=== PATIENT | male | born 1950 | race Caucasian/White ===

== ENCOUNTER → 2018-04-22 | Outpatient (CLI) | payer MEDICARE ==
--- NOTE | 2018-04-22 14:48 | XR ---
EXAMINATION TYPE: XR cervical spine limited DATE OF EXAM: 04/22/2018 COMPARISON: NONE HISTORY: neck pain TECHNIQUE: 3 views are submitted. FINDINGS: The odontoid is intact. There are no compression deformities. The prevertebral soft tissue structur es are within normal limits. There is multilevel degenerative disc disease with most marked findings at C3-C4 with a 3.7 mm retrolisthesis. Multilevel facet arthropathy noted. Calcifications in the soft tissues of the neck are likely vascular. IMPRESSION: 1. Multilevel severe degenerative disc disease with facet arthropathy and hypertrophic changes. There is a 3.7 mm retrolisthesis of C3 relative to C4. Consider MRI follow-up.
--- NOTE | 2018-04-22 14:49 | XR ---
EXAM TYPE: LUMBAR SPINE X RAY SERIES COMPARISON: NONE HISTORY: Low back pain TECHNIQUE: 4 views are submitted. FINDINGS: Alignment is anatomic. The pedicles are intact. The transverse processes are intact. There is hype rtrophic and degenerative changes of the vertebral patella with a grade 1 anterolisthesis L5 on S1. N o compression deformities. IMPRESSION: 1. Multilevel hypertrophic and degenerative change with facet arthropathy. Grade 1 anterolisthesis L5 on S1.
== END | disposition home or self-care (01) ==
LOC: RADXRMAIN 14:00
PROVIDERS: ATTEND Internal Medicine
DX: M43.16 Spondylolisthesis, lumbar region (principal); M47.816 Spondylosis without myelopathy or radiculopathy, lumbar region; M46.86 Other specified inflammatory spondylopathies, lumbar region; M43.12 Spondylolisthesis, cervical region; M50.30 Other cervical disc degeneration, unspecified cervical region; M46.82 Other specified inflammatory spondylopathies, cervical region
CPT/HCPCS: 72040; 72100

== ENCOUNTER → 2018-06-15 | Outpatient (CLI) | payer MEDICARE ==
--- NOTE | 2018-06-16 09:49 | US ---
EXAMINATION TYPE: US carotid duplex BILAT DATE OF EXAM: 06/15/2018 COMPARISON: CT angiogram head and neck 12/26/2015 CLINICAL HISTORY: R20.2 Left Facial Numbness. EXAM MEASUREMENTS: RIGHT: Peak Systolic Velocity (PSV) cm/sec ----- Right CCA: 91.0 ----- Right ICA: 111.5 ----- Right ECA: 221.6 ICA/CCA ratio: 1.2 RIGHT: End Diastole cm/sec ----- Right CCA: 22.7 ----- Right ICA: 34.2 ----- Right ECA: 24.6 LEFT: Peak Systolic Velocity (PSV) cm/sec ----- Left CCA: 67.2 ----- Left ICA: 90.7 ----- Left ECA: 152.1 ICA/CCA ratio: 1.4 LEFT: End Diastole cm/sec ----- Left CCA: 17.2 ----- Left ICA: 34.7 ----- Left ECA: 11.1 VERTEBRALS (direction of flow): Right Vertebral: Antegrade Left Vertebral: Antegrade Rhythm: Normal No significant stenosis seen in bilateral ICA, ECA's bilaterally show increased velocity. Mild to mod erate plaque. Grayscale, color Doppler, spectral Doppler imaging performed of the carotid arteries. Waveform analys is does not show significant stenosis of the proximal internal carotid arteries. IMPRESSION: No hemodynamic significant stenosis of the proximal internal carotid arteries bilaterall y by Doppler criteria, an indirect measurement of carotid stenosis
== END | disposition home or self-care (01) ==
LOC: RADUSWWP 16:19
PROVIDERS: ATTEND Internal Medicine
DX: R20.0 Anesthesia of skin (principal)
CPT/HCPCS: 93880

== ENCOUNTER 2022-05-14 08:47 | Emergency (ER) | payer MEDICARE ==
--- NOTE | 2022-05-14 09:16 | ED ---
Neck Injury/Pain HPI - General Chief Complaint: Neck Pain/Injury Stated Complaint: weakness, neck pain Time Seen by Provider: 05/14/22 08:56 Source: EMS, RN notes reviewed Mode of arrival: EMS Limitations: no limitations - History of Present Illness Initial Comments: 72-year-old male with history of hypertension history of diabetes currently not taking medications. He states he can't afford them who presents with complaints of neck pain which is been chronic but persistent S with complaints of weakness and some dizziness. No fevers chills or sweats. He was found have a glucose of 262 on Accu-Chek he was given a 500 mL bolus by paramedics. States the pain in his neck is severe he denies any trauma no difficulty swallowing the current complaints or modifying factors MD Complaint: neck pain - Related Data Home Medications Medication Instructions Recorded Confirmed Acetaminophen/Diphenhydramine 4 tab PO HS 05/14/22 05/14/22 [Tylenol PM 500-25mg] Allergies Allergy/AdvReac Type Severity Reaction Status Date / Time No Known Allergies Allergy Verified 05/14/22 10:19 Review of Systems ROS Statement: Those systems with pertinent positive or pertinent negative responses have been documented in the HPI. ROS Other: All systems not noted in ROS Statement are negative. Past Medical History Past Medical History: CVA/TIA, Diabetes Mellitus, Hyperlipidemia, Hypertension, Seizure Disorder History of Any Multi-Drug Resistant Organisms: None Reported Past Surgical History: Orthopedic Surgery Additional Past Surgical History / Comment(s): hemmoroid, nahid feet, lt hand Past Psychological History: No Psychological Hx Reported Smoking Status: Current some day smoker Past Alcohol Use History: Occasional Past Drug Use History: None Reported General Exam - General Exam Comments Initial Comments: This is a well-developed well-nourished awake alert oriented 4 male Limitations: no limitations General appearance: alert, in no apparent distress Head exam: Present: atraumatic, normocephalic, normal inspection Eye exam: Present: normal appearance, PERRL, EOMI. Absent: scleral icterus, conjunctival injection, periorbital swelling ENT exam: Present: mucous membranes dry Neck exam: Present: normal inspection, tenderness, other (No surgery or bruits). Absent: meningismus, full ROM, lymphadenopathy Respiratory exam: Present: normal lung sounds bilaterally. Absent: respiratory distress, wheezes, rales, rhonchi, stridor Cardiovascular Exam: Present: normal rhythm, tachycardia, normal heart sounds. Absent: systolic murmur, diastolic murmur, rubs, gallop, clicks GI/Abdominal exam: Present: soft, normal bowel sounds. Absent: distended, tenderness, guarding, rebound, rigid Extremities exam: Present: normal inspection, full ROM, normal capillary refill. Absent: tenderness, pedal edema, joint swelling, calf tenderness Back exam: Present: normal inspection Neurological exam: Present: alert, oriented X3, CN II-XII intact Psychiatric exam: Present: normal affect, normal mood Skin exam: Present: warm, dry, intact, normal color. Absent: rash Course Vital Signs 05/14/22 05/14/22 05/14/22 08:53 09:12 11:50 Temperature 98.4 F Pulse Rate 104 H 100 105 H Respiratory 20 20 18 Rate Blood Pressure 152/90 152/88 150/83 O2 Sat by Pulse 99 98 99 Oximetry 05/14/22 12:14 Temperature 98 F Pulse Rate 100 Respiratory 20 Rate Blood Pressure 150/86 O2 Sat by Pulse Oximetry Medical Decision Making - Medical Decision Making Further information was obtained from the patient's he Tab to 30 pound weight loss with past several months. Episodes of constipation and nausea with the patient relates to try to eat food too fast. He try to get established with Dr. Chatman and initially I did plan on admitting the patient he does not want stay at this time he will go home and follow up outpatient. He does agree to accept all responsibility. - Lab Data Result diagrams: 05/14/22 09:02 05/14/22 09:02 Lab Results 05/14/22 05/14/22 05/14/22 Range/Units 09:02 09:02 09:02 WBC 7.3 (3.8-10.6) k/uL RBC 4.28 L (4.30-5.90) m/uL Hgb 12.5 L (13.0-17.5) gm/dL Hct 37.4 L (39.0-53.0) % MCV 87.4 (80.0-100.0) fL MCH 29.3 (25.0-35.0) pg MCHC 33.5 (31.0-37.0) g/dL RDW 13.6 (11.5-15.5) % Plt Count 202 (150-450) k/uL MPV 6.9 Neutrophils % 79 % Lymphocytes % 14 % Monocytes % 4 % Eosinophils % 2 % Basophils % 1 % Neutrophils # 5.7 (1.3-7.7) k/uL Lymphocytes # 1.0 (1.0-4.8) k/uL Monocytes # 0.3 (0-1.0) k/uL Eosinophils # 0.1 (0-0.7) k/uL Basophils # 0.0 (0-0.2) k/uL Poikilocytosis Slight Sodium 133 L (137-145) mmol/L Potassium 3.9 (3.5-5.1) mmol/L Chloride 98 (98-107) mmol/L Carbon Dioxide 24 (22-30) mmol/L Anion Gap 11 mmol/L BUN 17 (9-20) mg/dL Creatinine 0.61 L (0.66-1.25) mg/dL Est GFR (CKD-EPI)AfAm >90 (>60 ml/min/1.73 sqM) Est GFR (CKD-EPI)NonAf >90 (>60 ml/min/1.73 sqM) Glucose 237 H (74-99) mg/dL Calcium 8.5 (8.4-10.2) mg/dL Magnesium 1.8 (1.6-2.3) mg/dL Total Bilirubin 0.7 (0.2-1.3) mg/dL AST 35 (17-59) U/L ALT 33 (4-49) U/L Alkaline Phosphatase 153 H (38-126) U/L Creatine Kinase <20 L (55-170) U/L Troponin I <0.012 (0.000-0.034) ng/mL Total Protein 6.7 (6.3-8.2) g/dL Albumin 3.7 (3.5-5.0) g/dL Lipase 279 (23-300) U/L - EKG Data -: EKG Interpreted by Me EKG shows normal: sinus rhythm EKG Comments: Sinus tachycardia rate 103 AZ interval 146 QRS duration 78 QT since QTC 352/412 nonspecific T-wave configuration - Radiology Data Radiology results: report reviewed (Imaging reviewed as well as reports no acute findings.), image reviewed Disposition Clinical Impression: Chronic neck pain, Dehydration, Failure to thrive Disposition: HOME SELF-CARE Condition: Stable Instructions (If sedation given, give patient instructions): Neck Pain (ED), Dehydration (ED) Is patient prescribed a controlled substance at d/c from ED?: No Referrals: None,Stated [Primary Care Provider] - 1-2 days Nathan Chatman MD [STAFF PHYSICIAN] - 1-2 days Decision Date: 05/14/22 Decision Time: 14:00
[2022-05-14 09:21] LABS: Basophils % (A) 1 %; Eosinophils # (A) 0.1 k/uL (0-0.7); Eosinophils % (A) 2 %; HCT 37.4 % (39.0-53.0); HGB 12.5 gm/dL (13.0-17.5); Lymphocytes % (A) 14 %; MCH 29.3 pg (25.0-35.0); MCHC 33.5 g/dL (31.0-37.0); MCV 87.4 fL (80.0-100.0); Mean Platelet Volume 6.9; Monocytes # (A) 0.3 k/uL (0-1.0); Monocytes % (A) 4 %; Neutrophils # (A) 5.7 k/uL (1.3-7.7); Neutrophils % (A) 79 %; Platelet Count 202 k/uL (150-450); Poikilocytosis Slight; RBC 4.28 m/uL (4.30-5.90); RDW 13.6 % (11.5-15.5); WBC 7.3 k/uL (3.8-10.6)
[2022-05-14 09:42] LABS: ALT 33 U/L (4-49); AST 35 U/L (17-59); African American GFR (CKD) >90 (>60 ml/min/1.73 sqM); Albumin 3.7 g/dL (3.5-5.0); Alkaline Phosphatase 153 U/L (38-126); Anion Gap 11 mmol/L; Blood Urea Nitrogen 17 mg/dL (9-20); Calcium 8.5 mg/dL (8.4-10.2); Carbon Dioxide 24 mmol/L (22-30); Chloride 98 mmol/L (98-107); Creatine Kinase <20 U/L (55-170); Glucose 237 mg/dL (74-99); Lipase 279 U/L (23-300); Magnesium 1.8 mg/dL (1.6-2.3); Non-African American GFR(CKD) >90 (>60 ml/min/1.73 sqM); Potassium 3.9 mmol/L (3.5-5.1); Sodium 133 mmol/L (137-145); Total Bilirubin 0.7 mg/dL (0.2-1.3); Total Protein 6.7 g/dL (6.3-8.2)
[2022-05-14] MEDS ORDERED: KETOROLAC 15 MG/ML 1 ML VIAL IVP STA (10:19)
--- NOTE | 2022-05-14 10:53 | XR ---
EXAMINATION TYPE: XR chest 2V DATE OF EXAM: 05/14/2022 COMPARISON: 05/02/2016 HISTORY: Shortness of breath TECHNIQUE: Frontal and lateral views of the chest are obtained. FINDINGS: Scattered senescent parenchymal changes noted. No evidence for infiltrate. No evidence for atelectasis. Heart size is stable. Mediastinal structures are stable and grossly unremarkable. No evidence for hilar prominence. Degenerative changes dorsal spine. IMPRESSION: 1. No evidence for acute pulmonary disease.
--- NOTE | 2022-05-14 10:58 | XR ---
EXAMINATION TYPE: XR cervical spine comp DATE OF EXAM: 05/14/2022 CLINICAL HISTORY: pain COMPARISON: NONE TECHNIQUE: Frontal, lateral, oblique, swimmers, and open mouth view of the cervical spine are obtaine d. FINDINGS: The cervical spine is visualized in its entirety from C1 thru the top of T1 level. It is s atisfactory in alignment without evidence of acute fracture or dislocation. The pre-vertebral soft t issue appears within normal limits. Severe degenerative disc space narrowing extending from C3-4 thro ugh C6-C7. Large ventral spurs are noted. There is neural foraminal encroachment at C3-4, C4-5 and C5 -6 bilaterally. The C1-C2 articulation is unremarkable on the open mouth view. IMPRESSION: No acute fracture or dislocation is seen in the cervical spine.ICD 10 NO FRACTURE, INITI AL EVALUATION
[2022-05-14] MEDS ORDERED: SODIUM CHLORIDE 0.9% 500 ML 500 ML IV STA (11:08)
[2022-05-14] MEDS ORDERED: HYDROmorphone 1 MG/ML 1 ML SYRINGE IVP STA (11:56)
[2022-05-14] MEDS ORDERED: methylPREDNISolone SOD SUCCI 125 MG/2 ML VIAL IV STA (11:56)
[2022-05-14 14:09] VITALS: RESP 16; TEMP 97
[2022-05-14 14:48] VITALS: BP 140/89; PULSE 75
--- NOTE | 2022-05-15 07:12 | ED ---
Medical Decision Making - Lab Data Result diagrams: 05/14/22 09:02 05/14/22 09:02 Lab Results 05/14/22 05/14/22 05/14/22 Range/Units 09:02 09:02 09:02 WBC 7.3 (3.8-10.6) k/uL RBC 4.28 L (4.30-5.90) m/uL Hgb 12.5 L (13.0-17.5) gm/dL Hct 37.4 L (39.0-53.0) % MCV 87.4 (80.0-100.0) fL MCH 29.3 (25.0-35.0) pg MCHC 33.5 (31.0-37.0) g/dL RDW 13.6 (11.5-15.5) % Plt Count 202 (150-450) k/uL MPV 6.9 Neutrophils % 79 % Lymphocytes % 14 % Monocytes % 4 % Eosinophils % 2 % Basophils % 1 % Neutrophils # 5.7 (1.3-7.7) k/uL Lymphocytes # 1.0 (1.0-4.8) k/uL Monocytes # 0.3 (0-1.0) k/uL Eosinophils # 0.1 (0-0.7) k/uL Basophils # 0.0 (0-0.2) k/uL Poikilocytosis Slight Sodium 133 L (137-145) mmol/L Potassium 3.9 (3.5-5.1) mmol/L Chloride 98 (98-107) mmol/L Carbon Dioxide 24 (22-30) mmol/L Anion Gap 11 mmol/L BUN 17 (9-20) mg/dL Creatinine 0.61 L (0.66-1.25) mg/dL Est GFR (CKD-EPI)AfAm >90 (>60 ml/min/1.73 sqM) Est GFR (CKD-EPI)NonAf >90 (>60 ml/min/1.73 sqM) Glucose 237 H (74-99) mg/dL Calcium 8.5 (8.4-10.2) mg/dL Magnesium 1.8 (1.6-2.3) mg/dL Total Bilirubin 0.7 (0.2-1.3) mg/dL AST 35 (17-59) U/L ALT 33 (4-49) U/L Alkaline Phosphatase 153 H (38-126) U/L Creatine Kinase <20 L (55-170) U/L Troponin I <0.012 (0.000-0.034) ng/mL Total Protein 6.7 (6.3-8.2) g/dL Albumin 3.7 (3.5-5.0) g/dL Lipase 279 (23-300) U/L Disposition Clinical Impression: Chronic neck pain, Dehydration, Failure to thrive Disposition: HOME SELF-CARE Condition: Stable Instructions (If sedation given, give patient instructions): Dehydration (ED), Neck Pain (ED) Prescriptions: predniSONE [Deltasone] 20 mg PO BID #10 tab Ibuprofen [Motrin] 600 mg PO Q6HR PRN #20 tab PRN Reason: Pain Is patient prescribed a controlled substance at d/c from ED?: No Referrals: Nathan Chatman MD [STAFF PHYSICIAN] - 1-2 days None,Stated [Primary Care Provider] - 1-2 days
== END 2022-05-14 14:48 | disposition home or self-care (01) ==
LOC: EC 08:47
DX: M54.2 Cervicalgia (principal); E86.0 Dehydration; R62.7 Adult failure to thrive; E11.9 Type 2 diabetes mellitus without complications; I10 Essential (primary) hypertension; E78.5 Hyperlipidemia, unspecified; Z86.73 Personal history of transient ischemic attack (TIA), and cerebral infarction without residual deficits; F17.200 Nicotine dependence, unspecified, uncomplicated
CPT/HCPCS: 36415; 93005; 80053; 82550; 83690; 83735; 84484; 85025; 72050; 71046; 99285; 96374; 96375 ×2; J2930; J1170; J1885

== ENCOUNTER 2022-06-04 12:23 | Inpatient (IN) | payer MEDICARE ==
[2022-06-04] MEDS ORDERED: SODIUM CHLORIDE 0.9% 1,000 ML IV ONE (12:30)
[2022-06-04] MEDS ORDERED: SODIUM CHLORIDE 0.9% 500 ML 500 ML IV ONE (12:30)
--- NOTE | 2022-06-04 12:33 | ED ---
General Adult HPI - General Chief complaint: Weakness Stated complaint: hyperglycemia Time Seen by Provider: 06/04/22 12:25 Source: patient, EMS, RN notes reviewed, old records reviewed Mode of arrival: EMS - History of Present Illness Initial comments: This is a 72-year-old male who presents emergency Department stating that he is a diabetic and hasn't taken any insulin for years because he ran out. Patient states over the last month she's had intermittent vomiting which is getting progressively worse. Patient states he has slight diffuse abdominal pain. Patient states he drinks occasionally but hasn't drink at least 2 weeks. Patient denies any recent fever chills or cough. Patient denies any chest pain or palpitations. Patient denies any dysuria hematuria urinary frequency. Patient has a very poor historian and can't give any good expiration as to why is not maintaining his sugars at a normal level. Patient states he has nothing to check his sugars at home with. Patient states he continues to smoke. - Related Data Home Medications Medication Instructions Recorded Confirmed Acetaminophen/Diphenhydramine 4 tab PO HS 05/14/22 05/14/22 [Tylenol PM 500-25mg] Previous Rx's Medication Instructions Recorded Ibuprofen [Motrin] 600 mg PO Q6HR PRN #20 tab 05/15/22 predniSONE [Deltasone] 20 mg PO BID #10 tab 05/15/22 Allergies Allergy/AdvReac Type Severity Reaction Status Date / Time No Known Allergies Allergy Verified 06/04/22 12:27 Review of Systems ROS Statement: Those systems with pertinent positive or pertinent negative responses have been documented in the HPI. ROS Other: All systems not noted in ROS Statement are negative. Past Medical History Past Medical History: CVA/TIA, Diabetes Mellitus, Hyperlipidemia, Hypertension, Seizure Disorder History of Any Multi-Drug Resistant Organisms: None Reported Past Surgical History: Orthopedic Surgery Additional Past Surgical History / Comment(s): hemmoroid, nahid feet, lt hand Past Psychological History: No Psychological Hx Reported Smoking Status: Current some day smoker Past Alcohol Use History: Occasional Past Drug Use History: None Reported General Exam - General Exam Comments Initial Comments: GENERAL: Patient is cachectic. Patient is in mild distress ENT: Neck is soft and supple. No significant lymphadenopathy is noted. Oropharynx is clear. Moist mucous membranes. Neck has full range of motion without eliciting any pain. EYES: The sclera were anicteric and conjunctiva were pink and moist. Extraocular movements were intact and pupils were equal round and reactive to light. Eyelids were unremarkable. PULMONARY: Unlabored respirations. Good breath sounds bilaterally. No audible rales rhonchi or wheezing was noted. CARDIOVASCULAR: Patient is tachycardic at about 115 beats a minute. ABDOMEN: Patient has right upper and left upper quadrant tenderness no rebound SKIN: Skin is clear with no lesions or rashes and otherwise unremarkable. NEUROLOGIC: Patient is alert and oriented x3. Cranial nerves II through XII are grossly intact. Motor and sensory are also intact. Normal speech, volume and content. Symmetrical smile. MUSCULOSKELETAL: Normal extremities with adequate strength and full range of motion. No lower extremity swelling or edema. No calf tenderness. LYMPHATICS: No significant lymphadenopathy is noted PSYCHIATRIC: Normal psychiatric evaluation. Course Vital Signs 06/04/22 06/04/22 12:24 12:30 Temperature 97.2 F L 97.2 F L Pulse Rate 114 H 114 H Respiratory 18 18 Rate Blood Pressure 164/93 164/93 O2 Sat by Pulse 99 99 Oximetry Medical Decision Making - Medical Decision Making Patient's CAT scan showed renal and splenic infarct. Patient was started on an insulin drip and also given 0.9 normal saline 1/2 L. I called [facility] hospitalist they agreed to admit the patient admitted the patient wrote admitting orders - Lab Data Lab Results 06/04/22 06/04/22 06/04/22 Range/Units 14:58 16:45 17:35 POC Glucose (mg/dL) 585 H >600 H 328 H (70-110) mg/dL POC Glu Patient Access Associate ID Chrissy Saini Jackie Gibbs, Jackie 06/04/22 06/04/22 Range/Units 18:08 19:16 POC Glucose (mg/dL) 325 H 272 H (70-110) mg/dL POC Glu Patient Access Associate ID Giuliana Henson Pauline Critical Care Time Critical Care Time: Yes Total Critical Care Time: 35 Disposition Clinical Impression: Diabetic ketoacidosis, Renal infarct, Splenic infarct Disposition: ADMITTED IP TO THIS HOSP Referrals: Nathan Chatman MD [Primary Care Provider] - 1-2 days Time of Disposition: 19:58
[2022-06-04 12:54] LABS: Basophils % (A) 0 %; Eosinophils % (A) 0 %; HCT 39.4 % (39.0-53.0); Hypochromasia Marked; Lymphocytes # (A) 0.3 k/uL (1.0-4.8); Lymphocytes % (A) 3 %; MCH 28.7 pg (25.0-35.0); MCHC 30.5 g/dL (31.0-37.0); Mean Platelet Volume 7.8; Monocytes # (A) 0.5 k/uL (0-1.0); Monocytes % (A) 5 %; Neutrophils # (A) 9.6 k/uL (1.3-7.7); Platelet Count 231 k/uL (150-450); RBC 4.18 m/uL (4.30-5.90); WBC 10.6 k/uL (3.8-10.6)
[2022-06-04 13:13] LABS: ALT 19 U/L (4-49); AST 27 U/L (17-59); African American GFR (CKD) >90 (>60 ml/min/1.73 sqM); Alkaline Phosphatase 133 U/L (38-126); Anion Gap 20 mmol/L; Blood Urea Nitrogen 26 mg/dL (9-20); Calcium 8.4 mg/dL (8.4-10.2); Carbon Dioxide 11 mmol/L (22-30); Chloride 95 mmol/L (98-107); Magnesium 1.6 mg/dL (1.6-2.3); Non-African American GFR(CKD) 89 (>60 ml/min/1.73 sqM); Potassium 5.4 mmol/L (3.5-5.1); Sodium 126 mmol/L (137-145); Total Bilirubin 0.4 mg/dL (0.2-1.3); Total Protein 5.9 g/dL (6.3-8.2)
[2022-06-04 19:23] LABS: Glucose,Whole Blood >600 mg/dL (70-110)
[2022-06-04 19:23] LABS: Glucose,Whole Blood 272 mg/dL (70-110)
[2022-06-04 19:23] LABS: Glucose,Whole Blood 325 mg/dL (70-110)
[2022-06-04 19:23] LABS: Glucose,Whole Blood 585 mg/dL (70-110)
[2022-06-04 19:23] LABS: Glucose,Whole Blood 328 mg/dL (70-110)
[2022-06-04] MEDS: D5-0.45% NACL WITH KCL 20MEQ/L 1,000 ML IV SCH (19:51)
[2022-06-04] MEDS: INSULIN REGULAR 100 UNIT in SODIUM CHLORIDE 0.9% 100 ML IV SCH (20:04)
[2022-06-04 21:00] LABS: Glucose,Whole Blood 306 mg/dL (70-110)
[2022-06-04 21:40] LABS: Glucose,Whole Blood 251 mg/dL (70-110)
[2022-06-04 21:41] LABS: African American GFR (CKD) >90 (>60 ml/min/1.73 sqM); Blood Urea Nitrogen 25 mg/dL (9-20); Non-African American GFR(CKD) >90 (>60 ml/min/1.73 sqM); Phosphorus 3.4 mg/dL (2.5-4.5)
[2022-06-04 22:05] LABS: Anion Gap 20 mmol/L; Carbon Dioxide 12 mmol/L (22-30); Chloride 101 mmol/L (98-107); Glucose 252 mg/dL (74-99); Potassium 4.3 mmol/L (3.5-5.1); Sodium 133 mmol/L (137-145)
--- NOTE | 2022-06-04 22:35 | CT ---
EXAM: CT Abdomen and Pelvis With Intravenous Contrast CLINICAL HISTORY: n/v/d ; abn weight loss TECHNIQUE: Axial computed tomography images of the abdomen and pelvis with intravenous contrast. CTDI is 18.5 mGy and DLP is 881.5 mGy-cm. This CT exam was performed using one or more of the following dose reduction techniques: automated exposure control, adjustment of the mA and/or kV according to patient size, and/or use of iterative reconstruction technique. COMPARISON: No relevant prior studies available. FINDINGS: The lung bases demonstrate no acute infiltrate. Coronary atherosclerosis. Large infarct involving the superior portion of the enlarged spleen. Small air mid-lower splenic infarct. Mid zone and lower pole right renal infarcts given multiple organ involvement, suspect a shower of emboli. Consider cardiac source. Correlate for atrial fibrillation. There is also soft plaque in the lower thoracic and upper abdominal aorta that could potentially serve as an embolic source. The liver, biliary tree, pancreas, spleen, and left kidney are within normal limits. Fluid the distal esophagus. Moderate gastric distention. No clear outlet obstruction. No SBO. Diverticulosis coli without diverticulitis. The appendix is unremarkable. Distal colonic fecal retention should be correlated for constipation. Aortoiliac atherosclerosis with aortoiliac stent graft. No leakage beyond the sac, which is essentially contracted about the graft. Heavily calcified but major visceral branches. Moderately distended urinary bladder. No hydronephrosis. L5 spondylolysis with minimal anterolisthesis. Extensive spinal hyperostosis. No acute fracture. IMPRESSION: Splenic and right renal infarcts are likely acute and should be correlated for embolic source such as atrial fibrillation. There is also soft plaque thoracoabdominal aorta that could serve as a source of embolus. Moderate gastric distention without clear outlet obstruction. Fecal retention should be correlated for constipation. Diverticulosis coli without diverticulitis. Moderate urinary bladder distention. No hydronephrosis. Aortoiliac stent graft.
[2022-06-04 22:40] LABS: Glucose,Whole Blood 299 mg/dL (70-110)
[2022-06-04 22:43] LABS: Appearance,Urine Clear (Clear); Bilirubin,Urine Negative (Negative); Blood,Urine Negative (Negative); Color,Urine Light Yellow; Glucose,Urine (UA) 4+ (Negative); Leukocyte Esterase,Urine Negative (Negative); Mucus,Urine Rare /hpf; Nitrite,Urine Negative (Negative); PH, Urine 5.5 (5.0-8.0); Protein,Urine Trace (Negative); RBC,Urine <1 /hpf (0-5); Specific Gravity,Urine 1.025 (1.001-1.035); Urobilinogen,Urine <2.0 mg/dL (<2.0); WBC,Urine 1 /hpf (0-5)
[2022-06-04 22:47] LABS: Ketones,Urine 4+ (Negative)
[2022-06-04 23:19] LABS: Glucose 681 mg/dL (74-99)
[2022-06-04 23:47] LABS: MCV 94.2 fL (80.0-100.0)
[2022-06-05 00:35] LABS: Glucose,Whole Blood 139 mg/dL (70-110)
[2022-06-05 01:28] LABS: African American GFR (CKD) >90 (>60 ml/min/1.73 sqM); Anion Gap 15 mmol/L; Blood Urea Nitrogen 23 mg/dL (9-20); Carbon Dioxide 18 mmol/L (22-30); Chloride 102 mmol/L (98-107); Glucose 84 mg/dL (74-99); Non-African American GFR(CKD) >90 (>60 ml/min/1.73 sqM); Potassium 3.6 mmol/L (3.5-5.1); Sodium 135 mmol/L (137-145)
[2022-06-05] MEDS: SODIUM CHLORIDE 0.9% 1,000 ML IV SCH ×4 (02:48→22:21)
[2022-06-05] MEDS: D5-0.45% NACL WITH KCL 20MEQ/L 1,000 ML IV SCH ×4 (02:48→22:38)
[2022-06-05 03:36] LABS: Glucose,Whole Blood 227 mg/dL (70-110)
[2022-06-05] MEDS: INSULIN REGULAR 100 UNIT in SODIUM CHLORIDE 0.9% 100 ML IV SCH (03:44)
[2022-06-05 05:33] LABS: Glucose,Whole Blood 303 mg/dL (70-110)
[2022-06-05 07:07] LABS: Glucose,Whole Blood 212 mg/dL (70-110)
[2022-06-05] MEDS ORDERED: MORPHINE SULFATE 2 MG/ML SYRINGE IVP STA (08:02)
--- NOTE | 2022-06-05 08:04 | P.HPIM ---
History of Present Illness This is a pleasant 72 years old male with past medical history of hypertension, hyperlipidemia, CVA/TIA and seizure disorder not on medication. He is a patient of Dr. Chatman Patient presents because of hyperglycemia and non-adherence to medication as per documentation but when I saw the patient this morning it looks confused although he couldn't tell me he is in the hospital, and in [place] however he could not tell the name of the president or the date or the year. This is to respond however he can follow commands easily and he understands the concepts with no much difficulty patient however is poor historian and could not provide a correct information why he came to the hospital and after he gave permission I talked to the cinda at [phone], she told me patient was not doing well for the last 2 months on and off but got really worse over the last 2 weeks. He is not thinking very well. He was complaining of from pain in his neck and shoulders and he's been not eating well and losing weight. He used to weigh 200 pounds and currently about 150 pounds. His been vomiting on and off for about one month, also not eating well and complaining of from constipation Also patient has no length and very weak, yesterday his was trying to get him to the car to go see his PCP Dr. Chatman but he could not stand up so she called embolus for him. Patient himself complain from weakness in both legs however looks like his weakness is generalized, no asymmetry, no facial diffusion but he complains from some headache with no dizziness. He denies chest pain or dyspnea but he complains from some shoulder and neck pain. No urinary complaints. Patient Vitas looks stable, temperature is 97.2. Patient is tachycardic and hypertensive. Heart rate 117 and blood pressure 164/93 on admission. Labs done in the emergency room are only BMP with sodium 133, creatinine normal 0.6. CT of the abdomen and pelvis with IV contrast: Enlarged spleen with infarction. Mid and lower pole right renal infarcts given multiple organ involvement. Suspect a shower of emboli. Consider cardiac source. Correlate for atrial fibrillation. There is also soft plaque in the lower thoracic and upper abdominal aorta that couldn't occasionally serves as an embolic source. He'll retention, gastric distention and diverticulitis with moderate urinary bladder distention. Aortoiliac stent graft Patient was started on insulin drip in the emergency room and normal saline. Vascular surgery and textile machine operator been consulted Review of Systems Review of systems CONSTITUTIONAL: No fever, no malaise, no fatigue. HEENT: No recent visual problems or hearing problems. Denied any sore throat. CARDIOVASCULAR: No orthopnea, PND, no palpitations, no syncope. PULMONARY: No shortness of breath, no cough, no hemoptysis. GASTROINTESTINAL: No diarrhea, no nausea, no vomiting, no abdominal pain. Normoactive bowel sounds. NEUROLOGICAL: No headaches, no weakness, no numbness. HEMATOLOGICAL: Denies any bleeding or petechiae. GENITOURINARY: Denies any burning micturition, frequency, or urgency. MUSCULOSKELETAL/RHEUMATOLOGICAL: Denies any joint pain, swelling, or any muscle pain. ENDOCRINE: Denies any polyuria or polydipsia. Past Medical History Past Medical History: CVA/TIA, Diabetes Mellitus, Hyperlipidemia, Hypertension, Seizure Disorder History of Any Multi-Drug Resistant Organisms: None Reported Past Surgical History: Orthopedic Surgery Additional Past Surgical History / Comment(s): hemmoroid, nahid feet, lt hand Past Psychological History: No Psychological Hx Reported Smoking Status: Current some day smoker Past Alcohol Use History: Occasional Past Drug Use History: None Reported Medications and Allergies Home Medications Medication Instructions Recorded Confirmed Type Acetaminophen/Diphenhydramine 4 tab PO HS 05/14/22 06/04/22 History [Tylenol PM 500-25mg] Ibuprofen [Motrin] 600 mg PO Q6HR PRN #20 tab 05/15/22 06/04/22 Rx Gabapentin [Neurontin] 200 mg PO HS 06/04/22 06/04/22 History Hydrocodone/Acetaminophen 1 tab PO Q4H PRN 06/04/22 06/04/22 History [Hydrocodone/Acetaminophen 5-325] predniSONE [Deltasone] 20 mg PO DIRECTED 06/04/22 06/04/22 History Allergies Allergy/AdvReac Type Severity Reaction Status Date / Time No Known Allergies Allergy Verified 06/04/22 22:01 Physical Exam Vitals: Vital Signs Temp Pulse Pulse Resp BP BP Pulse Ox 06/05/22 04:00 98.4 F 114 H 21 152/65 06/05/22 00:00 97.8 F 110 H 18 142/84 06/04/22 12:30 97.2 F L 114 H 18 164/93 99 06/04/22 12:24 97.2 F L 114 H 18 164/93 99 Intake and Output 06/04/22 06/04/22 06/05/22 14:59 22:59 06:59 Intake Total 17.752 35.523 Balance 17.752 35.523 Intake: Intake, IV Titration 17.752 35.523 Amount Insulin Regular 100 unit 17.752 35.523 In Sodium Chloride 0.9% 100 ml @ 0.1 UNITS/KG/HR 6.872 mls/hr IV .[id number] COUNT INCLUDES THE [facility] Rx#:[id number] Other: Voiding Method Urinal Weight 68.039 kg -GENERAL: The patient is alert and oriented x1 to place only, slow to respond but follow commands and answers appropriately, not in any acute distress. Well developed, well nourished. HEENT: Pupils are round and equally reacting to light. EOMI. No scleral icterus. No conjunctival pallor. Normocephalic, atraumatic. No pharyngeal erythema. No thyromegaly. CARDIOVASCULAR: S1 and S2 present. No murmurs, rubs, or gallops. PULMONARY: Chest is clear to auscultation, no wheezing or crackles. -ABDOMEN: Soft, left abdominal tenderness with no rebound tendernessh, nondistended, normoactive bowel sounds. No palpable organomegaly. MUSCULOSKELETAL: No joint swelling or deformity. EXTREMITIES: No cyanosis, clubbing, or pedal edema. NEUROLOGICAL: Gross neurological examination did not reveal any focal deficits. Strength 4/5 all over. Sensation intact. Meningeal signs are absent SKIN: No rashes. no petechiae. Results CBC & Chem 7: 06/04/22 12:30 06/05/22 00:44 Labs: Abnormal Lab Results - Last 24 Hours (Table) 06/04/22 06/04/22 06/04/22 Range/Units 12:30 12:30 14:58 RBC 4.18 L (4.30-5.90) m/uL Hgb 12.0 L (13.0-17.5) gm/dL MCHC 30.5 L (31.0-37.0) g/dL Neutrophils # 9.6 H (1.3-7.7) k/uL Lymphocytes # 0.3 L (1.0-4.8) k/uL Sodium 126 L (137-145) mmol/L Potassium 5.4 H (3.5-5.1) mmol/L Chloride 95 L (98-107) mmol/L Carbon Dioxide 11 L (22-30) mmol/L BUN 26 H (9-20) mg/dL Creatinine (0.66-1.25) mg/dL Glucose 681 H* (74-99) mg/dL POC Glucose (mg/dL) 585 H (70-110) mg/dL Alkaline Phosphatase 133 H (38-126) U/L Total Protein 5.9 L (6.3-8.2) g/dL Albumin 3.0 L (3.5-5.0) g/dL Urine Protein (Negative) Urine Glucose (UA) (Negative) Urine Ketones (Negative) Urine Mucus (None) /hpf 06/04/22 06/04/22 06/04/22 Range/Units 15:15 16:45 17:35 RBC (4.30-5.90) m/uL Hgb (13.0-17.5) gm/dL MCHC (31.0-37.0) g/dL Neutrophils # (1.3-7.7) k/uL Lymphocytes # (1.0-4.8) k/uL Sodium (137-145) mmol/L Potassium (3.5-5.1) mmol/L Chloride (98-107) mmol/L Carbon Dioxide (22-30) mmol/L BUN (9-20) mg/dL Creatinine (0.66-1.25) mg/dL Glucose (74-99) mg/dL POC Glucose (mg/dL) >600 H 328 H (70-110) mg/dL Alkaline Phosphatase (38-126) U/L Total Protein (6.3-8.2) g/dL Albumin (3.5-5.0) g/dL Urine Protein Trace H (Negative) Urine Glucose (UA) 4+ H (Negative) Urine Ketones 4+ H (Negative) Urine Mucus Rare H (None) /hpf 06/04/22 06/04/22 06/04/22 Range/Units 18:08 19:16 20:33 RBC (4.30-5.90) m/uL Hgb (13.0-17.5) gm/dL MCHC (31.0-37.0) g/dL Neutrophils # (1.3-7.7) k/uL Lymphocytes # (1.0-4.8) k/uL Sodium 133 L (137-145) mmol/L Potassium (3.5-5.1) mmol/L Chloride (98-107) mmol/L Carbon Dioxide 12 L (22-30) mmol/L BUN 25 H (9-20) mg/dL Creatinine (0.66-1.25) mg/dL Glucose 252 H (74-99) mg/dL POC Glucose (mg/dL) 325 H 272 H (70-110) mg/dL Alkaline Phosphatase (38-126) U/L Total Protein (6.3-8.2) g/dL Albumin (3.5-5.0) g/dL Urine Protein (Negative) Urine Glucose (UA) (Negative) Urine Ketones (Negative) Urine Mucus (None) /hpf 06/04/22 06/04/22 06/04/22 Range/Units 20:59 21:38 22:38 RBC (4.30-5.90) m/uL Hgb (13.0-17.5) gm/dL MCHC (31.0-37.0) g/dL Neutrophils # (1.3-7.7) k/uL Lymphocytes # (1.0-4.8) k/uL Sodium (137-145) mmol/L Potassium (3.5-5.1) mmol/L Chloride (98-107) mmol/L Carbon Dioxide (22-30) mmol/L BUN (9-20) mg/dL Creatinine (0.66-1.25) mg/dL Glucose (74-99) mg/dL POC Glucose (mg/dL) 306 H 251 H 299 H (70-110) mg/dL Alkaline Phosphatase (38-126) U/L Total Protein (6.3-8.2) g/dL Albumin (3.5-5.0) g/dL Urine Protein (Negative) Urine Glucose (UA) (Negative) Urine Ketones (Negative) Urine Mucus (None) /hpf 06/05/22 06/05/22 06/05/22 Range/Units 00:34 00:44 03:25 RBC (4.30-5.90) m/uL Hgb (13.0-17.5) gm/dL MCHC (31.0-37.0) g/dL Neutrophils # (1.3-7.7) k/uL Lymphocytes # (1.0-4.8) k/uL Sodium 135 L (137-145) mmol/L Potassium (3.5-5.1) mmol/L Chloride (98-107) mmol/L Carbon Dioxide 18 L (22-30) mmol/L BUN 23 H (9-20) mg/dL Creatinine 0.47 L (0.66-1.25) mg/dL Glucose (74-99) mg/dL POC Glucose (mg/dL) 139 H 227 H (70-110) mg/dL Alkaline Phosphatase (38-126) U/L Total Protein (6.3-8.2) g/dL Albumin (3.5-5.0) g/dL Urine Protein (Negative) Urine Glucose (UA) (Negative) Urine Ketones (Negative) Urine Mucus (None) /hpf 06/05/22 Range/Units 05:21 RBC (4.30-5.90) m/uL Hgb (13.0-17.5) gm/dL MCHC (31.0-37.0) g/dL Neutrophils # (1.3-7.7) k/uL Lymphocytes # (1.0-4.8) k/uL Sodium (137-145) mmol/L Potassium (3.5-5.1) mmol/L Chloride (98-107) mmol/L Carbon Dioxide (22-30) mmol/L BUN (9-20) mg/dL Creatinine (0.66-1.25) mg/dL Glucose (74-99) mg/dL POC Glucose (mg/dL) 303 H (70-110) mg/dL Alkaline Phosphatase (38-126) U/L Total Protein (6.3-8.2) g/dL Albumin (3.5-5.0) g/dL Urine Protein (Negative) Urine Glucose (UA) (Negative) Urine Ketones (Negative) Urine Mucus (None) /hpf Assessment and Plan Assessment: Altered mental status, but the combination of metabolic/toxic encephalopathy. Rule out stroke Large spleen with infarct, right renal infarct. Rule out embolic source which could be the heart or aortic plaque. Diabetes mellitus with hyperglycemia with evidence of diabetic ketoacidosis on admission non-adherence to medication for many months Possible Fecal retention History of peripheral vascular disease status post Aortoiliac stent graft Hypertension Hyperlipidemia History of CVA/TIA History of seizure disorder, not on AED Plan: This is a pleasant 72 years old male who presents with hyperglycemia Restarted medication. Continue with insulin drip per protocol Check hemoglobin A1c continue with IV hydration check CT of the brain and consult neurology service we'll do bowel rest, IV fluids and pain management. Also check KUB Consult textile machine operator and vascular surgery for possible showering emboli Labs and medication were reviewed.. Continue same treatment. Continue with symptomatic treatment. Resume home medication. Monitor lytes and vitals. DVT and GI prophylaxis. Further recommendations as per clinical course of the patient DVT prophylaxis: Subcutaneous heparin ( CT of the brain is negative) GI Prophylaxis: Pepcid PT/OT: Pending Prognosis is guarded full outpatient coder per
[2022-06-05 08:59] LABS: Glucose,Whole Blood 201 mg/dL (70-110)
[2022-06-05] MEDS: FAMOTIDINE 20 MG/2 ML VIAL IV SCH ×2 (09:11→22:37)
[2022-06-05 10:03] LABS: Glucose,Whole Blood 164 mg/dL (70-110)
[2022-06-05 10:33] LABS: Allen Test Performed? Yes
[2022-06-05 10:34] LABS: ABG PH 7.27 (7.35-7.45)
[2022-06-05 10:36] LABS: ABG HCO3 9 mmol/L (21-25); ABG PCO2 19 mmHg (35-45); ABG PO2 107 mmHg (83-108)
[2022-06-05 10:37] LABS: ABG Base Excess -18.3 mmol/L; ABG TCO2 9 mmol/L (19-24)
[2022-06-05 11:10] LABS: Glucose,Whole Blood 162 mg/dL (70-110)
--- NOTE | 2022-06-05 11:43 | P.GSCN ---
History of Present Illness Consult date: 06/05/22 Reason for Consult: Splenic and renal infarcts Requesting physician: Jose Ramon Elliott History of present illness: This is a 72-year-old pleasant male who had presented to the emergency department apparently by EMS after the had called due to the patient's inability to stand up. Patient has been having increased weakness, confusion, weight loss, complaints of abdominal pain with nausea and vomiting, constipation and was going to present to see his primary care physician Dr. Chiang however patient was unable to get up and into the car so his called EMS. He is noted to be diabetic ketoacidosis on admission. Patient seems somewhat confused on past medical history states he had no prior history of diabetes mellitus, no coronary artery disease. Patient is aware that he has had [facility], he is unsure of year or president. He can state his own birthday and follow directions and commands. On admission patient had a CT of the abdomen and pelvis with IV contrast that reported splenic and right renal infarcts are likely acute and should be correlated for embolic source such as atrial fibr illation. Also soft plaque thoracicoabdominal aorta that could serve as a source of embolus. Aortoiliac sent graft. Vascular surgery was consulted for splenic and renal infarcts. CT brain, x-ray chest and x-ray KUB currently pending. The patient states he has been constipated for some time with some abdominal pain, weight loss, and decreased appetite. When asked regarding aortoiliac stent graft he is not able to give any history. He does state that his lower extremities are cold most the time and sometimes have pain. He denies any chest pain, shortness of breath, fevers or chills. Some of history obtained from chart as patient is somewhat of a poor historian. Review of Systems A 14 point review systems was completed all pertinent positives and negatives as stated in the HPI. Past Medical History Past Medical History: CVA/TIA, Diabetes Mellitus, Hyperlipidemia, Hypertension, Seizure Disorder History of Any Multi-Drug Resistant Organisms: None Reported Past Surgical History: Orthopedic Surgery Additional Past Surgical History / Comment(s): hemmoroid, nahid feet, lt hand Past Psychological History: No Psychological Hx Reported Smoking Status: Current some day smoker Past Alcohol Use History: Occasional Past Drug Use History: None Reported Medications and Allergies Home Medications Medication Instructions Recorded Confirmed Type Acetaminophen/Diphenhydramine 4 tab PO HS 05/14/22 06/04/22 History [Tylenol PM 500-25mg] Ibuprofen [Motrin] 600 mg PO Q6HR PRN #20 tab 05/15/22 06/04/22 Rx Gabapentin [Neurontin] 200 mg PO HS 06/04/22 06/04/22 History Hydrocodone/Acetaminophen 1 tab PO Q4H PRN 06/04/22 06/04/22 History [Hydrocodone/Acetaminophen 5-325] predniSONE [Deltasone] 20 mg PO BID 06/04/22 06/05/22 History Allergies Allergy/AdvReac Type Severity Reaction Status Date / Time No Known Allergies Allergy Verified 06/04/22 22:01 Surgical - Exam Vital Signs Temp Pulse Resp BP Pulse Ox 97.2 F L 114 H 18 164/93 99 06/04/22 12:24 06/04/22 12:24 06/04/22 12:24 06/04/22 12:24 06/04/22 12:24 General appearance: The patient is alert, oriented to self and place. Appears in no acute distress. HET: Head is normocephalic and atraumatic. Pupils are equal and reactive. Neck: Supple without lymphadenopathy. Trachea midline. Heart: S1 S2. Regular rate and rhythm. Lungs: Clear to auscultation bilaterally. Abdomen: Soft, diffuse abdominal tenderness to palpation, nondistended. Extremities: Normal skin color and turgor. Bilateral lower extremities cold to the touch. Palpable femoral and popliteal pulses. Nonpalpable PT and DP pulses bilateral. Neurological: Patient is alert and oriented 2. Unsure of date or president. Able to answer questions seemingly appropriately and follow commands. Results - Labs 06/04/22 12:30 06/05/22 00:44 Abnormal Lab Results - Last 24 Hours (Table) 06/04/22 06/04/22 06/04/22 Range/Units 12:30 12:30 14:58 RBC 4.18 L (4.30-5.90) m/uL Hgb 12.0 L (13.0-17.5) gm/dL MCHC 30.5 L (31.0-37.0) g/dL Neutrophils # 9.6 H (1.3-7.7) k/uL Lymphocytes # 0.3 L (1.0-4.8) k/uL Sodium 126 L (137-145) mmol/L Potassium 5.4 H (3.5-5.1) mmol/L Chloride 95 L (98-107) mmol/L Carbon Dioxide 11 L (22-30) mmol/L BUN 26 H (9-20) mg/dL Creatinine (0.66-1.25) mg/dL Glucose 681 H* (74-99) mg/dL POC Glucose (mg/dL) 585 H (70-110) mg/dL Alkaline Phosphatase 133 H (38-126) U/L Total Protein 5.9 L (6.3-8.2) g/dL Albumin 3.0 L (3.5-5.0) g/dL Urine Protein (Negative) Urine Glucose (UA) (Negative) Urine Ketones (Negative) Urine Mucus (None) /hpf 06/04/22 06/04/22 06/04/22 Range/Units 15:15 16:45 17:35 RBC (4.30-5.90) m/uL Hgb (13.0-17.5) gm/dL MCHC (31.0-37.0) g/dL Neutrophils # (1.3-7.7) k/uL Lymphocytes # (1.0-4.8) k/uL Sodium (137-145) mmol/L Potassium (3.5-5.1) mmol/L Chloride (98-107) mmol/L Carbon Dioxide (22-30) mmol/L BUN (9-20) mg/dL Creatinine (0.66-1.25) mg/dL Glucose (74-99) mg/dL POC Glucose (mg/dL) >600 H 328 H (70-110) mg/dL Alkaline Phosphatase (38-126) U/L Total Protein (6.3-8.2) g/dL Albumin (3.5-5.0) g/dL Urine Protein Trace H (Negative) Urine Glucose (UA) 4+ H (Negative) Urine Ketones 4+ H (Negative) Urine Mucus Rare H (None) /hpf 06/04/22 06/04/22 06/04/22 Range/Units 18:08 19:16 20:33 RBC (4.30-5.90) m/uL Hgb (13.0-17.5) gm/dL MCHC (31.0-37.0) g/dL Neutrophils # (1.3-7.7) k/uL Lymphocytes # (1.0-4.8) k/uL Sodium 133 L (137-145) mmol/L Potassium (3.5-5.1) mmol/L Chloride (98-107) mmol/L Carbon Dioxide 12 L (22-30) mmol/L BUN 25 H (9-20) mg/dL Creatinine (0.66-1.25) mg/dL Glucose 252 H (74-99) mg/dL POC Glucose (mg/dL) 325 H 272 H (70-110) mg/dL Alkaline Phosphatase (38-126) U/L Total Protein (6.3-8.2) g/dL Albumin (3.5-5.0) g/dL Urine Protein (Negative) Urine Glucose (UA) (Negative) Urine Ketones (Negative) Urine Mucus (None) /hpf 06/04/22 06/04/22 06/04/22 Range/Units 20:59 21:38 22:38 RBC (4.30-5.90) m/uL Hgb (13.0-17.5) gm/dL MCHC (31.0-37.0) g/dL Neutrophils # (1.3-7.7) k/uL Lymphocytes # (1.0-4.8) k/uL Sodium (137-145) mmol/L Potassium (3.5-5.1) mmol/L Chloride (98-107) mmol/L Carbon Dioxide (22-30) mmol/L BUN (9-20) mg/dL Creatinine (0.66-1.25) mg/dL Glucose (74-99) mg/dL POC Glucose (mg/dL) 306 H 251 H 299 H (70-110) mg/dL Alkaline Phosphatase (38-126) U/L Total Protein (6.3-8.2) g/dL Albumin (3.5-5.0) g/dL Urine Protein (Negative) Urine Glucose (UA) (Negative) Urine Ketones (Negative) Urine Mucus (None) /hpf 06/05/22 06/05/22 06/05/22 Range/Units 00:34 00:44 03:25 RBC (4.30-5.90) m/uL Hgb (13.0-17.5) gm/dL MCHC (31.0-37.0) g/dL Neutrophils # (1.3-7.7) k/uL Lymphocytes # (1.0-4.8) k/uL Sodium 135 L (137-145) mmol/L Potassium (3.5-5.1) mmol/L Chloride (98-107) mmol/L Carbon Dioxide 18 L (22-30) mmol/L BUN 23 H (9-20) mg/dL Creatinine 0.47 L (0.66-1.25) mg/dL Glucose (74-99) mg/dL POC Glucose (mg/dL) 139 H 227 H (70-110) mg/dL Alkaline Phosphatase (38-126) U/L Total Protein (6.3-8.2) g/dL Albumin (3.5-5.0) g/dL Urine Protein (Negative) Urine Glucose (UA) (Negative) Urine Ketones (Negative) Urine Mucus (None) /hpf 06/05/22 06/05/22 Range/Units 05:21 06:55 RBC (4.30-5.90) m/uL Hgb (13.0-17.5) gm/dL MCHC (31.0-37.0) g/dL Neutrophils # (1.3-7.7) k/uL Lymphocytes # (1.0-4.8) k/uL Sodium (137-145) mmol/L Potassium (3.5-5.1) mmol/L Chloride (98-107) mmol/L Carbon Dioxide (22-30) mmol/L BUN (9-20) mg/dL Creatinine (0.66-1.25) mg/dL Glucose (74-99) mg/dL POC Glucose (mg/dL) 303 H 212 H (70-110) mg/dL Alkaline Phosphatase (38-126) U/L Total Protein (6.3-8.2) g/dL Albumin (3.5-5.0) g/dL Urine Protein (Negative) Urine Glucose (UA) (Negative) Urine Ketones (Negative) Urine Mucus (None) /hpf Diabetes panel 06/04/22 06/04/22 06/05/22 Range/Units 12:30 20:33 00:44 Sodium 126 L 133 L 135 L (137-145) mmol/L Potassium 5.4 H 4.3 3.6 (3.5-5.1) mmol/L Chloride 95 L 101 102 (98-107) mmol/L Carbon Dioxide 11 L 12 L 18 L (22-30) mmol/L BUN 26 H 25 H 23 H (9-20) mg/dL Creatinine 0.83 0.66 0.47 L (0.66-1.25) mg/dL Glucose 681 H* 252 H 84 (74-99) mg/dL Calcium 8.4 (8.4-10.2) mg/dL AST 27 (17-59) U/L ALT 19 (4-49) U/L Alkaline Phosphatase 133 H (38-126) U/L Total Protein 5.9 L (6.3-8.2) g/dL Albumin 3.0 L (3.5-5.0) g/dL Calcium panel 06/04/22 06/04/22 06/05/22 Range/Units 12:30 20:33 00:44 Calcium 8.4 (8.4-10.2) mg/dL Phosphorus 3.4 2.5 (2.5-4.5) mg/dL Albumin 3.0 L (3.5-5.0) g/dL Pituitary panel 06/04/22 06/04/22 06/05/22 Range/Units 12:30 20:33 00:44 Sodium 126 L 133 L 135 L (137-145) mmol/L Potassium 5.4 H 4.3 3.6 (3.5-5.1) mmol/L Chloride 95 L 101 102 (98-107) mmol/L Carbon Dioxide 11 L 12 L 18 L (22-30) mmol/L BUN 26 H 25 H 23 H (9-20) mg/dL Creatinine 0.83 0.66 0.47 L (0.66-1.25) mg/dL Glucose 681 H* 252 H 84 (74-99) mg/dL Calcium 8.4 (8.4-10.2) mg/dL Adrenal panel 06/04/22 06/04/22 06/05/22 Range/Units 12:30 20:33 00:44 Sodium 126 L 133 L 135 L (137-145) mmol/L Potassium 5.4 H 4.3 3.6 (3.5-5.1) mmol/L Chloride 95 L 101 102 (98-107) mmol/L Carbon Dioxide 11 L 12 L 18 L (22-30) mmol/L BUN 26 H 25 H 23 H (9-20) mg/dL Creatinine 0.83 0.66 0.47 L (0.66-1.25) mg/dL Glucose 681 H* 252 H 84 (74-99) mg/dL Calcium 8.4 (8.4-10.2) mg/dL Total Bilirubin 0.4 (0.2-1.3) mg/dL AST 27 (17-59) U/L ALT 19 (4-49) U/L Alkaline Phosphatase 133 H (38-126) U/L Total Protein 5.9 L (6.3-8.2) g/dL Albumin 3.0 L (3.5-5.0) g/dL - Imaging Comments: CT abdomen and pelvis with intravenous contrast:Splenic and right renal infarcts are likely acute and should be correlated for embolic source such as atrial fibrillation. There is also soft plaque thoracicoabdominal aorta that could serve as a source of embolus. Moderate gastric distention without clear outlet obstruction. Fecal retention should be correlated for constipation. Diverticulosis without diverticulitis. Moderate urinary bladder distention. No hydronephrosis. Aorto iliac stent graft. CT scan - abdomen: report reviewed Assessment and Plan Assessment: 1. Splenic and renal infarcts 2. Diabetic ketoacidosis 3. Diabetes mellitus 4. Hypertension 5. Hyperlipidemia Plan: 1. Continue medical management 2. Await further recommendations from vascular surgeon. Computer system is down and imaging is not available to review at this time. Thank you for this consultation, we will continue to follow. The impression and plan of care has been dictated as directed. Dr. Monzon I performed a history and examination of this patient, discussed the same with the dictator. I agree with the dictator's note ,documented as a scribe. Any additional findings or plans will be noted.
--- NOTE | 2022-06-05 12:18 | P.PN ---
Progress Note - Text Progress Note Date: 06/05/22 This is an addendum to the cardiology consult dictated today by Dr. Berg: Preliminary echocardiogram reveals vegetation on the mitral valve. Discussed with Dr. Berg. Cardiology recommends ID consult and IV antibiotics. Will obtain 2 sets of blood cultures. Further recommendations pending patient course.
[2022-06-05 12:24] LABS: Glucose,Whole Blood 134 mg/dL (70-110)
--- NOTE | 2022-06-05 13:07 | CA ---
Transthoracic Echo Report Name: Arslan Mckeon Age: 72 Gender: M : 1950 Exam Date: 06/05/2022 11:39 Exam Location: [facility] Ht (in): 67 Wt (lb): 150 Ordering Physician: Jose Ramon Elliott MD Attending/Referring Phys: Incident Commander Marianela Madden RDCS Procedure CPT: Indications: emboli Cardiac Hx: Technical Quality: Fair Contrast 1: Total Dose (mL): Contrast 2: Total Dose (mL): MEASUREMENTS (Male / Female) Normal Values 2D ECHO LV Diastolic Diameter PLAX 4.7 cm 4.2 - 5.9 / 3.9 - 5.3 cm LV Systolic Diameter PLAX 3.7 cm IVS Diastolic Thickness 0.9 cm 0.6 - 1.0 / 0.6 - 0.9 cm LVPW Diastolic Thickness 0.9 cm 0.6 - 1.0 / 0.6 - 0.9 cm LV Relative Wall Thickness 0.4 RV Internal Dim ED PLAX 2.5 cm LA Systolic Diameter LX 3.2 cm 3.0 - 4.0 / 2.7 - 3.8 cm LA Volume 33.7 cm??? 18 - 58 / 22 - 52 cm??? M-MODE Aortic Root Diameter MM 4.0 cm MV E Point Septal Separation 1.2 cm AV Cusp Separation MM 2.2 cm DOPPLER AV Peak Velocity 92.2 cm/s AV Peak Gradient 3.4 mmHg MV Area PHT 4.5 cm??? Mitral E Point Velocity 77.6 cm/s Mitral A Point Velocity 116.4 cm/s Mitral E to A Ratio 0.7 MV Deceleration Time 169.2 ms MV E' Velocity 4.9 cm/s Mitral E to MV E' Ratio 16.0 FINDINGS Left Ventricle Left ventricular ejection fraction is estimated at 50-55 %. Left ventricular cavity size normal. Left ventricular wall thickness normal. Right Ventricle Normal right ventricular size and function. Unable to estimate the right ventricular systolic pressure. Right Atrium Normal right atrial size. Left Atrium Normal left atrial size. No evidence for an atrial septal defect. Mitral Valve Mitral annular calcification. Vegetation noted on anterior leaflet. Aortic Valve Trileaflet aortic valve. No aortic valve stenosis or regurgitation. Tricuspid Valve Structurally normal tricuspid valve. Pulmonic Valve Trace pulmonic regurgitation. Pericardium Normal pericardium. No pericardial effusion. Aorta Moderate aortic dilatation at the level of the sinuses of valsalva 40 mm CONCLUSIONS LV size is normal. Ejection fractions in the 50% range. Mitral valve appears to be thickened especially the leaflets. There is a prolapse of the posterior mitral leaflet seems to have some prolapse. There is a vegetation and thickening of the anterior mitral leaflet. If suspected I would recommend a transesophageal echo. No pericardial effusion Previewed by: Dr. Anne English MD (Electronically Signed) Final Date: 05 June 2022 13:06
[2022-06-05 13:10] LABS: ALT 19 U/L (4-49); AST 34 U/L (17-59); African American GFR (CKD) >90 (>60 ml/min/1.73 sqM); Albumin 2.4 g/dL (3.5-5.0); Alkaline Phosphatase 99 U/L (38-126); Anion Gap 9 mmol/L; Blood Urea Nitrogen 19 mg/dL (9-20); Calcium 8.2 mg/dL (8.4-10.2); Carbon Dioxide 19 mmol/L (22-30); Chloride 104 mmol/L (98-107); Glucose 93 mg/dL (74-99); Non-African American GFR(CKD) >90 (>60 ml/min/1.73 sqM); Potassium 3.7 mmol/L (3.5-5.1); Sodium 132 mmol/L (137-145); Total Bilirubin 0.4 mg/dL (0.2-1.3); Total Protein 5.3 g/dL (6.3-8.2)
[2022-06-05 13:22] LABS: Glucose,Whole Blood 146 mg/dL (70-110)
[2022-06-05 14:31] LABS: Glucose,Whole Blood 145 mg/dL (70-110)
--- NOTE | 2022-06-05 14:55 | P.CNNES ---
History of Present Illness Consult date: 06/05/22 Requesting physician: Irvin E Sheet Reason for Consult: AMS, r/u stroke , has showering emboli History of Present Illness: Patient is a 72-year-old male came to the hospital by ambulance yesterday at 12:23 PM. Patient states that "I am sick" for at least a month. Patient states that he is hurting everywhere. It started in the back of the left leg and then went up to his back and then "to the stomach" and then upwards. He was pointing from his back of the left leg, to the suprapubic region to the umbilicus region, to the hypochondriac region bilaterally. The pain became from bad to worse. He states that it felt like he broke his ribs. Patient states that he has cold feet and numb feet bilaterally for last 10-15 years. He denies any pain in the right lower extremity or in the upper limbs. He denies any chest pain, slurred speech, facial droop, or any problem with the vision. He states that he did suffer from strokes 4 about "years ago". Patient states that he lives with his , and does have 3 kids. He does not use any cane or walker. EMS flow sheet not available in the chart. Patient's vital signs shows blood pressure 164/93, pulse is 114, temperature 97.2. Patient had a CT of abdomen and pelvis, which revealed splenic and right renal infarcts are likely acute and should be correlated for embolic source such as atrial fibrillation. There is also soft plaque thoracoabdominal aorta that could serve as a source of emboli. Moderate gastric distention without clear outlet obstruction. Fecal retention should be correlated for constipation. Diverticulosis coli with diverticulitis. Moderate urinary bladder distention. No hydronephrosis. Aortoiliac stent graft. EKG shows sinus tachycardia with occasional supraventricular premature complexes. Patient's blood test shows normal WBC hemoglobin 12.0, platelets 231. Sodium 126 potassium 5.4, BUN 26, creatinine 0.83. Glucose is elevated 681. Patient's hemoglobin A1c 11.3. Hepatic panel is normal. UA shows no infection. Acetone positive. Patient's home medications include prednisone 20 mg, gabapentin 200 mg at bedtime, Whittaker, ibuprofen and Tylenol PM. Patient does not know why he is taking prednisone. Review of Systems Constitutional: Denies chills, Denies fever Eyes: denies blurred vision, denies pain Ears, nose, mouth and throat: Denies headache, Denies sore throat Cardiovascular: Reports chest pain, Denies shortness of breath Respiratory: Denies cough Gastrointestinal: Reports abdominal pain, Denies hematemesis, Denies nausea, Denies vomiting Musculoskeletal: Denies myalgias Integumentary: Denies pruritus, Denies rash Neurological: Denies numbness, Denies weakness Psychiatric: Denies anxiety, Denies depression Endocrine: Denies fatigue, Denies weight change Past Medical History Past Medical History: CVA/TIA, Diabetes Mellitus, Hyperlipidemia, Hypertension, Seizure Disorder History of Any Multi-Drug Resistant Organisms: None Reported Past Surgical History: Orthopedic Surgery Additional Past Surgical History / Comment(s): hemmoroid, nahid feet, lt hand Past Psychological History: No Psychological Hx Reported Smoking Status: Current some day smoker Past Alcohol Use History: Occasional Past Drug Use History: None Reported Medications and Allergies Home Medications Medication Instructions Recorded Confirmed Type Acetaminophen/Diphenhydramine 4 tab PO HS 05/14/22 06/04/22 History [Tylenol PM 500-25mg] Ibuprofen [Motrin] 600 mg PO Q6HR PRN #20 tab 05/15/22 06/04/22 Rx Gabapentin [Neurontin] 200 mg PO HS 06/04/22 06/04/22 History Hydrocodone/Acetaminophen 1 tab PO Q4H PRN 06/04/22 06/04/22 History [Hydrocodone/Acetaminophen 5-325] predniSONE [Deltasone] 20 mg PO BID 06/04/22 06/05/22 History Allergies Allergy/AdvReac Type Severity Reaction Status Date / Time No Known Allergies Allergy Verified 06/04/22 22:01 Physical Examination - Vital Signs Vital Signs: Vital Signs Temp Pulse Pulse Resp BP BP Pulse Ox 06/05/22 10:08 109 H 18 131/86 98 06/05/22 04:00 98.4 F 114 H 21 152/65 06/05/22 00:00 97.8 F 110 H 18 142/84 06/04/22 12:30 97.2 F L 114 H 18 164/93 99 06/04/22 12:24 97.2 F L 114 H 18 164/93 99 Intake and Output 06/04/22 06/05/2222 22:59 06:59 14:59 Intake Total 17.752 35.523 9.45 Balance 17.752 35.523 9.45 Intake: Intake, IV Titration 17.752 35.523 9.45 Amount Insulin Regular 100 unit 17.752 35.523 9.45 In Sodium Chloride 0.9% 100 ml @ 0.1 UNITS/KG/HR 6.872 mls/hr IV .[id number] [facility] Rx#:[id number] Other: Voiding Method Urinal Patient is an elderly male, in no acute distress. Patient is alert awake, with slow mentation, prolonged latency to answer any questions. Patient knows it is May and the year is and that he is in [facility] in [place] and name of the current president. Speech and language functions are normal. Patient can name and repeat very well. No aphasia or dysarthria. Attention, concentration and fund of knowledge is adequate. On cranial nerve examination, pupils are equal, round and reacting to light, visual machado are full on confrontation, with no neglect on double simultaneous depression. Extraocular muscles are intact with no nystagmus. Face is symmetric, tongue protrudes to the midline. Palatal elevation and sensation normal, hearing is mild to moderately decreased and shoulder shrug normal, facial sensation normal. On muscle strength testing, there is no pronator drift and the strength is normal in arms distally and proximally. In the lower extremities strength is symmetric bilaterally, with hip flexion is 4-, ankle dorsiflexion 5, toe exten garima 4+, plantarflexion 5 bilaterally.- Deep tendon reflexes are symmetric trace at the biceps, trace brachioradialis, trace at the knees, 0 ankles and plantars downgoing bilaterally. Sensory to touch is equal with no neglect on double simultaneous stimulation. Cerebellar function showed no obvious ataxia for [id number] testing. Tone and bulk of muscles normal. Gait deferred.. On general examination, there is no carotid bruit or murmur, S1-S2 audible. Chest is clear on consultation. Abdomen is soft nontender. No organomegaly, bowel sounds present. Peripheral pulses are present. No edema. Results - Laboratory Findings CBC and BMP: 06/04/22 12:30 06/05/22 12:46 Abnormal Lab Findings: Abnormal Labs 06/04/22 06/04/22 06/04/22 12:30 12:30 12:30 RBC 4.18 L Hgb 12.0 L MCHC 30.5 L Neutrophils # 9.6 H Lymphocytes # 0.3 L Sodium 126 L Potassium 5.4 H Chloride 95 L Carbon Dioxide 11 L BUN 26 H Creatinine Glucose 681 H* POC Glucose (mg/dL) Hemoglobin A1c 11.3 H Alkaline Phosphatase 133 H Total Protein 5.9 L Albumin 3.0 L Urine Protein Urine Glucose (UA) Urine Ketones Urine Mucus 06/04/22 06/04/22 06/04/22 14:58 15:15 16:45 RBC Hgb MCHC Neutrophils # Lymphocytes # Sodium Potassium Chloride Carbon Dioxide BUN Creatinine Glucose POC Glucose (mg/dL) 585 H >600 H Hemoglobin A1c Alkaline Phosphatase Total Protein Albumin Urine Protein Trace H Urine Glucose (UA) 4+ H Urine Ketones 4+ H Urine Mucus Rare H 06/04/22 06/04/22 06/04/22 17:35 18:08 19:16 RBC Hgb MCHC Neutrophils # Lymphocytes # Sodium Potassium Chloride Carbon Dioxide BUN Creatinine Glucose POC Glucose (mg/dL) 328 H 325 H 272 H Hemoglobin A1c Alkaline Phosphatase Total Protein Albumin Urine Protein Urine Glucose (UA) Urine Ketones Urine Mucus 06/04/22 06/04/22 06/04/22 20:33 20:59 21:38 RBC Hgb MCHC Neutrophils # Lymphocytes # Sodium 133 L Potassium Chloride Carbon Dioxide 12 L BUN 25 H Creatinine Glucose 252 H POC Glucose (mg/dL) 306 H 251 H Hemoglobin A1c Alkaline Phosphatase Total Protein Albumin Urine Protein Urine Glucose (UA) Urine Ketones Urine Mucus 06/04/22 06/05/22 06/05/22 22:38 00:34 00:44 RBC Hgb MCHC Neutrophils # Lymphocytes # Sodium 135 L Potassium Chloride Carbon Dioxide 18 L BUN 23 H Creatinine 0.47 L Glucose POC Glucose (mg/dL) 299 H 139 H Hemoglobin A1c Alkaline Phosphatase Total Protein Albumin Urine Protein Urine Glucose (UA) Urine Ketones Urine Mucus 06/05/22 06/05/22 06/05/22 03:25 05:21 06:55 RBC Hgb MCHC Neutrophils # Lymphocytes # Sodium Potassium Chloride Carbon Dioxide BUN Creatinine Glucose POC Glucose (mg/dL) 227 H 303 H 212 H Hemoglobin A1c Alkaline Phosphatase Total Protein Albumin Urine Protein Urine Glucose (UA) Urine Ketones Urine Mucus 06/05/22 06/05/22 08:53 10:01 RBC Hgb MCHC Neutrophils # Lymphocytes # Sodium Potassium Chloride Carbon Dioxide BUN Creatinine Glucose POC Glucose (mg/dL) 201 H 164 H Hemoglobin A1c Alkaline Phosphatase Total Protein Albumin Urine Protein Urine Glucose (UA) Urine Ketones Urine Mucus Assessment and Plan Assessment: * Altered mental status, probably due to metabolic encephalopathy. * New onset diabetes presenting with diabetic ketoacidosis * Splenic and renal infarcts * Echo revealed possibility of vegetations/endocarditis. * Metabolic acidosis * Hyponatremia, improving * Hypertension * Hyperlipidemia Plan: * CT head showed no acute process. No signs of CVA. Patient's examination is also nonfocal. * 2-D echo revealed normal left ventricular size. EF is 50%. Mitral valve a ppears to be thickened especially the leaflets. There is prolapse of the posterior mitral leaflet. There is a vegetation and thickening of the anterior mitral leaflet. Transesophageal echocardiogram was recommended. * Infectious disease has been consulted. * Suggest FARA, if recommended by ID. * Patient currently on cefepime 2 g every 8 hours. * Start aspirin 325 mg daily, if no medical contraindication. * Treatment of new onset diabetes and DKA as per IM. * B12, folate, TSH, fasting lipid panel. * Neurology will follow. Thank you for the consult.
[2022-06-05 15:34] LABS: Glucose,Whole Blood 215 mg/dL (70-110)
[2022-06-05 17:09] LABS: Glucose,Whole Blood 212 mg/dL (70-110)
[2022-06-05] MEDS: CEFEPIME 2 GM in SODIUM CHLORIDE 0.9% 100 ML IVPB SCH (17:22)
[2022-06-05 17:33] LABS: ALT 27 U/L (4-49); AST 43 U/L (17-59); African American GFR (CKD) >90 (>60 ml/min/1.73 sqM); Albumin 2.9 g/dL (3.5-5.0); Alkaline Phosphatase 136 U/L (38-126); Anion Gap 14 mmol/L; Blood Urea Nitrogen 17 mg/dL (9-20); Calcium 8.5 mg/dL (8.4-10.2); Carbon Dioxide 16 mmol/L (22-30); Chloride 101 mmol/L (98-107); Glucose 218 mg/dL (74-99); Non-African American GFR(CKD) >90 (>60 ml/min/1.73 sqM); Potassium 3.6 mmol/L (3.5-5.1); Sodium 131 mmol/L (137-145); Total Bilirubin 0.6 mg/dL (0.2-1.3); Total Protein 6.2 g/dL (6.3-8.2)
--- NOTE | 2022-06-05 17:33 | XR ---
EXAM: XR Chest, 2 Views CLINICAL HISTORY: ITS. REASON XR Reason: Difficulty breathing TECHNIQUE: Frontal and lateral views of the chest. COMPARISON: No relevant prior studies available. FINDINGS: Lungs: No consolidation. Mild subsegmental atelectasis. Pleural space: Unremarkable. No pneumothorax. Heart: Unremarkable. No cardiomegaly. Mediastinum: Calcified thoracic aorta. Bones/joints: Unremarkable. IMPRESSION: No acute cardiopulmonary abnormality.
[2022-06-05 18:05] LABS: C Reactive Protein 33.1 mg/dL (<1.0)
[2022-06-05 18:07] LABS: Glucose,Whole Blood 290 mg/dL (70-110)
[2022-06-05 19:18] LABS: Glucose,Whole Blood 316 mg/dL (70-110)
[2022-06-05 20:17] LABS: Glucose,Whole Blood 309 mg/dL (70-110)
--- NOTE | 2022-06-05 20:43 | CONS ---
CONSULTATION CHIEF COMPLAINT: Abdominal discomfort. HISTORY OF PRESENT ILLNESS: This is a 72-year-old gentleman with history of diabetes, for which he has not been taking insulin on regular basis because of insurance related issues; hypertension; dyslipidemia; CVA; and prior TIA, who presented to hospital somewhat confused, and from the history obtained from the has been having abdominal discomfort and confusion for the last 2 months, particularly worse over the last 2 weeks. He has been losing weight, has not been eating well and complains of discomfort that is in the abdomen and radiates all the way to up to his shoulders. He has also been having vomiting on and off. The patient complains of weakness in both the legs, which seems to having a generalized weakness and not feeling well. Cardiology has been consulted to rule out any cardiac source for embolic events. A CT scan of the abdomen revealed an enlarged spleen with infarction and also had right renal infarct. Due to this, we have been consulted to rule out cardiac source of thromboembolic phenomenon. PAST MEDICAL HISTORY: Significant for diabetes and hypertension. MEDICATIONS: He is currently on: 1. Neurontin. 2. Prednisone. 3. Motrin. 4. Hydrocodone. ALLERGIES: There are no known drug allergies. FAMILY HISTORY: Negative for premature coronary artery disease. SOCIAL HISTORY: Negative for current smoking, EtOH abuse, or drug abuse. REVIEW OF SYSTEMS: HEENT: Significant for confusion. CARDIAC: As described above. RESPIRATORY: As described above. GI: Significant for abdominal pain. GENITOURINARY: Negative. PSYCHOSOCIAL: Negative. DERM: Negative. CONSTITUTIONAL: Significant for fatigue and tiredness. Rest of the system review is not relevant. PHYSICAL EXAMINATION: VITAL SIGNS: Afebrile, heart rate is 110 beats per minute, blood pressure is 140/84, respiratory rate is 18. NECK: There is no jugular venous distention. Carotid upstroke is normal. There is no bruit. CHEST: Reveals good air entry bilaterally. HEART: Reveals first and second heart sounds. No gallop. No murmur. ABDOMEN: Appears tender. LOWER EXTREMITIES: Did not reveal any edema. Peripheral pulses are palpable. EKG on this admission reveals sinus tachycardia with nonspecific ST-T wave changes. CT scan of the abdomen is as described above. ASSESSMENT: 1. Diabetic ketoacidosis. 2. Splenic and renal infarct, rule out cardiac source. 3. Abdominal pain. PLAN: I will obtain is a 2D echo to evaluate his LV function, and once his clinical situation improves, I will consider performing a transesophageal echo. We will monitor him on a telemetry bed to rule out any atrial fibrillation. FARZANEH / COURTNEY: [id number] /
[2022-06-05 21:13] LABS: Glucose,Whole Blood 313 mg/dL (70-110)
[2022-06-05] MEDS: MORPHINE SULFATE 2 MG/ML SYRINGE IVP PRN (21:33)
[2022-06-05 22:17] LABS: Glucose,Whole Blood 283 mg/dL (70-110)
[2022-06-05] MEDS: HEPARIN SODIUM,PORCINE/PF 5,000 UNIT/0.5 ML SYRINGE SQ SCH (22:37)
[2022-06-05] MEDS ORDERED: VANCOMYCIN IV PER PHARMACY 1 EACH MISC MISCELLANE PRN (23:05)
--- NOTE | 2022-06-05 23:05 | P.CONS ---
History of Present Illness - Reason for Consult Consult date: 06/05/22 Endocarditis, vegetation Requesting physician: Andreia Sutton - Chief Complaint Weakness and abdominal pain x few days - History of Present Illness Patient is a 72-year-old male presented to the hospital yesterday afternoon for evaluation of diffuse abdominal pain intermittent vomiting apparently the patient is diabetic and has not taken any insulin for years p atient also have a history of drinking however did not have any drink for the last 2 weeks with the symptom the patient has been evaluated by the ER physician on arrival to the ER patient was afebrile and no fever have been recorded subsequently patient did have a normal white count kidney function has been normal liver exams are normal urine has been negative serum acetone was positive COVID testing was negative patient did have a CT of abdominal pelvis it did show splenic and right renal infarcts concerning for possible embolic source moderate gastric distention fecal retention urinary bladder distention but no hydronephrosis patient did have an echocardiogram completed with concern for po ssible vegetation to the anterior mitral leaflet that has prompted this infectious disease consultation Review of Systems Positive point has been mentioned in the HPI rest of the systems are negative Past Medical History Past Medical History: CVA/TIA, Diabetes Mellitus, Hyperlipidemia, Hypertension, Seizure Disorder History of Any Multi-Drug Resistant Organisms: None Reported Past Surgical History: Orthopedic Surgery Additional Past Surgical History / Comment(s): hemmoroid, nahid feet, lt hand Past Psychological History: No Psychological Hx Reported Smoking Status: Current some day smoker Past Alcohol Use History: Occasional Past Drug Use History: None Reported - Past Family History Mother Family Medical History: CVA/TIA Father Additional Family Medical History / Comment(s): Father had shingles; not sure what he from Medications and Allergies Home Medications Medication Instructions Recorded Confirmed Type Acetaminophen/Diphenhydramine 4 tab PO HS 05/14/22 06/04/22 History [Tylenol PM 500-25mg] Ibuprofen [Motrin] 600 mg PO Q6HR PRN #20 tab 05/15/22 06/04/22 Rx Gabapentin [Neurontin] 200 mg PO HS 06/04/22 06/04/22 History Hydrocodone/Acetaminophen 1 tab PO Q4H PRN 06/04/22 06/04/22 History [Hydrocodone/Acetaminophen 5-325] predniSONE [Deltasone] 20 mg PO BID 06/04/22 06/05/22 History Allergies Allergy/AdvReac Type Severity Reaction Status Date / Time No Known Allergies Allergy Verified 06/04/22 22:01 Physical Exam Vitals: Vital Signs Temp Pulse Pulse Resp BP BP Pulse Ox 06/05/22 10:08 109 H 18 131/86 98 06/05/22 04:00 98.4 F 114 H 21 152/65 06/05/22 00:00 97.8 F 110 H 18 142/84 Intake and Output 06/05/22 06/05/22 06/05/22 06:59 14:59 22:59 Intake Total 35.523 52.258 Balance 35.523 52.258 Intake: Intake, IV Titration 35.523 52.258 Amount Insulin Regular 100 unit 35.523 52.258 In Sodium Chloride 0.9% 100 ml @ 0.1 UNITS/KG/HR 6.872 mls/hr IV .[id number] [facility] Rx#:[id number] Other: Voiding Method Urinal GENERAL DESCRIPTION: Elderly male lying in bed, no distress. No tachypnea or accessory muscle of respiration use. HEENT: Shows Pallor , no scleral icterus. Oral mucous membrane is dry. No pharyngeal erythema or thrush NECK: Trachea central, no thyromegaly. LUNGS: Unlabored breathing. Decreased breath sounds at the base No wheeze or crackle. HEART: S1, S2, regular rate and rhythm. No loud murmur ABDOMEN: Soft, no tenderness , guarding or rigidity, no organomegaly EXTREMITIES: No edema of feet. SKIN: No rash, no masses palpable. NEUROLOGICAL: The patient is awake, alert, oriented x3, mood and affect normal. Results CBC & Chem 7: 06/04/22 12:30 06/07/22 07:38 Labs: Abnormal Lab Results - Last 24 Hours (Table) 06/04/22 06/04/22 06/04/22 Range/Units 12:30 12:30 12:30 RBC 4.18 L (4.30-5.90) m/uL Hgb 12.0 L (13.0-17.5) gm/dL MCHC 30.5 L (31.0-37.0) g/dL Neutrophils # 9.6 H (1.3-7.7) k/uL Lymphocytes # 0.3 L (1.0-4.8) k/uL ABG pH (7.35-7.45) ABG pCO2 (35-45) mmHg ABG HCO3 (21-25) mmol/L ABG Total CO2 (19-24) mmol/L ABG O2 Saturation (94-97) % Sodium 126 L (137-145) mmol/L Potassium 5.4 H (3.5-5.1) mmol/L Chloride 95 L (98-107) mmol/L Carbon Dioxide 11 L (22-30) mmol/L BUN 26 H (9-20) mg/dL Creatinine (0.66-1.25) mg/dL Glucose 681 H* (74-99) mg/dL POC Glucose (mg/dL) (70-110) mg/dL Hemoglobin A1c 11.3 H (0.0-6.0) % Calcium (8.4-10.2) mg/dL Alkaline Phosphatase 133 H (38-126) U/L Total Protein 5.9 L (6.3-8.2) g/dL Albumin 3.0 L (3.5-5.0) g/dL Urine Protein (Negative) Urine Glucose (UA) (Negative) Urine Ketones (Negative) Urine Mucus (None) /hpf 06/04/22 06/04/22 06/04/22 Range/Units 14:45 14:58 15:15 RBC (4.30-5.90) m/uL Hgb (13.0-17.5) gm/dL MCHC (31.0-37.0) g/dL Neutrophils # (1.3-7.7) k/uL Lymphocytes # (1.0-4.8) k/uL ABG pH 7.27 L (7.35-7.45) ABG pCO2 19 L* (35-45) mmHg ABG HCO3 9 L* (21-25) mmol/L ABG Total CO2 9 L (19-24) mmol/L ABG O2 Saturation 98.0 H (94-97) % Sodium (137-145) mmol/L Potassium (3.5-5.1) mmol/L Chloride (98-107) mmol/L Carbon Dioxide (22-30) mmol/L BUN (9-20) mg/dL Creatinine (0.66-1.25) mg/dL Glucose (74-99) mg/dL POC Glucose (mg/dL) 585 H (70-110) mg/dL Hemoglobin A1c (0.0-6.0) % Calcium (8.4-10.2) mg/dL Alkaline Phosphatase (38-126) U/L Total Protein (6.3-8.2) g/dL Albumin (3.5-5.0) g/dL Urine Protein Trace H (Negative) Urine Glucose (UA) 4+ H (Negative) Urine Ketones 4+ H (Negative) Urine Mucus Rare H (None) /hpf 06/04/22 06/04/22 06/04/22 Range/Units 16:45 17:35 18:08 RBC (4.30-5.90) m/uL Hgb (13.0-17.5) gm/dL MCHC (31.0-37.0) g/dL Neutrophils # (1.3-7.7) k/uL Lymphocytes # (1.0-4.8) k/uL ABG pH (7.35-7.45) ABG pCO2 (35-45) mmHg ABG HCO3 (21-25) mmol/L ABG Total CO2 (19-24) mmol/L ABG O2 Saturation (94-97) % Sodium (137-145) mmol/L Potassium (3.5-5.1) mmol/L Chloride (98-107) mmol/L Carbon Dioxide (22-30) mmol/L BUN (9-20) mg/dL Creatinine (0.66-1.25) mg/dL Glucose (74-99) mg/dL POC Glucose (mg/dL) >600 H 328 H 325 H (70-110) mg/dL Hemoglobin A1c (0.0-6.0) % Calcium (8.4-10.2) mg/dL Alkaline Phosphatase (38-126) U/L Total Protein (6.3-8.2) g/dL Albumin (3.5-5.0) g/dL Urine Protein (Negative) Urine Glucose (UA) (Negative) Urine Ketones (Negative) Urine Mucus (None) /hpf 06/04/22 06/04/22 06/04/22 Range/Units 19:16 20:33 20:59 RBC (4.30-5.90) m/uL Hgb (13.0-17.5) gm/dL MCHC (31.0-37.0) g/dL Neutrophils # (1.3-7.7) k/uL Lymphocytes # (1.0-4.8) k/uL ABG pH (7.35-7.45) ABG pCO2 (35-45) mmHg ABG HCO3 (21-25) mmol/L ABG Total CO2 (19-24) mmol/L ABG O2 Saturation (94-97) % Sodium 133 L (137-145) mmol/L Potassium (3.5-5.1) mmol/L Chloride (98-107) mmol/L Carbon Dioxide 12 L (22-30) mmol/L BUN 25 H (9-20) mg/dL Creatinine (0.66-1.25) mg/dL Glucose 252 H (74-99) mg/dL POC Glucose (mg/dL) 272 H 306 H (70-110) mg/dL Hemoglobin A1c (0.0-6.0) % Calcium (8.4-10.2) mg/dL Alkaline Phosphatase (38-126) U/L Total Protein (6.3-8.2) g/dL Albumin (3.5-5.0) g/dL Urine Protein (Negative) Urine Glucose (UA) (Negative) Urine Ketones (Negative) Urine Mucus (None) /hpf 06/04/22 06/04/22 06/05/22 Range/Units 21:38 22:38 00:34 RBC (4.30-5.90) m/uL Hgb (13.0-17.5) gm/dL MCHC (31.0-37.0) g/dL Neutrophils # (1.3-7.7) k/uL Lymphocytes # (1.0-4.8) k/uL ABG pH (7.35-7.45) ABG pCO2 (35-45) mmHg ABG HCO3 (21-25) mmol/L ABG Total CO2 (19-24) mmol/L ABG O2 Saturation (94-97) % Sodium (137-145) mmol/L Potassium (3.5-5.1) mmol/L Chloride (98-107) mmol/L Carbon Dioxide (22-30) mmol/L BUN (9-20) mg/dL Creatinine (0.66-1.25) mg/dL Glucose (74-99) mg/dL POC Glucose (mg/dL) 251 H 299 H 139 H (70-110) mg/dL Hemoglobin A1c (0.0-6.0) % Calcium (8.4-10.2) mg/dL Alkaline Phosphatase (38-126) U/L Total Protein (6.3-8.2) g/dL Albumin (3.5-5.0) g/dL Urine Protein (Negative) Urine Glucose (UA) (Negative) Urine Ketones (Negative) Urine Mucus (None) /hpf 06/05/22 06/05/22 06/05/22 Range/Units 00:44 03:25 05:21 RBC (4.30-5.90) m/uL Hgb (13.0-17.5) gm/dL MCHC (31.0-37.0) g/dL Neutrophils # (1.3-7.7) k/uL Lymphocytes # (1.0-4.8) k/uL ABG pH (7.35-7.45) ABG pCO2 (35-45) mmHg ABG HCO3 (21-25) mmol/L ABG Total CO2 (19-24) mmol/L ABG O2 Saturation (94-97) % Sodium 135 L (137-145) mmol/L Potassium (3.5-5.1) mmol/L Chloride (98-107) mmol/L Carbon Dioxide 18 L (22-30) mmol/L BUN 23 H (9-20) mg/dL Creatinine 0.47 L (0.66-1.25) mg/dL Glucose (74-99) mg/dL POC Glucose (mg/dL) 227 H 303 H (70-110) mg/dL Hemoglobin A1c (0.0-6.0) % Calcium (8.4-10.2) mg/dL Alkaline Phosphatase (38-126) U/L Total Protein (6.3-8.2) g/dL Albumin (3.5-5.0) g/dL Urine Protein (Negative) Urine Glucose (UA) (Negative) Urine Ketones (Negative) Urine Mucus (None) /hpf 06/05/22 06/05/22 06/05/22 Range/Units 06:55 08:53 10:01 RBC (4.30-5.90) m/uL Hgb (13.0-17.5) gm/dL MCHC (31.0-37.0) g/dL Neutrophils # (1.3-7.7) k/uL Lymphocytes # (1.0-4.8) k/uL ABG pH (7.35-7.45) ABG pCO2 (35-45) mmHg ABG HCO3 (21-25) mmol/L ABG Total CO2 (19-24) mmol/L ABG O2 Saturation (94-97) % Sodium (137-145) mmol/L Potassium (3.5-5.1) mmol/L Chloride (98-107) mmol/L Carbon Dioxide (22-30) mmol/L BUN (9-20) mg/dL Creatinine (0.66-1.25) mg/dL Glucose (74-99) mg/dL POC Glucose (mg/dL) 212 H 201 H 164 H (70-110) mg/dL Hemoglobin A1c (0.0-6.0) % Calcium (8.4-10.2) mg/dL Alkaline Phosphatase (38-126) U/L Total Protein (6.3-8.2) g/dL Albumin (3.5-5.0) g/dL Urine Protein (Negative) Urine Glucose (UA) (Negative) Urine Ketones (Negative) Urine Mucus (None) /hpf 06/05/22 06/05/22 06/05/22 Range/Units 10:59 12:23 12:46 RBC (4.30-5.90) m/uL Hgb (13.0-17.5) gm/dL MCHC (31.0-37.0) g/dL Neutrophils # (1.3-7.7) k/uL Lymphocytes # (1.0-4.8) k/uL ABG pH (7.35-7.45) ABG pCO2 (35-45) mmHg ABG HCO3 (21-25) mmol/L ABG Total CO2 (19-24) mmol/L ABG O2 Saturation (94-97) % Sodium 132 L (137-145) mmol/L Potassium (3.5-5.1) mmol/L Chloride (98-107) mmol/L Carbon Dioxide 19 L (22-30) mmol/L BUN (9-20) mg/dL Creatinine 0.43 L (0.66-1.25) mg/dL Glucose (74-99) mg/dL POC Glucose (mg/dL) 162 H 134 H (70-110) mg/dL Hemoglobin A1c (0.0-6.0) % Calcium 8.2 L (8.4-10.2) mg/dL Alkaline Phosphatase (38-126) U/L Total Protein 5.3 L (6.3-8.2) g/dL Albumin 2.4 L (3.5-5.0) g/dL Urine Protein (Negative) Urine Glucose (UA) (Negative) Urine Ketones (Negative) Urine Mucus (None) /hpf 06/05/22 06/05/22 06/05/22 Range/Units 13:20 14:25 15:26 RBC (4.30-5.90) m/uL Hgb (13.0-17.5) gm/dL MCHC (31.0-37.0) g/dL Neutrophils # (1.3-7.7) k/uL Lymphocytes # (1.0-4.8) k/uL ABG pH (7.35-7.45) ABG pCO2 (35-45) mmHg ABG HCO3 (21-25) mmol/L ABG Total CO2 (19-24) mmol/L ABG O2 Saturation (94-97) % Sodium (137-145) mmol/L Potassium (3.5-5.1) mmol/L Chloride (98-107) mmol/L Carbon Dioxide (22-30) mmol/L BUN (9-20) mg/dL Creatinine (0.66-1.25) mg/dL Glucose (74-99) mg/dL POC Glucose (mg/dL) 146 H 145 H 215 H (70-110) mg/dL Hemoglobin A1c (0.0-6.0) % Calcium (8.4-10.2) mg/dL Alkaline Phosphatase (38-126) U/L Total Protein (6.3-8.2) g/dL Albumin (3.5-5.0) g/dL Urine Protein (Negative) Urine Glucose (UA) (Negative) Urine Ketones (Negative) Urine Mucus (None) /hpf Assessment and Plan (1) Vegetation of heart valve Current Visit: Yes Status: Acute Code(s): I33.0 - ACUTE AND SUBACUTE INFECTIVE ENDOCARDITIS SNOMED Code(s): 317827577 Plan: 1patient presented hospital with vague symptoms of abdominal pain and vomiting in this patient with a CT abdominal pelvis concerning for renal and splenic infarct patient also have an abnormal echo concerning for possible vegetation of the mitral valve however the patient did not have any fever or an elevated white count. 2blood cultures x2 we will also check a CRP and a sed rate. 3patient benefit from FARA to better define abnormality seen on the mitral valve. 4-We will empirically treat the patient with cefepime and vancomycin while waiting for the culture to finalize We will follow on clinical condition and cultures to further adjust medication if needed Thank you for this consultation will follow this patient along with you Time with Patient: Greater than 30
[2022-06-05] MEDS ORDERED: VANCOMYCIN 1,250 MG in SODIUM CHLORIDE 0.9% 250 ML IVPB ONE (23:15)
[2022-06-05 23:21] LABS: Glucose,Whole Blood 245 mg/dL (70-110)
[2022-06-06 00:05] LABS: ALT 25 U/L (4-49); AST 46 U/L (17-59); African American GFR (CKD) >90 (>60 ml/min/1.73 sqM); Albumin 2.2 g/dL (3.5-5.0); Alkaline Phosphatase 113 U/L (38-126); Anion Gap 7 mmol/L; Blood Urea Nitrogen 16 mg/dL (9-20); Calcium 7.7 mg/dL (8.4-10.2); Carbon Dioxide 19 mmol/L (22-30); Chloride 105 mmol/L (98-107); Glucose 208 mg/dL (74-99); Non-African American GFR(CKD) >90 (>60 ml/min/1.73 sqM); Potassium 3.3 mmol/L (3.5-5.1); Sodium 131 mmol/L (137-145); Total Bilirubin 0.4 mg/dL (0.2-1.3); Total Protein 4.9 g/dL (6.3-8.2)
[2022-06-06] MEDS: INSULIN REGULAR 100 UNIT in SODIUM CHLORIDE 0.9% 100 ML IV SCH (00:14)
[2022-06-06 00:17] LABS: Glucose,Whole Blood 224 mg/dL (70-110)
[2022-06-06 01:27] LABS: Glucose,Whole Blood 195 mg/dL (70-110)
[2022-06-06 02:23] LABS: Glucose,Whole Blood 220 mg/dL (70-110)
[2022-06-06] MEDS: CEFEPIME 2 GM in SODIUM CHLORIDE 0.9% 100 ML IVPB SCH ×2 (02:41→09:27)
[2022-06-06] MEDS: SODIUM CHLORIDE 0.9% 1,000 ML IV SCH ×2 (02:42→17:32)
[2022-06-06 03:26] LABS: Glucose,Whole Blood 220 mg/dL (70-110)
[2022-06-06 04:15] LABS: Glucose,Whole Blood 230 mg/dL (70-110)
[2022-06-06 05:38] LABS: Glucose,Whole Blood 280 mg/dL (70-110)
[2022-06-06] MEDS: D5-0.45% NACL WITH KCL 20MEQ/L 1,000 ML IV SCH ×2 (05:45→14:42)
[2022-06-06 06:23] LABS: Glucose,Whole Blood 253 mg/dL (70-110)
[2022-06-06 07:05] LABS: Glucose,Whole Blood 281 mg/dL (70-110)
[2022-06-06 08:15] LABS: Glucose,Whole Blood 205 mg/dL (70-110)
[2022-06-06] MEDS ORDERED: VANCOMYCIN 1,250 MG in SODIUM CHLORIDE 0.9% 250 ML IVPB SCH (09:00)
[2022-06-06 09:12] LABS: Glucose,Whole Blood 164 mg/dL (70-110)
[2022-06-06] MEDS: HEPARIN SODIUM,PORCINE/PF 5,000 UNIT/0.5 ML SYRINGE SQ SCH ×2 (09:28→20:36)
[2022-06-06] MEDS: FAMOTIDINE 20 MG/2 ML VIAL IV SCH ×2 (09:28→20:35)
[2022-06-06 10:06] LABS: Glucose,Whole Blood 172 mg/dL (70-110)
[2022-06-06 10:51] LABS: Chol/HDL Ratio 4.29 Ratio; LDL Cholesterol,Calculated 79.3 mg/dL (0.0-131.0)
[2022-06-06] MEDS ORDERED: DEXTROSE 50% SYRINGE 50 ML IVP PRN ×2 (11:04)
--- NOTE | 2022-06-06 11:05 | P.PN ---
Subjective Progress Note Date: 06/06/22 Principal diagnosis: Splenic and renal infarcts Patient was seen and examined as follow-up. No acute changes through the night. Imaging still not available due to system being down. No acute abdominal pain. He currently denies any chest pain or shortness of breath. Infectious disease is following for mitral valve vegetation and was started on cefepime and vancomycin. Blood cultures showing gram-positive cocci. He has been afebrile. Objective - Vital Signs Vital signs: Vital Signs Temp 97.4 F L 06/06/22 09:19 Pulse 96 06/06/22 09:19 Resp 18 06/06/22 09:19 BP 144/72 06/06/22 09:19 Pulse Ox 99 06/06/22 09:19 FiO2 Intake & Output 06/05/22 06/06/22 06/06/22 18:59 06:59 18:59 Intake Total 55.324 656.041 68.865 Output Total 1000 Balance 55.324 -343.959 68.865 Intake: Intake, IV Titration 55.324 656.041 68.865 Amount D5-0.45% NaCl with KCl 600 20Meq/l 1,000 ml @ 150 mls/hr IV .[id number] [facility] Rx# :[id number] Insulin Regular 100 unit 55.324 56.041 68.865 In Sodium Chloride 0.9% 100 ml @ 0.1 UNITS/KG/HR 6.872 mls/hr IV .[id number] [facility] Rx#:[id number] Output: Urine 1000 Other: Voiding Method Urinal # Voids 2 2 # Bowel Movements 1 2 - Exam General appearance: The patient is alert, oriented to self and place. Appears in no acute distress. HET: Head is normocephalic and atraumatic. Pupils are equal and reactive. Neck: Supple without lymphadenopathy. Trachea midline. Heart: S1 S2. Regular rate and rhythm. Lungs: Clear to auscultation bilaterally. Abdomen: Soft, diffuse abdominal tenderness to palpation, nondistended. Extremities: Normal skin color and turgor. Bilateral lower extremities cold to the touch. Palpable femoral and popliteal pulses. Nonpalpable PT and DP pulses bilateral. Positive Doppler signals. Neurological: Patient is alert and oriented 2. Unsure of date or president. Able to answer questions seemingly appropriately and follow commands. - Labs CBC & Chem 7: 06/04/22 12:30 06/05/22 23:15 Labs: Abnormal Lab Results - Last 24 Hours (Table) 06/04/22 06/05/22 06/05/22 Range/Units 14:45 10:01 10:59 ESR (0-15) mm/hr ABG pH 7.27 L (7.35-7.45) ABG pCO2 19 L* (35-45) mmHg ABG HCO3 9 L* (21-25) mmol/L ABG Total CO2 9 L (19-24) mmol/L ABG O2 Saturation 98.0 H (94-97) % Sodium (137-145) mmol/L Potassium (3.5-5.1) mmol/L Carbon Dioxide (22-30) mmol/L Creatinine (0.66-1.25) mg/dL Glucose (74-99) mg/dL POC Glucose (mg/dL) 164 H 162 H (70-110) mg/dL Calcium (8.4-10.2) mg/dL Alkaline Phosphatase (38-126) U/L C-Reactive Protein (<1.0) mg/dL Total Protein (6.3-8.2) g/dL Albumin (3.5-5.0) g/dL Vitamin B12 (200.0-944.0) pg/mL Folate (4.40-31.00) ng/mL 06/05/22 06/05/22 06/05/22 Range/Units 12:23 12:46 13:20 ESR (0-15) mm/hr ABG pH (7.35-7.45) ABG pCO2 (35-45) mmHg ABG HCO3 (21-25) mmol/L ABG Total CO2 (19-24) mmol/L ABG O2 Saturation (94-97) % Sodium 132 L (137-145) mmol/L Potassium (3.5-5.1) mmol/L Carbon Dioxide 19 L (22-30) mmol/L Creatinine 0.43 L (0.66-1.25) mg/dL Glucose (74-99) mg/dL POC Glucose (mg/dL) 134 H 146 H (70-110) mg/dL Calcium 8.2 L (8.4-10.2) mg/dL Alkaline Phosphatase (38-126) U/L C-Reactive Protein (<1.0) mg/dL Total Protein 5.3 L (6.3-8.2) g/dL Albumin 2.4 L (3.5-5.0) g/dL Vitamin B12 (200.0-944.0) pg/mL Folate (4.40-31.00) ng/mL 06/05/22 06/05/22 06/05/22 Range/Units 14:25 15:26 15:41 ESR (0-15) mm/hr ABG pH (7.35-7.45) ABG pCO2 (35-45) mmHg ABG HCO3 (21-25) mmol/L ABG Total CO2 (19-24) mmol/L ABG O2 Saturation (94-97) % Sodium (137-145) mmol/L Potassium (3.5-5.1) mmol/L Carbon Dioxide (22-30) mmol/L Creatinine (0.66-1.25) mg/dL Glucose (74-99) mg/dL POC Glucose (mg/dL) 145 H 215 H (70-110) mg/dL Calcium (8.4-10.2) mg/dL Alkaline Phosphatase (38-126) U/L C-Reactive Protein (<1.0) mg/dL Total Protein (6.3-8.2) g/dL Albumin (3.5-5.0) g/dL Vitamin B12 1340.0 H (200.0-944.0) pg/mL Folate (4.40-31.00) ng/mL 06/05/22 06/05/22 06/05/22 Range/Units 15:41 16:58 17:05 ESR 95 H (0-15) mm/hr ABG pH (7.35-7.45) ABG pCO2 (35-45) mmHg ABG HCO3 (21-25) mmol/L ABG Total CO2 (19-24) mmol/L ABG O2 Saturation (94-97) % Sodium (137-145) mmol/L Potassium (3.5-5.1) mmol/L Carbon Dioxide (22-30) mmol/L Creatinine (0.66-1.25) mg/dL Glucose (74-99) mg/dL POC Glucose (mg/dL) 212 H (70-110) mg/dL Calcium (8.4-10.2) mg/dL Alkaline Phosphatase (38-126) U/L C-Reactive Protein (<1.0) mg/dL Total Protein (6.3-8.2) g/dL Albumin (3.5-5.0) g/dL Vitamin B12 (200.0-944.0) pg/mL Folate 3.00 L (4.40-31.00) ng/mL 06/05/22 06/05/22 06/05/22 Range/Units 17:12 18:05 19:16 ESR (0-15) mm/hr ABG pH (7.35-7.45) ABG pCO2 (35-45) mmHg ABG HCO3 (21-25) mmol/L ABG Total CO2 (19-24) mmol/L ABG O2 Saturation (94-97) % Sodium 131 L (137-145) mmol/L Potassium (3.5-5.1) mmol/L Carbon Dioxide 16 L (22-30) mmol/L Creatinine 0.39 L (0.66-1.25) mg/dL Glucose 218 H (74-99) mg/dL POC Glucose (mg/dL) 290 H 316 H (70-110) mg/dL Calcium (8.4-10.2) mg/dL Alkaline Phosphatase 136 H (38-126) U/L C-Reactive Protein 33.1 H (<1.0) mg/dL Total Protein 6.2 L (6.3-8.2) g/dL Albumin 2.9 L (3.5-5.0) g/dL Vitamin B12 (200.0-944.0) pg/mL Folate (4.40-31.00) ng/mL 06/05/22 06/05/22 06/05/22 Range/Units 20:15 21:11 22:15 ESR (0-15) mm/hr ABG pH (7.35-7.45) ABG pCO2 (35-45) mmHg ABG HCO3 (21-25) mmol/L ABG Total CO2 (19-24) mmol/L ABG O2 Saturation (94-97) % Sodium (137-145) mmol/L Potassium (3.5-5.1) mmol/L Carbon Dioxide (22-30) mmol/L Creatinine (0.66-1.25) mg/dL Glucose (74-99) mg/dL POC Glucose (mg/dL) 309 H 313 H 283 H (70-110) mg/dL Calcium (8.4-10.2) mg/dL Alkaline Phosphatase (38-126) U/L C-Reactive Protein (<1.0) mg/dL Total Protein (6.3-8.2) g/dL Albumin (3.5-5.0) g/dL Vitamin B12 (200.0-944.0) pg/mL Folate (4.40-31.00) ng/mL 06/05/22 06/05/22 06/06/22 Range/Units 23:15 23:19 00:12 ESR (0-15) mm/hr ABG pH (7.35-7.45) ABG pCO2 (35-45) mmHg ABG HCO3 (21-25) mmol/L ABG Total CO2 (19-24) mmol/L ABG O2 Saturation (94-97) % Sodium 131 L (137-145) mmol/L Potassium 3.3 L (3.5-5.1) mmol/L Carbon Dioxide 19 L (22-30) mmol/L Creatinine 0.46 L (0.66-1.25) mg/dL Glucose 208 H (74-99) mg/dL POC Glucose (mg/dL) 245 H 224 H (70-110) mg/dL Calcium 7.7 L (8.4-10.2) mg/dL Alkaline Phosphatase (38-126) U/L C-Reactive Protein (<1.0) mg/dL Total Protein 4.9 L (6.3-8.2) g/dL Albumin 2.2 L (3.5-5.0) g/dL Vitamin B12 (200.0-944.0) pg/mL Folate (4.40-31.00) ng/mL 06/06/22 06/06/22 06/06/22 Range/Units 01:25 02:20 03:23 ESR (0-15) mm/hr ABG pH (7.35-7.45) ABG pCO2 (35-45) mmHg ABG HCO3 (21-25) mmol/L ABG Total CO2 (19-24) mmol/L ABG O2 Saturation (94-97) % Sodium (137-145) mmol/L Potassium (3.5-5.1) mmol/L Carbon Dioxide (22-30) mmol/L Creatinine (0.66-1.25) mg/dL Glucose (74-99) mg/dL POC Glucose (mg/dL) 195 H 220 H 220 H (70-110) mg/dL Calcium (8.4-10.2) mg/dL Alkaline Phosphatase (38-126) U/L C-Reactive Protein (<1.0) mg/dL Total Protein (6.3-8.2) g/dL Albumin (3.5-5.0) g/dL Vitamin B12 (200.0-944.0) pg/mL Folate (4.40-31.00) ng/mL 06/06/22 06/06/22 06/06/22 Range/Units 04:13 05:36 06:21 ESR (0-15) mm/hr ABG pH (7.35-7.45) ABG pCO2 (35-45) mmHg ABG HCO3 (21-25) mmol/L ABG Total CO2 (19-24) mmol/L ABG O2 Saturation (94-97) % Sodium (137-145) mmol/L Potassium (3.5-5.1) mmol/L Carbon Dioxide (22-30) mmol/L Creatinine (0.66-1.25) mg/dL Glucose (74-99) mg/dL POC Glucose (mg/dL) 230 H 280 H 253 H (70-110) mg/dL Calcium (8.4-10.2) mg/dL Alkaline Phosphatase (38-126) U/L C-Reactive Protein (<1.0) mg/dL Total Protein (6.3-8.2) g/dL Albumin (3.5-5.0) g/dL Vitamin B12 (200.0-944.0) pg/mL Folate (4.40-31.00) ng/mL 06/06/22 06/06/22 06/06/22 Range/Units 07:04 08:13 09:10 ESR (0-15) mm/hr ABG pH (7.35-7.45) ABG pCO2 (35-45) mmHg ABG HCO3 (21-25) mmol/L ABG Total CO2 (19-24) mmol/L ABG O2 Saturation (94-97) % Sodium (137-145) mmol/L Potassium (3.5-5.1) mmol/L Carbon Dioxide (22-30) mmol/L Creatinine (0.66-1.25) mg/dL Glucose (74-99) mg/dL POC Glucose (mg/dL) 281 H 205 H 164 H (70-110) mg/dL Calcium (8.4-10.2) mg/dL Alkaline Phosphatase (38-126) U/L C-Reactive Protein (<1.0) mg/dL Total Protein (6.3-8.2) g/dL Albumin (3.5-5.0) g/dL Vitamin B12 (200.0-944.0) pg/mL Folate (4.40-31.00) ng/mL Microbiology - Last 24 Hours (Table) 06/05/22 12:35 Blood Culture Gram Stain - Preliminary Blood 06/05/22 12:28 Blood Culture - Final Blood 06/05/22 12:25 Blood Culture Gram Stain - Preliminary Blood 06/05/22 12:28 Blood Culture - Final Blood Assessment and Plan Assessment: 1. Splenic and renal infarcts 2. Diabetic ketoacidosis 3. Diabetes mellitus 4. Hypertension 5. Hyperlipidemia Plan: 1. Continue medical management 2. Await further recommendations from cardiology. 3. There is no indication for any vascular surgical intervention at this time. Recommend outpatient follow-up for history of chronic peripheral arterial di sease. Thank you for this consultation, we will sign off at this time. The impression and plan of care has been dictated as directed. Dr. Monzon I performed a history and examination of this patient, discussed the same with the dictator. I agree with the dictator's note ,documented as a scribe. Any additional findings or plans will be noted.
--- NOTE | 2022-06-06 11:32 | P.PN ---
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 Patient has a history of hypertension, hyperlipidemia, and CVA/TIA. Patient presented to the hospital with abdominal discomfort and confusion. Patient was found to have enlarged spleen with infarction and also right renal infarct. Patient examined this morning at the bedside. Patient denies chest pain or pressure. He denies shortness of breath. Echocardiogram completed revealing ejection fraction 50- 55%, with vegetation noted on anterior leaflet of mitral valve. Blood cultures are positive for gram positive cocci. PHYSICAL EXAM: VITAL SIGNS: Reviewed. GENERAL: Well-developed in no acute distress. NECK: Supple. No JVD or thyromegaly LUNGS: Respirations even and unlabored. Lungs essentially clear to auscultation bilaterally. HEART: Regular rate and rhythm. S1 and S2 heard. EXTREMITIES: Normal range of motion. No clubbing or cyanosis. Peripheral pulses intact. 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 Continue antibiotics. Await results of blood cultures Will discuss with Dr. Berg regarding timing of FARA Further recommendations pending patient course Nurse practitioner note has been reviewed by physician. Signing provider agrees with the documented findings, assessment, and plan of care. Objective - Vital Signs Vital signs: Vital Signs Temp 97.4 F L 06/06/22 09:19 Pulse 96 06/06/22 09:19 Resp 18 06/06/22 09:19 BP 144/72 06/06/22 09:19 Pulse Ox 99 06/06/22 09:19 FiO2 Intake & Output 06/05/22 06/06/22 06/06/22 18:59 06:59 18:59 Intake Total 55.324 656.041 68.865 Output Total 1000 Balance 55.324 -343.959 68.865 Intake: Intake, IV Titration 55.324 656.041 68.865 Amount D5-0.45% NaCl with KCl 600 20Meq/l 1,000 ml @ 150 mls/hr IV .[id number] [facility] Rx# :[id number] Insulin Regular 100 unit 55.324 56.041 68.865 In Sodium Chloride 0.9% 100 ml @ 0.1 UNITS/KG/HR 6.872 mls/hr IV .[id number] [facility] Rx#:[id number] Output: Urine 1000 Other: Voiding Method Urinal Urinal # Voids 2 2 # Bowel Movements 1 2 - Labs CBC & Chem 7: 06/04/22 12:30 06/05/22 23:15 Labs: Abnormal Lab Results - Last 24 Hours (Table) 06/05/22 06/05/22 06/05/22 Range/Units 12:23 12:46 13:20 ESR (0-15) mm/hr Sodium 132 L (137-145) mmol/L Potassium (3.5-5.1) mmol/L Carbon Dioxide 19 L (22-30) mmol/L Creatinine 0.43 L (0.66-1.25) mg/dL Glucose (74-99) mg/dL POC Glucose (mg/dL) 134 H 146 H (70-110) mg/dL Calcium 8.2 L (8.4-10.2) mg/dL Alkaline Phosphatase (38-126) U/L C-Reactive Protein (<1.0) mg/dL Total Protein 5.3 L (6.3-8.2) g/dL Albumin 2.4 L (3.5-5.0) g/dL HDL Cholesterol (40.00-60.00) mg/dL Vitamin B12 (200.0-944.0) pg/mL Folate (4.40-31.00) ng/mL 06/05/22 06/05/22 06/05/22 Range/Units 14:25 15:26 15:41 ESR (0-15) mm/hr Sodium (137-145) mmol/L Potassium (3.5-5.1) mmol/L Carbon Dioxide (22-30) mmol/L Creatinine (0.66-1.25) mg/dL Glucose (74-99) mg/dL POC Glucose (mg/dL) 145 H 215 H (70-110) mg/dL Calcium (8.4-10.2) mg/dL Alkaline Phosphatase (38-126) U/L C-Reactive Protein (<1.0) mg/dL Total Protein (6.3-8.2) g/dL Albumin (3.5-5.0) g/dL HDL Cholesterol (40.00-60.00) mg/dL Vitamin B12 1340.0 H (200.0-944.0) pg/mL Folate (4.40-31.00) ng/mL 06/05/22 06/05/22 06/05/22 Range/Units 15:41 16:58 17:05 ESR 95 H (0-15) mm/hr Sodium (137-145) mmol/L Potassium (3.5-5.1) mmol/L Carbon Dioxide (22-30) mmol/L Creatinine (0.66-1.25) mg/dL Glucose (74-99) mg/dL POC Glucose (mg/dL) 212 H (70-110) mg/dL Calcium (8.4-10.2) mg/dL Alkaline Phosphatase (38-126) U/L C-Reactive Protein (<1.0) mg/dL Total Protein (6.3-8.2) g/dL Albumin (3.5-5.0) g/dL HDL Cholesterol (40.00-60.00) mg/dL Vitamin B12 (200.0-944.0) pg/mL Folate 3.00 L (4.40-31.00) ng/mL 06/05/22 06/05/22 06/05/22 Range/Units 17:12 18:05 19:16 ESR (0-15) mm/hr Sodium 131 L (137-145) mmol/L Potassium (3.5-5.1) mmol/L Carbon Dioxide 16 L (22-30) mmol/L Creatinine 0.39 L (0.66-1.25) mg/dL Glucose 218 H (74-99) mg/dL POC Glucose (mg/dL) 290 H 316 H (70-110) mg/dL Calcium (8.4-10.2) mg/dL Alkaline Phosphatase 136 H (38-126) U/L C-Reactive Protein 33.1 H (<1.0) mg/dL Total Protein 6.2 L (6.3-8.2) g/dL Albumin 2.9 L (3.5-5.0) g/dL HDL Cholesterol (40.00-60.00) mg/dL Vitamin B12 (200.0-944.0) pg/mL Folate (4.40-31.00) ng/mL 06/05/22 06/05/22 06/05/22 Range/Units 20:15 21:11 22:15 ESR (0-15) mm/hr Sodium (137-145) mmol/L Potassium (3.5-5.1) mmol/L Carbon Dioxide (22-30) mmol/L Creatinine (0.66-1.25) mg/dL Glucose (74-99) mg/dL POC Glucose (mg/dL) 309 H 313 H 283 H (70-110) mg/dL Calcium (8.4-10.2) mg/dL Alkaline Phosphatase (38-126) U/L C-Reactive Protein (<1.0) mg/dL Total Protein (6.3-8.2) g/dL Albumin (3.5-5.0) g/dL HDL Cholesterol (40.00-60.00) mg/dL Vitamin B12 (200.0-944.0) pg/mL Folate (4.40-31.00) ng/mL 06/05/22 06/05/22 06/06/22 Range/Units 23:15 23:19 00:12 ESR (0-15) mm/hr Sodium 131 L (137-145) mmol/L Potassium 3.3 L (3.5-5.1) mmol/L Carbon Dioxide 19 L (22-30) mmol/L Creatinine 0.46 L (0.66-1.25) mg/dL Glucose 208 H (74-99) mg/dL POC Glucose (mg/dL) 245 H 224 H (70-110) mg/dL Calcium 7.7 L (8.4-10.2) mg/dL Alkaline Phosphatase (38-126) U/L C-Reactive Protein (<1.0) mg/dL Total Protein 4.9 L (6.3-8.2) g/dL Albumin 2.2 L (3.5-5.0) g/dL HDL Cholesterol (40.00-60.00) mg/dL Vitamin B12 (200.0-944.0) pg/mL Folate (4.40-31.00) ng/mL 06/06/22 06/06/22 06/06/22 Range/Units 01:25 02:20 03:23 ESR (0-15) mm/hr Sodium (137-145) mmol/L Potassium (3.5-5.1) mmol/L Carbon Dioxide (22-30) mmol/L Creatinine (0.66-1.25) mg/dL Glucose (74-99) mg/dL POC Glucose (mg/dL) 195 H 220 H 220 H (70-110) mg/dL Calcium (8.4-10.2) mg/dL Alkaline Phosphatase (38-126) U/L C-Reactive Protein (<1.0) mg/dL Total Protein (6.3-8.2) g/dL Albumin (3.5-5.0) g/dL HDL Cholesterol (40.00-60.00) mg/dL Vitamin B12 (200.0-944.0) pg/mL Folate (4.40-31.00) ng/mL 06/06/22 06/06/22 06/06/22 Range/Units 04:13 05:36 06:21 ESR (0-15) mm/hr Sodium (137-145) mmol/L Potassium (3.5-5.1) mmol/L Carbon Dioxide (22-30) mmol/L Creatinine (0.66-1.25) mg/dL Glucose (74-99) mg/dL POC Glucose (mg/dL) 230 H 280 H 253 H (70-110) mg/dL Calcium (8.4-10.2) mg/dL Alkaline Phosphatase (38-126) U/L C-Reactive Protein (<1.0) mg/dL Total Protein (6.3-8.2) g/dL Albumin (3.5-5.0) g/dL HDL Cholesterol (40.00-60.00) mg/dL Vitamin B12 (200.0-944.0) pg/mL Folate (4.40-31.00) ng/mL 06/06/22 06/06/22 06/06/22 Range/Units 06:22 07:04 08:13 ESR (0-15) mm/hr Sodium (137-145) mmol/L Potassium (3.5-5.1) mmol/L Carbon Dioxide (22-30) mmol/L Creatinine (0.66-1.25) mg/dL Glucose (74-99) mg/dL POC Glucose (mg/dL) 281 H 205 H (70-110) mg/dL Calcium (8.4-10.2) mg/dL Alkaline Phosphatase (38-126) U/L C-Reactive Protein (<1.0) mg/dL Total Protein (6.3-8.2) g/dL Albumin (3.5-5.0) g/dL HDL Cholesterol 32.90 L (40.00-60.00) mg/dL Vitamin B12 (200.0-944.0) pg/mL Folate (4.40-31.00) ng/mL 06/06/22 06/06/22 Range/Units 09:10 10:05 ESR (0-15) mm/hr Sodium (137-145) mmol/L Potassium (3.5-5.1) mmol/L Carbon Dioxide (22-30) mmol/L Creatinine (0.66-1.25) mg/dL Glucose (74-99) mg/dL POC Glucose (mg/dL) 164 H 172 H (70-110) mg/dL Calcium (8.4-10.2) mg/dL Alkaline Phosphatase (38-126) U/L C-Reactive Protein (<1.0) mg/dL Total Protein (6.3-8.2) g/dL Albumin (3.5-5.0) g/dL HDL Cholesterol (40.00-60.00) mg/dL Vitamin B12 (200.0-944.0) pg/mL Folate (4.40-31.00) ng/mL Microbiology - Last 24 Hours (Table) 06/05/22 16:58 Blood Culture - Final Blood 06/05/22 12:25 Blood Culture Gram Stain - Preliminary Blood 06/05/22 12:35 Blood Culture Gram Stain - Preliminary Blood 06/05/22 12:28 Blood Culture - Final Blood 06/05/22 12:28 Blood Culture - Final Blood
[2022-06-06 11:42] LABS: Glucose,Whole Blood 263 mg/dL (70-110)
[2022-06-06] MEDS: INSULIN DETEMIR (LEVEMIR) 100 UNIT/ML SYR SQ SCH (12:07)
[2022-06-06] MEDS: INSULIN ASPART (NovoLOG) 100 UNIT/ML VIAL SQ SCH ×5 (12:07→20:36)
[2022-06-06] MEDS ORDERED: MORPHINE SULFATE 2 MG/ML SYRINGE ONE (12:17)
[2022-06-06] MEDS: MORPHINE SULFATE 2 MG/ML SYRINGE IVP PRN ×2 (12:19→20:36)
[2022-06-06 12:48] VITALS: BMI 23.5
--- NOTE | 2022-06-06 14:14 | CT ---
EXAMINATION TYPE: CT brain wo con DATE OF EXAM: 06/05/2022 COMPARISON: None HISTORY: Altered mental status CT DLP: 1129.4 mGycm Automated exposure control for dose reduction was used. Helical imaging through the brain FINDINGS: There are cerebral vascular calcifications present. Cortical atrophy is noted. Periventricular white matter shows patchy low attenuation. There is no hemorrhage or hydrocephalus. Calvarium is intact. Pa ranasal sinuses and mastoid air cells as visualized are normal. Kim bullosa present on the left. IMPRESSION: AGE-RELATED CHANGES OF ATROPHY AND CHRONIC SMALL VESSEL ISCHEMIA. CONSIDER BRAIN MRI FOR BETTER EVALU ATION.
--- NOTE | 2022-06-06 14:21 | XR ---
KUB HISTORY: Abdominal pain Frontal KUB and [address] scan 06/04/2022 Degenerative disc changes are noted in the visualized spine. There is contrast material present withi n the urinary bladder. No evident bowel obstruction or pneumoperitoneum. No pathologic calcification. Bases are clear. IMPRESSION: Nonspecific bowel gas
[2022-06-06] MEDS ORDERED: GENTAMICIN PER PHARMACY MISCELLANE SCH (14:30)
[2022-06-06 16:45] LABS: Glucose,Whole Blood 320 mg/dL (70-110)
[2022-06-06] MEDS: GENTAMICIN 70 MG in SODIUM CHLORIDE 0.9% 100 ML IVPB SCH (17:09)
[2022-06-06] MEDS: ASPIRIN 325 MG TAB PO SCH (17:09)
[2022-06-06] MEDS: AMPICILLIN 2,000 MG in SODIUM CHLORIDE 0.9% 100 ML IVPB SCH ×2 (17:09→20:32)
[2022-06-06] MEDS: FOLIC ACID 1 MG TAB PO SCH (17:09)
--- NOTE | 2022-06-06 17:55 | P.PN ---
Subjective Progress Note Date: 06/06/22 Principal diagnosis: Enterococcus faecalis bacteremia and possible mitral valve endocarditis Patient is a 72-year-old male with multiple comorbidities presenting to the hospital for intermittent vomiting abdominal pain and not feeling well patient did have a CT abdominal pelvis with evidence of splenic and renal infarcts also have an echocardiogram and there was concern for possible mitral valve vegetation. On today's evaluation that is 06/06/2022 the patient denies having any fever or any chills, the patient is breathing comfortably on room air patient denies havi ng any chest pain no worsening cough or sputum production abdominal pain has slightly decreased in intensity no vomiting or diarrhea reported Objective - Vital Signs Vital signs: Vital Signs Temp 97.8 F 06/06/22 12:11 Pulse 97 06/06/22 12:11 Resp 19 06/06/22 12:11 BP 125/73 06/06/22 12:11 Pulse Ox 99 06/06/22 12:11 FiO2 Intake & Output 06/05/22 06/06/22 06/06/22 18:59 06:59 18:59 Intake Total 55.324 656.041 68.865 Output Total 1000 Balance 55.324 -343.959 68.865 Weight 68.039 kg Intake: Intake, IV Titration 55.324 656.041 68.865 Amount D5-0.45% NaCl with KCl 600 20Meq/l 1,000 ml @ 150 mls/hr IV .Q6H40M [facility] Rx# :[id number] Insulin Regular 100 unit 55.324 56.041 68.865 In Sodium Chloride 0.9% 100 ml @ 0.1 UNITS/KG/HR 6.872 mls/hr IV .[id number] [facility] Rx#:[id number] Output: Urine 1000 Other: Voiding Method Urinal Urinal # Voids 2 2 # Bowel Movements 1 2 - Exam GENERAL DESCRIPTION: Elderly male lying in bed, no distress. No tachypnea or accessory muscle of respiration use. LUNGS: Unlabored breathing. Clear to auscultation anteriorly. No wheeze or crackle. HEART: S1, S2, regular rate and rhythm. ABDOMEN: Soft, no tenderness , guarding or rigidity, no organomegaly EXTREMITIES: No edema of feet. - Labs CBC & Chem 7: 06/04/22 12:30 06/05/22 23:15 Labs: Abnormal Lab Results - Last 24 Hours (Table) 06/05/22 06/05/22 06/05/22 Range/Units 14:25 15:26 15:41 ESR (0-15) mm/hr Sodium (137-145) mmol/L Potassium (3.5-5.1) mmol/L Carbon Dioxide (22-30) mmol/L Creatinine (0.66-1.25) mg/dL Glucose (74-99) mg/dL POC Glucose (mg/dL) 145 H 215 H (70-110) mg/dL Calcium (8.4-10.2) mg/dL Alkaline Phosphatase (38-126) U/L C-Reactive Protein (<1.0) mg/dL Total Protein (6.3-8.2) g/dL Albumin (3.5-5.0) g/dL HDL Cholesterol (40.00-60.00) mg/dL Vitamin B12 1340.0 H (200.0-944.0) pg/mL Folate (4.40-31.00) ng/mL 06/05/22 06/05/22 06/05/22 Range/Units 15:41 16:58 17:05 ESR 95 H (0-15) mm/hr Sodium (137-145) mmol/L Potassium (3.5-5.1) mmol/L Carbon Dioxide (22-30) mmol/L Creatinine (0.66-1.25) mg/dL Glucose (74-99) mg/dL POC Glucose (mg/dL) 212 H (70-110) mg/dL Calcium (8.4-10.2) mg/dL Alkaline Phosphatase (38-126) U/L C-Reactive Protein (<1.0) mg/dL Total Protein (6.3-8.2) g/dL Albumin (3.5-5.0) g/dL HDL Cholesterol (40.00-60.00) mg/dL Vitamin B12 (200.0-944.0) pg/mL Folate 3.00 L (4.40-31.00) ng/mL 06/05/22 06/05/22 06/05/22 Range/Units 17:12 18:05 19:16 ESR (0-15) mm/hr Sodium 131 L (137-145) mmol/L Potassium (3.5-5.1) mmol/L Carbon Dioxide 16 L (22-30) mmol/L Creatinine 0.39 L (0.66-1.25) mg/dL Glucose 218 H (74-99) mg/dL POC Glucose (mg/dL) 290 H 316 H (70-110) mg/dL Calcium (8.4-10.2) mg/dL Alkaline Phosphatase 136 H (38-126) U/L C-Reactive Protein 33.1 H (<1.0) mg/dL Total Protein 6.2 L (6.3-8.2) g/dL Albumin 2.9 L (3.5-5.0) g/dL HDL Cholesterol (40.00-60.00) mg/dL Vitamin B12 (200.0-944.0) pg/mL Folate (4.40-31.00) ng/mL 06/05/22 06/05/22 06/05/22 Range/Units 20:15 21:11 22:15 ESR (0-15) mm/hr Sodium (137-145) mmol/L Potassium (3.5-5.1) mmol/L Carbon Dioxide (22-30) mmol/L Creatinine (0.66-1.25) mg/dL Glucose (74-99) mg/dL POC Glucose (mg/dL) 309 H 313 H 283 H (70-110) mg/dL Calcium (8.4-10.2) mg/dL Alkaline Phosphatase (38-126) U/L C-Reactive Protein (<1.0) mg/dL Total Protein (6.3-8.2) g/dL Albumin (3.5-5.0) g/dL HDL Cholesterol (40.00-60.00) mg/dL Vitamin B12 (200.0-944.0) pg/mL Folate (4.40-31.00) ng/mL 06/05/22 06/05/22 06/06/22 Range/Units 23:15 23:19 00:12 ESR (0-15) mm/hr Sodium 131 L (137-145) mmol/L Potassium 3.3 L (3.5-5.1) mmol/L Carbon Dioxide 19 L (22-30) mmol/L Creatinine 0.46 L (0.66-1.25) mg/dL Glucose 208 H (74-99) mg/dL POC Glucose (mg/dL) 245 H 224 H (70-110) mg/dL Calcium 7.7 L (8.4-10.2) mg/dL Alkaline Phosphatase (38-126) U/L C-Reactive Protein (<1.0) mg/dL Total Protein 4.9 L (6.3-8.2) g/dL Albumin 2.2 L (3.5-5.0) g/dL HDL Cholesterol (40.00-60.00) mg/dL Vitamin B12 (200.0-944.0) pg/mL Folate (4.40-31.00) ng/mL 06/06/22 06/06/22 06/06/22 Range/Units 01:25 02:20 03:23 ESR (0-15) mm/hr Sodium (137-145) mmol/L Potassium (3.5-5.1) mmol/L Carbon Dioxide (22-30) mmol/L Creatinine (0.66-1.25) mg/dL Glucose (74-99) mg/dL POC Glucose (mg/dL) 195 H 220 H 220 H (70-110) mg/dL Calcium (8.4-10.2) mg/dL Alkaline Phosphatase (38-126) U/L C-Reactive Protein (<1.0) mg/dL Total Protein (6.3-8.2) g/dL Albumin (3.5-5.0) g/dL HDL Cholesterol (40.00-60.00) mg/dL Vitamin B12 (200.0-944.0) pg/mL Folate (4.40-31.00) ng/mL 06/06/22 06/06/22 06/06/22 Range/Units 04:13 05:36 06:21 ESR (0-15) mm/hr Sodium (137-145) mmol/L Potassium (3.5-5.1) mmol/L Carbon Dioxide (22-30) mmol/L Creatinine (0.66-1.25) mg/dL Glucose (74-99) mg/dL POC Glucose (mg/dL) 230 H 280 H 253 H (70-110) mg/dL Calcium (8.4-10.2) mg/dL Alkaline Phosphatase (38-126) U/L C-Reactive Protein (<1.0) mg/dL Total Protein (6.3-8.2) g/dL Albumin (3.5-5.0) g/dL HDL Cholesterol (40.00-60.00) mg/dL Vitamin B12 (200.0-944.0) pg/mL Folate (4.40-31.00) ng/mL 06/06/22 06/06/22 06/06/22 Range/Units 06:22 07:04 08:13 ESR (0-15) mm/hr Sodium (137-145) mmol/L Potassium (3.5-5.1) mmol/L Carbon Dioxide (22-30) mmol/L Creatinine (0.66-1.25) mg/dL Glucose (74-99) mg/dL POC Glucose (mg/dL) 281 H 205 H (70-110) mg/dL Calcium (8.4-10.2) mg/dL Alkaline Phosphatase (38-126) U/L C-Reactive Protein (<1.0) mg/dL Total Protein (6.3-8.2) g/dL Albumin (3.5-5.0) g/dL HDL Cholesterol 32.90 L (40.00-60.00) mg/dL Vitamin B12 (200.0-944.0) pg/mL Folate (4.40-31.00) ng/mL 06/06/22 06/06/22 06/06/22 Range/Units 09:10 10:05 11:40 ESR (0-15) mm/hr Sodium (137-145) mmol/L Potassium (3.5-5.1) mmol/L Carbon Dioxide (22-30) mmol/L Creatinine (0.66-1.25) mg/dL Glucose (74-99) mg/dL POC Glucose (mg/dL) 164 H 172 H 263 H (70-110) mg/dL Calcium (8.4-10.2) mg/dL Alkaline Phosphatase (38-126) U/L C-Reactive Protein (<1.0) mg/dL Total Protein (6.3-8.2) g/dL Albumin (3.5-5.0) g/dL HDL Cholesterol (40.00-60.00) mg/dL Vitamin B12 (200.0-944.0) pg/mL Folate (4.40-31.00) ng/mL Microbiology - Last 24 Hours (Table) 06/05/22 12:35 Blood Culture Gram Stain - Preliminary Blood Blood Culture - Preliminary Enterococcus faecalis 06/05/22 16:58 Blood Culture Gram Stain - Preliminary Blood 06/05/22 16:58 Blood Culture - Final Blood 06/05/22 12:25 Blood Culture Gram Stain - Preliminary Blood 06/05/22 12:28 Blood Culture - Final Blood 06/05/22 12:28 Blood Culture - Final Blood Assessment and Plan (1) Bacteremia Current Visit: Yes Status: Acute Code(s): R78.81 - BACTEREMIA SNOMED Code(s): 1583102 Plan: 1 Patient did have Enterococcus faecalis bacteremia source likely mitral valve endocarditis with possible splenic and renal infarcts, Enterococcus is a sensitive pathogen and antibiotic will be switched over to ampicillin and gentamicin, blood culture will be repeated daily to document clearance of bacte remia Time with Patient: Less than 30
[2022-06-06 19:39] LABS: Glucose,Whole Blood 239 mg/dL (70-110)
[2022-06-07] MEDS: AMPICILLIN 2,000 MG in SODIUM CHLORIDE 0.9% 100 ML IVPB SCH ×6 (00:35→21:45)
[2022-06-07] MEDS: GENTAMICIN 70 MG in SODIUM CHLORIDE 0.9% 100 ML IVPB SCH ×3 (00:35→21:47)
[2022-06-07] MEDS: D5-0.45% NACL WITH KCL 20MEQ/L 1,000 ML IV SCH ×3 (03:33→17:15)
[2022-06-07 06:25] LABS: Glucose,Whole Blood 177 mg/dL (70-110)
[2022-06-07] MEDS: INSULIN DETEMIR (LEVEMIR) 100 UNIT/ML SYR SQ SCH (06:34)
[2022-06-07 08:13] LABS: Glucose,Whole Blood 185 mg/dL (70-110)
[2022-06-07 08:23] LABS: African American GFR (CKD) >90 (>60 ml/min/1.73 sqM); Anion Gap 8 mmol/L; Blood Urea Nitrogen 8 mg/dL (9-20); Calcium 7.5 mg/dL (8.4-10.2); Carbon Dioxide 20 mmol/L (22-30); Chloride 102 mmol/L (98-107); Glucose 158 mg/dL (74-99); Non-African American GFR(CKD) >90 (>60 ml/min/1.73 sqM); Potassium 3.3 mmol/L (3.5-5.1); Sodium 130 mmol/L (137-145)
[2022-06-07] MEDS: INSULIN ASPART (NovoLOG) 100 UNIT/ML VIAL SQ SCH ×7 (09:08→21:42)
[2022-06-07] MEDS: FOLIC ACID 1 MG TAB PO SCH (09:08)
[2022-06-07] MEDS: HEPARIN SODIUM,PORCINE/PF 5,000 UNIT/0.5 ML SYRINGE SQ SCH ×2 (09:08→21:44)
[2022-06-07] MEDS: ASPIRIN 325 MG TAB PO SCH (09:08)
[2022-06-07] MEDS: FAMOTIDINE 20 MG/2 ML VIAL IV SCH ×2 (09:09→21:44)
[2022-06-07] MEDS ORDERED: fentaNYL (PF) 50 MCG/ML 2 ML AMP ONE (10:01)
[2022-06-07] MEDS ORDERED: BENZOCAINE SPRAY 1 CAN TOPICAL ONE ×2 (10:20→10:52)
[2022-06-07] MEDS ORDERED: IV FLUID CONTINUATION 1,000 ML IV ONE (10:21)
[2022-06-07] MEDS: MIDAZOLAM 2 MG/2 ML VIAL IV ONE ×2 (10:53→10:55)
[2022-06-07] MEDS ORDERED: fentaNYL (PF) 50 MCG/ML 2 ML AMP IV ONE (10:53)
[2022-06-07 12:15] LABS: Glucose,Whole Blood 94 mg/dL (70-110)
[2022-06-07] MEDS: MORPHINE SULFATE 2 MG/ML SYRINGE IVP PRN ×2 (13:15→20:35)
--- NOTE | 2022-06-07 15:42 | P.GSCN ---
History of Present Illness Consult date: 06/07/22 Reason for Consult: Large vegetation on the mitral valve Requesting physician: Bety Cates History of present illness: This is a 72-year-old gentleman who follows on an outpatient basis with Dr. Chatman for primary care. He has a previous medical history of hypertension, hyperlipidemia, poorly controlled diabetes, peripheral arterial disease status post aortoiliac stent graft, current tobacco dependence, EtOH and marijuana use. He presented to [facility] emergency room on June 04 via EMS which was called by his due to weakness, confusion, abdominal pain, and constipation. He was evaluated with a CT of the abdomen and pelvis demonstrating splenic and renal infarcts likely acute. He was admitted with diagnosis of diabetic ketoacidosis, renal and splenic infarct with consultation placed to cardiology to rule out a cardiac source of embolic showering, no atrial fibrillation was found on his EKGs. In addition neurology was consulted for mental status change to rule out stroke, they felt his mental status was likely due to metabolic encephalopathy as CT of the head demonstrated no signs of CVA. Blood cultures were drawn and patient was found to have enterococcus faecalis in his blood. Infectious disease was consulted for management and the patient was placed on IV antibiotics. Transthoracic echocardiogram was completed demonstrating vegetation on the anterior leaflet of the mitral valve. Subsequently a transesophageal echocardiogram was completed today which confirmed large vegetation on the anterior leaflet of the mitral valve and cardiothoracic surgery was consulted for treatment recommendations. Review of Systems Review of systems was completed and was negative except as noted - Constitutional Reports lethargy - Gastrointestinal Reports as per HPI, Reports abdominal pain, Reports nausea, Reports vomiting - Musculoskeletal Reports muscle weakness - Neurological Reports as per HPI, Reports confusion Past Medical History Past Medical History: CVA/TIA, Diabetes Mellitus, Hyperlipidemia, Hypertension, Seizure Disorder History of Any Multi-Drug Resistant Organisms: None Reported Past Surgical History: Orthopedic Surgery Additional Past Surgical History / Comment(s): hemmoroid, nahid feet, lt hand; aortoiliac stent Past Psychological History: No Psychological Hx Reported Smoking Status: Current every day smoker Past Alcohol Use History: Occasional Past Drug Use History: Marijuana - Past Family History Mother Family Medical History: CVA/TIA Father Additional Family Medical History / Comment(s): Father had shingles; not sure what he from Medications and Allergies Home Medications Medication Instructions Recorded Confirmed Type Acetaminophen/Diphenhydramine 4 tab PO HS 05/14/22 06/04/22 History [Tylenol PM 500-25mg] Ibuprofen [Motrin] 600 mg PO Q6HR PRN #20 tab 05/15/22 06/04/22 Rx Gabapentin [Neurontin] 200 mg PO HS 06/04/22 06/04/22 History Hydrocodone/Acetaminophen 1 tab PO Q4H PRN 06/04/22 06/04/22 History [Hydrocodone/Acetaminophen 5-325] predniSONE [Deltasone] 20 mg PO BID 06/04/22 06/05/22 History Allergies Allergy/AdvReac Type Severity Reaction Status Date / Time No Known Allergies Allergy Verified 06/04/22 22:01 Surgical - Exam Vital Signs Temp Pulse Resp BP Pulse Ox 97.2 F L 114 H 18 164/93 99 06/04/22 12:24 06/04/22 12:24 06/04/22 12:24 06/04/22 12:24 06/04/22 12:24 CONSTITUTIONAL: Awake and alert, appears comfortable, cooperative, well- developed, well-nourished, no pain, no acute distress EYES: Pupils equal, round, reactive to light, normal ocular movement ENT: Moist mucous membranes without oral lesions present NECK: No masses, no bruits, trachea midline RESPIRATORY: Lungs sounds diminished bilaterally. Respirations even, nonlabored. Currently on room air with oxygen saturation 93%. Strong cough. CARDIOVASCULAR: S1, S2 present. Regular rate and rhythm, sinus rhythm on telemetry. Palpable peripheral pulses bilaterally. No edema present. No calf pain or tenderness noted. GASTROINTESTINAL: Abdomen soft, nontender, nondistended without masses or organomegaly noted. There is no rebound or guarding present. Active bowel sounds present 4 quadrants. GENITOURINARY: Deferred INTEGUMENTARY: Skin is warm and dry NEUROLOGIC: Cranial nerves II through XII intact, normal coordination, no obvious motor or sensory deficits, speech is slow MUSKULOSKELETAL: Able to move all extremities, strength equal bilaterally, normal posture PSYCHIATRIC: Alert and oriented to person place and time, flat affect, patient appears spacey Results - Labs 06/04/22 12:30 06/07/22 07:38 Abnormal Lab Results - Last 24 Hours (Table) 06/06/22 06/06/22 06/07/22 Range/Units 16:43 19:37 06:23 Sodium (137-145) mmol/L Potassium (3.5-5.1) mmol/L Carbon Dioxide (22-30) mmol/L BUN (9-20) mg/dL Creatinine (0.66-1.25) mg/dL Glucose (74-99) mg/dL POC Glucose (mg/dL) 320 H 239 H 177 H (70-110) mg/dL Calcium (8.4-10.2) mg/dL 06/07/22 06/07/22 Range/Units 07:38 08:11 Sodium 130 L (137-145) mmol/L Potassium 3.3 L (3.5-5.1) mmol/L Carbon Dioxide 20 L (22-30) mmol/L BUN 8 L (9-20) mg/dL Creatinine 0.38 L (0.66-1.25) mg/dL Glucose 158 H (74-99) mg/dL POC Glucose (mg/dL) 185 H (70-110) mg/dL Calcium 7.5 L (8.4-10.2) mg/dL Microbiology - Last 24 Hours (Table) 06/05/22 16:58 Blood Culture Gram Stain - Preliminary Blood Blood Culture - Preliminary Group D Enterococcus 06/05/22 12:25 Blood Culture Gram Stain - Preliminary Blood Blood Culture - Preliminary Group D Enterococcus 06/05/22 12:35 Blood Culture Gram Stain - Preliminary Blood Blood Culture - Preliminary Enterococcus faecalis Diabetes panel 06/07/22 Range/Units 07:38 Sodium 130 L (137-145) mmol/L Potassium 3.3 L (3.5-5.1) mmol/L Chloride 102 (98-107) mmol/L Carbon Dioxide 20 L (22-30) mmol/L BUN 8 L (9-20) mg/dL Creatinine 0.38 L (0.66-1.25) mg/dL Glucose 158 H (74-99) mg/dL Calcium 7.5 L (8.4-10.2) mg/dL Calcium panel 06/07/22 Range/Units 07:38 Calcium 7.5 L (8.4-10.2) mg/dL Pituitary panel 06/07/22 Range/Units 07:38 Sodium 130 L (137-145) mmol/L Potassium 3.3 L (3.5-5.1) mmol/L Chloride 102 (98-107) mmol/L Carbon Dioxide 20 L (22-30) mmol/L BUN 8 L (9-20) mg/dL Creatinine 0.38 L (0.66-1.25) mg/dL Glucose 158 H (74-99) mg/dL Calcium 7.5 L (8.4-10.2) mg/dL Adrenal panel 06/07/22 Range/Units 07:38 Sodium 130 L (137-145) mmol/L Potassium 3.3 L (3.5-5.1) mmol/L Chloride 102 (98-107) mmol/L Carbon Dioxide 20 L (22-30) mmol/L BUN 8 L (9-20) mg/dL Creatinine 0.38 L (0.66-1.25) mg/dL Glucose 158 H (74-99) mg/dL Calcium 7.5 L (8.4-10.2) mg/dL - Imaging CT scan - chest: report reviewed, image reviewed EKG: image reviewed Additional studies: Echocardiogram films reviewed Assessment and Plan Assessment: 1. 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 Bacteremia with enterococcus faecalis 3. Diabetes mellitus with DKA on admission 4. Splenic and right renal infarct CT 5. Altered mental status and admission 6. Constipation with abdominal pain, nausea and vomiting on admission 7. History of hypertension 8. History of hyperlipidemia 9. Peripheral arterial disease status post aortoiliac stent graft 10. Current tobacco dependence 11. EtOH and marijuana use Plan: The patient was seen and examined sitting up in a recliner on the cardiac stepdown unit in no acute distress. Chart/diagnostics were reviewed. The case was discussed with Dr. Jacome from cardiothoracic surgery. At this time we recommend continuing IV antibiotics per infectious disease, monitoring for clearing of bacteremia. Monitor mental status, cardiac rhythm. Continue current medication therapy. Increase activity as tolerated. Reorient patient as necessary. Encourage smoking/EtOH/marijuana cessation. Medical management of other comorbidities per primary care service. Thank you for this consult. We will follow along with you, further recommendations to be made. I have personally seen and examined the patient, performed the documentation and the assessment and plan as written. Number of minutes spent on the visit: 30. VLAD Camp Patient seen and examined. All diagnostic studies reviewed. Noncompliant diabetic, hypertensive, smoker, nondrinker who presented with abdominal discomfort and found on CT abdomen to have evidence of renal and splenic infarct. That prompted a transesophageal echocardiogram that showed evidence of larger station on the mitral valve without major dysfunction and also a probable vegetation on the ventricular side of the aortic valve without major dysfunction. No evidence of root abscesses. Blood culture positive for Enterococcus faecalis. At this point one indication for surgery and effort should focus on proper antibiotic therapy to control infection with close clinical follow-up and consider repeating an echo in around 7-10 days. If persistent positive blood culture ultrasound of the spleen would be warranted to rule out developing of his splenic abscess. We'll follow patient with you. If surgical consideration in the future, patient would require cardiac catheterization. Time spent 45 minutes. Manda Jacome MD
[2022-06-07] MEDS: SODIUM CHLORIDE 0.9% 1,000 ML IV SCH (16:36)
--- NOTE | 2022-06-07 16:38 | P.PN ---
Subjective Progress Note Date: 06/07/22 Principal diagnosis: Enterococcus faecalis bacteremia and possible mitral valve endocarditis Patient is a 72-year-old male with multiple comorbidities presenting to the hospital for intermittent vomiting abdominal pain and not feeling well patient did have a CT abdominal pelvis with evidence of splenic and renal infarcts also have an echocardiogram and there was concern for possible mitral valve vegetation. Which was confirmed on a FAAR completed on 06/07/2022 On today's evaluation that is 06/07/2022 the patient remains to be afebrile, the patient is breathing comfortably on room air, the patient denies having any chest pain no worsening cough or sputum production, the patient abdominal pain has decreased in intensity, no vomiting or diarrhea reported Objective - Vital Signs Vital signs: Vital Signs Temp 97.7 F 06/07/22 11:32 Pulse 98 06/07/22 11:32 Resp 18 06/07/22 11:32 BP 114/63 06/07/22 11:32 Pulse Ox 93 L 06/07/22 11:32 FiO2 Intake & Output 06/06/22 06/07/22 06/07/22 18:59 06:59 18:59 Intake Total 68.865 Output Total 350 1025 450 Balance -281.135 -1025 -450 Weight 68.039 kg Intake: Intake, IV Titration 68.865 Amount Insulin Regular 100 unit 68.865 In Sodium Chloride 0.9% 100 ml @ 0.1 UNITS/KG/HR 6.872 mls/hr IV .[id number] [facility] Rx#:[id number] Output: Urine 350 1025 450 Other: Voiding Method Urinal Urinal Urinal Incontinent Incontinent Incontinent # Voids 1 - Exam GENERAL DESCRIPTION: Elderly male lying in bed, no distress. No tachypnea or accessory muscle of respiration use. LUNGS: Unlabored breathing. Clear to auscultation anteriorly. No wheeze or crackle. HEART: S1, S2, regular rate and rhythm. ABDOMEN: Soft, no tenderness , guarding or rigidity, no organomegaly EXTREMITIES: No edema of feet. - Labs CBC & Chem 7: 06/04/22 12:30 06/07/22 07:38 Labs: Abnormal Lab Results - Last 24 Hours (Table) 06/06/22 06/06/22 06/07/22 Range/Units 16:43 19:37 06:23 Sodium (137-145) mmol/L Potassium (3.5-5.1) mmol/L Carbon Dioxide (22-30) mmol/L BUN (9-20) mg/dL Creatinine (0.66-1.25) mg/dL Glucose (74-99) mg/dL POC Glucose (mg/dL) 320 H 239 H 177 H (70-110) mg/dL Calcium (8.4-10.2) mg/dL 06/07/22 06/07/22 Range/Units 07:38 08:11 Sodium 130 L (137-145) mmol/L Potassium 3.3 L (3.5-5.1) mmol/L Carbon Dioxide 20 L (22-30) mmol/L BUN 8 L (9-20) mg/dL Creatinine 0.38 L (0.66-1.25) mg/dL Glucose 158 H (74-99) mg/dL POC Glucose (mg/dL) 185 H (70-110) mg/dL Calcium 7.5 L (8.4-10.2) mg/dL Microbiology - Last 24 Hours (Table) 06/05/22 16:58 Blood Culture Gram Stain - Preliminary Blood 06/05/22 12:35 Blood Culture Gram Stain - Preliminary Blood Blood Culture - Preliminary Enterococcus faecalis 06/05/22 16:58 Blood Culture - Final Blood 06/05/22 12:25 Blood Culture Gram Stain - Preliminary Blood Assessment and Plan (1) Bacteremia Current Visit: Yes Status: Acute Code(s): R78.81 - BACTEREMIA SNOMED Code(s): 7201172 Plan: 1 Patient did have Enterococcus faecalis bacteremia source likely mitral valve endocarditis with possible splenic and renal infarcts that has been confirmed on a FARA, Enterococcus is a sensitive pathogen and currently being treated with ampicillin and gentamicin while close monitoring of his kidney function, blood culture will be repeated daily to document clearance of bacteremia before placing a PICC line Time with Patient: Less than 30
[2022-06-07 17:11] LABS: Glucose,Whole Blood 117 mg/dL (70-110)
[2022-06-07 20:32] LABS: Glucose,Whole Blood 168 mg/dL (70-110)
--- NOTE | 2022-06-07 22:24 | P.PN ---
Subjective Progress Note Date: 06/06/22 Patient was seen for a follow-up. Patient states he feels tired. Denies any numbness or tingling. Complains of headache 5/10, involving bifrontal region. Also involves the neck and shoulder region. Patient states the headache started about a month ago. His back was hurting than his stomach started hurting the back of his head. He does not get headache usually. Telemetry monitoring showing sinus rhythm in 90s to 100 100s. Objective - Vital Signs Vital signs: Vital Signs Temp 97.8 F 06/06/22 12:11 Pulse 97 06/06/22 12:11 Resp 19 06/06/22 12:11 BP 125/73 06/06/22 12:11 Pulse Ox 99 06/06/22 12:11 FiO2 Intake & Output 06/05/22 06/06/22 06/06/22 18:59 06:59 18:59 Intake Total 55.324 656.041 68.865 Output Total 1000 Balance 55.324 -343.959 68.865 Weight 68.039 kg Intake: Intake, IV Titration 55.324 656.041 68.865 Amount D5-0.45% NaCl with KCl 600 20Meq/l 1,000 ml @ 150 mls/hr IV .[id number] [facility] Rx# :[id number] Insulin Regular 100 unit 55.324 56.041 68.865 In Sodium Chloride 0.9% 100 ml @ 0.1 UNITS/KG/HR 6.872 mls/hr IV .[id number] [facility] Rx#:[id number] Output: Urine 1000 Other: Voiding Method Urinal Urinal Incontinent # Voids 2 2 # Bowel Movements 1 2 - Exam Patient is alert and awake in no distress. He is fully oriented. Speech and language functions are normal. Cranial nerves are normal. Visual machado are full. Muscle strength is normal 5/5 in the upper extremities. In the lower extremities hip flexion is 4-bilaterally. Ankle dorsiflexion is 5 bilaterally. Sensations are equal. No ataxia for [id number] testing. Straight leg raising test was negative. Brudzinski test negative. Neck is supple. - Labs CBC & Chem 7: 06/04/22 12:30 06/07/22 07:38 Labs: Abnormal Lab Results - Last 24 Hours (Table) 06/05/22 06/05/22 06/05/22 Range/Units 15:26 15:41 15:41 ESR (0-15) mm/hr Sodium (137-145) mmol/L Potassium (3.5-5.1) mmol/L Carbon Dioxide (22-30) mmol/L Creatinine (0.66-1.25) mg/dL Glucose (74-99) mg/dL POC Glucose (mg/dL) 215 H (70-110) mg/dL Calcium (8.4-10.2) mg/dL Alkaline Phosphatase (38-126) U/L C-Reactive Protein (<1.0) mg/dL Total Protein (6.3-8.2) g/dL Albumin (3.5-5.0) g/dL HDL Cholesterol (40.00-60.00) mg/dL Vitamin B12 1340.0 H (200.0-944.0) pg/mL Folate 3.00 L (4.40-31.00) ng/mL 06/05/22 06/05/22 06/05/22 Range/Units 16:58 17:05 17:12 ESR 95 H (0-15) mm/hr Sodium 131 L (137-145) mmol/L Potassium (3.5-5.1) mmol/L Carbon Dioxide 16 L (22-30) mmol/L Creatinine 0.39 L (0.66-1.25) mg/dL Glucose 218 H (74-99) mg/dL POC Glucose (mg/dL) 212 H (70-110) mg/dL Calcium (8.4-10.2) mg/dL Alkaline Phosphatase 136 H (38-126) U/L C-Reactive Protein 33.1 H (<1.0) mg/dL Total Protein 6.2 L (6.3-8.2) g/dL Albumin 2.9 L (3.5-5.0) g/dL HDL Cholesterol (40.00-60.00) mg/dL Vitamin B12 (200.0-944.0) pg/mL Folate (4.40-31.00) ng/mL 06/05/22 06/05/22 06/05/22 Range/Units 18:05 19:16 20:15 ESR (0-15) mm/hr Sodium (137-145) mmol/L Potassium (3.5-5.1) mmol/L Carbon Dioxide (22-30) mmol/L Creatinine (0.66-1.25) mg/dL Glucose (74-99) mg/dL POC Glucose (mg/dL) 290 H 316 H 309 H (70-110) mg/dL Calcium (8.4-10.2) mg/dL Alkaline Phosphatase (38-126) U/L C-Reactive Protein (<1.0) mg/dL Total Protein (6.3-8.2) g/dL Albumin (3.5-5.0) g/dL HDL Cholesterol (40.00-60.00) mg/dL Vitamin B12 (200.0-944.0) pg/mL Folate (4.40-31.00) ng/mL 06/05/22 06/05/22 06/05/22 Range/Units 21:11 22:15 23:15 ESR (0-15) mm/hr Sodium 131 L (137-145) mmol/L Potassium 3.3 L (3.5-5.1) mmol/L Carbon Dioxide 19 L (22-30) mmol/L Creatinine 0.46 L (0.66-1.25) mg/dL Glucose 208 H (74-99) mg/dL POC Glucose (mg/dL) 313 H 283 H (70-110) mg/dL Calcium 7.7 L (8.4-10.2) mg/dL Alkaline Phosphatase (38-126) U/L C-Reactive Protein (<1.0) mg/dL Total Protein 4.9 L (6.3-8.2) g/dL Albumin 2.2 L (3.5-5.0) g/dL HDL Cholesterol (40.00-60.00) mg/dL Vitamin B12 (200.0-944.0) pg/mL Folate (4.40-31.00) ng/mL 06/05/22 06/06/22 06/06/22 Range/Units 23:19 00:12 01:25 ESR (0-15) mm/hr Sodium (137-145) mmol/L Potassium (3.5-5.1) mmol/L Carbon Dioxide (22-30) mmol/L Creatinine (0.66-1.25) mg/dL Glucose (74-99) mg/dL POC Glucose (mg/dL) 245 H 224 H 195 H (70-110) mg/dL Calcium (8.4-10.2) mg/dL Alkaline Phosphatase (38-126) U/L C-Reactive Protein (<1.0) mg/dL Total Protein (6.3-8.2) g/dL Albumin (3.5-5.0) g/dL HDL Cholesterol (40.00-60.00) mg/dL Vitamin B12 (200.0-944.0) pg/mL Folate (4.40-31.00) ng/mL 06/06/22 06/06/22 06/06/22 Range/Units 02:20 03:23 04:13 ESR (0-15) mm/hr Sodium (137-145) mmol/L Potassium (3.5-5.1) mmol/L Carbon Dioxide (22-30) mmol/L Creatinine (0.66-1.25) mg/dL Glucose (74-99) mg/dL POC Glucose (mg/dL) 220 H 220 H 230 H (70-110) mg/dL Calcium (8.4-10.2) mg/dL Alkaline Phosphatase (38-126) U/L C-Reactive Protein (<1.0) mg/dL Total Protein (6.3-8.2) g/dL Albumin (3.5-5.0) g/dL HDL Cholesterol (40.00-60.00) mg/dL Vitamin B12 (200.0-944.0) pg/mL Folate (4.40-31.00) ng/mL 06/06/22 06/06/22 06/06/22 Range/Units 05:36 06:21 06:22 ESR (0-15) mm/hr Sodium (137-145) mmol/L Potassium (3.5-5.1) mmol/L Carbon Dioxide (22-30) mmol/L Creatinine (0.66-1.25) mg/dL Glucose (74-99) mg/dL POC Glucose (mg/dL) 280 H 253 H (70-110) mg/dL Calcium (8.4-10.2) mg/dL Alkaline Phosphatase (38-126) U/L C-Reactive Protein (<1.0) mg/dL Total Protein (6.3-8.2) g/dL Albumin (3.5-5.0) g/dL HDL Cholesterol 32.90 L (40.00-60.00) mg/dL Vitamin B12 (200.0-944.0) pg/mL Folate (4.40-31.00) ng/mL 06/06/22 06/06/22 06/06/22 Range/Units 07:04 08:13 09:10 ESR (0-15) mm/hr Sodium (137-145) mmol/L Potassium (3.5-5.1) mmol/L Carbon Dioxide (22-30) mmol/L Creatinine (0.66-1.25) mg/dL Glucose (74-99) mg/dL POC Glucose (mg/dL) 281 H 205 H 164 H (70-110) mg/dL Calcium (8.4-10.2) mg/dL Alkaline Phosphatase (38-126) U/L C-Reactive Protein (<1.0) mg/dL Total Protein (6.3-8.2) g/dL Albumin (3.5-5.0) g/dL HDL Cholesterol (40.00-60.00) mg/dL Vitamin B12 (200.0-944.0) pg/mL Folate (4.40-31.00) ng/mL 06/06/22 06/06/22 Range/Units 10:05 11:40 ESR (0-15) mm/hr Sodium (137-145) mmol/L Potassium (3.5-5.1) mmol/L Carbon Dioxide (22-30) mmol/L Creatinine (0.66-1.25) mg/dL Glucose (74-99) mg/dL POC Glucose (mg/dL) 172 H 263 H (70-110) mg/dL Calcium (8.4-10.2) mg/dL Alkaline Phosphatase (38-126) U/L C-Reactive Protein (<1.0) mg/dL Total Protein (6.3-8.2) g/dL Albumin (3.5-5.0) g/dL HDL Cholesterol (40.00-60.00) mg/dL Vitamin B12 (200.0-944.0) pg/mL Folate (4.40-31.00) ng/mL Microbiology - Last 24 Hours (Table) 06/05/22 12:35 Blood Culture Gram Stain - Preliminary Blood Blood Culture - Preliminary Enterococcus faecalis 06/05/22 16:58 Blood Culture Gram Stain - Preliminary Blood 06/05/22 16:58 Blood Culture - Final Blood 06/05/22 12:25 Blood Culture Gram Stain - Preliminary Blood 06/05/22 12:28 Blood Culture - Final Blood 06/05/22 12:28 Blood Culture - Final Blood Assessment and Plan Assessment: * Altered mental status, probably due to metabolic encephalopathy. * New onset diabetes presenting with diabetic ketoacidosis * Bacterial endocarditis. Echo revealed possibility of vegetations/endocarditis. Blood cultures positive for enterococcus faecalis. * Splenic and renal infarcts * Metabolic acidosis * Hyponatremia, improving * Hypertension * Hyperlipidemia Plan: * Patient's blood cultures are positive for enterococcus faecalis. Patient has possible mitral valve endocarditis. Patient also has possible splenic and renal infarcts likely due to endocarditis. ID following, started on ampicillin and gentamicin. * CT head showed no acute process. No signs of CVA. Patient's examination is also nonfocal. * 2-D echo revealed normal left ventricular size. EF is 50%. Mitral valve appears to be thickened especially the leaflets. There is prolapse of the posterior mitral leaflet. There is a vegetation and thickening of the anterior mitral leaflet. Transesophageal echocardiogram was recommended. * Suggest FARA, if recommended by ID. * Continue aspirin 325 mg daily. * Treatment of new onset diabetes and DKA as per IM. * B12 1340, folate 3.0, TSH 2.59, fasting lipid panel cholesterol 141, LDL 79, HDL 32 and triglycerides 144. * Patient complaining of headache. Patient's neck is supple. Patient has been started on antibiotics. If the headache does not improve, would recommend lumbar puncture. ID following.
[2022-06-08] MEDS: AMPICILLIN 2,000 MG in SODIUM CHLORIDE 0.9% 100 ML IVPB SCH ×7 (00:47→23:00)
--- NOTE | 2022-06-08 03:15 | HP ---
HISTORY AND PHYSICAL CHIEF COMPLAINT: DKA. HISTORY OF PRESENT ILLNESS: This is another admission for this -umyn-buv gentleman. He presented to the emergency room in [place]. He does have a history of diabetes mellitus, but has not been on any medications. He does have the mental status issues and cannot give an accurate history. REVIEW OF SYSTEMS: Cannot be obtained. He denies chest or abdominal pain. Past medical history, family history personal and social histories reveal that he is on trazodone, Vicodin, ibuprofen, and gabapentin. He does smoke. He states that he does drink alcohol. PHYSICAL EXAMINATION: VITAL SIGNS: Blood pressure is 120/80 with a pulse of 150, respirations 16. He is afebrile. GENERAL APPEARANCE: He appears to be slender, disheveled and somewhat lethargic. HEAD, EARS, EYES, NOSE AND MOUTH: Revealed dry mucous membranes. NECK: Neck veins are not distended. CHEST: Clear. CARDIAC: Demonstrates sinus tachycardia. ABDOMEN: Flat, soft and nontender. EXTREMITIES: Normal. IMPRESSION: 1. Diabetic ketoacidosis. 2. Mental status changes. 3. Dehydration. PLAN: 1. Bedrest. 2. IV fluids. 3. Manage blood sugars. 4. Discharge planning. MMODL / IJN: [id number] /
[2022-06-08] MEDS ORDERED: GENTAMICIN TROUGH DUE 1 EACH MISC MISCELLANE ONE (03:30)
[2022-06-08] MEDS: D5-0.45% NACL WITH KCL 20MEQ/L 1,000 ML IV SCH ×3 (04:48→22:59)
[2022-06-08] MEDS: GENTAMICIN 70 MG in SODIUM CHLORIDE 0.9% 100 ML IVPB SCH ×3 (04:53→23:00)
--- NOTE | 2022-06-08 05:16 | PN ---
PROGRESS NOTE CHIEF COMPLAINT: Mental status changes, DKA. HISTORY OF PRESENT ILLNESS: This gentleman is quite lethargic. Blood sugars are still high and this is being addressed. PHYSICAL EXAMINATION: CHEST: Clear. CARDIAC: Exam is normal. ABDOMEN: Soft and nontender. GENERAL: He is still lethargic. IMPRESSION: 1. Mental status changes. 2. Diabetic ketoacidosis. 3. Dehydration. PLAN: Continue to follow blood sugars and start basal bolus insulin as his drip is stopped. MMODL / IJN: [id number] /
[2022-06-08] MEDS ORDERED: GENTAMICIN PEAK DUE 1 EACH MISC MISCELLANE ONE (05:30)
[2022-06-08 05:37] LABS: Glucose,Whole Blood 180 mg/dL (70-110)
--- NOTE | 2022-06-08 05:40 | ECHOS ---
STRESS ECHOCARDIOGRAM INDICATION: Septicemia with septic infarct, rule out infective endocarditis. PROCEDURE NOTE: After obtaining informed consent, transesophageal echocardiogram was performed in left lateral position using an Omni plane probe. Local and IV sedation were obtained using Xylocaine spray, 2 mg of Versed and 25 mcg of fentanyl. Total sedation time was 10 minutes. The patient tolerated the procedure well without any obvious immediate complications. A 2D color Doppler and spectral analysis had been performed. FINDINGS: Mitral valve shows a large vegetation on the atrial surface of the anterior mitral leaflet. There is also a vegetation involving the posterior mitral leaflet. There is mild mitral regurgitation noted. Aortic valve is a 3-leaflet valve. The left coronary cusp has an echodense lesion attached to it, probably represents vegetation. There is no evidence of aortic regurgitation. Mitral valve is anatomically normal. There is no vegetation. There is mild tricuspid regurgitation noted. Interatrial septum, there is no evidence of [id number] shunt by color-flow Doppler or [id number]-jh-[id number] shunt by agitated saline contrast study. Left ventricle has normal size and systolic function. Left atrium appears mildly enlarged. Aortic root appears within normal limits. CONCLUSIONS: There is a large vegetation involving the anterior mitral leaflet and a moderate-sized vegetation involving the posterior mitral leaflet. There is a small vegetation over the left coronary cusp of the aortic valve. MMODL / IJN: [id number] /
--- NOTE | 2022-06-08 05:55 | PN ---
PROGRESS NOTE CHIEF COMPLAINT: DKA. HISTORY OF PRESENT ILLNESS: This gentleman is improving somewhat. He is a little bit more awake and alert. There is a question of sepsis, and he is going down today for a FARA to look at his valves for possible vegetations. PHYSICAL EXAMINATION: GENERAL: He is more alert. He is still dehydrated. CHEST: Clear. CARDIAC: Normal. ABDOMEN: Soft and nontender. IMPRESSION: 1. Diabetic ketoacidosis. 2. Uncontrolled diabetes. 3. Possible . PLAN: FARA today and continue workup. MMODL / IJN: [id number] /
[2022-06-08] MEDS: MORPHINE SULFATE 2 MG/ML SYRINGE IVP PRN ×3 (07:11→20:12)
[2022-06-08] MEDS: INSULIN ASPART (NovoLOG) 100 UNIT/ML VIAL SQ SCH ×7 (07:12→20:12)
[2022-06-08] MEDS: INSULIN DETEMIR (LEVEMIR) 100 UNIT/ML SYR SQ SCH (07:13)
[2022-06-08] MEDS: HEPARIN SODIUM,PORCINE/PF 5,000 UNIT/0.5 ML SYRINGE SQ SCH ×2 (09:25→20:12)
[2022-06-08] MEDS: FAMOTIDINE 20 MG/2 ML VIAL IV SCH ×2 (09:25→20:11)
[2022-06-08] MEDS: FOLIC ACID 1 MG TAB PO SCH (09:26)
[2022-06-08] MEDS: ASPIRIN 325 MG TAB PO SCH (09:26)
--- NOTE | 2022-06-08 11:37 | P.PN ---
Subjective This is a pleasant 72 years old male with past medical history of hypertension, hyperlipidemia, CVA/TIA and seizure disorder not on medication. He is a patient of Dr. Byrnes Patient presents because of hyperglycemia and non-adherence to medication as per documentation but when I saw the patient this morning it looks confused although he couldn't tell me he is in the hospital, and in [place] however he could not tell the name of the president or the date or the year. This is to respond however he can follow commands easily and he understands the concepts with no much difficulty patient however is poor historian and could not provide a c orrect information why he came to the hospital and after he gave permission I talked to the cinda at [phone], she told me patient was not doing well for the last 2 months on and off but got really worse over the last 2 weeks. He is not thinking very well. He was complaining of from pain in his neck and shoulders and he's been not eating well and losing weight. He used to weigh 200 pounds and currently about 150 pounds. His been vomiting on and off for about one month, also not eating well and complaining of from constipation Also patient has no length and very weak, yesterday his was trying to get him to the car to go see his PCP Dr. Byrnes but he could not stand up so she called embolus for him. Patient himself complain from weakness in both legs however looks like his weakness is generalized, no asymmetry, no facial diffusion but he complains from some headache with no dizziness. He denies chest pain or dyspnea but he complains from some shoulder and neck pain. No urinary complaints. Patient Vitas looks stable, temperature is 97.2. Patient is tachycardic and hypertensive. Heart rate 117 and blood pressure 164/93 on admission. Labs done in the emergency room are only BMP with sodium 133, creatinine normal 0.6. CT of the abdomen and pelvis with IV contrast: Enlarged spleen with infarction. Mid and lower pole right renal infarcts given multiple organ involvement. Suspect a shower of emboli. Consider cardiac source. Correlate for atrial fibrillation. There is also soft plaque in the lower thoracic and upper abdominal aorta that couldn't occasionally serves as an embolic source. He'll retention, gastric distention and diverticulitis with moderate urinary bladder distention. Aortoiliac stent graft Patient was started on insulin drip in the emergency room and normal saline. Vascular surgery and machine room operator been consulted 06/08/2012 Patient is sitting up in bed, fully awake, eating his breakfast, had good appetite, no weakness or numbness, no blurred vision, no diarrhea or vomiting, no urinary complaints. He complained from generalized pain and everywhere which he has for few months as he states. Also he has insight in his illness but he wants sleeping pills to help him tonight. he is hemodynamically stable and afebrile and labs. Stable. Patient is currently on ampicillin 2 g every 4 hours and gentamicin for his enterococcal SBE per neurologist and infectious disease team. Hemoglobin A1c 11.3% and his glucose control and Levemir 20 units and NovoLog 4 units with meals. Folate is low patient is on replacement therapy currently to Objective - Vital Signs Vital signs: Vital Signs Temp 98.3 F 06/08/22 09:03 Pulse 105 H 06/08/22 09:03 Resp 18 06/08/22 09:04 BP 122/72 06/08/22 09:03 Pulse Ox 97 06/08/22 09:03 FiO2 Intake & Output 06/07/22 06/08/22 06/08/22 18:59 06:59 18:59 Intake Total 476 120 Output Total 850 950 250 Balance -374 830 -250 Intake: Oral 476 120 Output: Urine 850 950 250 Other: Voiding Method Urinal Urinal Urinal Incontinent # Voids 1 2 - Labs CBC & Chem 7: 06/04/22 12:30 06/07/22 07:38 Labs: Abnormal Lab Results - Last 24 Hours (Table) 06/07/22 06/07/22 06/08/22 Range/Units 17:10 20:31 05:36 POC Glucose (mg/dL) 117 H 168 H 180 H (70-110) mg/dL Microbiology - Last 24 Hours (Table) 06/05/22 16:58 Blood Culture Gram Stain - Preliminary Blood Blood Culture - Preliminary Group D Enterococcus 06/05/22 12:25 Blood Culture Gram Stain - Preliminary Blood Blood Culture - Preliminary Group D Enterococcus Assessment and Plan Assessment: 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 Resolved Large spleen with infarct, right renal infarct. Rule out embolic source which could be the heart or aortic plaque. Diabetes mellitus with hyperglycemia with evidence of diabetic ketoacidosis on admission non-adherence to medication for many months Possible Fecal retention And constipation Folate deficiency, being replaced History of peripheral vascular disease status post Aortoiliac stent graft Hypertension Hyperlipidemia History of CVA/TIA History of seizure disorder, not on AED Plan: This is a pleasant 72 years old male who presents with hyperglycemia Continue with antibiotics as per infectious disease and neurologist teams Discontinue IV fluids, patient tolerates diet well. Continue with insulin with close monitoring of sugar. Continue with folic acid. Several consultants on the case with her machine room operator, dot etcher apprentice, ID team and neurologist. Discontinue IV fluids. Continue with Levemir and NovoLog with close monitoring of glucose Cardiothoracic surgery team on the case Follow-up her blood culture results Labs and medication were reviewed.. Continue same treatment. Continue with symptomatic treatment. Resume home medication. Monitor lytes and vitals. DVT and GI prophylaxis. Further recommendations as per clinical course of the patient DVT prophylaxis: Subcutaneous heparin ( CT of the brain is negative) GI Prophylaxis: Pepcid PT/OT: Pending Prognosis is guarded full computer language coder per Dr. byrnes will resume the care of the patient on friday
[2022-06-08 12:07] LABS: Glucose,Whole Blood 241 mg/dL (70-110)
[2022-06-08] MEDS: SODIUM CHLORIDE 0.9% 1,000 ML IV SCH (12:22)
[2022-06-08 17:06] LABS: Glucose,Whole Blood 222 mg/dL (70-110)
--- NOTE | 2022-06-08 17:42 | P.PN ---
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 Patient has a history of hypertension, hyperlipidemia, and CVA/TIA. Patient presented to the hospital with abdominal discomfort and confusion. Patient was found to have enlarged spleen with infarction and also right renal infarct. Patient examined this morning at the bedside. Patient denies chest pain or pressure. He denies shortness of breath. Echocardiogram completed revealing ejection fraction 50- 55%, with vegetation noted on anterior leaflet of mitral valve. Blood cultures are positive for gram positive cocci. 06/08 Patient seen and examined. Patient denies any chest pain or pressure. He was a very by cardiothoracic surgeons for vital valve vegetation with recommendations for medical therapy at this point. PHYSICAL EXAM: VITAL SIGNS: Reviewed. GENERAL: Well-developed in no acute distress. NECK: Supple. No JVD or thyromegaly LUNGS: Respirations even and unlabored. Lungs essentially clear to auscultation bilaterally. HEART: Regular rate and rhythm. S1 and S2 heard. EXTREMITIES: Normal range of motion. No clubbing or cyanosis. Peripheral pulses intact. 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 Patient not currently with significant valve dysfunction and continue with medical therapy. Likely repeat echo in next 7-10 days. Continue to trend blood cultures. Continue supportive care. Prognosis guarded. Objective - Vital Signs Vital signs: Vital Signs Temp 98.0 F 06/08/22 12:20 Pulse 94 06/08/22 12:20 Resp 18 06/08/22 13:07 BP 128/69 06/08/22 12:20 Pulse Ox 96 06/08/22 12:20 FiO2 Intake & Output 06/07/22 06/08/22 06/08/22 18:59 06:59 18:59 Intake Total 476 120 240 Output Total 850 950 450 Balance -374 -830 -210 Weight 76.5 kg Intake: Oral 476 120 240 Output: Urine 850 950 450 Other: Voiding Method Urinal Urinal Urinal Incontinent # Voids 1 2 # Bowel Movements 1 - Labs CBC & Chem 7: 06/04/22 12:30 06/07/22 07:38 Labs: Abnormal Lab Results - Last 24 Hours (Table) 09/06/2006/08/22 06/08/22 Range/Units 20:31 05:36 12:05 POC Glucose (mg/dL) 168 H 180 H 241 H (70-110) mg/dL 06/08/22 Range/Units 17:05 POC Glucose (mg/dL) 222 H (70-110) mg/dL Microbiology - Last 24 Hours (Table) 06/05/22 16:58 Blood Culture Gram Stain - Final Blood Blood Culture - Final Enterococcus faecalis 06/05/22 12:25 Blood Culture Gram Stain - Final Blood Blood Culture - Final Enterococcus faecalis 06/05/22 12:35 Blood Culture Gram Stain - Final Blood Blood Culture - Final Enterococcus faecalis
[2022-06-08 20:06] LABS: Glucose,Whole Blood 302 mg/dL (70-110)
[2022-06-08] MEDS: MELATONIN 5 MG TABLET PO PRN (20:12)
[2022-06-09] MEDS: AMPICILLIN 2,000 MG in SODIUM CHLORIDE 0.9% 100 ML IVPB SCH ×5 (06:14→22:41)
[2022-06-09 06:17] LABS: Glucose,Whole Blood 227 mg/dL (70-110)
[2022-06-09] MEDS: INSULIN DETEMIR (LEVEMIR) 100 UNIT/ML SYR SQ SCH (06:18)
[2022-06-09] MEDS: INSULIN ASPART (NovoLOG) 100 UNIT/ML VIAL SQ SCH ×7 (06:19→21:29)
[2022-06-09] MEDS: MORPHINE SULFATE 2 MG/ML SYRINGE IVP PRN ×2 (06:21→13:58)
[2022-06-09] MEDS: FOLIC ACID 1 MG TAB PO SCH (09:23)
[2022-06-09] MEDS: ASPIRIN 325 MG TAB PO SCH (09:23)
[2022-06-09] MEDS: HEPARIN SODIUM,PORCINE/PF 5,000 UNIT/0.5 ML SYRINGE SQ SCH ×2 (09:23→21:27)
[2022-06-09] MEDS: FAMOTIDINE 20 MG/2 ML VIAL IV SCH (09:23)
[2022-06-09 09:52] LABS: African American GFR (CKD) >90 (>60 ml/min/1.73 sqM); Non-African American GFR(CKD) >90 (>60 ml/min/1.73 sqM)
--- NOTE | 2022-06-09 11:12 | P.PN ---
Subjective This is a pleasant 72 years old male with past medical history of hypertension, hyperlipidemia, CVA/TIA and seizure disorder not on medication. He is a patient of Dr. Byrnes Patient presents because of hyperglycemia and non-adherence to medication as per documentation but when I saw the patient this morning it looks confused although he couldn't tell me he is in the hospital, and in [place] however he could not tell the name of the president or the date or the year. This is to respond however he can follow commands easily and he understands the concepts with no much difficulty patient however is poor historian and could not provide a c orrect information why he came to the hospital and after he gave permission I talked to the cinda at [phone], she told me patient was not doing well for the last 2 months on and off but got really worse over the last 2 weeks. He is not thinking very well. He was complaining of from pain in his neck and shoulders and he's been not eating well and losing weight. He used to weigh 200 pounds and currently about 150 pounds. His been vomiting on and off for about one month, also not eating well and complaining of from constipation Also patient has no length and very weak, yesterday his was trying to get him to the car to go see his PCP Dr. Byrnes but he could not stand up so she called embolus for him. Patient himself complain from weakness in both legs however looks like his weakness is generalized, no asymmetry, no facial diffusion but he complains from some headache with no dizziness. He denies chest pain or dyspnea but he complains from some shoulder and neck pain. No urinary complaints. Patient Vitas looks stable, temperature is 97.2. Patient is tachycardic and hypertensive. Heart rate 117 and blood pressure 164/93 on admission. Labs done in the emergency room are only BMP with sodium 133, creatinine normal 0.6. CT of the abdomen and pelvis with IV contrast: Enlarged spleen with infarction. Mid and lower pole right renal infarcts given multiple organ involvement. Suspect a shower of emboli. Consider cardiac source. Correlate for atrial fibrillation. There is also soft plaque in the lower thoracic and upper abdominal aorta that couldn't occasionally serves as an embolic source. He'll retention, gastric distention and diverticulitis with moderate urinary bladder distention. Aortoiliac stent graft Patient was started on insulin drip in the emergency room and normal saline. Vascular surgery and cone picker been consulted 06/08/2012 Patient is sitting up in bed, fully awake, eating his breakfast, had good appetite, no weakness or numbness, no blurred vision, no diarrhea or vomiting, no urinary complaints. He complained from generalized pain and everywhere which he has for few months as he states. Also he has insight in his illness but he wants sleeping pills to help him tonight. he is hemodynamically stable and afebrile and labs. Stable. Patient is currently on ampicillin 2 g every 4 hours and gentamicin for his enterococcal SBE per neurologist and infectious disease team. Hemoglobin A1c 11.3% and his glucose control and Levemir 20 units and NovoLog 4 units with meals. Folate is low patient is on replacement therapy currently to 06/09/2012 Patient awake alert sitting up in bed with no other new complaints. No chest p ain or dyspnea. He is complaining of from mild left upper quadrant abdominal pain and tenderness about 5/10 in severity related to his splenic infarct but pain is controlled.[I can't tolerated as long as no one pushed on its] as per patient. Physical normal saline which is lower to 75 mL today. Also he is an ampicillin 2 g every 4 hours and gentamicin Operative fluid was discontinued. Glucose still on the high side. Patient and Levemir 20 units at bedtime, we added 4 units with meals and he'll keep monitoring. His hemoglobin A1c is 11.3. Cloth Bin Packer on the case and they recommended repeat echocardiogram in 7-10 days. Low folate is been replaced. Objective - Vital Signs Vital signs: Vital Signs Temp 98.8 F 06/09/22 09:11 Pulse 114 H 06/09/22 09:11 Resp 18 06/09/22 09:11 BP 127/68 06/09/22 09:11 Pulse Ox 95 06/09/22 09:11 FiO2 Intake & Output 06/08/22 06/09/22 06/09/22 18:59 06:59 18:59 Intake Total 240 2370 Output Total 450 1500 Balance -210 870 Weight 76.5 kg Intake: Intake, IV Titration 1400 Amount Ampicillin 2,000 mg In 300 Sodium Chloride 0.9% 100 ml @ 200 mls/hr IVPB Q4HR [facility] Rx#:[id number] D5-0.45% NaCl with KCl 1000 20Meq/l 1,000 ml @ 100 mls/hr IV .Q10H [facility] Rx#: [id number] Gentamicin 70 mg In 100 Sodium Chloride 0.9% 100 ml @ 101.75 mls/hr IVPB Q8H [facility] Rx#:[id number] Oral 240 970 Output: Urine 450 1500 Other: Voiding Method Urinal Urinal Urinal # Bowel Movements 1 - Exam GENERAL: The patient is alert and oriented x3, not in any acute distress. Well developed, well nourished. HEENT: Pupils are round and equally reacting to light. EOMI. No scleral icterus. No conjunctival pallor. Normocephalic, atraumatic. No pharyngeal erythema. No thyromegaly. CARDIOVASCULAR: S1 and S2 present. No murmurs, rubs, or gallops. PULMONARY: Chest is clear to auscultation, no wheezing or crackles. ABDOMEN: Soft, nontender, nondistended, normoactive bowel sounds. No palpable organomegaly. MUSCULOSKELETAL: No joint swelling or deformity. EXTREMITIES: No cyanosis, clubbing, or pedal edema. NEUROLOGICAL: Gross neurological examination did not reveal any focal deficits. SKIN: No rashes. no petechiae. - Labs CBC & Chem 7: 06/04/22 12:30 06/09/22 08:08 Labs: Abnormal Lab Results - Last 24 Hours (Table) 06/08/22 06/08/22 06/08/22 Range/Units 12:05 17:05 20:05 POC Glucose (mg/dL) 241 H 222 H 302 H (70-110) mg/dL 06/09/22 Range/Units 06:16 POC Glucose (mg/dL) 227 H (70-110) mg/dL Microbiology - Last 24 Hours (Table) 06/05/22 16:58 Blood Culture Gram Stain - Final Blood Blood Culture - Final Enterococcus faecalis 06/05/22 12:25 Blood Culture Gram Stain - Final Blood Blood Culture - Final Enterococcus faecalis 06/05/22 12:35 Blood Culture Gram Stain - Final Blood Blood Culture - Final Enterococcus faecalis Assessment and Plan Assessment: 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 Resolved Large spleen with infarct, right renal infarct. Rule out embolic source which could be the heart or aortic plaque. Diabetes mellitus with hyperglycemia with evidence of diabetic ketoacidosis on admission non-adherence to medication for many months Possible Fecal retention And constipation Folate deficiency, being replaced History of peripheral vascular disease status post Aortoiliac stent graft Hypertension Hyperlipidemia History of CVA/TIA History of seizure disorder, not on AED Plan: This is a pleasant 72 years old male who presents with hyperglycemia Continue with antibiotics as per infectious disease and neurologist teams Discontinue IV fluids, patient tolerates diet well. Continue with insulin with close monitoring of sugar. Continue with folic acid. Several consultants on the case with her cone picker, miller distillery, ID team and neurologist. Continue with Levemir and NovoLog with close monitoring of glucose Cardiothoracic surgery team on the case Follow-up her blood culture results Labs and medication were reviewed.. Continue same treatment. Continue with symptomatic treatment. Resume home medication. Monitor lytes and vitals. DVT and GI prophylaxis. 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 byrnes will resume the care of the patient on friday
--- NOTE | 2022-06-09 11:17 | P.PN ---
Subjective Progress Note Date: 06/08/22 Patient was seen for a follow-up. Patient is sitting up comfortably in the bed. Patient says that his headache comes and goes. It lasts for about an hour. He rates it 8/10. Patient states the headache usually occurs when he is staring at the TV. Complaining of joints hurting pointing to the shoulders and elbows. He has significant ecchymosis and some purplish mottling. Denies any numbness or tingling. Objective - Vital Signs Vital signs: Vital Signs Temp 98.8 F 06/09/22 09:11 Pulse 114 H 06/09/22 09:11 Resp 18 06/09/22 09:11 BP 127/68 06/09/22 09:11 Pulse Ox 95 06/09/22 09:11 FiO2 Intake & Output 06/08/22 06/09/22 06/09/22 18:59 06:59 18:59 Intake Total 240 2370 120 Output Total 450 1500 600 Balance -210 870 -480 Weight 76.5 kg Intake: Intake, IV Titration 1400 Amount Ampicillin 2,000 mg In 300 Sodium Chloride 0.9% 100 ml @ 200 mls/hr IVPB Q4HR [facility] Rx#:[id number] D5-0.45% NaCl with KCl 1000 20Meq/l 1,000 ml @ 100 mls/hr IV .Q10H [facility] Rx#: [id number] Gentamicin 70 mg In 100 Sodium Chloride 0.9% 100 ml @ 101.75 mls/hr IVPB Q8H [facility] Rx#:[id number] Oral 240 970 120 Output: Urine 450 1500 600 Other: Voiding Method Urinal Urinal Urinal # Bowel Movements 1 - Exam Patient is alert and awake in no distress. He is fully oriented. Speech and language functions are normal. Cranial nerves are normal. Visual machado are full. Muscle strength is grossly normal in the upper extremities, with some g iveaway weakness because of decreased effort. No focal weakness. Ankle dorsiflexion is 5 bilaterally. Sensations are equal. No ataxia for [id number]-ef-tzxi testing. Straight leg raising test was negative. Brudzinski test negative. Neck is supple. - Labs CBC & Chem 7: 06/04/22 12:30 06/09/22 08:08 Labs: Abnormal Lab Results - Last 24 Hours (Table) 06/08/22 06/08/22 06/08/22 Range/Units 12:05 17:05 20:05 Creatinine (0.66-1.25) mg/dL POC Glucose (mg/dL) 241 H 222 H 302 H (70-110) mg/dL 06/09/22 06/09/22 Range/Units 06:16 08:08 Creatinine 0.51 L (0.66-1.25) mg/dL POC Glucose (mg/dL) 227 H (70-110) mg/dL Microbiology - Last 24 Hours (Table) 06/05/22 16:58 Blood Culture Gram Stain - Final Blood Blood Culture - Final Enterococcus faecalis 06/05/22 12:25 Blood Culture Gram Stain - Final Blood Blood Culture - Final Enterococcus faecalis 06/05/22 12:35 Blood Culture Gram Stain - Final Blood Blood Culture - Final Enterococcus faecalis Assessment and Plan Assessment: * Altered mental status, probably due to metabolic encephalopathy, much improved. * Bacterial endocarditis with enterococcus faecalis. Echo revealed possibility of vegetations/endocarditis. Blood cultures positive for enterococcus faecalis. * New onset diabetes presenting with diabetic ketoacidosis * Splenic and renal infarcts * Metabolic acidosis * Hyponatremia, improving, most recent sodium 1:30. * Hypertension * Hyperlipidemia Plan: * Patient's mentation has improved. His headaches is also remarkably improved. Now is getting only sporadic headache intermittent. No meningeal signs. * Patient's blood cultures are positive for enterococcus faecalis. Patient has possible mitral valve endocarditis. Patient also has possible splenic and renal infarcts likely due to endocarditis. ID following, started on ampicillin and gentamicin. * CT head showed no acute process. No signs of CVA. Patient's examination is also nonfocal. * 2-D echo revealed normal left ventricular size. EF is 50%. Mitral valve appears to be thickened especially the leaflets. There is prolapse of the posterior mitral leaflet. There is a vegetation and thickening of the anterior mitral leaflet. Transesophageal echocardiogram was recommended. * FARA revealed there is a large vegetation involving the anterior mitral leaflet and a moderate sized vegetation involving the posterior mitral leaflet. There is a small vegetation over the left coronary cusp of the aortic valve. Cardiothoracic surgery seen the patient, recommending medical management. * ID following for bacterial endocarditis. Patient on gentamicin and ampicillin. * Continue aspirin 325 mg daily. * Treatment of new onset diabetes and DKA as per IM. * B12 1340, folate 3.0, TSH 2.59, fasting lipid panel cholesterol 141, LDL 79, HDL 32 and triglycerides 144. Patient on folate replacement. * Patient complaining of headache. Patient's neck is supple. Fioricet as needed for headache. * Neurology will sign off. Please reconsult neurology if any concerns. Dr. Stephen Florentino will start service from Friday.
[2022-06-09 12:13] LABS: Glucose,Whole Blood 291 mg/dL (70-110)
[2022-06-09] MEDS: D5-0.45% NACL WITH KCL 20MEQ/L 1,000 ML IV SCH (12:25)
[2022-06-09] MEDS: GENTAMICIN 70 MG in SODIUM CHLORIDE 0.9% 100 ML IVPB SCH (13:57)
[2022-06-09] MEDS: SODIUM CHLORIDE 0.9% 1,000 ML IV SCH (16:05)
--- NOTE | 2022-06-09 16:39 | P.PN ---
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 Patient has a history of hypertension, hyperlipidemia, and CVA/TIA. Patient presented to the hospital with abdominal discomfort and confusion. Patient was found to have enlarged spleen with infarction and also right renal infarct. Patient examined this morning at the bedside. Patient denies chest pain or pressure. He denies shortness of breath. Echocardiogram completed revealing ejection fraction 50- 55%, with vegetation noted on anterior leaflet of mitral valve. Blood cultures are positive for gram positive cocci. 06/08 Patient seen and examined. Patient denies any chest pain or pressure. He was a very by cardiothoracic surgeons for vital valve vegetation with recommendations for medical therapy at this point. 06/09 Patient seen and examined. Patient states he feels he is gaining some strength back in his legs and feeling somewhat stronger. Denies any chest pain or pressure. Denies any fevers or chills. PHYSICAL EXAM: VITAL SIGNS: Reviewed. GENERAL: Well-developed in no acute distress. NECK: Supple. No JVD or thyromegaly LUNGS: Respirations even and unlabored. Lungs essentially clear to auscultation bilaterally. HEART: Regular rate and rhythm. S1 and S2 heard. EXTREMITIES: Normal range of motion. No clubbing or cyanosis. Peripheral pulses intact. 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 Patient not currently with significant valve dysfunction and continue with medical therapy. Likely repeat echo in next 06/15 either inpatient or outpt. Continue supportive care. Prognosis guarded. Objective - Vital Signs Vital signs: Vital Signs Temp 97.8 F 06/09/22 16:03 Pulse 88 06/09/22 16:03 Resp 18 06/09/22 16:03 BP 120/69 06/09/22 16:03 Pulse Ox 98 06/09/22 16:03 FiO2 Intake & Output 06/08/22 06/09/22 06/09/22 18:59 06:59 18:59 Intake Total 240 2370 130 Output Total 450 1500 1150 Balance -210 870 -1020 Weight 76.5 kg Intake: IV 10 Invasive Line 4 10 Intake, IV Titration 1400 Amount Ampicillin 2,000 mg In 300 Sodium Chloride 0.9% 100 ml @ 200 mls/hr IVPB Q4HR [facility] Rx#:[id number] D5-0.45% NaCl with KCl 1000 20Meq/l 1,000 ml @ 100 mls/hr IV .Q10H [facility] Rx#: [id number] Gentamicin 70 mg In 100 Sodium Chloride 0.9% 100 ml @ 101.75 mls/hr IVPB Q8H [facility] Rx#:[id number] Oral 240 970 120 Output: Urine 450 1500 1150 Other: Voiding Method Urinal Urinal Urinal # Bowel Movements 1 - Labs CBC & Chem 7: 06/04/22 12:30 06/09/22 08:08 Labs: Abnormal Lab Results - Last 24 Hours (Table) 06/08/22 06/08/22 06/09/22 Range/Units 17:05 20:05 06:16 Creatinine (0.66-1.25) mg/dL POC Glucose (mg/dL) 222 H 302 H 227 H (70-110) mg/dL 06/09/22 06/09/22 Range/Units 08:08 12:10 Creatinine 0.51 L (0.66-1.25) mg/dL POC Glucose (mg/dL) 291 H (70-110) mg/dL Microbiology - Last 24 Hours (Table) 06/05/22 16:58 Blood Culture Gram Stain - Final Blood Blood Culture - Final Enterococcus faecalis 06/05/22 12:25 Blood Culture Gram Stain - Final Blood Blood Culture - Final Enterococcus faecalis 06/05/22 12:35 Blood Culture Gram Stain - Final Blood Blood Culture - Final Enterococcus faecalis
[2022-06-09 17:04] LABS: Glucose,Whole Blood 257 mg/dL (70-110)
[2022-06-09 20:28] LABS: Glucose,Whole Blood 219 mg/dL (70-110)
[2022-06-09] MEDS: BUTALB/APAP/CAFF 50-325-40MG TAB PO PRN (21:26)
[2022-06-09] MEDS: MELATONIN 5 MG TABLET PO PRN (21:27)
[2022-06-09] MEDS: FAMOTIDINE 20 MG TAB PO SCH (21:27)
--- NOTE | 2022-06-09 23:50 | P.PN ---
Subjective Progress Note Date: 06/08/22 Principal diagnosis: Enterococcus faecalis bacteremia and possible mitral valve endocarditis Patient is a 72-year-old male with multiple comorbidities presenting to the hospital for intermittent vomiting abdominal pain and not feeling well patient did have a CT abdominal pelvis with evidence of splenic and renal infarcts also have an echocardiogram and there was concern for possible mitral valve vegetation. Which was confirmed on a FARA completed on 06/07/2022 On today's evaluation that is 06/08/2022 the patient continues to be afebrile, the patient is breathing comfortably on room air, the patient denies having any chest pain no worsening cough or sputum production, the patient abdominal pain has decreased in intensity,: The patient denies having any nausea vomiting and no diarrhea Objective - Vital Signs Vital signs: Vital Signs Temp 98.0 F 06/08/22 12:20 Pulse 94 06/08/22 12:20 Resp 18 06/08/22 13:07 BP 128/69 06/08/22 12:20 Pulse Ox 96 06/08/22 12:20 FiO2 Intake & Output 06/07/22 06/08/22 06/08/22 18:59 06:59 18:59 Intake Total 476 120 240 Output Total 850 950 250 Balance -374 -830 -10 Weight 76.5 kg Intake: Oral 476 120 240 Output: Urine 850 950 250 Other: Voiding Method Urinal Urinal Urinal Incontinent # Voids 1 2 - Exam GENERAL DESCRIPTION: Elderly male lying in bed, no distress. No tachypnea or accessory muscle of respiration use. LUNGS: Unlabored breathing. Clear to auscultation anteriorly. No wheeze or crackle. HEART: S1, S2, regular rate and rhythm. ABDOMEN: Soft, no tenderness , guarding or rigidity, no organomegaly EXTREMITIES: No edema of feet. - Labs CBC & Chem 7: 06/04/22 12:30 06/09/22 08:08 Labs: Abnormal Lab Results - Last 24 Hours (Table) 06/07/22 06/07/22 06/08/22 Range/Units 17:10 20:31 05:36 POC Glucose (mg/dL) 117 H 168 H 180 H (70-110) mg/dL 06/08/22 Range/Units 12:05 POC Glucose (mg/dL) 241 H (70-110) mg/dL Microbiology - Last 24 Hours (Table) 06/05/22 16:58 Blood Culture Gram Stain - Preliminary Blood Blood Culture - Preliminary Group D Enterococcus 06/05/22 12:25 Blood Culture Gram Stain - Preliminary Blood Blood Culture - Preliminary Group D Enterococcus Assessment and Plan (1) Vegetation of heart valve Current Visit: Yes Status: Acute Code(s): I33.0 - ACUTE AND SUBACUTE INFECTIVE ENDOCARDITIS SNOMED Code(s): 543648458 Plan: Patient did have Enterococcus faecalis bacteremia source likely mitral valve endocarditis with possible splenic and renal infarcts that has been confirmed on a FARA, Enterococcus is a sensitive pathogen and currently being treated with ampicillin and gentamicin while close monitoring of his kidney function, blood culture will be repeated daily to document clearance of bacteremia Time with Patient: Less than 30
--- NOTE | 2022-06-09 23:51 | P.PN ---
Subjective Progress Note Date: 06/09/22 Principal diagnosis: Enterococcus faecalis bacteremia and possible mitral valve endocarditis Patient is a 72-year-old male with multiple comorbidities presenting to the hospital for intermittent vomiting abdominal pain and not feeling well patient did have a CT abdominal pelvis with evidence of splenic and renal infarcts also have an echocardiogram and there was concern for possible mitral valve vegetation. Which was confirmed on a FARA completed on 06/07/2022 On today's evaluation that is 06/09/2022 the patient denies having any fever or any chills, the patient is breathing comfortably on room air, the patient denies having any chest pain no worsening cough or sputum production, the patient denies nausea or vomiting and abdominal pain has decreased in intensity Objective - Vital Signs Vital signs: Vital Signs Temp 98.8 F 06/09/22 09:11 Pulse 114 H 06/09/22 09:11 Resp 18 06/09/22 09:11 BP 127/68 06/09/22 09:11 Pulse Ox 95 06/09/22 09:11 FiO2 Intake & Output 06/08/22 06/09/22 06/09/22 18:59 06:59 18:59 Intake Total 240 2370 120 Output Total 450 1500 900 Balance -210 870 -780 Weight 76.5 kg Intake: Intake, IV Titration 1400 Amount Ampicillin 2,000 mg In 300 Sodium Chloride 0.9% 100 ml @ 200 mls/hr IVPB Q4HR [facility] Rx#:[id number] D5-0.45% NaCl with KCl 1000 20Meq/l 1,000 ml @ 100 mls/hr IV .Q10H [facility] Rx#: [id number] Gentamicin 70 mg In 100 Sodium Chloride 0.9% 100 ml @ 101.75 mls/hr IVPB Q8H [facility] Rx#:[id number] Oral 240 970 120 Output: Urine 450 1500 900 Other: Voiding Method Urinal Urinal Urinal # Bowel Movements 1 - Exam GENERAL DESCRIPTION: Elderly male lying in bed, no distress. No tachypnea or accessory muscle of respiration use. LUNGS: Unlabored breathing. Clear to auscultation anteriorly. No wheeze or crackle. HEART: S1, S2, regular rate and rhythm. ABDOMEN: Soft, no tenderness , guarding or rigidity, no organomegaly EXTREMITIES: No edema of feet. - Labs CBC & Chem 7: 06/04/22 12:30 06/09/22 08:08 Labs: Abnormal Lab Results - Last 24 Hours (Table) 06/08/22 06/08/22 06/09/22 Range/Units 17:05 20:05 06:16 Creatinine (0.66-1.25) mg/dL POC Glucose (mg/dL) 222 H 302 H 227 H (70-110) mg/dL 06/09/22 06/09/22 Range/Units 08:08 12:10 Creatinine 0.51 L (0.66-1.25) mg/dL POC Glucose (mg/dL) 291 H (70-110) mg/dL Microbiology - Last 24 Hours (Table) 06/05/22 16:58 Blood Culture Gram Stain - Final Blood Blood Culture - Final Enterococcus faecalis 06/05/22 12:25 Blood Culture Gram Stain - Final Blood Blood Culture - Final Enterococcus faecalis 06/05/22 12:35 Blood Culture Gram Stain - Final Blood Blood Culture - Final Enterococcus faecalis Assessment and Plan (1) Vegetation of heart valve Current Visit: Yes Status: Acute Code(s): I33.0 - ACUTE AND SUBACUTE INFECTI VE ENDOCARDITIS SNOMED Code(s): 884761646 Plan: Patient did have Enterococcus faecalis bacteremia source likely mitral valve endocarditis with possible splenic and renal infarcts that has been confirmed on a FARA, Enterococcus is a sensitive pathogen patient will continue with ampicillin and gentamicin , blood cultures repeated today as well as tomorrow once repeat blood culture negative the patient will be able to get a PICC line Time with Patient: Less than 30
[2022-06-10] MEDS: GENTAMICIN 70 MG in SODIUM CHLORIDE 0.9% 100 ML IVPB SCH ×3 (00:17→23:52)
[2022-06-10] MEDS: MORPHINE SULFATE 2 MG/ML SYRINGE IVP PRN ×3 (02:46→16:02)
[2022-06-10 06:29] LABS: Glucose,Whole Blood 155 mg/dL (70-110)
[2022-06-10] MEDS: INSULIN DETEMIR (LEVEMIR) 100 UNIT/ML SYR SQ SCH (07:21)
[2022-06-10] MEDS: INSULIN ASPART (NovoLOG) 100 UNIT/ML VIAL SQ SCH ×7 (07:23→20:38)
[2022-06-10] MEDS: D5-0.45% NACL WITH KCL 20MEQ/L 1,000 ML IV SCH ×4 (07:25→23:54)
[2022-06-10] MEDS: AMPICILLIN 2,000 MG in SODIUM CHLORIDE 0.9% 100 ML IVPB SCH ×7 (07:27→23:52)
[2022-06-10] MEDS: FOLIC ACID 1 MG TAB PO SCH (08:31)
[2022-06-10] MEDS: ASPIRIN 325 MG TAB PO SCH (08:32)
[2022-06-10] MEDS: FAMOTIDINE 20 MG TAB PO SCH ×2 (08:32→20:37)
[2022-06-10] MEDS: HEPARIN SODIUM,PORCINE/PF 5,000 UNIT/0.5 ML SYRINGE SQ SCH ×2 (10:07→20:37)
--- NOTE | 2022-06-10 10:43 | P.PN ---
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 Patient has a history of hypertension, hyperlipidemia, and CVA/TIA. Patient presented to the hospital with abdominal discomfort and confusion. Patient was found to have enlarged spleen with infarction and also right renal infarct.Cardiology was initially consulted for FARA. 2D Echocardiogram completed revealing ejection fraction 50-55%, with vegetation noted on anterior leaflet of mitral valve. Blood cultures are positive for gram positive cocci. FARA revealed large vegetation involving the anterior mitral leaflet and a moderate sized regurgitation following the posterior mitral leaflet, small vegetation over the left coronary cusp with aortic valve. No evidence of aortic regurgitation, no evidence of shunting. LV is normal size and systolic function. 06/10 Patient seen and examined. No acute distress. No complaints this morning. Denies any chest pain or pressure or shortness of breath. Denies any fevers or chills. Infectious disease is following, patient is on IV Gentamicin. PHYSICAL EXAM: VITAL SIGNS: Blood pressure 140/60, heart rate 98, afebrile, saturations 90% on room air GENERAL: Well-developed in no acute distress. NECK: Supple. No JVD or thyromegaly LUNGS: Respirations even and unlabored. Lungs essentially clear to auscultation bilaterally. HEART: Regular rate and rhythm. S1 and S2 heard. EXTREMITIES: Normal range of motion. No clubbing or cyanosis. Peripheral pulses intact. 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 Patient not currently with significant valve dysfunction and continue with medical therapy. Likely repeat echo as an outpatient Continue supportive care. Prognosis guarded. Nurse practitioner note has been reviewed by physician. Signing provider agrees with the documented findings, assessment, and plan of care. Objective - Vital Signs Vital signs: Vital Signs Temp 99.2 F 06/10/22 08:21 Pulse 98 06/10/22 10:20 Resp 18 06/10/22 10:20 BP 148/68 06/10/22 08:21 Pulse Ox 98 06/10/22 08:21 FiO2 Intake & Output 06/09/22 06/10/22 06/10/22 18:59 06:59 18:59 Intake Total 130 118 Output Total 1550 725 Balance -1420 -725 118 Intake: IV 10 Invasive Line 4 10 Oral 120 118 Output: Urine 1550 725 Other: Voiding Method Urinal Urinal Urinal # Voids 2 # Bowel Movements 1 - Labs CBC & Chem 7: 06/04/22 12:30 06/09/22 08:08 Labs: Abnormal Lab Results - Last 24 Hours (Table) 06/09/22 06/09/22 06/09/22 Range/Units 12:10 17:02 20:27 POC Glucose (mg/dL) 291 H 257 H 219 H (70-110) mg/dL 06/10/22 Range/Units 06:18 POC Glucose (mg/dL) 155 H (70-110) mg/dL
[2022-06-10 11:27] LABS: African American GFR (CKD) >90 (>60 ml/min/1.73 sqM); Anion Gap 9 mmol/L; Blood Urea Nitrogen 6 mg/dL (9-20); Calcium 7.3 mg/dL (8.4-10.2); Carbon Dioxide 27 mmol/L (22-30); Chloride 94 mmol/L (98-107); Glucose 226 mg/dL (74-99); Magnesium 1.3 mg/dL (1.6-2.3); Non-African American GFR(CKD) >90 (>60 ml/min/1.73 sqM); Potassium 2.9 mmol/L (3.5-5.1); Sodium 130 mmol/L (137-145)
[2022-06-10] MEDS ORDERED: GENTAMICIN TROUGH DUE 1 EACH MISC MISCELLANE ONE (11:30)
[2022-06-10 11:35] LABS: Basophils % (A) 0 %; Eosinophils # (A) 0.1 k/uL (0-0.7); Eosinophils % (A) 1 %; HCT 26.8 % (39.0-53.0); Hypochromasia Slight; Lymphocytes # (A) 0.6 k/uL (1.0-4.8); Lymphocytes % (A) 9 %; MCH 29.1 pg (25.0-35.0); MCHC 33.3 g/dL (31.0-37.0); Mean Platelet Volume 7.1; Monocytes # (A) 0.4 k/uL (0-1.0); Monocytes % (A) 5 %; Neutrophils # (A) 6.1 k/uL (1.3-7.7); Neutrophils % (A) 83 %; Platelet Count 399 k/uL (150-450); Poikilocytosis Slight; RBC 3.07 m/uL (4.30-5.90); RDW 14.1 % (11.5-15.5); WBC 7.3 k/uL (3.8-10.6)
[2022-06-10 11:37] LABS: HGB 8.9 gm/dL (13.0-17.5); MCV 87.5 fL (80.0-100.0)
[2022-06-10 12:00] LABS: Glucose,Whole Blood 259 mg/dL (70-110)
[2022-06-10] MEDS: SODIUM CHLORIDE 0.9% 1,000 ML IV SCH (12:37)
[2022-06-10] MEDS ORDERED: GENTAMICIN PEAK DUE 1 EACH MISC MISCELLANE ONE (13:30)
[2022-06-10 17:01] LABS: Glucose,Whole Blood 218 mg/dL (70-110)
[2022-06-10 19:54] LABS: Glucose,Whole Blood 348 mg/dL (70-110)
[2022-06-10 20:32] LABS: ALT 31 U/L (4-49); AST 40 U/L (17-59); African American GFR (CKD) >90 (>60 ml/min/1.73 sqM); Albumin 2.4 g/dL (3.5-5.0); Alkaline Phosphatase 129 U/L (38-126); Anion Gap 10 mmol/L; Blood Urea Nitrogen 9 mg/dL (9-20); Calcium 7.2 mg/dL (8.4-10.2); Carbon Dioxide 25 mmol/L (22-30); Chloride 94 mmol/L (98-107); Glucose 292 mg/dL (74-99); Magnesium 1.3 mg/dL (1.6-2.3); Non-African American GFR(CKD) >90 (>60 ml/min/1.73 sqM); Potassium 3.1 mmol/L (3.5-5.1); Sodium 129 mmol/L (137-145); Total Bilirubin 0.2 mg/dL (0.2-1.3); Total Protein 5.1 g/dL (6.3-8.2)
[2022-06-10] MEDS: MELATONIN 5 MG TABLET PO PRN (20:37)
[2022-06-10] MEDS: BUTALB/APAP/CAFF 50-325-40MG TAB PO PRN (20:37)
[2022-06-10] MEDS: POTASSIUM CHLORIDE ER 20 MEQ TAB.ER PO SCH (23:51)
[2022-06-10] MEDS: MAGNESIUM OXIDE 400 MG TAB PO SCH (23:51)
[2022-06-11] MEDS: BUTALB/APAP/CAFF 50-325-40MG TAB PO PRN ×2 (03:45→20:26)
[2022-06-11] MEDS: AMPICILLIN 2,000 MG in SODIUM CHLORIDE 0.9% 100 ML IVPB SCH ×5 (04:44→20:26)
[2022-06-11 07:00] LABS: Glucose,Whole Blood 156 mg/dL (70-110)
[2022-06-11] MEDS: INSULIN DETEMIR (LEVEMIR) 100 UNIT/ML SYR SQ SCH (07:14)
[2022-06-11] MEDS: INSULIN ASPART (NovoLOG) 100 UNIT/ML VIAL SQ SCH ×7 (07:14→21:22)
[2022-06-11 09:35] LABS: African American GFR (CKD) >90 (>60 ml/min/1.73 sqM); Anion Gap 12 mmol/L; Blood Urea Nitrogen 6 mg/dL (9-20); Calcium 7.3 mg/dL (8.4-10.2); Carbon Dioxide 22 mmol/L (22-30); Chloride 99 mmol/L (98-107); Glucose 136 mg/dL (74-99); Non-African American GFR(CKD) >90 (>60 ml/min/1.73 sqM); Sodium 133 mmol/L (137-145)
[2022-06-11 09:39] LABS: Magnesium 1.5 mg/dL (1.6-2.3); Potassium 4.6 mmol/L (3.5-5.1)
[2022-06-11] MEDS: POTASSIUM CHLORIDE ER 20 MEQ TAB.ER PO SCH ×2 (10:38→20:26)
[2022-06-11] MEDS: ASPIRIN 325 MG TAB PO SCH (10:38)
[2022-06-11] MEDS: FAMOTIDINE 20 MG TAB PO SCH ×2 (10:38→20:26)
[2022-06-11] MEDS: HEPARIN SODIUM,PORCINE/PF 5,000 UNIT/0.5 ML SYRINGE SQ SCH ×2 (10:38→20:26)
[2022-06-11] MEDS: MAGNESIUM OXIDE 400 MG TAB PO SCH (10:38)
[2022-06-11] MEDS: FOLIC ACID 1 MG TAB PO SCH (10:38)
[2022-06-11] MEDS: MORPHINE SULFATE 2 MG/ML SYRINGE IVP PRN ×2 (10:39→17:32)
--- NOTE | 2022-06-11 11:43 | P.PN ---
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 Patient has a history of hypertension, hyperlipidemia, and CVA/TIA. Patient presented to the hospital with abdominal discomfort and confusion. Patient was found to have enlarged spleen with infarction and also right renal infarct.Cardiology was initially consulted for FARA. 2D Echocardiogram completed revealing ejection fraction 50-55%, with vegetation noted on anterior leaflet of mitral valve. Blood cultures are positive for gram positive cocci. FARA revealed large vegetation involving the anterior mitral leaflet and a moderate sized regurgitation following the posterior mitral leaflet, small vegetation over the left coronary cusp with aortic valve. No evidence of aortic regurgitation, no evidence of shunting. LV is normal size and systolic function. 06/11 Patient seen and examined. No acute distress. No complaints this morning. Denies any chest pain or pressure or shortness of breath. Denies any fevers or chills. Infectious disease is following, patient is on IV Gentamicin. Labs: Sodium 133, K 4.6, BUN 6, sCr 0.47, Mag 1.5 PHYSICAL EXAM: VITAL SIGNS: Blood pressure 118/65, heart rate 99, afebrile, 99% on room air GENERAL: Well-developed in no acute distress. NECK: Supple. No JVD or thyromegaly LUNGS: Respirations even and unlabored. Lungs essentially clear to auscultation bilaterally. HEART: Regular rate and rhythm. S1 and S2 heard. EXTREMITIES: Normal range of motion. No clubbing or cyanosis. Peripheral pulses intact. 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 Patient not currently with significant valve dysfunction and continue with medical therapy. Likely repeat echo as an outpatient Continue supportive care. Prognosis guarded. Rest of management per infectious disease and primary No further changes from a cardiology perspective. Close follow up outpatient in the office. Nurse practitioner note has been reviewed by physician. Signing provider agrees with the documented findings, assessment, and plan of care. Objective - Vital Signs Vital signs: Vital Signs Temp 98.4 F 06/11/22 08:00 Pulse 99 06/11/22 08:00 Resp 17 06/11/22 08:00 BP 118/65 06/11/22 08:00 Pulse Ox 99 06/11/22 08:00 FiO2 Intake & Output 06/10/22 06/11/22 06/11/22 18:59 06:59 18:59 Intake Total 598 1500 640 Output Total 1300 1500 Balance -702 0 640 Intake: Intake, IV Titration 1500 Amount Ampicillin 2,000 mg In 200 Sodium Chloride 0.9% 100 ml @ 200 mls/hr IVPB Q4HR [facility] Rx#:[id number] D5-0.45% NaCl with KCl 1200 20Meq/l 1,000 ml @ 100 mls/hr IV .Q10H [facility] Rx#: [id number] Gentamicin 70 mg In 100 Sodium Chloride 0.9% 100 ml @ 101.75 mls/hr IVPB Q12HR@0000,1200 [facility] Rx#: [id number] Oral 598 640 Output: Urine 1300 1500 Other: Voiding Method Urinal Urinal - Labs CBC & Chem 7: 06/10/22 11:00 06/11/22 07:54 Labs: Abnormal Lab Results - Last 24 Hours (Table) 06/10/22 06/10/22 06/10/22 Range/Units 11:58 16:59 19:51 Sodium (137-145) mmol/L Potassium (3.5-5.1) mmol/L Chloride (98-107) mmol/L BUN (9-20) mg/dL Creatinine (0.66-1.25) mg/dL Glucose (74-99) mg/dL POC Glucose (mg/dL) 259 H 218 H 348 H (70-110) mg/dL Calcium (8.4-10.2) mg/dL Magnesium (1.6-2.3) mg/dL Alkaline Phosphatase (38-126) U/L Total Protein (6.3-8.2) g/dL Albumin (3.5-5.0) g/dL 06/10/22 06/11/22 06/11/22 Range/Units 19:59 06:59 07:54 Sodium 129 L 133 L (137-145) mmol/L Potassium 3.1 L (3.5-5.1) mmol/L Chloride 94 L (98-107) mmol/L BUN 6 L (9-20) mg/dL Creatinine 0.61 L 0.47 L (0.66-1.25) mg/dL Glucose 292 H 136 H (74-99) mg/dL POC Glucose (mg/dL) 156 H (70-110) mg/dL Calcium 7.2 L 7.3 L (8.4-10.2) mg/dL Magnesium 1.3 L 1.5 L (1.6-2.3) mg/dL Alkaline Phosphatase 129 H (38-126) U/L Total Protein 5.1 L (6.3-8.2) g/dL Albumin 2.4 L (3.5-5.0) g/dL Microbiology - Last 24 Hours (Table) 06/09/22 14:59 Blood Culture - Preliminary Blood No Growth after 24 hours
[2022-06-11 11:47] LABS: Glucose,Whole Blood 242 mg/dL (70-110)
[2022-06-11] MEDS: GENTAMICIN 70 MG in SODIUM CHLORIDE 0.9% 100 ML IVPB SCH (12:35)
[2022-06-11] MEDS: SODIUM CHLORIDE 0.9% 1,000 ML IV SCH (12:35)
[2022-06-11] MEDS: D5-0.45% NACL WITH KCL 20MEQ/L 1,000 ML IV SCH (12:35)
[2022-06-11 16:40] LABS: Glucose,Whole Blood 173 mg/dL (70-110)
[2022-06-11] MEDS ORDERED: CALCIUM CARBONATE 500 MG CHEWABLE PO PRN (20:08)
[2022-06-11] MEDS: MELATONIN 5 MG TABLET PO PRN (20:26)
[2022-06-11 20:44] LABS: Glucose,Whole Blood 192 mg/dL (70-110)
[2022-06-11] MEDS ORDERED: INSULIN DETEMIR (LEVEMIR) 100 UNIT/ML SYR SQ SCH (21:00)
--- NOTE | 2022-06-11 22:07 | P.PN ---
Subjective Progress Note Date: 06/10/22 Principal diagnosis: Enterococcus faecalis bacteremia and possible mitral valve endocarditis Patient is a 72-year-old male with multiple comorbidities presenting to the hospital for intermittent vomiting abdominal pain and not feeling well patient did have a CT abdominal pelvis with evidence of splenic and renal infarcts also have an echocardiogram and there was concern for possible mitral valve vegetation. Which was confirmed on a FARA completed on 06/07/2022 On today's evaluation that is 06/10/2022 the patient continues to be afebrile, the patient is breathing comfortably on room air, the patient denies having any chest pain no worsening cough or sputum production, the patient denies nausea or vomiting, the patient abdominal pain has decreased in intensity and no diarrhea Objective - Vital Signs Vital signs: Vital Signs Temp 99.2 F 06/10/22 08:21 Pulse 107 H 06/10/22 12:36 Resp 18 06/10/22 12:36 BP 137/77 06/10/22 12:36 Pulse Ox 96 06/10/22 12:36 FiO2 Intake & Output 06/09/22 06/10/22 06/10/22 18:59 06:59 18:59 Intake Total 130 118 Output Total 3785 208 9374 Balance -1420 -725 -1182 Intake: IV 10 Invasive Line 4 10 Oral 120 118 Output: Urine 8862 812 6839 Other: Voiding Method Urinal Urinal Urinal # Voids 2 # Bowel Movements 1 - Exam GENERAL DESCRIPTION: Elderly male lying in bed, no distress. No tachypnea or accessory muscle of respiration use. LUNGS: Unlabored breathing. Clear to auscultation anteriorly. No wheeze or crackle. HEART: S1, S2, regular rate and rhythm. ABDOMEN: Soft, no tenderness , guarding or rigidity, no organomegaly EXTREMITIES: No edema of feet. - Labs CBC & Chem 7: 06/10/22 11:00 06/11/22 07:54 Labs: Abnormal Lab Results - Last 24 Hours (Table) 06/09/22 06/09/22 06/10/22 Range/Units 17:02 20:27 06:18 RBC (4.30-5.90) m/uL Hgb (13.0-17.5) gm/dL Hct (39.0-53.0) % Lymphocytes # (1.0-4.8) k/uL Sodium (137-145) mmol/L Potassium (3.5-5.1) mmol/L Chloride (98-107) mmol/L BUN (9-20) mg/dL Creatinine (0.66-1.25) mg/dL Glucose (74-99) mg/dL POC Glucose (mg/dL) 257 H 219 H 155 H (70-110) mg/dL Calcium (8.4-10.2) mg/dL Magnesium (1.6-2.3) mg/dL 06/10/22 06/10/22 06/10/22 Range/Units 11:00 11:00 11:58 RBC 3.07 L (4.30-5.90) m/uL Hgb 8.9 L D (13.0-17.5) gm/dL Hct 26.8 L (39.0-53.0) % Lymphocytes # 0.6 L (1.0-4.8) k/uL Sodium 130 L (137-145) mmol/L Potassium 2.9 L (3.5-5.1) mmol/L Chloride 94 L (98-107) mmol/L BUN 6 L (9-20) mg/dL Creatinine 0.59 L (0.66-1.25) mg/dL Glucose 226 H (74-99) mg/dL POC Glucose (mg/dL) 259 H (70-110) mg/dL Calcium 7.3 L (8.4-10.2) mg/dL Magnesium 1.3 L (1.6-2.3) mg/dL Assessment and Plan (1) Vegetation of heart valve Current Visit: Yes Status: Acute Code(s): I33.0 - ACUTE AND SUBACUTE INFECTIVE ENDOCARDITIS SNOMED Code(s): 167167722 Plan: Patient did have Enterococcus faecalis bacteremia source likely mitral valve endocarditis with possible splenic and renal infarcts that has been confirmed on a FARA, Enterococcus is a sensitive pathogen patient currently being treated with ampicillin and gentamicin , blood cultures repeated today and blood cultures from 06/09/2020 and so far negative Time with Patient: Less than 30
--- NOTE | 2022-06-11 22:08 | P.PN ---
Subjective Progress Note Date: 06/11/22 Principal diagnosis: Enterococcus faecalis bacteremia and possible mitral valve endocarditis Patient is a 72-year-old male with multiple comorbidities presenting to the hospital for intermittent vomiting abdominal pain and not feeling well patient did have a CT abdominal pelvis with evidence of splenic and renal infarcts also have an echocardiogram and there was concern for possible mitral valve vegetation. Which was confirmed on a FARA completed on 06/07/2022 On today's evaluation that is 06/11/2022 the patient remains to be afebrile, the patient is breathing comfortably on room air, the patient denies having any chest pain shortness of breath or cough. Denies having any nausea no vomiting and abdominal pain has improved and no diarrhea Objective - Vital Signs Vital signs: Vital Signs Temp 98.4 F 06/11/22 08:00 Pulse 99 06/11/22 08:00 Resp 17 06/11/22 08:00 BP 118/65 06/11/22 08:00 Pulse Ox 99 06/11/22 08:00 FiO2 Intake & Output 06/10/22 06/11/22 06/11/22 18:59 06:59 18:59 Intake Total 598 1500 640 Output Total 1300 1500 Balance -702 0 640 Intake: Intake, IV Titration 1500 Amount Ampicillin 2,000 mg In 200 Sodium Chloride 0.9% 100 ml @ 200 mls/hr IVPB Q4HR [facility] Rx#:[id number] D5-0.45% NaCl with KCl 1200 20Meq/l 1,000 ml @ 100 mls/hr IV .Q10H [facility] Rx#: [id number] Gentamicin 70 mg In 100 Sodium Chloride 0.9% 100 ml @ 101.75 mls/hr IVPB Q12HR@0000,1200 [facility] Rx#: [id number] Oral 598 640 Output: Urine 1300 1500 Other: Voiding Method Urinal Urinal - Exam GENERAL DESCRIPTION: Elderly male lying in bed, no distress. No tachypnea or accessory muscle of respiration use. LUNGS: Unlabored breathing. Clear to auscultation anteriorly. No wheeze or crackle. HEART: S1, S2, regular rate and rhythm. ABDOMEN: Soft, no tenderness , guarding or rigidity, no organomegaly EXTREMITIES: No edema of feet. - Labs CBC & Chem 7: 06/10/22 11:00 06/11/22 07:54 Labs: Abnormal Lab Results - Last 24 Hours (Table) 06/10/22 06/10/22 06/10/22 Range/Units 11:00 11:00 11:58 RBC 3.07 L (4.30-5.90) m/uL Hgb 8.9 L D (13.0-17.5) gm/dL Hct 26.8 L (39.0-53.0) % Lymphocytes # 0.6 L (1.0-4.8) k/uL Sodium 130 L (137-145) mmol/L Potassium 2.9 L (3.5-5.1) mmol/L Chloride 94 L (98-107) mmol/L BUN 6 L (9-20) mg/dL Creatinine 0.59 L (0.66-1.25) mg/dL Glucose 226 H (74-99) mg/dL POC Glucose (mg/dL) 259 H (70-110) mg/dL Calcium 7.3 L (8.4-10.2) mg/dL Magnesium 1.3 L (1.6-2.3) mg/dL Alkaline Phosphatase (38-126) U/L Total Protein (6.3-8.2) g/dL Albumin (3.5-5.0) g/dL 06/10/22 06/10/22 06/10/22 Range/Units 16:59 19:51 19:59 RBC (4.30-5.90) m/uL Hgb (13.0-17.5) gm/dL Hct (39.0-53.0) % Lymphocytes # (1.0-4.8) k/uL Sodium 129 L (137-145) mmol/L Potassium 3.1 L (3.5-5.1) mmol/L Chloride 94 L (98-107) mmol/L BUN (9-20) mg/dL Creatinine 0.61 L (0.66-1.25) mg/dL Glucose 292 H (74-99) mg/dL POC Glucose (mg/dL) 218 H 348 H (70-110) mg/dL Calcium 7.2 L (8.4-10.2) mg/dL Magnesium 1.3 L (1.6-2.3) mg/dL Alkaline Phosphatase 129 H (38-126) U/L Total Protein 5.1 L (6.3-8.2) g/dL Albumin 2.4 L (3.5-5.0) g/dL 06/11/22 06/11/22 Range/Units 06:59 07:54 RBC (4.30-5.90) m/uL Hgb (13.0-17.5) gm/dL Hct (39.0-53.0) % Lymphocytes # (1.0-4.8) k/uL Sodium 133 L (137-145) mmol/L Potassium (3.5-5.1) mmol/L Chloride (98-107) mmol/L BUN 6 L (9-20) mg/dL Creatinine 0.47 L (0.66-1.25) mg/dL Glucose 136 H (74-99) mg/dL POC Glucose (mg/dL) 156 H (70-110) mg/dL Calcium 7.3 L (8.4-10.2) mg/dL Magnesium 1.5 L (1.6-2.3) mg/dL Alkaline Phosphatase (38-126) U/L Total Protein (6.3-8.2) g/dL Albumin (3.5-5.0) g/dL Microbiology - Last 24 Hours (Table) 06/09/22 14:59 Blood Culture - Preliminary Blood No Growth after 24 hours Assessment and Plan (1) Vegetation of heart valve Current Visit: Yes Status: Acute Code(s): I33.0 - ACUTE AND SUBACUTE IN FECTIVE ENDOCARDITIS SNOMED Code(s): 363915835 Plan: Patient did have Enterococcus faecalis bacteremia source likely mitral valve endocarditis with possible splenic and renal infarcts that has been confirmed on a FARA, Enterococcus is a sensitive pathogen patient currently being treated with ampicillin and gentamicin , blood cultures 06/09/2022 as well as 06/10/2020 remains to be negative if there remains to be negative by the morning patient will get a PICC line for outpatient IV antibiotic therapy Time with Patient: Less than 30
[2022-06-12] MEDS: D5-0.45% NACL WITH KCL 20MEQ/L 1,000 ML IV SCH ×4 (00:13→20:19)
[2022-06-12] MEDS: AMPICILLIN 2,000 MG in SODIUM CHLORIDE 0.9% 100 ML IVPB SCH ×6 (00:13→20:20)
[2022-06-12] MEDS: GENTAMICIN 70 MG in SODIUM CHLORIDE 0.9% 100 ML IVPB SCH ×2 (00:13→13:56)
[2022-06-12] MEDS: INSULIN ASPART (NovoLOG) 100 UNIT/ML VIAL SQ SCH ×7 (07:09→20:20)
[2022-06-12] MEDS: INSULIN DETEMIR (LEVEMIR) 100 UNIT/ML SYR SQ SCH ×2 (07:10→20:20)
[2022-06-12 07:11] LABS: Glucose,Whole Blood 59 mg/dL (70-110)
[2022-06-12 07:17] LABS: Glucose,Whole Blood 77 mg/dL (70-110)
[2022-06-12] MEDS: HEPARIN SODIUM,PORCINE/PF 5,000 UNIT/0.5 ML SYRINGE SQ SCH ×2 (08:55→20:20)
[2022-06-12] MEDS: FOLIC ACID 1 MG TAB PO SCH (08:55)
[2022-06-12] MEDS: POTASSIUM CHLORIDE ER 20 MEQ TAB.ER PO SCH (08:55)
[2022-06-12] MEDS: FAMOTIDINE 20 MG TAB PO SCH ×2 (08:55→20:20)
[2022-06-12] MEDS: ASPIRIN 325 MG TAB PO SCH (08:55)
[2022-06-12] MEDS: MAGNESIUM OXIDE 400 MG TAB PO SCH (08:55)
[2022-06-12] MEDS: MORPHINE SULFATE 2 MG/ML SYRINGE IVP PRN ×2 (08:56→13:57)
[2022-06-12 08:57] LABS: Basophils % (A) 1 %; Eosinophils % (A) 1 %; HCT 29.8 % (39.0-53.0); HGB 9.7 gm/dL (13.0-17.5); Hypochromasia Slight; Lymphocytes # (A) 0.8 k/uL (1.0-4.8); Lymphocytes % (A) 10 %; MCH 28.7 pg (25.0-35.0); MCHC 32.5 g/dL (31.0-37.0); MCV 88.1 fL (80.0-100.0); Mean Platelet Volume 7.1; Monocytes # (A) 0.4 k/uL (0-1.0); Monocytes % (A) 5 %; Neutrophils # (A) 6.7 k/uL (1.3-7.7); Neutrophils % (A) 81 %; Platelet Count 556 k/uL (150-450); Poikilocytosis Slight; RBC 3.38 m/uL (4.30-5.90); RDW 14.2 % (11.5-15.5); WBC 8.2 k/uL (3.8-10.6)
[2022-06-12 09:04] LABS: African American GFR (CKD) >90 (>60 ml/min/1.73 sqM); Anion Gap 10 mmol/L; Blood Urea Nitrogen 7 mg/dL (9-20); Calcium 7.8 mg/dL (8.4-10.2); Carbon Dioxide 28 mmol/L (22-30); Chloride 97 mmol/L (98-107); Glucose 117 mg/dL (74-99); Non-African American GFR(CKD) >90 (>60 ml/min/1.73 sqM); Potassium 3.6 mmol/L (3.5-5.1); Sodium 135 mmol/L (137-145)
[2022-06-12 09:28] LABS: C Reactive Protein 17.7 mg/dL (<1.0)
--- NOTE | 2022-06-12 12:01 | P.PN ---
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 Patient has a history of hypertension, hyperlipidemia, and CVA/TIA. Patient presented to the hospital with abdominal discomfort and confusion. Patient was found to have enlarged spleen with infarction and also right renal infarct.Cardiology was initially consulted for FARA. 2D Echocardiogram completed revealing ejection fraction 50-55%, with vegetation noted on anterior leaflet of mitral valve. Blood cultures are positive for gram positive cocci. FARA revealed large vegetation involving the anterior mitral leaflet and a moderate sized regurgitation following the posterior mitral leaflet, small vegetation over the left coronary cusp with aortic valve. No evidence of aortic regurgitation, no evidence of shunting. LV is normal size and systolic function. 06/12 Patient seen and examined. No acute distress. No complaints this morning. Denies any chest pain or pressure or shortness of breath. Denies any fevers or chills. Infectious disease is following, patient is on IV Gentamicin and IV ampicillin. Labs: Sodium 134 K 3.6, BUN 7, sCr 0.68 PHYSICAL EXAM: VITAL SIGNS: Blood [id number], heart rate 90, afebrile, 100% on room air GENERAL: Well-developed in no acute distress. NECK: Supple. No JVD or thyromegaly LUNGS: Respirations even and unlabored. Lungs essentially clear to auscultation bilaterally. HEART: Regular rate and rhythm. S1 and S2 heard. EXTREMITIES: Normal range of motion. No clubbing or cyanosis. Peripheral pulses intact. 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 Patient not currently with significant valve dysfunction and continue with medical therapy. Likely repeat echo as an outpatient Continue supportive care. Prognosis guarded. Rest of management per infectious disease and primary No further changes from a cardiology perspective. Close follow up outpatient in the office. Nurse practitioner note has been reviewed by physician. Signing provider agrees with the documented findings, assessment, and plan of care. Objective - Vital Signs Vital signs: Vital Signs Temp 96.2 F L 06/12/22 08:00 Pulse 90 06/12/22 08:00 Resp 17 06/12/22 08:00 BP 143/64 06/12/22 08:00 Pulse Ox 100 06/12/22 08:00 FiO2 21 06/11/22 20:04 Intake & Output 06/11/22 06/12/22 06/12/22 18:59 06:59 18:59 Intake Total 640 240 236 Output Total 750 800 825 Balance -110 -560 -589 Intake: Intake, IV Titration 240 Amount Sodium Chloride 0.9% 1, 240 000 ml @ 20 mls/hr IV . Q24H [facility] Rx#:[id number] Oral 640 236 Output: Urine 750 800 825 Other: Voiding Method Urinal Urinal Urinal # Bowel Movements 1 - Labs CBC & Chem 7: 06/12/22 07:56 06/12/22 07:56 Labs: Abnormal Lab Results - Last 24 Hours (Table) 06/11/22 06/11/22 06/12/22 Range/Units 16:38 20:41 06:59 RBC (4.30-5.90) m/uL Hgb (13.0-17.5) gm/dL Hct (39.0-53.0) % Plt Count (150-450) k/uL Lymphocytes # (1.0-4.8) k/uL Sodium (137-145) mmol/L Chloride (98-107) mmol/L BUN (9-20) mg/dL Glucose (74-99) mg/dL POC Glucose (mg/dL) 173 H 192 H 59 L (70-110) mg/dL Calcium (8.4-10.2) mg/dL C-Reactive Protein (<1.0) mg/dL 06/12/22 06/12/22 Range/Units 07:56 07:56 RBC 3.38 L (4.30-5.90) m/uL Hgb 9.7 L (13.0-17.5) gm/dL Hct 29.8 L (39.0-53.0) % Plt Count 556 H (150-450) k/uL Lymphocytes # 0.8 L (1.0-4.8) k/uL Sodium 135 L (137-145) mmol/L Chloride 97 L (98-107) mmol/L BUN 7 L (9-20) mg/dL Glucose 117 H (74-99) mg/dL POC Glucose (mg/dL) (70-110) mg/dL Calcium 7.8 L (8.4-10.2) mg/dL C-Reactive Protein 17.7 H (<1.0) mg/dL Microbiology - Last 24 Hours (Table) 06/11/22 07:54 Blood Culture - Preliminary Blood No Growth after 24 hours 06/09/22 14:59 Blood Culture - Preliminary Blood No Growth after 48 hours 06/10/22 11:00 Blood Culture - Preliminary Blood No Growth after 24 hours
[2022-06-12 12:02] LABS: Glucose,Whole Blood 191 mg/dL (70-110)
[2022-06-12] MEDS ORDERED: LIDOCAINE 1% INJ 10MG/ML (5 ML VIAL-PF) SQ ONE (13:03)
[2022-06-12 13:19] LABS: Erythrocyte Sedimentation Rate 125 mm/hr (0-15)
--- NOTE | 2022-06-12 13:32 | IR ---
PICC LINE PLACEMENT: HISTORY: Infection requiring long-term antibiotic therapy PROCEDURE: Ultrasound and fluoroscopic guidance of PICC line placement. COMPLICATIONS: None ANESTHESIA: 1. 1% Lidocaine locally. FINDINGS/TECHNIQUE: The procedure was explained to the patient. The risks, complications, benefits and alternatives were discussed and any questions were answered. Informed consent was obtained. The patient was placed supine on the fluoroscopic table and prepped and draped in the usual sterile fash ion. Utilizing a 21 gauge needle and sonographic and fluoroscopic guidance, access in the left basi lic vein was achieved and there is placement of a 0.018 guidewire. The vein is patent. A 4-F sheath was placed over the guidewire. The guidewire and dilator were removed and a 4-F. PICC line was plac ed through the sheath with the tip at the level of the SVC. The sheath was removed, the catheter was flushed and sutured into position. The patient was stable throughout the procedure and remained sta ble upon discharge from the Department of Radiology. The vein puncture was patent under ultrasound. A centeno scale image was obtained to document patency of the vein punctured. All elements of the maximal barrier technique were utilized. FLUOROSCOPY TIME: 0.2 minutes and 1 image submitted IMPRESSION: Successful PICC line placement under ultrasound and fluoroscopic guidance.
[2022-06-12] MEDS ORDERED: Magnesium Replacement Protocol 1 EACH MISC MISCELLANE PRN (14:31)
--- NOTE | 2022-06-12 14:34 | P.PN ---
Subjective Progress Note Date: 06/12/22 This is a 72 year old male patient of Dr Adams with history of diabetes who presented to the hospital in DKA. Patient underwent abdominal pelvis CT on admission showing renal and splenic infarct possibly acute. Patient was found to have Enterococcus faecalis bacteremia with repeat blood cultures pending. Infectious disease is on the case and patient remains on IV Unasyn and IV Gentamicin for antibiotic coverage. Patient underwent FARA on 06/07/22 which confirms mitral valve vegetation found on echocardiogram. Cardiothoracic team has recommended to continue antibiotic therapy, follow blood cultures. C ardiology recommending to repeat echocardiogram outpatient with no plans for surgical intervention of valve currently as his LV function is normal. Patient is scheduled to undergo PICC line placement today for outpatient IV antibiotic therapy. Labs today showing white count 8.2, hgb 9.7, sodium 135, potassium 3.6, magnesium 1.6, CRP 17.7. Patient is afebrile, heart rate 76 normal sinus rhythm, blood pressure 136/74, 99%. Patient will [facility] and neoSurgical is currently being worked on. Review of Systems Constitutional: Denied any fatigue denied any fever. Cardio vascular: denied any chest pain, palpitations Gastrointestinal: denied any nausea, vomiting, diarrhea Pulmonary: Denied any shortness of breath cough Neurologic denied any new focal deficits All inpatient medications were reviewed and appropriate changes in these medications as dictated in the interval history and assessment and plan. PHYSICAL EXAMINATION: GENERAL: The patient is alert and oriented x3, not in any acute distress. Well developed, well nourished. HEENT: Pupils are round and equally reacting to light. EOMI. No scleral icterus. No conjunctival pallor. Normocephalic, atraumatic. No pharyngeal erythema. No thyromegaly. CARDIOVASCULAR: S1 and S2 present. No murmurs, rubs, or gallops. PULMONARY: Chest is clear to auscultation, no wheezing or crackles. ABDOMEN: Soft, nontender, nondistended, normoactive bowel sounds. No palpable organomegaly. MUSCULOSKELETAL: No joint swelling or deformity. EXTREMITIES: No cyanosis, clubbing, or pedal edema. NEUROLOGICAL: Gross neurological examination did not reveal any focal deficits. SKIN: No rashes. Assessment and Plan Assessment Diabetes Mellitus, uncontrolled with DKA on admission Altered mental status secondary to metabolic encephalopathy, improved Bacterial endocarditis with vegetation on anterior leaflet of the mitral valve Enterococcus Faecalis bacteremia Splenic and Right Renal Infarct found on CT Hypertension Hyperlipidemia Peripheral artery disease post stenting Nicotine dependence ETOH abuse Marijuana use GI Prophylaxis DVT Prophylaxis Full Code Plan Continue with IV antibiotics Patient is pending PICC line placement today Pending finalized blood cultures Replace electrolytes Continue current diabetic medications, blood sugar has improved Continue with D5 1/2 normal saline Oral potassium decreased to daily Patient is pending authorization for DC to [facility] with IV antibiotics Dr Chatman to resume care of patient tomorrow morning The impression and plan of care has been dictated by Carlyn Galindo, Nurse Practitioner as directed. Dr. Miguel MD I have performed a history and physical examination and medical decision making of this patient, discussed the same with the dictator, and agree with the dictators assessment and plan as written, documented as a scribe. Based on total visit time, I have performed more than 50% of this visit. Objective - Vital Signs Vital signs: Vital Signs Temp 98.1 F 06/12/22 00:00 Pulse 76 06/12/22 04:00 Resp 16 06/12/22 04:00 BP 136/74 06/12/22 04:00 Pulse Ox 99 06/12/22 04:00 FiO2 21 06/11/22 20:04 Intake & Output 06/11/22 06/12/22 06/12/22 18:59 06:59 18:59 Intake Total 640 240 Output Total 750 800 Balance -110 -560 Intake: Intake, IV Titration 240 Amount Sodium Chloride 0.9% 1, 240 000 ml @ 20 mls/hr IV . Q24H [facility] Rx#:[id number] Oral 640 Output: Urine 750 800 Other: Voiding Method Urinal Urinal - Labs CBC & Chem 7: 06/12/22 07:56 06/12/22 07:56 Labs: Abnormal Lab Results - Last 24 Hours (Table) 06/11/22 06/11/22 06/11/22 Range/Units 07:54 11:44 16:38 Sodium 133 L (137-145) mmol/L BUN 6 L (9-20) mg/dL Creatinine 0.47 L (0.66-1.25) mg/dL Glucose 136 H (74-99) mg/dL POC Glucose (mg/dL) 242 H 173 H (70-110) mg/dL Calcium 7.3 L (8.4-10.2) mg/dL Magnesium 1.5 L (1.6-2.3) mg/dL 06/11/22 06/12/22 Range/Units 20:41 06:59 Sodium (137-145) mmol/L BUN (9-20) mg/dL Creatinine (0.66-1.25) mg/dL Glucose (74-99) mg/dL POC Glucose (mg/dL) 192 H 59 L (70-110) mg/dL Calcium (8.4-10.2) mg/dL Magnesium (1.6-2.3) mg/dL Microbiology - Last 24 Hours (Table) 06/09/22 14:59 Blood Culture - Preliminary Blood No Growth after 48 hours 06/10/22 11:00 Blood Culture - Preliminary Blood No Growth after 24 hours Assessment and Plan Time with Patient: Less than 30
[2022-06-12 17:12] LABS: Glucose,Whole Blood 130 mg/dL (70-110)
[2022-06-12] MEDS: MAGNESIUM SULFATE-D5W PMX 1 GM in DEXTROSE/WATER 1 100ML.BAG IVPB SCH ×2 (17:46→20:19)
--- NOTE | 2022-06-12 19:11 | PN ---
PROGRESS NOTE CHIEF COMPLAINT: Uncontrolled diabetes. HISTORY OF PRESENT ILLNESS: This gentleman is doing fairly well, but laboratory elliott, some improvement is required. His blood sugar is still elevated. Sodium and potassium are also slightly low. He has reported now a positive blood culture for Enterococcus faecalis. This is being addressed. PHYSICAL EXAMINATION: GENERAL: He remains week. He is pale. LUNGS: Breath sounds are heard bilaterally. CARDIAC: Normal. ABDOMEN: Flat, soft, and nontender. EXTREMITIES: Normal. IMPRESSION: 1. Uncontrolled diabetes. 2. Positive blood culture. 3. Hypokalemia. 4. Hyponatremia. PLAN: Continue with efforts to correct his electrolytes and blood sugar and look into discharge plan. MMODL / IJN: [id number] /
--- NOTE | 2022-06-12 19:31 | PN ---
PROGRESS NOTE CHIEF COMPLAINT: 1. General debility and failure to thrive. 2. Diabetic ketoacidosis. HISTORY OF PRESENT ILLNESS: This gentleman is doing fairly well, but his blood sugars are still elevated. He still remains quite weak. PHYSICAL EXAMINATION: GENERAL: He is pale. CHEST: Clear. ABDOMEN: Flat, soft and nontender. EXTREMITIES: Normal. IMPRESSION: 1. Diabetic ketoacidosis. 2. Dehydration. 3. Delirium. 4. Positive blood culture with Enterococcus faecalis. PLAN: 1. Continue with IV fluids. 2. Infectious Disease consult. MMODL / IJN: [id number] /
[2022-06-12 20:09] LABS: Glucose,Whole Blood 197 mg/dL (70-110)
[2022-06-13] MEDS: MELATONIN 5 MG TABLET PO PRN ×2 (00:05→23:12)
[2022-06-13] MEDS: GENTAMICIN 70 MG in SODIUM CHLORIDE 0.9% 100 ML IVPB SCH ×3 (00:05→23:12)
[2022-06-13] MEDS: AMPICILLIN 2,000 MG in SODIUM CHLORIDE 0.9% 100 ML IVPB SCH ×7 (00:05→23:12)
[2022-06-13] MEDS: BUTALB/APAP/CAFF 50-325-40MG TAB PO PRN (03:30)
[2022-06-13 05:49] LABS: Glucose,Whole Blood 131 mg/dL (70-110)
[2022-06-13 07:10] LABS: Glucose,Whole Blood 114 mg/dL (70-110)
[2022-06-13] MEDS: INSULIN ASPART (NovoLOG) 100 UNIT/ML VIAL SQ SCH ×7 (07:25→21:31)
[2022-06-13] MEDS: INSULIN DETEMIR (LEVEMIR) 100 UNIT/ML SYR SQ SCH ×2 (07:26→21:25)
[2022-06-13] MEDS: POTASSIUM CHLORIDE ER 20 MEQ TAB.ER PO SCH (08:30)
[2022-06-13] MEDS: ASPIRIN 325 MG TAB PO SCH (08:30)
[2022-06-13] MEDS: FOLIC ACID 1 MG TAB PO SCH (08:30)
[2022-06-13] MEDS: HEPARIN SODIUM,PORCINE/PF 5,000 UNIT/0.5 ML SYRINGE SQ SCH ×2 (08:30→20:56)
[2022-06-13] MEDS: FAMOTIDINE 20 MG TAB PO SCH ×2 (08:31→20:55)
[2022-06-13] MEDS: MORPHINE SULFATE 2 MG/ML SYRINGE IVP PRN ×3 (08:31→23:12)
[2022-06-13] MEDS: MAGNESIUM OXIDE 400 MG TAB PO SCH (08:31)
[2022-06-13] MEDS: D5-0.45% NACL WITH KCL 20MEQ/L 1,000 ML IV SCH ×2 (08:32→21:50)
[2022-06-13 09:38] LABS: African American GFR (CKD) >90 (>60 ml/min/1.73 sqM); Anion Gap 10 mmol/L; Blood Urea Nitrogen 5 mg/dL (9-20); Calcium 7.4 mg/dL (8.4-10.2); Carbon Dioxide 26 mmol/L (22-30); Chloride 94 mmol/L (98-107); Glucose 100 mg/dL (74-99); Magnesium 1.9 mg/dL (1.6-2.3); Non-African American GFR(CKD) >90 (>60 ml/min/1.73 sqM); Potassium 4.2 mmol/L (3.5-5.1); Sodium 130 mmol/L (137-145)
[2022-06-13 12:11] LABS: Glucose,Whole Blood 118 mg/dL (70-110)
[2022-06-13 16:47] LABS: Glucose,Whole Blood 148 mg/dL (70-110)
[2022-06-13 21:27] LABS: Glucose,Whole Blood 209 mg/dL (70-110)
--- NOTE | 2022-06-13 22:36 | P.PN ---
Subjective Progress Note Date: 06/12/22 Principal diagnosis: Enterococcus faecalis bacteremia and possible mitral valve endocarditis Patient is a 72-year-old male with multiple comorbidities presenting to the hospital for intermittent vomiting abdominal pain and not feeling well patient did have a CT abdominal pelvis with evidence of splenic and renal infarcts also have an echocardiogram and there was concern for possible mitral valve vegetation. Which was confirmed on a FARA completed on 06/07/2022 On today's evaluation that is 06/12/2022 the patient continues to be afebrile, the patient is breathing comfortably on room air, the patient denies having any chest pain shortness of breath or cough. Denies having any nausea no vomiting the patient abdominal pain has decreased intensity and denies diarrhea Objective - Vital Signs Vital signs: Vital Signs Temp 98.7 F 06/12/22 12:00 Pulse 80 06/12/22 12:00 Resp 16 06/12/22 12:00 BP 147/75 06/12/22 12:00 Pulse Ox 99 06/12/22 12:00 FiO2 21 06/11/22 20:04 Intake & Output 06/11/22 06/12/22 06/12/22 18:59 06:59 18:59 Intake Total 640 240 236 Output Total 750 800 825 Balance -110 -346 -776 Intake: Intake, IV Titration 240 Amount Sodium Chloride 0.9% 1, 240 000 ml @ 20 mls/hr IV . Q24H [facility] Rx#:[id number] Oral 640 236 Output: Urine 750 800 825 Other: Voiding Method Urinal Urinal Urinal # Bowel Movements 1 - Exam GENERAL DESCRIPTION: Elderly male lying in bed, no distress. No tachypnea or accessory muscle of respiration use. LUNGS: Unlabored breathing. Clear to auscultation anteriorly. No wheeze or crackle. HEART: S1, S2, regular rate and rhythm. ABDOMEN: Soft, no tenderness , guarding or rigidity, no organomegaly EXTREMITIES: No edema of feet. - Labs CBC & Chem 7: 06/12/22 07:56 06/13/22 07:52 Labs: Abnormal Lab Results - Last 24 Hours (Table) 06/11/22 06/11/22 06/12/22 Range/Units 16:38 20:41 06:59 RBC (4.30-5.90) m/uL Hgb (13.0-17.5) gm/dL Hct (39.0-53.0) % Plt Count (150-450) k/uL Lymphocytes # (1.0-4.8) k/uL Sodium (137-145) mmol/L Chloride (98-107) mmol/L BUN (9-20) mg/dL Glucose (74-99) mg/dL POC Glucose (mg/dL) 173 H 192 H 59 L (70-110) mg/dL Calcium (8.4-10.2) mg/dL C-Reactive Protein (<1.0) mg/dL 06/12/22 06/12/22 06/12/22 Range/Units 07:56 07:56 12:01 RBC 3.38 L (4.30-5.90) m/uL Hgb 9.7 L (13.0-17.5) gm/dL Hct 29.8 L (39.0-53.0) % Plt Count 556 H (150-450) k/uL Lymphocytes # 0.8 L (1.0-4.8) k/uL Sodium 135 L (137-145) mmol/L Chloride 97 L (98-107) mmol/L BUN 7 L (9-20) mg/dL Glucose 117 H (74-99) mg/dL POC Glucose (mg/dL) 191 H (70-110) mg/dL Calcium 7.8 L (8.4-10.2) mg/dL C-Reactive Protein 17.7 H (<1.0) mg/dL Microbiology - Last 24 Hours (Table) 06/11/22 07:54 Blood Culture - Preliminary Blood No Growth after 24 hours 06/09/22 14:59 Blood Culture - Preliminary Blood No Growth after 48 hours 06/10/22 11:00 Blood Culture - Preliminary Blood No Growth after 24 hours Assessment and Plan (1) Vegetation of heart valve Current Visit: Yes Status: Acute Code(s): I33.0 - ACUTE AND SUBACUTE INFECTIVE ENDOCARDITIS SNOMED Code(s): 673791300 Plan: Patient did have Enterococcus faecalis bacteremia source likely mitral valve endocarditis with possible splenic and renal infarcts that has been confirmed on a FARA, Enterococcus is a sensitive pathogen patient currently being treated with ampicillin and gentamicin , blood cultures 06/09/2022 as well as 06/10/2020 remains to be negative, patient is clear to get his PICC line today for outpatient IV antibiotics Time with Patient: Less than 30
--- NOTE | 2022-06-13 22:37 | P.PN ---
Subjective Progress Note Date: 06/13/22 Principal diagnosis: Enterococcus faecalis bacteremia and possible mitral valve endocarditis Patient is a 72-year-old male with multiple comorbidities presenting to the hospital for intermittent vomiting abdominal pain and not feeling well patient did have a CT abdominal pelvis with evidence of splenic and renal infarcts also have an echocardiogram and there was concern for possible mitral valve vegetation. Which was confirmed on a FARA completed on 06/07/2022 On today's evaluation that is 06/13/2022 the patient denies any fever or any chills, the patient is breathing comfortably on room air, the patient denies having any chest pain shortness of breath or cough. Patient denies having any nausea vomiting abdominal pain has improved and no diarrhea Objective - Vital Signs Vital signs: Vital Signs Temp 99.2 F 06/13/22 03:59 Pulse 95 06/13/22 03:59 Resp 16 06/13/22 03:59 BP 117/56 06/13/22 03:59 Pulse Ox 95 06/13/22 03:59 FiO2 21 06/11/22 20:04 Intake & Output 06/12/22 06/13/22 06/13/22 18:59 06:59 18:59 Intake Total 354 480 118 Output Total 1225 1325 Balance -871 -845 118 Intake: Oral 354 480 118 Output: Urine 1225 1325 Other: Voiding Method Urinal Urinal # Bowel Movements 1 - Exam GENERAL DESCRIPTION: Elderly male lying in bed, no distress. No tachypnea or accessory muscle of respiration use. LUNGS: Unlabored breathing. Clear to auscultation anteriorly. No wheeze or scrape gatherer ckle. HEART: S1, S2, regular rate and rhythm. ABDOMEN: Soft, no tenderness , guarding or rigidity, no organomegaly EXTREMITIES: No edema of feet. - Labs CBC & Chem 7: 06/12/22 07:56 06/13/22 07:52 Labs: Abnormal Lab Results - Last 24 Hours (Table) 06/12/22 06/12/22 06/12/22 Range/Units 07:56 12:01 16:46 ESR 125 H (0-15) mm/hr POC Glucose (mg/dL) 191 H 130 H (70-110) mg/dL 06/12/22 06/13/22 06/13/22 Range/Units 20:08 05:48 07:09 ESR (0-15) mm/hr POC Glucose (mg/dL) 197 H 131 H 114 H (70-110) mg/dL Microbiology - Last 24 Hours (Table) 06/09/22 14:59 Blood Culture - Preliminary Blood No Growth after 72 hours 06/10/22 11:00 Blood Culture - Preliminary Blood No Growth after 48 hours 06/11/22 07:54 Blood Culture - Preliminary Blood No Growth after 24 hours Assessment and Plan (1) Vegetation of heart valve Current Visit: Yes Status: Acute Code(s): I33.0 - ACUTE AND SUBACUTE INFECTIVE ENDOCARDITIS SNOMED Code(s): 557870855 Plan: Patient did have Enterococcus faecalis bacteremia source likely mitral valve endocarditis with possible splenic and renal infarcts that has been confirmed on a FARA, Enterococcus is a sensitive pathogen patient currently being treated with ampicillin and gentamicin , blood cultures 06/09/2022 as well as 06/10/2020 remains to be negative, patient did got a PICC line and plan is to continue with ampicillin and gentamicin to finish a 6 week course of therapy with close monitoring of his kidney function Time with Patient: Less than 30
[2022-06-14] MEDS: AMPICILLIN 2,000 MG in SODIUM CHLORIDE 0.9% 100 ML IVPB SCH ×3 (03:39→13:10)
[2022-06-14 04:19] VITALS: RESP 18
[2022-06-14 07:44] LABS: Glucose,Whole Blood 50 mg/dL (70-110)
[2022-06-14 07:54] LABS: African American GFR (CKD) >90 (>60 ml/min/1.73 sqM); Blood Urea Nitrogen 6 mg/dL (9-20); Calcium 7.5 mg/dL (8.4-10.2); Carbon Dioxide 26 mmol/L (22-30); Non-African American GFR(CKD) >90 (>60 ml/min/1.73 sqM)
[2022-06-14] MEDS: INSULIN ASPART (NovoLOG) 100 UNIT/ML VIAL SQ SCH ×4 (07:58→13:09)
[2022-06-14 08:04] LABS: Anion Gap 7 mmol/L; Chloride 103 mmol/L (98-107); Magnesium 2.1 mg/dL (1.6-2.3); Potassium 3.8 mmol/L (3.5-5.1); Sodium 136 mmol/L (137-145)
[2022-06-14 08:06] LABS: Glucose,Whole Blood 83 mg/dL (70-110)
[2022-06-14 08:10] LABS: Glucose 49 mg/dL (74-99)
[2022-06-14] MEDS: MAGNESIUM OXIDE 400 MG TAB PO SCH (08:23)
[2022-06-14] MEDS: FOLIC ACID 1 MG TAB PO SCH (08:23)
[2022-06-14] MEDS: ASPIRIN 325 MG TAB PO SCH (08:23)
[2022-06-14] MEDS: POTASSIUM CHLORIDE ER 20 MEQ TAB.ER PO SCH (08:23)
[2022-06-14] MEDS: FAMOTIDINE 20 MG TAB PO SCH (08:23)
[2022-06-14] MEDS: HEPARIN SODIUM,PORCINE/PF 5,000 UNIT/0.5 ML SYRINGE SQ SCH (08:24)
--- NOTE | 2022-06-14 08:52 | PN ---
PROGRESS NOTE CHIEF COMPLAINT: Uncontrolled diabetes. HISTORY OF PRESENT ILLNESS: This gentleman has been given a diagnosis of likely SBE of the mitral valve. A PICC line has been placed, and [facility]. The particular antibiotics and dosages have to be determined. His blood sugars are improved. PHYSICAL EXAMINATION: CHEST: Clear. CARDIAC: Unremarkable. ABDOMEN: Soft, nontender. IMPRESSION: 1. Uncontrolled diabetes. 2. Subacute bacterial endocarditis involving the mitral valve. 3. . PLAN: Await antibiotic selection for discharge to the pen[facility], probably tomorrow. MMODL / IJN: [id number] /
[2022-06-14] MEDS: INSULIN DETEMIR (LEVEMIR) 100 UNIT/ML SYR SQ SCH (10:28)
[2022-06-14 12:21] LABS: Glucose,Whole Blood 139 mg/dL (70-110)
[2022-06-14] MEDS: D5-0.45% NACL WITH KCL 20MEQ/L 1,000 ML IV SCH (13:10)
[2022-06-14] MEDS: GENTAMICIN 70 MG in SODIUM CHLORIDE 0.9% 100 ML IVPB SCH (13:10)
[2022-06-14] MEDS: BUTALB/APAP/CAFF 50-325-40MG TAB PO PRN (13:17)
--- NOTE | 2022-06-14 13:37 | DS ---
DISCHARGE SUMMARY CHIEF COMPLAINT: Uncontrolled diabetes, general debility, and malaise, and splenic and renal infarcts. HISTORY OF PRESENT ILLNESS AND PHYSICAL EXAMINATION: Details of this man's history and physical can be found in the initial workup. LABORATORY STUDIES: While he was in the hospital, he had laboratory studies, details of which can be found in the laboratory section of his chart. COURSE IN THE HOSPITAL: After admission, he was placed on bedrest, started on intravenous fluids, and was worked up looking for the etiology of the infarction of the kidney and spleen. He having a positive blood culture and was seen by Cardiology, and he had a FARA, which demonstrated likelihood of vegetation on the mitral valve. After that, he was seen by Infectious Disease and started on IV antibiotics for SBE. While he was in the hospital, his blood sugars remained quite elevated until toward the end, it started to come down. Due to his general debility, it was felt that he receive post hospital care at a senior living, and arrangements were made for him to go to [facility] on the . The PICC line was placed, and he will go there on long-term antibiotics and his insulin. FINAL DIAGNOSES: 1. Diabetic ketoacidosis. 2. Uncontrolled diabetes mellitus. 3. Splenic and renal infarcts. 4. Subacute bacterial endocarditis involving the mitral valve. 5. General debility. OPERATIONS: None. CONSULTATIONS: Cardiology and Infectious Disease. CONDITION: He is improved. MMJOSEP / COURTNEY: [id number] /
[2022-06-14 14:28] VITALS: BP 124/63; PULSE 95; TEMP 98.4
--- NOTE | 2022-06-14 15:38 | P.PN ---
Subjective Progress Note Date: 06/14/22 Principal diagnosis: Enterococcus faecalis bacteremia and possible mitral valve endocarditis Patient is a 72-year-old male with multiple comorbidities presenting to the hospital for intermittent vomiting abdominal pain and not feeling well patient did have a CT abdominal pelvis with evidence of splenic and renal infarcts also have an echocardiogram and there was concern for possible mitral valve vegetation. Which was confirmed on a FARA completed on 06/07/2022 On today's evaluation that is 06/14/2022 the patient continues to be afebrile, the patient is breathing comfortably on room air, the patient denies chest pain shortness of breath or cough. Patient denies nausea vomiting abdominal pain and no diarrhea Objective - Vital Signs Vital signs: Vital Signs Temp 96.0 F L 06/14/22 08:00 Pulse 80 06/14/22 08:00 Resp 18 06/14/22 08:00 BP 152/81 06/14/22 08:00 Pulse Ox 97 06/14/22 08:00 FiO2 21 06/11/22 20:04 Intake & Output 06/13/22 06/14/22 06/14/22 18:59 06:59 18:59 Intake Total 354 240 420 Output Total 2900 Balance 354 -2660 420 Intake: Oral 354 240 420 Output: Urine 2900 Other: Voiding Method Urinal Urinal Urinal # Voids 2 1 - Exam GENERAL DESCRIPTION: Elderly male lying in bed, no distress. No tachypnea or accessory muscle of respiration use. LUNGS: Unlabored breathing. Clear to auscultation anteriorly. No wheeze or crackle. HEART: S1, S2, regular rate and rhythm. ABDOMEN: Soft, no tenderness , guarding or rigidity, no organomegaly EXTREMITIES: No edema of feet. - Labs CBC & Chem 7: 06/12/22 07:56 06/14/22 06:52 Labs: Abnormal Lab Results - Last 24 Hours (Table) 06/13/22 06/13/22 06/14/22 Range/Units 16:46 21:22 06:52 Sodium 136 L (137-145) mmol/L BUN 6 L (9-20) mg/dL Creatinine 0.63 L (0.66-1.25) mg/dL Glucose 49 L* (74-99) mg/dL POC Glucose (mg/dL) 148 H 209 H (70-110) mg/dL Calcium 7.5 L (8.4-10.2) mg/dL 06/14/22 Range/Units 07:42 Sodium (137-145) mmol/L BUN (9-20) mg/dL Creatinine (0.66-1.25) mg/dL Glucose (74-99) mg/dL POC Glucose (mg/dL) 50 L (70-110) mg/dL Calcium (8.4-10.2) mg/dL Microbiology - Last 24 Hours (Table) 06/11/22 07:54 Blood Culture - Preliminary Blood No Growth after 72 hours 06/09/22 14:59 Blood Culture - Preliminary Blood No Growth after 96 hours 06/10/22 11:00 Blood Culture - Preliminary Blood No Growth after 72 hours Assessment and Plan (1) Vegetation of heart valve Status: Acute Code(s): I33.0 - ACUTE AND SUBACUTE INFECTIVE ENDOCARDITIS SNOMED Code(s): 198853840 Plan: Patient did have Enterococcus faecalis bacteremia source likely mitral valve endocarditis with possible splenic and renal infarcts that has been confirmed on a FARA, Enterococcus is a sensitive pathogen patient currently being treated with ampicillin and gentamicin , blood cultures 06/09/2022 as well as 06/10/2020 remains to be negative, patient did got a PICC line 2-plan is to continue with ampicillin and gentamicin to finish a 6 week course of therapy with close monitoring of his kidney functionin a close outpatient follow-up Time with Patient: Less than 30
== END 2022-06-14 15:28 | DRG 288 ==
LOC: EC 12:23 → 3SCARD 19:41
PROVIDERS: ADMIT Family Medicine; ATTEND Family Medicine
PROC: B24BZZ4 Ultrasonography of Heart with Aorta, Transesophageal (ICD-10-PCS; 2022-06-07)
PROC: 02HV33Z Insertion of Infusion Device into Superior Vena Cava, Percutaneous Approach (ICD-10-PCS; principal; 2022-06-12 07:30)
DX: I33.0 Acute and subacute infective endocarditis (principal); E11.10 Type 2 diabetes mellitus with ketoacidosis without coma; G92.8 Other toxic encephalopathy; N28.0 Ischemia and infarction of kidney; R78.81 Bacteremia; R64 Cachexia; K57.32 Diverticulitis of large intestine without perforation or abscess without bleeding; E87.1 Hypo-osmolality and hyponatremia; E11.51 Type 2 diabetes mellitus with diabetic peripheral angiopathy without gangrene; I10 Essential (primary) hypertension; G40.909 Epilepsy, unspecified, not intractable, without status epilepticus; F10.10 Alcohol abuse, uncomplicated; Z95.820 Peripheral vascular angioplasty status with implants and grafts; I08.1 Rheumatic disorders of both mitral and tricuspid valves; R62.7 Adult failure to thrive; D73.5 Infarction of spleen; F17.210 Nicotine dependence, cigarettes, uncomplicated; E78.5 Hyperlipidemia, unspecified; R00.0 Tachycardia, unspecified; M54.2 Cervicalgia; M25.512 Pain in left shoulder; M25.511 Pain in right shoulder; R16.1 Splenomegaly, not elsewhere classified; K31.89 Other diseases of stomach and duodenum; K59.00 Constipation, unspecified; E86.0 Dehydration; B95.2 Enterococcus as the cause of diseases classified elsewhere; N32.89 Other specified disorders of bladder; I49.1 Atrial premature depolarization; E87.6 Hypokalemia; E53.8 Deficiency of other specified B group vitamins; Z20.822 Contact with and (suspected) exposure to COVID-19; Z79.899 Other long term (current) drug therapy; Z79.1 Long term (current) use of non-steroidal anti-inflammatories (NSAID); Z79.52 Long term (current) use of systemic steroids; Z86.73 Personal history of transient ischemic attack (TIA), and cerebral infarction without residual deficits; Z98.890 Other specified postprocedural states; Z68.26 Body mass index [BMI] 26.0-26.9, adult; Z91.14 Patient's other noncompliance with medication regimen; Z82.3 Family history of stroke; Z79.891 Long term (current) use of opiate analgesic
CPT/HCPCS: 36415; 36573; 36600; 70450; 71046; 74018; 74177; 80048; 80051; 80053; 80061; 80170; 81003; 82009; 82565; 82607; 82746; 82805; 82947; 83036; 83735; 84100; 84443; 84520; 85025; 85652; 86140; 86850; 86900; 86901; 87040; 87077; 87186; 87635; 93306; 93312; 93325; 94760; 96361; 96365; 96375; 96376; 99291

== ENCOUNTER 2022-07-05 19:29 | Observation (INO) | payer MEDICARE ==
[2022-07-05] MEDS ORDERED: AMPICILLIN 2,000 MG in SODIUM CHLORIDE 0.9% 100 ML IVPB STA (21:49)
--- NOTE | 2022-07-05 21:51 | ED ---
General Adult HPI - General Chief complaint: Recheck/Abnormal Lab/Rx Stated complaint: IV Maintenance Time Seen by Provider: 07/05/22 21:29 Source: patient, EMS, RN notes reviewed, old records reviewed Mode of arrival: EMS Limitations: no limitations - History of Present Illness Initial comments: 72-year-old male presents to the emergency room with complaints of needing IV antibiotics. He was discharged on June 14 to [facility] with endocarditis and prescribed Rocephin and ampicillin to be given via PICC line. He states he was discharged from [facility] today and his was directed to give him his medication however he states his cannot read the labels and he has not gotten his medications today. -: days(s) (1) Severity scale (1-10): 0 Associated Symptoms: denies other symptoms - Related Data Previous Rx's Medication Instructions Recorded Ampicillin Sodium 2 gm IVPB Q6HR #168 each 06/13/22 Gentamicin Sulfate/Pf [Gentamicin 70 mg IV Q12H 40 Days #84 each 06/13/22 10 mg/ml Vial] Aspirin 81 mg PO DAILY #100 tab 06/14/22 Calcium Carbonate [Tums] 500 mg PO TID PRN #90 tab 06/14/22 Famotidine [Pepcid] 20 mg PO Q12HR #60 tab 06/14/22 INSULIN ASPART (NovoLOG) [NovoLOG 4 unit SQ AC-TID 30 Days #90 each 06/14/22 (formulary)] Insulin Detemir (Levemir) [Levemir] 12 unit SQ HS 90 Days #30 each 06/14/22 Magnesium Oxide [Mag-Ox] 400 mg PO DAILY #30 tab 06/14/22 Potassium Chloride ER [K-Dur 20] 20 meq PO DAILY #90 tab 06/14/22 Allergies Allergy/AdvReac Type Severity Reaction Status Date / Time No Known Allergies Allergy Verified 07/05/22 19:43 Review of Systems ROS Statement: Those systems with pertinent positive or pertinent negative responses have been documented in the HPI. ROS Other: All systems not noted in ROS Statement are negative. Past Medical History Past Medical History: CVA/TIA, Diabetes Mellitus, Hyperlipidemia, Hypertension, Seizure Disorder Additional Past Medical History / Comment(s): endocarditis History of Any Multi-Drug Resistant Organisms: None Reported Past Surgical History: Orthopedic Surgery Additional Past Surgical History / Comment(s): hemmoroid, nahid feet, lt hand; aortoiliac stent Past Psychological History: No Psychological Hx Reported Smoking Status: Current every day smoker Past Alcohol Use History: Occasional Past Drug Use History: Marijuana - Past Family History Mother Family Medical History: CVA/TIA Father Additional Family Medical History / Comment(s): Father had shingles; not sure what he from General Exam Limitations: no limitations General appearance: alert, in no apparent distress Head exam: Present: atraumatic Eye exam: Absent: scleral icterus, conjunctival injection ENT exam: Present: mucous membranes moist Neck exam: Absent: tenderness, meningismus Respiratory exam: Absent: respiratory distress, accessory muscle use Cardiovascular Exam: Present: tachycardia Neurological exam: Present: alert, oriented X3 Psychiatric exam: Present: normal affect, normal mood Skin exam: Present: warm, dry, normal color. Absent: cyanosis, diaphoretic Course Vital Signs 07/05/22 19:40 Temperature 98.1 F Pulse Rate 104 H Respiratory 20 Rate Blood Pressure 148/76 O2 Sat by Pulse 100 Oximetry EKG Findings - EKG Results: EKG: sinus rhythm (Ventricular rate 99, OH interval 0.142, QRS 0.78, QTC 0.397; normal axis) Medical Decision Making - Medical Decision Making Patient was discharged from [facility] yesterday with the expectation that his would be giving him his antibiotics via PICC line for endocarditis. Patient states the patient's is unable to read labels and he has not gotten his medications today. I did speak with Dr. Chatman who suggested patient be admitted for medication administration. Social work was put on consult to arrange for continuation of care at home. Patient has no complaints, vital signs are stable. Case discussed with Dr Baig. Disposition Clinical Impression: Endocarditis, Encounter for medication administration Disposition: ADMITTED IP TO THIS HOSP Decision Date: 07/05/22 Decision Time: 22:03
[2022-07-05] MEDS ORDERED: NALOXONE 0.4 MG/ML 1 ML VIAL IV PRN (21:59)
[2022-07-05 22:35] LABS: Glucose,Whole Blood 257 mg/dL (70-110)
[2022-07-05 22:35] LABS: Basophils # (A) 0.1 k/uL (0-0.2); Basophils % (A) 1 %; Eosinophils # (A) 0.2 k/uL (0-0.7); Eosinophils % (A) 2 %; HCT 25.6 % (39.0-53.0); Hypochromasia Marked; Lymphocytes # (A) 1.7 k/uL (1.0-4.8); Lymphocytes % (A) 17 %; MCH 25.8 pg (25.0-35.0); MCHC 31.3 g/dL (31.0-37.0); Mean Platelet Volume 7.5; Monocytes # (A) 0.5 k/uL (0-1.0); Monocytes % (A) 5 %; Neutrophils # (A) 7.5 k/uL (1.3-7.7); Neutrophils % (A) 74 %; Platelet Count 777 k/uL (150-450); Poikilocytosis Slight; RBC 3.09 m/uL (4.30-5.90); RDW 14.7 % (11.5-15.5); WBC 10.1 k/uL (3.8-10.6)
[2022-07-05 22:38] LABS: MCV 82.7 fL (80.0-100.0)
[2022-07-05] MEDS ORDERED: MAGNESIUM HYDROXIDE 2,400 MG/10 ML CUP PO PRN (23:01)
[2022-07-05] MEDS: INSULIN DETEMIR (LEVEMIR) 100 UNIT/ML SYR SQ SCH (23:33)
[2022-07-05 23:40] LABS: Erythrocyte Sedimentation Rate >140 mm/hr (0-15)
[2022-07-05 23:46] LABS: ALT 41 U/L (4-49); AST 44 U/L (17-59); African American GFR (CKD) >90 (>60 ml/min/1.73 sqM); Albumin 3.4 g/dL (3.5-5.0); Alkaline Phosphatase 209 U/L (38-126); Anion Gap 13 mmol/L; Blood Urea Nitrogen 18 mg/dL (9-20); C Reactive Protein 7.8 mg/dL (<1.0); Calcium 8.5 mg/dL (8.4-10.2); Carbon Dioxide 21 mmol/L (22-30); Chloride 97 mmol/L (98-107); Glucose 273 mg/dL (74-99); Non-African American GFR(CKD) >90 (>60 ml/min/1.73 sqM); Potassium 4.5 mmol/L (3.5-5.1); Sodium 131 mmol/L (137-145); Total Bilirubin 0.3 mg/dL (0.2-1.3); Total Protein 7.3 g/dL (6.3-8.2)
[2022-07-06] MEDS: HYDROcodone/APAP 5-325MG 1 EACH TAB PO PRN ×3 (00:23→20:52)
[2022-07-06] MEDS ORDERED: AMPICILLIN 2,000 MG in SODIUM CHLORIDE 0.9% 100 ML IVPB SCH (04:00)
[2022-07-06 07:42] LABS: Glucose,Whole Blood 116 mg/dL (70-110)
[2022-07-06] MEDS: INSULIN ASPART (NovoLOG) 100 UNIT/ML VIAL SQ SCH ×3 (08:39→17:27)
[2022-07-06] MEDS: ASPIRIN 81 MG PO SCH (09:07)
[2022-07-06] MEDS: MAGNESIUM OXIDE 400 MG TAB PO SCH (09:07)
[2022-07-06] MEDS: FAMOTIDINE 20 MG TAB PO SCH ×2 (09:07→20:52)
[2022-07-06] MEDS: AMPICILLIN 2,000 MG in SODIUM CHLORIDE 0.9% 100 ML IVPB SCH ×5 (09:11→23:47)
[2022-07-06] MEDS ORDERED: ACETAMINOPHEN TAB 325 MG TAB PO PRN (12:12)
[2022-07-06] MEDS ORDERED: CALCIUM CARBONATE 500 MG CHEWABLE PO PRN (12:12)
[2022-07-06] MEDS ORDERED: bisacodyL 10 MG SUPP RECTAL PRN (12:12)
[2022-07-06] MEDS ORDERED: GENTAMICIN SULFATE IV SCH (12:15)
[2022-07-06] MEDS ORDERED: AMPICILLIN 2,000 MG VIAL IVPB SCH (12:15)
[2022-07-06] MEDS ORDERED: [UNRECOGNIZED DRUG - OTHER] IV SCH (12:15)
[2022-07-06] MEDS ORDERED: GENTAMICIN PER PHARMACY MISCELLANE PRN (12:25)
[2022-07-06 13:01] LABS: Glucose,Whole Blood 228 mg/dL (70-110)
[2022-07-06] MEDS: GENTAMICIN 70 MG in SODIUM CHLORIDE 0.9% 100 ML IVPB SCH (15:10)
[2022-07-06 16:44] LABS: Glucose,Whole Blood 191 mg/dL (70-110)
[2022-07-06] MEDS: INSULIN DETEMIR (LEVEMIR) 100 UNIT/ML SYR SQ SCH (20:59)
[2022-07-06 21:00] LABS: Glucose,Whole Blood 193 mg/dL (70-110)
--- NOTE | 2022-07-07 00:37 | HP ---
HISTORY AND PHYSICAL CHIEF COMPLAINT: SBE. HISTORY OF PRESENT ILLNESS: This is another recent admission for this 72-year-old white male who was in the hospital recently with FUO and was determined to have sub-bacterial endocarditis of the mitral valve. The patient resides at half-way and was on IV antibiotics and it was felt he could go home. However, his could not give the antibiotics because she could not see directions on how to do it and he came back in. He has had no fever, chills, etc. REVIEW OF SYSTEMS: Otherwise, unremarkable. PAST MEDICAL HISTORY: Unchanged. FAMILY HISTORY: Unchanged. PERSONAL AND SOCIAL HISTORY: Unchanged. PHYSICAL EXAMINATION: VITAL SIGNS: Blood pressure 165/90 with a pulse of 86 and regular, respirations of 30, he is afebrile. GENERAL: Hydration seemed to be adequate. HEAD, EARS, EYES, NOSE, MOUTH AND THROAT: Normal. CHEST: Clear. CARDIAC: Exam is normal. No murmur, could not be heard. ABDOMEN: Soft and nontender. EXTREMITIES: Normal. NEUROLOGICAL: He is intact. LABORATORY DATA: Laboratory studies in the ER revealed a hemoglobin of 8 and a blood sugar of 273. ASSESSMENT: He is admitted to the hospital with diagnoses: 1. Subacute bacterial endocarditis. 2. Anemia. 3. Hypertension. 4. Diabetes. PLAN: IV fluids and resume IV antibiotics and make further recommendations regarding discharge plan. MMOSIRISL / COURTNEY: [id number] /
[2022-07-07] MEDS: GENTAMICIN 70 MG in SODIUM CHLORIDE 0.9% 100 ML IVPB SCH ×2 (00:52→13:19)
[2022-07-07] MEDS: AMPICILLIN 2,000 MG in SODIUM CHLORIDE 0.9% 100 ML IVPB SCH ×5 (04:10→21:02)
[2022-07-07 07:49] LABS: Glucose,Whole Blood 110 mg/dL (70-110)
[2022-07-07] MEDS: INSULIN ASPART (NovoLOG) 100 UNIT/ML VIAL SQ SCH ×3 (07:53→17:31)
[2022-07-07] MEDS: MAGNESIUM OXIDE 400 MG TAB PO SCH (08:51)
[2022-07-07] MEDS: polyethylene glycoL 3350 17 GM POWD.PACK PO SCH (08:51)
[2022-07-07] MEDS: POTASSIUM CHLORIDE ER 20 MEQ TAB.ER PO SCH (08:51)
[2022-07-07] MEDS: FAMOTIDINE 20 MG TAB PO SCH ×2 (08:51→20:59)
[2022-07-07] MEDS: ASPIRIN 81 MG PO SCH (08:51)
[2022-07-07 11:36] LABS: African American GFR (CKD) 103.8 (60.0-200.0); Non-African American GFR(CKD) 89.6 (60.0-200.0)
[2022-07-07] MEDS: HYDROcodone/APAP 5-325MG 1 EACH TAB PO PRN ×2 (11:50→20:59)
[2022-07-07 12:04] LABS: Glucose,Whole Blood 150 mg/dL (70-110)
--- NOTE | 2022-07-07 14:08 | PN ---
PROGRESS NOTE CHIEF COMPLAINT: SBE. HISTORY OF PRESENT ILLNESS: This gentleman is doing well and he is comfortable. He has no shortness of breath, fever, chills, etc. PHYSICAL EXAMINATION: VITAL SIGNS: Blood pressure is slightly elevated at 160/90. Physical exam is otherwise normal with clear chest and normal heart sounds. Abdomen is soft. IMPRESSION: 1. SBE. 2. Anemia. 3. Elevated blood sugars. PLAN: Resume IV antibiotics. MMODL / IJN: [id number] /
[2022-07-07 17:20] LABS: Glucose,Whole Blood 245 mg/dL (70-110)
[2022-07-07] MEDS: INSULIN DETEMIR (LEVEMIR) 100 UNIT/ML SYR SQ SCH (20:59)
[2022-07-07 21:26] LABS: Glucose,Whole Blood 194 mg/dL (70-110)
[2022-07-08] MEDS: AMPICILLIN 2,000 MG in SODIUM CHLORIDE 0.9% 100 ML IVPB SCH ×7 (00:46→23:34)
[2022-07-08] MEDS: GENTAMICIN 70 MG in SODIUM CHLORIDE 0.9% 100 ML IVPB SCH ×2 (01:17→13:59)
[2022-07-08 07:22] LABS: Glucose,Whole Blood 131 mg/dL (70-110)
[2022-07-08] MEDS: MAGNESIUM OXIDE 400 MG TAB PO SCH (08:47)
[2022-07-08] MEDS: FAMOTIDINE 20 MG TAB PO SCH ×2 (08:47→20:58)
[2022-07-08] MEDS: POTASSIUM CHLORIDE ER 20 MEQ TAB.ER PO SCH (08:47)
[2022-07-08] MEDS: ASPIRIN 81 MG PO SCH (08:47)
[2022-07-08] MEDS: INSULIN ASPART (NovoLOG) 100 UNIT/ML VIAL SQ SCH ×3 (08:47→18:25)
[2022-07-08] MEDS: polyethylene glycoL 3350 17 GM POWD.PACK PO SCH (08:47)
[2022-07-08] MEDS ORDERED: GENTAMICIN TROUGH DUE 1 EACH MISC MISCELLANE ONE (11:30)
[2022-07-08 12:10] LABS: Glucose,Whole Blood 236 mg/dL (70-110)
[2022-07-08 12:15] LABS: African American GFR (CKD) >90 (>60 ml/min/1.73 sqM); Non-African American GFR(CKD) 88 (>60 ml/min/1.73 sqM)
[2022-07-08] MEDS ORDERED: GENTAMICIN PEAK DUE 1 EACH MISC MISCELLANE ONE ×2 (13:30→15:00)
[2022-07-08] MEDS: HYDROcodone/APAP 5-325MG 1 EACH TAB PO PRN (13:54)
[2022-07-08 17:18] LABS: Glucose,Whole Blood 190 mg/dL (70-110)
[2022-07-08] MEDS: INSULIN DETEMIR (LEVEMIR) 100 UNIT/ML SYR SQ SCH (20:58)
[2022-07-08 21:16] LABS: Glucose,Whole Blood 210 mg/dL (70-110)
[2022-07-09] MEDS: GENTAMICIN 70 MG in SODIUM CHLORIDE 0.9% 100 ML IVPB SCH ×2 (00:06→12:35)
[2022-07-09] MEDS: HYDROcodone/APAP 5-325MG 1 EACH TAB PO PRN ×3 (00:06→21:34)
[2022-07-09] MEDS: AMPICILLIN 2,000 MG in SODIUM CHLORIDE 0.9% 100 ML IVPB SCH ×6 (04:54→23:45)
[2022-07-09 07:16] LABS: Glucose,Whole Blood 130 mg/dL (70-110)
[2022-07-09] MEDS: POTASSIUM CHLORIDE ER 20 MEQ TAB.ER PO SCH (08:55)
[2022-07-09] MEDS: MAGNESIUM OXIDE 400 MG TAB PO SCH (08:55)
[2022-07-09] MEDS: FAMOTIDINE 20 MG TAB PO SCH ×2 (08:55→21:36)
[2022-07-09] MEDS: ASPIRIN 81 MG PO SCH (08:55)
[2022-07-09] MEDS: INSULIN ASPART (NovoLOG) 100 UNIT/ML VIAL SQ SCH ×3 (08:56→17:47)
[2022-07-09] MEDS: polyethylene glycoL 3350 17 GM POWD.PACK PO SCH (08:56)
[2022-07-09 10:43] LABS: African American GFR (CKD) 105.2 (60.0-200.0); Non-African American GFR(CKD) 90.8 (60.0-200.0)
--- NOTE | 2022-07-09 12:14 | PN ---
PROGRESS NOTE CHIEF COMPLAINT: Endocarditis. HISTORY OF PRESENT ILLNESS: This gentleman is comfortable. He has had no problems. He has had no fever, chills, shortness of breath, etc. He has had no chest pain. PHYSICAL EXAMINATION: CHEST: Clear. CARDIAC: Exam is unchanged. ABDOMEN: Soft, nontender. IMPRESSION: SBE. PLAN: Continue with IV fluids and IV antibiotics and start to look for a facility where he can go and be given his antibiotics. MMODL / IJN: [id number] /
[2022-07-09 12:35] LABS: Glucose,Whole Blood 159 mg/dL (70-110)
[2022-07-09 12:54] LABS: Glucose,Whole Blood 139 mg/dL (70-110)
--- NOTE | 2022-07-09 13:06 | PN ---
PROGRESS NOTE CHIEF COMPLAINT: SBE. HISTORY OF PRESENT ILLNESS: Gentleman is doing well. He is having no problems. We will be looking for placement. PHYSICAL EXAMINATION: CHEST: Clear. CARDIAC: Seems normal. ABDOMEN: Soft and nontender. IMPRESSION: SBE. PLAN: Work on discharge arrangement that will allow him to go home on IV antibiotics. MMODL / IJN: [id number] /
[2022-07-09 17:09] LABS: Glucose,Whole Blood 165 mg/dL (70-110)
[2022-07-09 21:22] LABS: Glucose,Whole Blood 213 mg/dL (70-110)
[2022-07-09] MEDS: INSULIN DETEMIR (LEVEMIR) 100 UNIT/ML SYR SQ SCH (21:36)
--- NOTE | 2022-07-09 22:15 | P.CONS ---
History of Present Illness - Reason for Consult Consult date: 07/09/22 - History of Present Illness Patient is a 72-year-old male who was recently admitted at this facility from 06/04/2022 to 06/14/2022 with the patient was diagnosed with a mitral wall endocarditis with septic emboli to the kidney and the spleen patient blood culture positive for Enterococcus faecalis that was sensitive pathogen patient has been treated with the ampicillin and gentamicin and initially the patient received antibiotic in the shelter subsequently the patient was discharged home however outpatient antibiotic arrangement was kind of haphazard and was arranged for the patient the family was not able to help him with antibiotic infusion as apparently the patient cannot see and the daughter was not reliable to help him out and the patient was brought back to the hospital on 07/05/2022 infectious disease was consulted yesterday evening for further management of his antibiotic therapy patient on presentation to the hospital was afebrile and no fever have been recorded subsequently patient did have a normal white count on admission creatinine has been normal CRP 7.8 no blood cultures were done during this admission patient overall is feeling better patient denies having any chest pain or shortness of breath or cough patient denies any nausea no vomiting no abdominal pain and no diarrhea Past Medical History Past Medical History: CVA/TIA, Diabetes Mellitus, Hyperlipidemia, Hypertension, Seizure Disorder Additional Past Medical History / Comment(s): endocarditis History of Any Multi-Drug Resistant Organisms: None Reported Past Surgical History: Orthopedic Surgery Additional Past Surgical History / Comment(s): hemmoroid, nahid feet, lt hand, aaa repair 2015 aortoiliac stent Past Anesthesia/Blood Transfusion Reactions: No Reported Reaction Past Psychological History: No Psychological Hx Reported Smoking Status: Current every day smoker Past Alcohol Use History: Occasional Additional Past Alcohol Use History / Comment(s): has not drank alcohol in 4months. was in past drinking 6 beers every other day. Past Drug Use History: Marijuana - Past Family History Mother Family Medical History: CVA/TIA Father Additional Family Medical History / Comment(s): Father had shingles; not sure what he from Medications and Allergies Home Medications Medication Instructions Recorded Confirmed Type Ampicillin Sodium 2 gm IVPB Q6HR #168 each 06/13/22 07/05/22 Rx Gentamicin Sulfate/Pf [Gentamicin 70 mg IV Q12H 40 Days #84 each 06/13/22 07/05/22 Rx 10 mg/ml Vial] Aspirin 81 mg PO DAILY #100 tab 06/14/22 07/05/22 Rx Calcium Carbonate [Tums] 500 mg PO TID PRN #90 tab 06/14/22 07/05/22 Rx Famotidine [Pepcid] 20 mg PO Q12HR #60 tab 06/14/22 07/05/22 Rx Magnesium Oxide [Mag-Ox] 400 mg PO DAILY #30 tab 06/14/22 07/05/22 Rx Potassium Chloride ER [K-Dur 20] 20 meq PO DAILY #90 tab 06/14/22 07/05/22 Rx Acetaminophen [Tylenol Arthritis] 650 mg PO Q8H PRN 07/05/22 07/05/22 History HYDROcodone/APAP 5-325MG [Clyde 1 tab PO Q8H PRN 07/05/22 07/05/22 History 5-325] Insulin Glargine,Hum.rec.anlog 12 units SQ HS 07/05/22 07/05/22 History [Lantus Solostar Pen] Insulin Lispro [humaLOG Kwikpen] 4 unit SQ AC-TID 07/05/22 07/05/22 History Magnesium Hydroxide [Milk of 2,400 mg PO DAILY PRN 07/05/22 07/05/22 History Magnesia] Na Phos,M-B/Na Phos,Di-Ba [Fleet 133 ml RECTAL DAILY PRN 07/05/22 07/05/22 History Adult] bisacodyL [Dulcolax] 10 mg RECTAL DAILY PRN 07/05/22 07/05/22 History polyethylene glycoL 3350 [Miralax] 17 gm PO DAILY 07/05/22 07/05/22 History Allergies Allergy/AdvReac Type Severity Reaction Status Date / Time No Known Allergies Allergy Verified 07/05/22 19:43 Physical Exam Vitals: Vital Signs Temp Pulse Pulse Resp BP Pulse Ox 07/09/22 07:00 97.8 F 81 18 134/59 98 07/09/22 02:40 97.9 F 89 18 153/77 99 07/08/22 20:19 97.5 F L 92 18 151/78 100 07/08/22 15:00 97.5 F L 96 18 134/71 100 07/08/22 14:00 87 84 17 Intake and Output 07/08/22 07/09/22 07/09/22 22:59 06:59 14:59 Intake Total 240 590 Balance 240 590 Intake: Oral 240 590 Other: Voiding Method Urinal Urinal # Voids 1 1 Results CBC & Chem 7: 07/05/22 22:23 07/09/22 07:13 Labs: Abnormal Lab Results - Last 24 Hours (Table) 07/08/22 07/08/22 07/08/22 Range/Units 12:09 17:17 21:14 POC Glucose (mg/dL) 236 H 190 H 210 H (70-110) mg/dL 07/09/22 Range/Units 07:15 POC Glucose (mg/dL) 130 H (70-110) mg/dL Assessment and Plan Plan: 1patient with a recent diagnosis of mitral valve endocarditis secondary to Enterococcus faecalis with septic emboli to the spleen and kidneys in this patient cleared his bacteremia as 06/09/2022 and the patient was supposed to get 6 weeks of IV antibiotic therapy from his negative blood culture and expected end date of 07/21/2022 unfortunately patient has not been able to do the infusion at home as per discussion with outpatient shelter as well as infusion company. 2we will continue patient on ampicillin and gentamicin initiated total 6-week course of therapy and the patient may benefit from going back to shelter for the next 12 days to finish his course of therapy We will follow on clinical condition and cultures to further adjust medication if needed Thank you for this consultation will follow this patient along with you Time with Patient: Greater than 30
[2022-07-10] MEDS: GENTAMICIN 70 MG in SODIUM CHLORIDE 0.9% 100 ML IVPB SCH ×2 (01:09→13:43)
[2022-07-10] MEDS: AMPICILLIN 2,000 MG in SODIUM CHLORIDE 0.9% 100 ML IVPB SCH ×5 (04:32→20:58)
[2022-07-10 07:03] LABS: Glucose,Whole Blood 132 mg/dL (70-110)
--- NOTE | 2022-07-10 08:16 | PN ---
PROGRESS NOTE CHIEF COMPLAINT: SBE. HISTORY OF PRESENT ILLNESS: This gentleman is doing well and awaits a plan whereby he can be assured of receiving his IV antibiotics when he goes home. PHYSICAL EXAMINATION: CHEST: Clear. CARDIAC: Exam is normal. ABDOMEN: Soft and nontender. IMPRESSION: SBE. PLAN: Await setup for his IV antibiotics to be given as an outpatient. MMODL / IJN: [id number] /
[2022-07-10] MEDS: ASPIRIN 81 MG PO SCH (09:08)
[2022-07-10] MEDS: POTASSIUM CHLORIDE ER 20 MEQ TAB.ER PO SCH (09:08)
[2022-07-10] MEDS: FAMOTIDINE 20 MG TAB PO SCH ×2 (09:08→20:58)
[2022-07-10] MEDS: INSULIN ASPART (NovoLOG) 100 UNIT/ML VIAL SQ SCH ×3 (09:09→17:53)
[2022-07-10] MEDS: polyethylene glycoL 3350 17 GM POWD.PACK PO SCH (09:09)
[2022-07-10] MEDS: MAGNESIUM OXIDE 400 MG TAB PO SCH (09:12)
[2022-07-10 10:43] LABS: BUN/Creat Ratio 14.53 Ratio (12.00-20.00); Globulin 3.9 g/dL (1.6-3.3)
[2022-07-10 10:44] LABS: Albumin 3.2 g/dL (3.8-4.9); Albumin/Globulin Ratio 0.84 (1.60-3.17); Anion Gap 7.3 mmol/L (10.00-18.00); Blood Urea Nitrogen 15.4 mg/dL (9.0-27.0); C Reactive Protein 6.1 mg/dL (0.00-0.80); Calcium 9.1 mg/dL (8.7-10.3); Carbon Dioxide 27.9 mmol/L (20.0-27.5); Non-African American GFR(CKD) 70.8 (60.0-200.0); Total Bilirubin 0.2 mg/dL (0.30-1.20); Total Protein 7.1 g/dL (6.2-8.2)
[2022-07-10 12:37] LABS: Glucose,Whole Blood 224 mg/dL (70-110)
[2022-07-10 13:01] LABS: Basophils # (A) 0.08 X 10*3/uL (0.00-0.10); Basophils % (A) 0.7 %; Eosinophils % (A) 2.7 %; HCT 26.6 % (39.6-50.0); Immature Grans, Automated 1.7 %; Lymphocytes # (A) 2.26 X 10*3/uL (0.90-5.00); Lymphocytes % (A) 20.3 %; MCH 25.7 pg (27.0-32.0); MCHC 30.1 g/dL (32.0-37.0); MCV 85.5 fL (80.0-97.0); Macrocytosis (M) 2+; Mean Platelet Volume 9.4 fL (9.5-12.2); Monocytes # (A) 1.08 X 10*3/uL (0.20-1.00); Monocytes % (A) 9.7 %; NRBC Per 100 WBC 0 /100 WBCS (0.0-0.0); Neutrophils % (A) 64.9 %; Platelet Count 773 X 10*3/uL (140-440); RBC 3.11 X 10*6/uL (4.40-5.60); RDW 15.9 % (11.5-14.5); WBC 11.11 X 10*3/uL (4.50-10.00)
[2022-07-10] MEDS: HYDROcodone/APAP 5-325MG 1 EACH TAB PO PRN ×2 (13:49→22:54)
[2022-07-10 14:27] VITALS: BMI 21.5
[2022-07-10 15:17] LABS: Erythrocyte Sedimentation Rate 45 mm/Hr (0-20)
[2022-07-10 17:23] LABS: Glucose,Whole Blood 94 mg/dL (70-110)
[2022-07-10 20:40] LABS: Glucose,Whole Blood 219 mg/dL (70-110)
[2022-07-10] MEDS: INSULIN DETEMIR (LEVEMIR) 100 UNIT/ML SYR SQ SCH (20:58)
[2022-07-11] MEDS: AMPICILLIN 2,000 MG in SODIUM CHLORIDE 0.9% 100 ML IVPB SCH ×4 (00:20→11:08)
[2022-07-11] MEDS: GENTAMICIN 70 MG in SODIUM CHLORIDE 0.9% 100 ML IVPB SCH ×2 (01:16→11:53)
[2022-07-11 07:30] LABS: African American GFR (CKD) >90 (>60 ml/min/1.73 sqM); Non-African American GFR(CKD) 88 (>60 ml/min/1.73 sqM)
[2022-07-11 08:12] LABS: Glucose,Whole Blood 117 mg/dL (70-110)
[2022-07-11] MEDS: INSULIN ASPART (NovoLOG) 100 UNIT/ML VIAL SQ SCH ×2 (08:20→12:14)
[2022-07-11] MEDS: polyethylene glycoL 3350 17 GM POWD.PACK PO SCH (08:21)
[2022-07-11] MEDS: POTASSIUM CHLORIDE ER 20 MEQ TAB.ER PO SCH (08:21)
[2022-07-11] MEDS: ASPIRIN 81 MG PO SCH (08:21)
[2022-07-11] MEDS: FAMOTIDINE 20 MG TAB PO SCH (08:21)
[2022-07-11] MEDS: HYDROcodone/APAP 5-325MG 1 EACH TAB PO PRN (08:21)
[2022-07-11] MEDS: MAGNESIUM OXIDE 400 MG TAB PO SCH (08:21)
[2022-07-11 08:54] VITALS: BP 147/47; PULSE 98; RESP 16; TEMP 97.7
[2022-07-11 12:14] LABS: Glucose,Whole Blood 173 mg/dL (70-110)
--- NOTE | 2022-07-12 05:00 | PN ---
PROGRESS NOTE CHIEF COMPLAINT: SBE. HISTORY OF PRESENT ILLNESS: This gentleman is doing well. We are waiting for someone to set up a plan so that he can receive his antibiotics IV after he leaves the hospital. He has no complaints. He has had no fever, chills, chest pain, shortness of breath, etc. PHYSICAL EXAMINATION: CARDIAC: Normal. CHEST: Clear. IMPRESSION: Subacute bacterial endocarditis. PLAN: He can be discharged as soon as arrangements are made for him to receive IV antibiotics as an outpatient. MMODL / IJN: [id number] /
[2022-07-12] MEDS ORDERED: GENTAMICIN TROUGH DUE 1 EACH MISC MISCELLANE ONE (11:30)
[2022-07-12] MEDS ORDERED: GENTAMICIN PEAK DUE 1 EACH MISC MISCELLANE ONE (13:30)
--- NOTE | 2022-07-12 20:26 | DS ---
DISCHARGE SUMMARY CHIEF COMPLAINT: SBE. HISTORY OF PRESENT ILLNESS AND PHYSICAL EXAMINATION: Details of this man's history and physical can be found in the initial workup. LABORATORY STUDIES: While he was in the hospital he had laboratory studies, details of which can be found in the laboratory section of his chart. COURSE IN THE HOSPITAL: After admission, he was placed on bedrest, started on intravenous fluids, and maintained on his usual IV antibiotics. 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 FINAL DIAGNOSIS: Subacute bacterial endocarditis. OPERATIONS: None. CONSULTATIONS: None. He is improved. MMODL / IJN: [id number] /
== END 2022-07-11 14:27 | disposition home health service (06) ==
LOC: EC 19:29 → 6NMEDSUR 22:07
PROVIDERS: ADMIT Family Medicine; ATTEND Family Medicine
DX: I33.0 Acute and subacute infective endocarditis (principal); B95.2 Enterococcus as the cause of diseases classified elsewhere; I10 Essential (primary) hypertension; E78.5 Hyperlipidemia, unspecified; G40.909 Epilepsy, unspecified, not intractable, without status epilepticus; F17.200 Nicotine dependence, unspecified, uncomplicated; F12.90 Cannabis use, unspecified, uncomplicated; D64.9 Anemia, unspecified; E11.9 Type 2 diabetes mellitus without complications; Z79.82 Long term (current) use of aspirin; Z79.4 Long term (current) use of insulin; Z79.899 Other long term (current) drug therapy; Z86.73 Personal history of transient ischemic attack (TIA), and cerebral infarction without residual deficits; Z75.1 Person awaiting admission to adequate facility elsewhere; Z82.3 Family history of stroke
CPT/HCPCS: 96365; 96366 ×6; 96367 ×2; 99285; 93005; 80170 ×3; 80053 ×2; 85652 ×2; 82565 ×4; 85025 ×2; 86140 ×2; G0378 ×7; J0696 ×3; J1580 ×6; J0290 ×7

== ENCOUNTER 2024-12-27 20:58 | Inpatient (IN) | payer MEDICARE ==
--- NOTE | 2024-12-27 21:26 | ED ---
General Adult HPI - General Chief complaint: Altered Mental Status Stated complaint: AMS Time Seen by Provider: 12/27/24 21:05 Source: EMS Mode of arrival: EMS Limitations: altered mental status - History of Present Illness Initial comments: Patient is a 74-year-old gentleman presenting today for AMS. History is limited by patient's altered mental status. Presently the patient complains of right hip pain and left knee pain that has been going on for a while and is not new. No recent falls or trauma. Patient denies chest pain or abdominal pain or s hortness of breath. Has had cough unsure for how long. States he has not been eating like he normally would. History later provided by patient's and daughter state that patient has had worsening generalized weakness over the last 3 days. Prior to that he had 3 days of nausea and vomiting of nonbloody nonbilious emesis. Over last 3 days he has been unable to get out of bed and has become too shaky to even hold a cup. This weakness appears equal on both sides. He has not had any recent falls fevers or chills the patient's states the patient always feels cold. He is not on any blood thinners. Patient's daughter thinks he does have a remote history of prior brain bleed. - Related Data Home Medications Medication Instructions Recorded Confirmed Atorvastatin [Lipitor] 10 mg PO DAILY 12/28/24 12/28/24 Ferrous Sulfate [Feosol] 325 mg PO BID 12/28/24 12/28/24 Furosemide [Lasix] 20 mg PO DAILY 12/28/24 12/28/24 Gabapentin [Neurontin] 200 mg PO HS 12/28/24 12/28/24 HYDROcodone/APAP 7.5-325MG [[place] 1 tab PO BID PRN 12/28/24 12/28/24 7.5-325] INSULIN ASPART (NovoLOG) [NovoLOG 4 unit SQ DAILY 12/28/24 12/28/24 (formulary)] Metoprolol Succinate (ER) [Toprol 25 mg PO DAILY 12/28/24 12/28/24 Xl] Omeprazole [PriLOSEC] 20 mg PO BID 12/28/24 12/28/24 Ondansetron [Zofran] 4 mg PO Q8HR PRN 12/28/24 12/28/24 lisinopriL [Zestril] 2.5 mg PO DAILY 12/28/24 12/28/24 rOPINIRole HCL [Requip] 0.25 mg PO HS 12/28/24 12/28/24 traZODone HCL [Desyrel] 100 mg PO HS PRN 12/28/24 12/28/24 Previous Rx's Medication Instructions Recorded Magnesium Oxide [Mag-Ox] 400 mg PO DAILY #30 tab 06/14/22 Potassium Chloride ER [K-Dur 20] 20 meq PO DAILY #90 tab 06/14/22 Allergies Allergy/AdvReac Type Severity Reaction Status Date / Time No Known Allergies Allergy Verified 12/30/24 15:22 Review of Systems ROS Statement: Those systems with pertinent positive or pertinent negative responses have been documented in the HPI. ROS Other: All systems not noted in ROS Statement are negative. Past Medical History Past Medical History: CVA/TIA, Diabetes Mellitus, Hyperlipidemia, Hypertension, Seizure Disorder Additional Past Medical History / Comment(s): endocarditis History of Any Multi-Drug Resistant Organisms: None Reported Past Surgical History: Orthopedic Surgery Additional Past Surgical History / Comment(s): hemmoroid, nahid feet, lt hand, aaa repair 2015 aortoiliac stent Past Anesthesia/Blood Transfusion Reactions: No Reported Reaction Past Psychological History: No Psychological Hx Reported Smoking Status: Current every day smoker Past Alcohol Use History: Occasional Past Drug Use History: Marijuana - Past Family History Mother Family Medical History: CVA/TIA Father Additional Family Medical History / Comment(s): Father had shingles; not sure what he from General Exam - General Exam Comments Initial Comments: PE: CONSTITUTIONAL: No apparent distress, chronically ill-appearing, nontoxic SKIN: Warm, dry, no jaundice, hives or petechiae EYES: Pupils are equally round, extraocular movements intact without nystagmus, clear conjunctiva, non-icteric sclera HENT: Normocephalic, atraumatic, slightly dry mucus membranes, oropharynx clear without exudates NECK: , Full range of motion, normal appearance PULMONARY: Rhonchi and rales in the left lower lung field and right midlung field, scant wheeze in the right lower lung field, normal excursion, no stridor no accessory muscle use or respiratory distress CARDIOVASCULAR: Regular rate, rhythm, normal S1 and S2. No appreciated murmurs, rubs or gallops. Strong radial pulses with intact distal perfusion. No lower extremity edema GASTROINTESTINAL: Soft, scaphoid, active bowel sounds throughout, non-tender, non-distended, no palpable masses, no rebound or guarding. No hepatosplenomegaly MUSCULOSKELETAL: Extremities have no gross deformity, no edema, tenderness palpation of the lateral right hip without tenderness throughout the femur, no gross deformity, patient moves right lower extremities through full range of motion without difficulty, tenderness palpation of the lateral distal left lower extremity just lateral to the mid fibula, small amount of bruising and swelling overlying this region NEUROLOGIC:_a/o x 2 knows name, unsure of his date of answering "[id number]" when asked date of , states he is at [facility] in the emergency department, [facility] 14,somewhat confsued normal mentation and clear speech. Moves all extremities x 4 without motor or sensory deficit PSYCHIATRIC:_normal mood and affect, thought process is somewhat clouded/confused Limitations: altered mental status Course Vital Signs 12/27/24 12/27/24 12/28/24 21:16 23:03 02:25 Temperature 97.9 F Pulse Rate 92 90 110 H Respiratory 24 20 18 Rate Blood Pressure 143/79 102/78 136/70 O2 Sat by Pulse 99 95 96 Oximetry EKG Findings - EKG Comments: EKG Findings:: Sinus rhythm, rate 87 bpm normal intervals, normal axis, no ST elevations or depressions, no ischemic changes no arrhythmia Medical Decision Making - Medical Decision Making Was pt. sent in by a medical professional or institution (INGE Carvajal, [employer], urgent care, hospital, or senior care...) When possible be specific @ -No Did you speak to anyone other than the patient for history (EMS, parent, family, police, friend...)? What history was obtained from this source @Yes, I did speak with patient's daughter and , please see HPI above, patient here for worsening generalized weakness x 3 days after 3 days nausea and vomiting Did you review nursing and triage notes (agree or disagree)? Why? @ -I reviewed nursing and triage notes-States altered mental status worse over the last few weeks, patient bedbound per EMS, patient endorsed shortness of breath. I do not disagree with triage note, patient denies shortness of breath myself he was removed nasal cannula and pulse ox remained 99% on room air without increased work of breathing Were old charts reviewed (outside hosp., previous admission, EMS record, old EKG, old radiological studies, urgent care reports/EKG's, senior care records)? Report findings @ -Medical records reviewed reviewed medical records, most recent discharge summary was from June 2022 when patient had been admitted for bacterial endocarditis. Additionally compared to prior CT brain to today CT brain,CT brain on 06/06/2022 appeared to show similar remote appearing infarct of the right lobe noted on today's CT scanAdditionally compared today's chest x-ray to prior done on 06/04/2022, masslike consolidation is new from prior, Differential Diagnosis (chest pain, altered mental status, abdominal pain women, abdominal pain men, vaginal bleeding, weakness, fever, dyspnea, syncope, headache, dizziness, GI bleed, back pain, seizure, CVA, palpatations, mental health, musculoskeletal)? @Differential Weakness: Hypoglycemia, shock, sepsis, hyponatremia, anemia, infection, ME, ETOH, adverse medicine reaction, overdose, stroke, this is not meant to be an all-inclusive list. EKG interpreted by me (3pts min.). @ -As above X-rays interpreted by me (1pt min.). @Personally reviewed chest x-ray, shows masslike consolidation in the right upper lobe just lateral to the mediastinum, I agree with radiologist interpretation. Personally reviewed XR hip and tib/fib, I see no evidence of fracture or malalignment, I agree with radiologist interpretation CT interpreted by me (1pt min.). @I personally reviewed CT brain, shows remote appearing injury in the right parietal lobe, no hemorrhage or mass effect, I agree with radiologist interpretation U/S interpreted by me (1pt. min.). @ -None done What testing was considered but not performed or refused? (CT, X-rays, U/S, labs)? Why? @ -None What meds were considered but not given or refused? Why? @ -None Did you discuss the management of the patient with other professionals (professionals i.e. , PA, [employer], lab, RT, psych nurse, social sciences instructor, lime filter operator, teacher, freedom of information officer, high risk case manager)? Give summary @ -No Was smoking cessation discussed for >3mins.? @ -No Was critical care preformed (if so, how long)? @ -Yes 35 minutes Were there social determinants of health that impacted care today? How? (Homelessness, low income, unemployed, alcoholism, drug addiction, transportation, low edu. Level, literacy, decrease access to med. care, assisted, rehab)? @ -No Was there de-escalation of care discussed even if they declined (Discuss DNR or withdrawal of care, Hospice)? @ -No What co-morbidities impacted this encounter? (DM, HTN, Smoking, COPD, CAD, Cancer, CVA, ARF, Chemo, Hep., AIDS, mental health diagnosis, sleep apnea, morbid obesity)? @COPD, diabetes,Hypertension, hyperlipidemia, prior CVA, seizure disorder Was patient admitted / discharged? Hospital course, mention meds given and route, prescriptions, significant lab abnormalities, going to OR and other pertinent info. @ -Admission-this is a 74-year-old gentleman presenting today for 3 days generalized weakness and altered mental status. Usually AO x 4, now AO x 2. Vital signs on arrival Significant respiratory rate 24, mild hypertension. Patient arrives on 2 L oxygen nasal cannula, was reportedly 85% SpO2 on room air prior to arrival. On my assessment he has only respirations, supplemental oxygen was removed during my assessment of the patient a pulse ox remained 99%. As history is limited given patient's AO x 1-2, currently only complains of right hip and distal LLE pain, appears somewhat malnourished, will plan for broad workup. CT brain, TSH with reflex T4, ammonia level, blood alcohol CBC, CMP, magnesium level, phosphorus level, chest x-ray, Cepheid testing, urinalysis, CK level, x-rays affected extremities. Labs significant for elevated CK consistent with rhabdomyolysis. Mild NEPTALI with Cr. 1.37. CXR showed masslike consolidation. Ordered IV fluids. I updated patient's family to these findings, and plan for admission. Pt and family agreeable with POC. Case discussed with Dr. Chatman, who accepted pt for admission. Undiagnosed new problem with uncertain prognosis? @ -No Drug Therapy requiring intensive monitoring for toxicity (Heparin, Nitro, In sulin, Cardizem)? @ -No Were any procedures done? @ -No Diagnosis/symptom? @Rhabdomyolysis, mass on chest XR, acute metabolic encephalopathy Acute, or Chronic, or Acute on Chronic? @ -acute Uncomplicated (without systemic symptoms) or Complicated (systemic symptoms)? @complicated Side effects of treatment? @ -No Exacerbation, Progression, or Severe Exacerbation? @ -No Poses a threat to life or bodily function? How? (Chest pain, USA, ME, pneumonia, PE, COPD, DKA, ARF, appy, cholecystitis, CVA, Diverticulitis, Homicidal, Suicidal, threat to staff... and all critical care pts) @Yes if left untreated could progress to renal failure - Lab Data Result diagrams: 12/29/24 07:55 12/31/24 10:10 Lab Results 12/27/24 12/27/24 12/27/24 Range/Units 21:20 21:27 21:27 WBC 12.0 H (3.8-10.6) k/uL RBC 3.84 L (4.30-5.90) m/uL Hgb 10.7 L (13.0-17.5) gm/dL Hct 33.6 L (39.0-53.0) % MCV 87.5 (80.0-100.0) fL MCH 27.8 (25.0-35.0) pg MCHC 31.7 (31.0-37.0) g/dL RDW 15.1 (11.5-15.5) % Plt Count 246 (150-450) k/uL MPV 8.5 Neutrophils % 85 % Lymphocytes % 8 % Monocytes % 5 % Eosinophils % 0 % Basophils % 0 % Neutrophils # 10.2 H (1.3-7.7) k/uL Lymphocytes # 0.9 L (1.0-4.8) k/uL Monocytes # 0.6 (0-1.0) k/uL Eosinophils # 0.0 (0-0.7) k/uL Basophils # 0.0 (0-0.2) k/uL PT 9.8 L (10.0-12.5) sec INR 0.9 (<1.2) APTT 21.0 L (22.0-30.0) sec Sodium (137-145) mmol/L Potassium (3.5-5.1) mmol/L Chloride (98-107) mmol/L Carbon Dioxide (22-30) mmol/L Anion Gap mmol/L BUN (9-20) mg/dL Creatinine (0.66-1.25) mg/dL Est GFR (CKD-EPI)AfAm (>60 ml/min/1.73 sqM) Est GFR (CKD-EPI)NonAf (>60 ml/min/1.73 sqM) Glucose (74-99) mg/dL Estimated Ave Glu mg/dL mg/dL Hemoglobin A1c (<=6.0) % Calcium (8.4-10.2) mg/dL Phosphorus (2.5-4.5) mg/dL Magnesium (1.6-2.3) mg/dL Total Bilirubin (0.2-1.3) mg/dL AST (17-59) U/L ALT (4-49) U/L Alkaline Phosphatase (38-126) U/L Ammonia (<30) umol/L Creatine Kinase (55-170) U/L Troponin I (0.000-0.034) ng/mL Total Protein (6.3-8.2) g/dL Albumin (3.5-5.0) g/dL TSH (0.465-4.680) mIU/L Serum Alcohol mg/dL Influenza Type A (PCR) Not Detected (Not Detectd) Influenza Type B (PCR) Not Detected (Not Detectd) RSV (PCR) Not Detected (Not Detectd) SARS-CoV-2 (PCR) Not Detected (Not Detectd) 12/27/24 12/27/24 12/27/24 Range/Units 21:27 22:00 22:00 WBC (3.8-10.6) k/uL RBC (4.30-5.90) m/uL Hgb (13.0-17.5) gm/dL Hct (39.0-53.0) % MCV (80.0-100.0) fL MCH (25.0-35.0) pg MCHC (31.0-37.0) g/dL RDW (11.5-15.5) % Plt Count (150-450) k/uL MPV Neutrophils % % Lymphocytes % % Monocytes % % Eosinophils % % Basophils % % Neutrophils # (1.3-7.7) k/uL Lymphocytes # (1.0-4.8) k/uL Monocytes # (0-1.0) k/uL Eosinophils # (0-0.7) k/uL Basophils # (0-0.2) k/uL PT (10.0-12.5) sec INR (<1.2) APTT (22.0-30.0) sec Sodium (137-145) mmol/L Potassium (3.5-5.1) mmol/L Chloride (98-107) mmol/L Carbon Dioxide (22-30) mmol/L Anion Gap mmol/L BUN (9-20) mg/dL Creatinine (0.66-1.25) mg/dL Est GFR (CKD-EPI)AfAm (>60 ml/min/1.73 sqM) Est GFR (CKD-EPI)NonAf (>60 ml/min/1.73 sqM) Glucose (74-99) mg/dL Estimated Ave Glu mg/dL 131 mg/dL Hemoglobin A1c 6.2 H (<=6.0) % Calcium (8.4-10.2) mg/dL Phosphorus (2.5-4.5) mg/dL Magnesium (1.6-2.3) mg/dL Total Bilirubin (0.2-1.3) mg/dL AST (17-59) U/L ALT (4-49) U/L Alkaline Phosphatase (38-126) U/L Ammonia <9 (<30) umol/L Creatine Kinase (55-170) U/L Troponin I <0.012 (0.000-0.034) ng/mL Total Protein (6.3-8.2) g/dL Albumin (3.5-5.0) g/dL TSH (0.465-4.680) mIU/L Serum Alcohol mg/dL Influenza Type A (PCR) (Not Detectd) Influenza Type B (PCR) (Not Detectd) RSV (PCR) (Not Detectd) SARS-CoV-2 (PCR) (Not Detectd) 12/27/24 Range/Units 22:00 WBC (3.8-10.6) k/uL RBC (4.30-5.90) m/uL Hgb (13.0-17.5) gm/dL Hct (39.0-53.0) % MCV (80.0-100.0) fL MCH (25.0-35.0) pg MCHC (31.0-37.0) g/dL RDW (11.5-15.5) % Plt Count (150-450) k/uL MPV Neutrophils % % Lymphocytes % % Monocytes % % Eosinophils % % Basophils % % Neutrophils # (1.3-7.7) k/uL Lymphocytes # (1.0-4.8) k/uL Monocytes # (0-1.0) k/uL Eosinophils # (0-0.7) k/uL Basophils # (0-0.2) k/uL PT (10.0-12.5) sec INR (<1.2) APTT (22.0-30.0) sec Sodium 135 L (137-145) mmol/L Potassium 5.0 (3.5-5.1) mmol/L Chloride 98 (98-107) mmol/L Carbon Dioxide 26 (22-30) mmol/L Anion Gap 11 mmol/L BUN 46 H (9-20) mg/dL Creatinine 1.37 H (0.66-1.25) mg/dL Est GFR (CKD-EPI)AfAm 59 (>60 ml/min/1.73 sqM) Est GFR (CKD-EPI)NonAf 51 (>60 ml/min/1.73 sqM) Glucose 140 H (74-99) mg/dL Estimated Ave Glu mg/dL mg/dL Hemoglobin A1c (<=6.0) % Calcium 9.1 (8.4-10.2) mg/dL Phosphorus 4.0 (2.5-4.5) mg/dL Magnesium 2.6 H (1.6-2.3) mg/dL Total Bilirubin 0.9 (0.2-1.3) mg/dL AST 62 H (17-59) U/L ALT 24 (4-49) U/L Alkaline Phosphatase 108 (38-126) U/L Ammonia (<30) umol/L Creatine Kinase 982 H (55-170) U/L Troponin I (0.000-0.034) ng/mL Total Protein 7.1 (6.3-8.2) g/dL Albumin 3.9 (3.5-5.0) g/dL TSH 1.540 (0.465-4.680) mIU/L Serum Alcohol <10 mg/dL Influenza Type A (PCR) (Not Detectd) Influenza Type B (PCR) (Not Detectd) RSV (PCR) (Not Detectd) SARS-CoV-2 (PCR) (Not Detectd) Disposition Clinical Impression: Rhabdomyolysis Disposition: ADMITTED IP TO THIS HOSP Condition: Stable
--- NOTE | 2024-12-27 21:53 | XR ---
EXAMINATION TYPE: XR tibia fibula LT DATE OF EXAM: 12/27/2024 9:47 PM COMPARISON: None CLINICAL INDICATION: Male, 74 years old with history of bruise, TTP lateral left distal LE, pain TECHNIQUE: XR tibia fibula LT; examined in AP and lateral projections. FINDINGS: No evidence of any acute osseous pathology, joint dislocation, or soft tissue swelling is n oted. Mild degeneration changes of the knee with osteophyte formation and joint space narrowing. Thor tionally multifocal degeneration changes of the joints of fall with gated history of osteophyte forma tion. Atherosclerosis of the arterial vasculature. IMPRESSION: 1. No evidence of acute fracture. 2. Mild to moderate degeneration changes of the knee and joints of the foot.. [facility], , 12/27/2024 9:51 PM
[2024-12-27 21:54] LABS: Basophils % (A) 0 %; Eosinophils % (A) 0 %; HCT 33.6 % (39.0-53.0); HGB 10.7 gm/dL (13.0-17.5); Lymphocytes # (A) 0.9 k/uL (1.0-4.8); Lymphocytes % (A) 8 %; MCH 27.8 pg (25.0-35.0); MCHC 31.7 g/dL (31.0-37.0); MCV 87.5 fL (80.0-100.0); Mean Platelet Volume 8.5; Monocytes # (A) 0.6 k/uL (0-1.0); Monocytes % (A) 5 %; Neutrophils # (A) 10.2 k/uL (1.3-7.7); Neutrophils % (A) 85 %; Platelet Count 246 k/uL (150-450); RBC 3.84 m/uL (4.30-5.90); RDW 15.1 % (11.5-15.5)
--- NOTE | 2024-12-27 21:54 | XR ---
EXAMINATION TYPE: XR Hip Complete RT DATE OF EXAM: 12/27/2024 9:47 PM COMPARISON: 12/27/2024 CLINICAL INDICATION: Male, 74 years old with history of right lat hip pain; PHH, pain TECHNIQUE: XR Hip Complete RT; Frontal and lateral views FINDINGS: No evidence for acute process, joint dislocation or significant soft tissue swelling. Osteo phyte formation of the superior acetabulum of the hip. There is mild joint space narrowing. IMPRESSION: 1. No evidence for acute process. 2. Mild to moderate hip osteoarthrosis. [facility], , 12/27/2024 9:52 PM
--- NOTE | 2024-12-27 21:55 | XR ---
EXAMINATION TYPE: XR chest 2V DATE OF EXAM: 12/27/2024 9:47 PM COMPARISON: Chest radiographs from 06/04/2022. CLINICAL INDICATION: Male, 74 years old with history of altered mental status; [facility] TECHNIQUE: XR chest 2V Frontal and lateral views of the chest. FINDINGS: Lungs/Pleura: Masslike consolidation along the right upper medial heart border measuring 12.8 x 4.1 c m There is no evidence of pleural effusion, focal consolidation, or pneumothorax. Pulmonary vascularity: Unremarkable. Heart/mediastinum: Cardiomediastinal silhouette is unremarkable. Musculoskeletal: No acute osseous pathology. IMPRESSION: Right paramediastinal masslike consolidation. Further evaluation with cross-sectional imaging recomme nded. From 06/04/2022. [facility], , 12/27/2024 9:53 PM
--- NOTE | 2024-12-27 22:25 | CT ---
EXAMINATION TYPE: CT brain wo con DATE OF EXAM: 12/27/2024 10:16 PM COMPARISON: 06/05/2022. CLINICAL INDICATION: Male, 74 years old with history of right lat hip pain, AMS TECHNIQUE: Brain: Axial CT images of the brain were obtained with coronal and sagittal reformats created and rev iewed. Contrast used: None. Oral contrast used: None. CT DLP: 1171 mGycm, Automated exposure control for dose reduction was used. FINDINGS: Brain: Extra-axial spaces: No abnormal extra-axial fluid collections. Ventricular system: Within normal limits Cerebral parenchyma: Encephalomalacia the right parietal region from remote injury. No acute intrapar enchymal hemorrhage or mass effect. The centeno-white junction is well differentiated. Cerebellum: Unremarkable. Mass effect: No evidence of midline shift. Intracranial vasculature: unremarkable Soft tissues: Normal. Calvarium/osseous structures: No depressed skull fracture. Paranasal sinuses and mastoid air cells: Mild scattered paranasal sinus disease. Visualized orbits: Orbital contents are intact. IMPRESSION: 1. No acute intracranial process 2. Nonspecific white matter changes, likely secondary to chronic small vessel ischemic disease. 3. Remote injury of the right parietal lobe [facility], , 12/27/2024 10:22 PM
[2024-12-27 22:30] LABS: Influenza A Not Detected (Not Detectd); Influenza B Not Detected (Not Detectd); RSV Not Detected (Not Detectd)
[2024-12-27] MEDS: HYDROcodone/APAP 5-325MG 1 EACH TAB PO STA (22:49)
[2024-12-27 23:07] LABS: INR 0.9 (<1.2); Prothrombin Time 9.8 sec (10.0-12.5)
[2024-12-27 23:35] LABS: African American GFR (CKD) 59 (>60 ml/min/1.73 sqM); Anion Gap 11 mmol/L; Blood Urea Nitrogen 46 mg/dL (9-20); Carbon Dioxide 26 mmol/L (22-30); Chloride 98 mmol/L (98-107); Glucose 140 mg/dL (74-99); Non-African American GFR(CKD) 51 (>60 ml/min/1.73 sqM); Sodium 135 mmol/L (137-145)
[2024-12-27 23:36] LABS: ALT 24 U/L (4-49); AST 62 U/L (17-59); Albumin 3.9 g/dL (3.5-5.0); Alcohol <10 mg/dL; Alkaline Phosphatase 108 U/L (38-126); Calcium 9.1 mg/dL (8.4-10.2); Creatine Kinase 982 U/L (55-170); Magnesium 2.6 mg/dL (1.6-2.3); Total Bilirubin 0.9 mg/dL (0.2-1.3); Total Protein 7.1 g/dL (6.3-8.2)
[2024-12-28] MEDS: ACETAMINOPHEN TAB 325 MG TAB PO STA (01:11)
[2024-12-28] MEDS: SODIUM CHLORIDE 0.9% 1,000 ML IV SCH (01:24)
[2024-12-28] MEDS ORDERED: NALOXONE 0.4 MG/ML 1 ML VIAL IV PRN (01:30)
[2024-12-28] MEDS ORDERED: MAG HYDROX/AL HYDROX/SIMETH 30 ML CUP PO PRN (01:30)
[2024-12-28 03:45] LABS: Glucose,Whole Blood 299 mg/dL (70-110)
[2024-12-28] MEDS: ACETAMINOPHEN TAB 325 MG TAB PO PRN (04:13)
[2024-12-28] MEDS ORDERED: DEXTROSE 50% SYRINGE 50 ML IVP PRN ×2 (04:23)
[2024-12-28 06:05] LABS: Glucose,Whole Blood 179 mg/dL (70-110)
[2024-12-28] MEDS: INSULIN LISPRO (HumaLOG) 100 UNIT/ML 10 mL VL SQ SCH (07:38)
[2024-12-28] MEDS: ENOXAPARIN 40 MG/0.4 ML SYRINGE SQ SCH (10:27)
[2024-12-28] MEDS: FAMOTIDINE 20 MG TAB PO SCH (10:27)
[2024-12-28] MEDS ORDERED: RX INFO: IV CONTRAST WAS GIVEN 1 EACH MISC MISCELLANE PRN (11:31)
[2024-12-28 11:36] LABS: Glucose,Whole Blood 243 mg/dL (70-110)
--- NOTE | 2024-12-28 12:41 | P.NPCON ---
History of Present Illness - Reason for Consult acute renal failure - History of Present Illness Patient is a 74-year-old male who was admitted to the hospital with history of increased weakness over the last 3 to 4 days associated with nausea and vomiting. No history of fever Patient denies any urinary symptoms. It is unclear if patient fell. He is noted to have rhabdomyolysis with CK at 982. Serum creatinine was 1.37 Patient has been voiding. Blood pressure has not been significantly low. Maintained on diuretics and low-dose INESSA inhibitor's at home prior to admission. Currently receiving IV fluids Past Medical History Past Medical History: CVA/TIA, Diabetes Mellitus, Hyperlipidemia, Hypertension, Seizure Disorder Additional Past Medical History / Comment(s): endocarditis History of Any Multi-Drug Resistant Organisms: None Reported Past Surgical History: Orthopedic Surgery Additional Past Surgical History / Comment(s): hemmoroid, nahid feet, lt hand, aaa repair 2015 aortoiliac stent Past Anesthesia/Blood Transfusion Reactions: No Reported Reaction Past Psychological History: No Psychological Hx Reported Smoking Status: Current every day smoker Past Alcohol Use History: Occasional Additional Past Alcohol Use History / Comment(s): has not drank alcohol in 4months. was in past drinking 6 beers every other day. Past Drug Use History: Marijuana - Past Family History Mother Family Medical History: CVA/TIA Father Additional Family Medical History / Comment(s): Father had shingles; not sure what he from Medications and Allergies Home Medications Medication Instructions Recorded Confirmed Type Magnesium Oxide [Mag-Ox] 400 mg PO DAILY #30 tab 06/14/22 12/28/24 Rx Potassium Chloride ER [K-Dur 20] 20 meq PO DAILY #90 tab 06/14/22 12/28/24 Rx Atorvastatin [Lipitor] 10 mg PO DAILY 12/28/24 12/28/24 History Ferrous Sulfate [Feosol] 325 mg PO BID 12/28/24 12/28/24 History Furosemide [Lasix] 20 mg PO DAILY 12/28/24 12/28/24 History Gabapentin [Neurontin] 200 mg PO HS 12/28/24 12/28/24 History HYDROcodone/APAP 7.5-325MG [[place] 1 tab PO BID PRN 12/28/24 12/28/24 History 7.5-325] INSULIN ASPART (NovoLOG) [NovoLOG 4 unit SQ DAILY 12/28/24 12/28/24 History (formulary)] Metoprolol Succinate (ER) [Toprol 25 mg PO DAILY 12/28/24 12/28/24 History Xl] Omeprazole [PriLOSEC] 20 mg PO BID 12/28/24 12/28/24 History Ondansetron [Zofran] 4 mg PO Q8HR PRN 12/28/24 12/28/24 History lisinopriL [Zestril] 2.5 mg PO DAILY 12/28/24 12/28/24 History rOPINIRole HCL [Requip] 0.25 mg PO HS 12/28/24 12/28/24 History traZODone HCL [Desyrel] 100 mg PO HS PRN 12/28/24 12/28/24 History Allergies Allergy/AdvReac Type Severity Reaction Status Date / Time No Known Allergies Allergy Verified 12/28/24 09:12 Physical Exam Vitals: Vital Signs Temp Pulse Pulse Resp BP BP Pulse Ox 12/28/24 12:29 101.0 F H 12/28/24 08:00 100.4 F H 94 19 153/73 93 L 12/28/24 05:01 98.5 F 12/28/24 04:09 100.5 F H 12/28/24 03:08 99.1 F 107 H 151/70 93 L 12/28/24 02:25 110 H 18 136/70 96 12/27/24 23:03 90 20 102/78 95 12/27/24 21:16 97.9 F 92 24 143/79 99 Intake and Output 12/27/24 12/28/24 12/28/24 22:59 06:59 14:59 Intake Total 120 Balance 120 Intake: Oral 120 Other: # Voids 3 Weight 72.575 kg 72.575 kg Patient is awake, comfortable, no acute distress Examination of the heart S1 and S2 Examination of the lungs bilateral breath sounds are heard Abdomen is soft nontender Examination of lower extremities shows no significant edema BAR PILOT exam grossly intact Results - Lab Results Most recent lab results Calcium 9.1 mg/dL (8.4-10.2) 12/27/24 22:00 Phosphorus 4.0 mg/dL (2.5-4.5) 12/27/24 22:00 Magnesium 2.6 mg/dL (1.6-2.3) H 12/27/24 22:00 12/27/24 21:27 12/27/24 22:00 Assessment and Plan Assessment: 1. Acute kidney injury mostly prerenal associated with volume depletion. M aintained on IV fluids. Rule out urine retention if no further improvement in renal function. Previous creatinine was 0.8 on 07/29/2022. Check UA 2. Mild rhabdomyolysis, patient was maintained on statins. TSH not elevated. 3. Fever, obtain workup for underlying infection. Chest x-ray shows right paramediastinal masslike consolidation, chest CT has been ordered. Check UA 4. Volume depletion Plan: Continue IV fluids Check UA Check bladder scan rule out urine retention Repeat labs in a.m. Continue off of statins. Thank you for the consultation. We will continue to follow the patient with you during his hospitalization.
[2024-12-28] MEDS: PIPERACILLIN-TAZOBACTAM 3.375 GM in SODIUM CHLORIDE 0.9% 100 ML IVPB SCH (13:02)
--- NOTE | 2024-12-28 13:04 | CT ---
EXAMINATION TYPE: CT chest w con DATE OF EXAM: 12/28/2024 12:20 PM COMPARISON: Chest radiograph CLINICAL INDICATION: Male, 74 years old with history of R. hilar mass; PHH, R. hilar mass TECHNIQUE: Multiple axial images were obtained through the chest. Sagittal and coronal reformats were created for review. MIP was performed on a separate workstation. Contrast used:80ml mL of Isovue 300 with IV Contrast (None if empty) Oral contrast used: (None if empty) CT DLP: 389.9 mGycm, Automated exposure control for dose reduction was used. FINDINGS: LUNGS/ PLEURA: Trace right pleural effusion. Right lower lung consolidation changes present. Large ri ght paramediastinal mass as described below. Right upper lung masslike nodule measuring 19 mm. AIRWAY: Patent and unremarkable. HEART: Size within normal limits. Severe coronary artery calcifications present. MEDIASTINUM: Right sided mass which extends from essentially the pulmonary hilum into the mediastinum measuring 7.2 x 6.2 x 9.8 cm. Invades around the trachea and right main bronchus.r VASCULATURE : No aortic aneurysm. The IVC is thinned and displaced anteriorly from mediastinal mass. Bilobed hypervascular structure in the lesser curvature of the stomach measuring 15 and 11 mm possib ly arising off the left gastric artery. MUSCULOSKELETAL: Moderate disc degeneration changes are present throughout the thoracolumbar spine se condary to osteophyte formation and facet joint arthropathy. No suspicious osseous lesions from the v isualized. SOFT TISSUES/LYMPH NODES: Lymph nodes in the right low neck as described below. LOWER NECK: Enlarged right lower neck lymph node measuring up to 15 mm in short axis. UPPER ABDOMEN: The liver extends across midline and demonstrates a high density mass in the left hepatic lobe measur ing up to 5.8 x 4.8 cm. Nodular morphology to the left adrenal gland. IMPRESSION: 1. Right paramediastinal mass invading into the mediastinum and around the major structures of the m ediastinum. This displaces the superior vena cava anteriorly and has a thickened appearance which put s patient has for thoracic outlet syndrome. Additionally there is right upper lung nodule and neck ly mph nodes concerning for metastatic disease. Modestly a nodular contour to the adrenal gland could al so represent metastatic disease. Follow-up PET/CT and oncologic workup recommended. 2. Consolidation changes in the right lower lung correlate for developing pneumonia. 3. Indeterminate mass in left upper quadrant thought to be coming from the liver over the stomach wh ich and measures up to 5.8 cm. Given other signs of malignancy findings concerning for malignancy or additional tumor or possibly just. Alternatively if this is not from the stomach or liver could be a large splenosis in the setting of trauma.. 4. Trace right pleural effusion. Possibly reactive to infection suggested. [facility], , 12/28/2024 1:02 PM
[2024-12-28] MEDS: HYDROcodone/APAP 5-325MG 1 EACH TAB PO PRN (14:21)
--- NOTE | 2024-12-28 16:24 | P.CONS ---
History of Present Illness - Reason for Consult Consult date: 12/28/24 FUO Requesting physician: Nathan Chatman - Chief Complaint Weakness x 3 days - History of Present Illness Patient is a 74-year-old male with a past medical history significant for CVA TIA diabetes mellitus hypertension hyperlipidemia and seizure disorder current everyday smoker presenting to the hospital for evaluation of mental status changes by the patient have worsening generalized weakness over 3 days before presentation to the hospital patient did have nausea and vomiting unable to get out of the bed, patient on presentation to the hospital was afebrile he did spike a fever of 100.5 at 4 AM and temperature of 101 F at 12:29 PM that has prompted this consultation patient did have a heart rate of 107 on admission he was not hypotensive or hypoxic no need for supplemental oxygen did have white count of 12,000 BUN/creatinine mild elevated with a creatinine 1.37 influenza RSV COVID testing has been negative patient did have a chest x-ray we did shows a right paramediastinal masslike consolidation CT has been ordered pending completion patient currently denies having any headache or URI symptoms denies having any chest pain or shortness of he did have occasional cough mild to moderate intensity not bring up any sputum no further nausea vomiting abdominal pain or diarrhea Review of Systems Positive point and negatives has been mentioned in the HPI, complete review of systems was performed and all other systems are negative Past Medical History Past Medical History: CVA/TIA, Diabetes Mellitus, Hyperlipidemia, Hypertension, Seizure Disorder Additional Past Medical History / Comment(s): endocarditis History of Any Multi-Drug Resistant Organisms: None Reported Past Surgical History: Orthopedic Surgery Additional Past Surgical History / Comment(s): hemmoroid, nahid feet, lt hand, aaa repair 2015 aortoiliac stent Past Anesthesia/Blood Transfusion Reactions: No Reported Reaction Past Psychological History: No Psychological Hx Reported Smoking Status: Current every day smoker Past Alcohol Use History: Occasional Additional Past Alcohol Use History / Comment(s): has not drank alcohol in 4months. was in past drinking 6 beers every other day. Past Drug Use History: Marijuana - Past Family History Mother Family Medical History: CVA/TIA Father Additional Family Medical History / Comment(s): Father had shingles; not sure what he from Medications and Allergies Home Medications Medication Instructions Recorded Confirmed Type Magnesium Oxide [Mag-Ox] 400 mg PO DAILY #30 tab 06/14/22 12/28/24 Rx Potassium Chloride ER [K-Dur 20] 20 meq PO DAILY #90 tab 06/14/22 12/28/24 Rx Atorvastatin [Lipitor] 10 mg PO DAILY 12/28/24 12/28/24 History Ferrous Sulfate [Feosol] 325 mg PO BID 12/28/24 12/28/24 History Furosemide [Lasix] 20 mg PO DAILY 12/28/24 12/28/24 History Gabapentin [Neurontin] 200 mg PO HS 12/28/24 12/28/24 History HYDROcodone/APAP 7.5-325MG [Colo 1 tab PO BID PRN 12/28/24 12/28/24 History 7.5-325] INSULIN ASPART (NovoLOG) [NovoLOG 4 unit SQ DAILY 12/28/24 12/28/24 History (formulary)] Metoprolol Succinate (ER) [Toprol 25 mg PO DAILY 12/28/24 12/28/24 History Xl] Omeprazole [PriLOSEC] 20 mg PO BID 12/28/24 12/28/24 History Ondansetron [Zofran] 4 mg PO Q8HR PRN 12/28/24 12/28/24 History lisinopriL [Zestril] 2.5 mg PO DAILY 12/28/24 12/28/24 History rOPINIRole HCL [Requip] 0.25 mg PO HS 12/28/24 12/28/24 History traZODone HCL [Desyrel] 100 mg PO HS PRN 12/28/24 12/28/24 History Allergies Allergy/AdvReac Type Severity Reaction Status Date / Time No Known Allergies Allergy Verified 12/28/24 09:12 Physical Exam Vitals: Vital Signs Temp Pulse Pulse Resp BP BP Pulse Ox 12/28/24 12:29 101.0 F H 12/28/24 08:00 100.4 F H 94 19 153/73 93 L 12/28/24 05:01 98.5 F 12/28/24 04:09 100.5 F H 12/28/24 03:08 99.1 F 107 H 151/70 93 L 12/28/24 02:25 110 H 18 136/70 96 12/27/24 23:03 90 20 102/78 95 12/27/24 21:16 97.9 F 92 24 143/79 99 Intake and Output 12/27/24 12/28/24 12/28/24 22:59 06:59 14:59 Intake Total 120 Balance 120 Intake: Oral 120 Other: # Voids 3 Weight 72.575 kg 72.575 kg GENERAL DESCRIPTION: Elderly male up in the chair, no distress. No tachypnea or accessory muscle of respiration use. HEENT: Shows Pallor , no scleral icterus. Oral mucous membrane is dry. NECK: Trachea central, no thyromegaly. LUNGS: Unlabored breathing. Decreased intensity of breath sounds . No wheeze or crackle. HEART: S1, S2, regular rate and rhythm. No loud murmur ABDOMEN: Soft, no tenderness , EXTREMITIES: No edema of feet. SKIN: No rash, no masses palpable. NEUROLOGICAL: The patient is awake, alert, mood and affect normal. Results CBC & Chem 7: 12/27/24 21:27 12/27/24 22:00 Labs: Abnormal Lab Results - Last 24 Hours (Table) 12/27/24 12/27/24 12/27/24 Range/Units 21:27 21:27 21:27 WBC 12.0 H (3.8-10.6) k/uL RBC 3.84 L (4.30-5.90) m/uL Hgb 10.7 L (13.0-17.5) gm/dL Hct 33.6 L (39.0-53.0) % Neutrophils # 10.2 H (1.3-7.7) k/uL Lymphocytes # 0.9 L (1.0-4.8) k/uL PT 9.8 L (10.0-12.5) sec APTT 21.0 L (22.0-30.0) sec Sodium (137-145) mmol/L BUN (9-20) mg/dL Creatinine (0.66-1.25) mg/dL Glucose (74-99) mg/dL POC Glucose (mg/dL) (70-110) mg/dL Hemoglobin A1c 6.2 H (<=6.0) % Magnesium (1.6-2.3) mg/dL AST (17-59) U/L Creatine Kinase (55-170) U/L 12/27/24 12/28/24 12/28/24 Range/Units 22:00 03:42 06:03 WBC (3.8-10.6) k/uL RBC (4.30-5.90) m/uL Hgb (13.0-17.5) gm/dL Hct (39.0-53.0) % Neutrophils # (1.3-7.7) k/uL Lymphocytes # (1.0-4.8) k/uL PT (10.0-12.5) sec APTT (22.0-30.0) sec Sodium 135 L (137-145) mmol/L BUN 46 H (9-20) mg/dL Creatinine 1.37 H (0.66-1.25) mg/dL Glucose 140 H (74-99) mg/dL POC Glucose (mg/dL) 299 H 179 H (70-110) mg/dL Hemoglobin A1c (<=6.0) % Magnesium 2.6 H (1.6-2.3) mg/dL AST 62 H (17-59) U/L Creatine Kinase 982 H (55-170) U/L 12/28/24 Range/Units 11:35 WBC (3.8-10.6) k/uL RBC (4.30-5.90) m/uL Hgb (13.0-17.5) gm/dL Hct (39.0-53.0) % Neutrophils # (1.3-7.7) k/uL Lymphocytes # (1.0-4.8) k/uL PT (10.0-12.5) sec APTT (22.0-30.0) sec Sodium (137-145) mmol/L BUN (9-20) mg/dL Creatinine (0.66-1.25) mg/dL Glucose (74-99) mg/dL POC Glucose (mg/dL) 243 H (70-110) mg/dL Hemoglobin A1c (<=6.0) % Magnesium (1.6-2.3) mg/dL AST (17-59) U/L Creatine Kinase (55-170) U/L Assessment and Plan (1) Sepsis Current Visit: Yes Status: Acute Code(s): A41.9 - SEPSIS, UNSPECIFIED ORGANISM SNOMED Code(s): 86209048 (2) Pneumonia Current Visit: Yes Status: Acute Code(s): J18.9 - PNEUMONIA, UNSPECIFIED ORGANISM SNOMED Code(s): 490771522 Plan: 1patient presented to hospital with sepsis in this patient who did have a fever tachycardia elevated white count meeting criteria for SIRS source is likely pneumonia in this patient did have abnormal x-ray concerning for possible mass and a question of possible postobstructive pneumonia and will need to cover for the polymicrobial juli associated with postobstructive pneumonia 2we will wait for the CT of the chest to be finalized 3we will empirically add Zosyn 3.375 g every 8 hours 4try to obtain sputum for Gram stain and culture check inflammatory markers We will follow on clinical condition and cultures to further adjust medication if needed Thank you for this consultation we will follow the patient along with you Dictation was produced using [employer] dictation software. please excuse any gra mmatical, word or spelling errors. Time with Patient: Greater than 30
[2024-12-28] MEDS ORDERED: DILTIAZEM DRIP BOLUS FROM BAG 1 MG SOLN IV ONE (16:43)
[2024-12-28] MEDS ORDERED: DILTIAZEM 125 MG in SODIUM CHLORIDE 0.9% 100 ML IV SCH (16:45)
[2024-12-28 17:17] LABS: Appearance,Urine Clear (Clear); Bilirubin,Urine Negative (Negative); Blood,Urine Small (Negative); Color,Urine Colorless; Glucose,Urine (UA) Negative (Negative); Ketones,Urine Negative (Negative); Leukocyte Esterase,Urine Negative (Negative); Nitrite,Urine Negative (Negative); PH, Urine 5.5 (5.0-8.0); Protein,Urine 1+ (Negative); RBC,Urine 3 /hpf (0-5); Squamous Epithelial Cell,Urine <1 /hpf (0-4); Urobilinogen,Urine <2.0 mg/dL (<2.0); WBC,Urine 1 /hpf (0-5)
[2024-12-28 17:18] LABS: Basophils % (A) 0 %; Eosinophils % (A) 0 %; HCT 39.2 % (39.0-53.0); HGB 12.2 gm/dL (13.0-17.5); INR 0.9 (<1.2); Lymphocytes # (A) 1.3 k/uL (1.0-4.8); Lymphocytes % (A) 12 %; MCH 27.8 pg (25.0-35.0); MCV 89.9 fL (80.0-100.0); Mean Platelet Volume 8.1; Monocytes # (A) 0.5 k/uL (0-1.0); Monocytes % (A) 5 %; Neutrophils # (A) 8.5 k/uL (1.3-7.7); Neutrophils % (A) 80 %; Partial Thromboplastin Time 25.2 sec (22.0-30.0); Platelet Count 310 k/uL (150-450); Prothrombin Time 10.1 sec (10.0-12.5); RBC 4.37 m/uL (4.30-5.90); RDW 15.2 % (11.5-15.5); WBC 10.5 k/uL (3.8-10.6)
[2024-12-28] MEDS: DILTIAZEM 125 MG in SODIUM CHLORIDE 0.9% 100 ML IV SCH (17:24)
[2024-12-28] MEDS: DILTIAZEM DRIP BOLUS FROM BAG 1 MG SOLN IV ONE (17:24)
[2024-12-28 17:27] LABS: Glucose,Whole Blood 156 mg/dL (70-110)
[2024-12-28] MEDS: HEPARIN SOD,PORK IN 0.45% NACL 25,000 UNIT in 0.45% NACL 1 250ML.BAG IV SCH (17:46)
[2024-12-28] MEDS: HEPARIN SODIUM 1,000 UN/ML (10ML VL) IV ONE (17:46)
[2024-12-28 20:15] LABS: Glucose,Whole Blood 209 mg/dL (70-110)
[2024-12-28] MEDS: ALPRAZolam 0.25 MG TAB PO PRN (20:47)
[2024-12-28] MEDS: METOPROLOL TARTRATE 25 MG TAB PO SCH (20:47)
--- NOTE | 2024-12-28 22:16 | HP ---
HISTORY AND PHYSICAL CHIEF COMPLAINT: Fever, weakness and malaise. HISTORY OF PRESENT ILLNESS: This is another admission for this 74-year-old white male. He has a history of subacute bacterial endocarditis a number of years ago, which was treated at [facility]. He has been doing fairly well of late. He comes in routinely with a history of coronary artery disease and diabetes. He came to the emergency room with a fever and delirium as well as dehydration. He may have also fallen at home. REVIEW OF SYSTEMS: Unobtainable. Past medical history, family history, personal and social histories reveal that he is not allergic to any medications. MEDICATIONS: He has been on, 1. Metoprolol succinate 25 mg once a day. 2. Furosemide 20 mg once a day. 3. Omeprazole 20 mg twice a day. 4. Gabapentin 100 mg 2 at bedtime. 5. Potassium 20 mEq once a day. 6. Lisinopril 2.5 mg once a day. 7. Hydrocodone 7.5 twice a day p.r.n. 8. Trazodone 100 mg at bedtime. 9. DuoNeb. 10.Atorvastatin 10 mg daily. 11.Ferrous sulfate 325 twice a day. 12.NovoLog 4 units before meals. 13.Magnesium oxide. SOCIAL HISTORY: He does not consume alcohol. He does smoke occasionally. LABORATORY DATA: Laboratory studies revealed that he is slightly anemic and his x-ray suggested that there might be right parahilar mass. Blood sugars were also elevated. CK was elevated and his GFR was 51. PHYSICAL EXAMINATION: HEAD, EARS, EYES, NOSE, MOUTH AND THROAT: Unremarkable. He did have very dry mucous membranes. CHEST: Revealed shallow breath sounds with no significant rales or rhonchi. CARDIAC: Sounded like sinus rhythm. ABDOMEN: Soft and nontender. EXTREMITIES: Unremarkable. ASSESSMENT: He was admitted to the hospital with diagnoses of, 1. Fever of unknown origin. 2. Dehydration. 3. Possible right hilar mass. 4. Anemia. 5. Elevated blood sugar. 6. Chronic kidney disease. 7. Elevated CPK. PLAN: 1. Bedrest. 2. IV fluids. 3. Appropriate blood cultures. 4. CT of the chest. 5. Echocardiogram because of history of SBE. 6. Consult Cardiology and Infectious Disease. MMODL / IJN: [id number] /
[2024-12-29] MEDS: HEPARIN SODIUM 1,000 UN/ML (10ML VL) IV PRN (00:01)
[2024-12-29] MEDS: ACETAMINOPHEN TAB 325 MG TAB PO PRN (06:02)
[2024-12-29 06:09] LABS: Glucose,Whole Blood 98 mg/dL (70-110)
[2024-12-29 08:07] LABS: Basophils % (A) 0 %; Eosinophils # (A) 0.1 k/uL (0-0.7); Eosinophils % (A) 1 %; HCT 31.5 % (39.0-53.0); HGB 10.1 gm/dL (13.0-17.5); Hypochromasia Moderate; Lymphocytes # (A) 1.2 k/uL (1.0-4.8); Lymphocytes % (A) 12 %; MCH 28.8 pg (25.0-35.0); MCV 89.9 fL (80.0-100.0); Mean Platelet Volume 7.5; Monocytes # (A) 0.5 k/uL (0-1.0); Monocytes % (A) 4 %; Neutrophils # (A) 8.5 k/uL (1.3-7.7); Neutrophils % (A) 80 %; Platelet Count 272 k/uL (150-450); RBC 3.51 m/uL (4.30-5.90); WBC 10.6 k/uL (3.8-10.6)
[2024-12-29 08:28] LABS: African American GFR (CKD) >90 (>60 ml/min/1.73 sqM); Anion Gap 9 mmol/L; Blood Urea Nitrogen 17 mg/dL (9-20); Calcium 7.7 mg/dL (8.4-10.2); Carbon Dioxide 22 mmol/L (22-30); Chloride 104 mmol/L (98-107); Glucose 102 mg/dL (74-99); Non-African American GFR(CKD) >90 (>60 ml/min/1.73 sqM); Potassium 4.1 mmol/L (3.5-5.1); Sodium 135 mmol/L (137-145)
[2024-12-29 08:43] LABS: INR 0.9 (<1.2); Partial Thromboplastin Time 30.4 sec (22.0-30.0); Prothrombin Time 10.4 sec (10.0-12.5)
[2024-12-29] MEDS: METOPROLOL TARTRATE 50 MG TAB PO SCH (08:56)
[2024-12-29] MEDS ORDERED: DAPAGLIFLOZIN PROPANEDIOL 10 MG TABLET PO SCH (09:00)
[2024-12-29] MEDS: METOPROLOL TARTRATE 25 MG TAB PO STA (09:01)
--- NOTE | 2024-12-29 10:55 | CA ---
Transthoracic Echo Report Name: Arslan Mckeon Age: 74 Gender: M : 1950 Exam Date: 12/29/2024 08:10 Exam Location: [facility] Ht (in): 70 Wt (lb): 160 Ordering Physician: Nathan Chatman MD Attending/Referring Phys: Lurdes LAMB Bedspread Folder Justin Ruvalcaba, YANA Procedure CPT: Indications: Hx of SBE, fever Cardiac Hx: CVA/TIA, Endocarditis, HTN, Diabetes Technical Quality: Good Contrast 1: Total Dose (mL): Contrast 2: Total Dose (mL): MEASUREMENTS (Male / Female) Normal Values 2D ECHO LV Diastolic Diameter PLAX 4.2 cm 4.2 - 5.9 / 3.9 - 5.3 cm LV Systolic Diameter PLAX 3.2 cm IVS Diastolic Thickness 1.0 cm 0.6 - 1.0 / 0.6 - 0.9 cm LVPW Diastolic Thickness 1.0 cm 0.6 - 1.0 / 0.6 - 0.9 cm LV Relative Wall Thickness 0.5 RV Internal Dim ED PLAX 2.4 cm LVOT Diameter 2.3 cm LA Systolic Diameter LX 3.4 cm 3.0 - 4.0 / 2.7 - 3.8 cm LV Diastolic Volume MOD BP 95.4 cm??? 67 - 155 / 56 - 104 cm??? LV Systolic Volume MOD BP 39.8 cm??? 22 - 58 / 19 - 49 cm??? LV Ejection Fraction MOD BP 58.2 % >= 55 % LV Diastolic Volume MOD 4C 84.7 cm??? LV Systolic Volume MOD 4C 30.7 cm??? LV Ejection Fraction MOD 4C 63.8 % LV Diastolic Length 4C 8.9 cm LV Systolic Length 4C 7.3 cm LV Diastolic Volume MOD 2C 105.9 cm??? LV Systolic Volume MOD 2C 49.0 cm??? LV Ejection Fraction MOD 2C 53.8 % LV Diastolic Length 2C 9.0 cm LV Systolic Length 2C 6.7 cm LA Volume 85.9 cm??? 18 - 58 / 22 - 52 cm??? LA Volume Index 45.3 cm???/m??? 16 - 28 cm???/m??? Ascending Aorta Diameter 3.6 cm DOPPLER MV Area PHT 2.9 cm??? MR Peak Velocity 498.5 cm/s MR Peak Gradient 99.4 mmHg Mitral E Point Velocity 79.4 cm/s Mitral A Point Velocity 64.8 cm/s Mitral E to A Ratio 1.2 MV Deceleration Time 260.5 ms Right Atrial Pressure 10.0 mmHg FINDINGS Left Ventricle Left ventricular ejection fraction is estimated at 60-65 %. Normal Left ventricular size,systolic function with no obvious regional wall motion abnormalities. Right Ventricle Normal right ventricular size and function. Unable to estimate the right ventricular systolic pressure. Right Atrium Normal right atrial size. Left Atrium Severely increased left atrial volume. Mildly increased left atrial area. Mitral Valve Mild mitral annular calcification. No mitral stenosis. Moderate mitral regurgitation. Aortic Valve Trileaflet aortic valve. No aortic stenosis. No aortic regurgitation. Tricuspid Valve Structurally normal tricuspid valve. No tricuspid stenosis. No tricuspid regurgitation. Pulmonic Valve Structurally normal pulmonic valve. No pulmonic stenosis. Trace pulmonic regurgitation. Pericardium No pericardial or pleural effusion. Aorta Mild aortic dilatation at the level of the sinuses of valsalva (root). CONCLUSIONS Indication for procedure abnormal cardiac enzymes hypertension fever history of subacute bacterial endocarditis Normal LV size and function Normal RV size and function moderate mitral regurgitation, posteriorly directed No intracardiac masses Previewed by: Dr. Artis Perry MD (Electronically Signed) Final Date: 29 December 2024 10:54
--- NOTE | 2024-12-29 11:18 | P.CNPUL ---
History of Present Illness Consult date: 12/28/24 Reason for consult: lung mass History of present illness: Will be given to him 74-year-old male patient, presented to emergency department with complaints of right hip pain, left knee pain, generalized weakness over the past several days along with some symptoms of nausea and emesis. It was reported over the past 3 days, the patient was unable to get out of bed and the patient was weak and quite shaky to the point where he was unable to hold a cup. His weakness was essentially symmetrical. No reported falls. He was having some altered mentation in addition. Based on that, the patient underwent further investigation. The white cell count was at 12 with a hemoglobin 10.7 and a platelet count of 246. Normal coagulation profile. BUN of 46 with a creatinine of 1.37 and a sodium level was 135 and a potassium level was 5. Normal LFTs. Normal troponins. TSH was at 1.5. Rest of the electrolytes were normal. Alcohol level was less than 10 and the viral screen was also negative. The patient was given a CAT scan of the brain that showed no acute intracranial process. There was some nonspecific white matter changes likely related to chronic small vessel ischemic disease and remote injury/stroke involving the right parietal lobe. X-ray of the hip showed mild to moderate hip osteoarthritis without any evidence of an acute abnormalities on the right and x-ray of the tibia and fibula showed no evidence of any fractures. Chest x-ray revealed a right paramediastinal mass and this was followed up by a CAT scan of the chest that showed a right suprahilar mass measuring 7.2 x 6.2 x 9.8 cm in size. The mass was encroaching on the trachea and right mainstem bronchus causing mass effect. The IVC was quite compressed. It was still patent. In addition, the CAT scan of the upper abdomen and liver demonstrated a high dens ity mass in the left hepatic lobe measuring 5.8 x 4.8 cm in size and the patient had a nodular contour of the adrenal gland and the findings were highly suggestive of bronchogenic carcinoma with metastases. Some limited consolidation in the right lower lobe was also noted. There was an indetermina te mass in the left upper quadrant area measuring 5.8 cm in size. Exact nature of this mass was not clear. X-rays right-sided pleural effusion was also noted. Review of Systems Constitutional: Reports fatigue, Reports weakness, Reports weight loss Eyes: denies as per HPI, denies blurred vision, denies bulging eye, denies decreased vision, denies diplopia, denies discharge, denies dry eye, denies irritation, denies itching, denies pain, denies photophobia, denies loss of peripheral vision, denies loss of vision, denies tunnel vision/blind spots Ears: deny: decreased hearing, ear discharge, earache, tinnitus Ears, nose, mouth and throat: Reports as per HPI Breasts: absent: as per HPI, gynecomastia Cardiovascular: Reports as per HPI, Reports decreased exercise tolerance, Reports dyspnea on exertion Respiratory: Reports cough, Reports dyspnea Gastrointestinal: Reports as per HPI Genitourinary: Reports as per HPI Musculoskeletal: Reports muscle weakness Musculoskeletal: absent: ankle pain, ankle stiffness, ankle swelling, as per HPI, elbow pain, elbow stiffness, elbow swelling, foot pain, foot stiffness, foot swelling, hand pain, hand stiffness, hand swelling, hip pain, hip stiffness, hip swelling, knee pain, knee stiffness, knee swelling, shoulder pain, shoulder stiffness, shoulder swelling, wrist pain, wrist stiffness, wrist swelling Neurological: Reports as per HPI Psychiatric: Reports as per HPI Endocrine: Reports as per HPI, Reports fatigue Hematologic/Lymphatic: Reports as per HPI Allergic/Immunologic: Reports as per HPI Past Medical History Past Medical History: CVA/TIA, Diabetes Mellitus, Hyperlipidemia, Hypertension, Seizure Disorder Additional Past Medical History / Comment(s): endocarditis History of Any Multi-Drug Resistant Organisms: None Reported Past Surgical History: Orthopedic Surgery Additional Past Surgical History / Comment(s): hemmoroid, nahid feet, lt hand, aaa repair 2015 aortoiliac stent Past Anesthesia/Blood Transfusion Reactions: No Reported Reaction Past Psychological History: No Psychological Hx Reported Smoking Status: Current every day smoker Past Alcohol Use History: Occasional Additional Past Alcohol Use History / Comment(s): has not drank alcohol in 4mon ths. was in past drinking 6 beers every other day. Past Drug Use History: Marijuana - Past Family History Mother Family Medical History: CVA/TIA Father Additional Family Medical History / Comment(s): Father had shingles; not sure what he from Medications and Allergies Home Medications Medication Instructions Recorded Confirmed Type Magnesium Oxide [Mag-Ox] 400 mg PO DAILY #30 tab 06/14/22 12/28/24 Rx Potassium Chloride ER [K-Dur 20] 20 meq PO DAILY #90 tab 06/14/22 12/28/24 Rx Atorvastatin [Lipitor] 10 mg PO DAILY 12/28/24 12/28/24 History Ferrous Sulfate [Feosol] 325 mg PO BID 12/28/24 12/28/24 History Furosemide [Lasix] 20 mg PO DAILY 12/28/24 12/28/24 History Gabapentin [Neurontin] 200 mg PO HS 12/28/24 12/28/24 History HYDROcodone/APAP 7.5-325MG [[place] 1 tab PO BID PRN 12/28/24 12/28/24 History 7.5-325] INSULIN ASPART (NovoLOG) [NovoLOG 4 unit SQ DAILY 12/28/24 12/28/24 History (formulary)] Metoprolol Succinate (ER) [Toprol 25 mg PO DAILY 12/28/24 12/28/24 History Xl] Omeprazole [PriLOSEC] 20 mg PO BID 12/28/24 12/28/24 History Ondansetron [Zofran] 4 mg PO Q8HR PRN 12/28/24 12/28/24 History lisinopriL [Zestril] 2.5 mg PO DAILY 12/28/24 12/28/24 History rOPINIRole HCL [Requip] 0.25 mg PO HS 12/28/24 12/28/24 History traZODone HCL [Desyrel] 100 mg PO HS PRN 12/28/24 12/28/24 History Allergies Allergy/AdvReac Type Severity Reaction Status Date / Time No Known Allergies Allergy Verified 12/28/24 09:12 Physical Exam Vitals: Vital Signs Temp Pulse Pulse Resp BP BP Pulse Ox 12/28/24 14:00 98.5 F 90 20 130/56 93 L 12/28/24 12:29 101.0 F H 12/28/24 08:00 100.4 F H 94 19 153/73 93 L 12/28/24 05:01 98.5 F 12/28/24 04:09 100.5 F H 12/28/24 03:08 99.1 F 107 H 151/70 93 L 12/28/24 02:25 110 H 18 136/70 96 12/27/24 23:03 90 20 102/78 95 12/27/24 21:16 97.9 F 92 24 143/79 99 Intake and Output 12/28/24 12/28/24 12/28/24 06:59 14:59 22:59 Intake Total 120 Balance 120 Intake: Oral 120 Other: Voiding Method Diaper Incontinent External Catheter # Voids 3 Weight 72.575 kg The patient appeared well nourished and normally developed. Vital signs as documented. The patient is currently on room air oxygen with a pulse ox of 93%. He was having fever with a Tmax of 101.0 F. Head exam is unremarkable. No scleral icterus or corneal arcus noted. Neck is without jugular venous distension, thyromegaly, or carotid bruits. Carotid upstrokes are brisk bilaterally. Lungs are clear to auscultation and percussion. The patient has diminished breath sound right lung base Cardiac exam reveals the PMI to be normally sized and situated. Rhythm is regular. First and second heart sounds normal. No murmurs, rubs or gallops. Abdominal exam reveals normal bowel sounds, no masses, no organomegaly and no aortic enlargement. Extremities are nonedematous and both femoral and pedal pulses are normal. Examination of the skin revealed no evidence of significant rashes, suspicious appearing nevi or other concerning lesions. Neurologically, the patient is awake and alert and the patient does not have any focal neurological deficit. Cranial nerves are essentially intact. Generalized motor weakness, symmetric in all 4 extremities. Results - Laboratory Findings CBC and BMP: 12/27/24 21:27 12/27/24 22:00 PT/INR, D-dimer PT 9.8 sec (10.0-12.5) L 12/27/24 21: INR 0.9 (<1.2) 12/27/24 21:27 Abnormal lab findings: Abnormal Labs 12/27/24 12/27/24 12/27/24 21:27 21:27 21:27 WBC 12.0 H RBC 3.84 L Hgb 10.7 L Hct 33.6 L Neutrophils # 10.2 H Lymphocytes # 0.9 L PT 9.8 L APTT 21.0 L Sodium BUN Creatinine Glucose POC Glucose (mg/dL) Hemoglobin A1c 6.2 H Magnesium AST Creatine Kinase 12/27/24 12/28/24 12/28/24 22:00 03:42 06:03 WBC RBC Hgb Hct Neutrophils # Lymphocytes # PT APTT Sodium 135 L BUN 46 H Creatinine 1.37 H Glucose 140 H POC Glucose (mg/dL) 299 H 179 H Hemoglobin A1c Magnesium 2.6 H AST 62 H Creatine Kinase 982 H 12/28/24 11:35 WBC RBC Hgb Hct Neutrophils # Lymphocytes # PT APTT Sodium BUN Creatinine Glucose POC Glucose (mg/dL) 243 H Hemoglobin A1c Magnesium AST Creatine Kinase - Diagnostic Findings Chest x-ray: image reviewed CT scan - chest: image reviewed Assessment and Plan Plan: Large right suprahilar mass measuring 9.8 x 6.2 x 7.2 cm in size and causing mass effect on the right mainstem bronchus and the trachea with impending SVC syndrome. The SVC was noted to be compressed yet patent. Patient also has another indeterminate mass in the abdomen measuring 5.8 x 4.8 cm in size. This could be originating from the left hepatic lobe versus stomach versus adrenal gland. The exact origin of this abdominal mass is not clear Right lower lobe consolidation/atelectasis. Rule out pneumonia. The patient is currently febrile. He has hemodynamically stable. Mediastinal lymphadenopathy COPD CVA involving the right parietal, old based on the CAT scan of the head Seizure disorder Hypertension Hyperlipidemia Diabetes mellitus type 2 Acute kidney injury, likely related to volume depletion Osteoarthritis Abdominal aortic aneurysm was repaired back in 2014 and the patient has unde rgone aortoiliac stenting Chronic smoker Plan Patient currently on room air oxygen Cover the patient with empiric antibiotic coverage with IV Zosyn Will discuss the CAT scan findings with the patient. Obviously, the patient will need a tissue diagnosis. The right lung mass is very accessible for biopsy. Recommend bronchoscopy, endobronchial ultrasound and transbronchial needle aspirate of the right hilar mass for tissue diagnosis. Will continue to follow.
--- NOTE | 2024-12-29 11:32 | P.CRDCN ---
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 Patient follows in the office with Dr. Berg but has not been seen since August 2022. We have been asked to see the patient in consultation for fever. Patient examined at the bedside. Patient presented to the hospital for chief complaint of generalized weakness, nausea and vomiting. Per patient's nurse, patient was unable to get out of bed at home for 4 days. Patient was found to be in atrial fibrillation with RVR. Patient was started on IV heparin and IV Cardizem. He has since converted to sinus mechanism and is maintaining sinus mechanism at the time of examination. His IV Cardizem has been paused. He remains on IV heparin. He denies any chest pain or pressure. Denies any sh ortness of breath. DIAGNOSTICS: - EKG reveals atrial fibrillation with RVR. - Chest xray right paramediastinal masslike consolidation -Chest CT: Right paramediastinal mass invading into the mediastinum and around the major structures of the mediastinum. This displaces the superior vena cava anteriorly and has thickened appearance which puts patient at risk for thoracic outlet syndrome. Additionally there is right upper lung nodule and neck lymph nodes concerning for metastatic disease. Consolidative changes in the right lower lobe correlate for developing pneumonia. Indeterminate mass in the left upper quadrant thought to be coming from the liver over the stomach and measures 5.8 cm. - Laboratory data: WBC 10.5. Hemoglobin 12.2. Platelet count 310. Sodium 135. Potassium 5.0. BUN 46. Creatinine 1.37. Hemoglobin A1c 6.2. Magnesium 2.6. Troponin negative x 1. Creatinine kinase 982. - Current home cardiac medications include lisinopril 2.5 mg daily, metoprolol succinate 25 mg daily, Lasix 20 mg daily, atorvastatin 10 mg daily -Patient underwent FARA in May 2022 revealing large vegetation involving anterior mitral leaflet and moderate size vegetation involving the posterior mitral leaflet. There is a small vegetation over the left coronary cusp of the aortic valve - Most recent echocardiogram obtained in May 2022 revealing ejection fraction 50 to 55% - Cardiac catheterization history: Unknown REVIEW OF SYSTEMS: At the time of my exam: CONSTITUTIONAL: Denies fever or chills. HEENT: Denies blurred vision, vision changes, or eye pain. Denies hemoptysis CARDIOVASCULAR: Denies chest pain. Denies orthopnea. Denies PND. Denies palpitations RESPIRATORY: Denies shortness of breath. GASTROINTESTINAL: Denies abdominal pain. Denies nausea or vomiting. HEMATOLOGIC: Denies bleeding disorders. GENITOURINARY: Denies any blood in urine. SKIN: Denies pruitis. Denies rash. PHYSICAL EXAM: VITAL SIGNS: Reviewed. GENERAL: Well-developed in no acute distress. HEENT: Head is normocephalic. Pupils are equal, round. Sclerae anicteric. Mucous membranes of the mouth are moist. Neck supple. No JVD or thyromegaly LUNGS: Respirations even and unlabored. Lungs essentially clear to auscultation bilaterally. HEART: Regular rate and rhythm. S1 and S2 heard. ABDOMEN: Soft. Nondistended. Nontender. EXTREMITIES: Normal range of motion. No clubbing or cyanosis. Peripheral pulses intact. No lower extremity edema NEUROLOGIC: Awake and alert. Oriented x 3. ASSESSMENT: New onset paroxysmal A-fib with RVR, currently maintaining sinus mechanism Right lower lobe consolidation/atelectasis, rule out pneumonia Generalized weakness, nausea and vomiting Mildly elevated creatinine kinase 982 Right suprahilar mass causing mass effect on right mainstem bronchus and trachea Left upper quadrant mass thought to be coming from liver, measuring 5.8 cm History of infective endocarditis, 2021 Hypertension Hyperlipidemia History of CVA PLAN: Continue IV heparin Obtain 2D echo to assess cardiac structure and function Add Lipitor 20mg at HS Discontinue IV Cardizem Increase metoprolol to 50mg BID Continue telemetry monitoring Await results of blood cultures Pulmonary consulted for mass. Await recommendations for possible biopsy. Further recommendations pending patient course Nurse practitioner note has been reviewed by physician. Signing provider agrees with the documented findings, assessment, and plan of care documented by FACILITY PRACTICE SPECIALIST as a scribe. Past Medical History Past Medical History: CVA/TIA, Diabetes Mellitus, Hyperlipidemia, Hypertension, Seizure Disorder Additional Past Medical History / Comment(s): endocarditis History of Any Multi-Drug Resistant Organisms: None Reported Past Surgical History: Orthopedic Surgery Additional Past Surgical History / Comment(s): hemmoroid, nahid feet, lt hand, aaa repair 2015 aortoiliac stent Past Anesthesia/Blood Transfusion Reactions: No Reported Reaction Past Psychological History: No Psychological Hx Reported Smoking Status: Current every day smoker Past Alcohol Use History: Occasional Additional Past Alcohol Use History / Comment(s): has not drank alcohol in 4months. was in past drinking 6 beers every other day. Past Drug Use History: Marijuana - Past Family History Mother Family Medical History: CVA/TIA Father Additional Family Medical History / Comment(s): Father had shingles; not sure what he from Medications and Allergies Home Medications Medication Instructions Recorded Confirmed Type Magnesium Oxide [Mag-Ox] 400 mg PO DAILY #30 tab 06/14/22 12/28/24 Rx Potassium Chloride ER [K-Dur 20] 20 meq PO DAILY #90 tab 06/14/22 12/28/24 Rx Atorvastatin [Lipitor] 10 mg PO DAILY 12/28/24 12/28/24 History Ferrous Sulfate [Feosol] 325 mg PO BID 12/28/24 12/28/24 History Furosemide [Lasix] 20 mg PO DAILY 12/28/24 12/28/24 History Gabapentin [Neurontin] 200 mg PO HS 12/28/24 12/28/24 History HYDROcodone/APAP 7.5-325MG [[place] 1 tab PO BID PRN 12/28/24 12/28/24 History 7.5-325] INSULIN ASPART (NovoLOG) [NovoLOG 4 unit SQ DAILY 12/28/24 12/28/24 History (formulary)] Metoprolol Succinate (ER) [Toprol 25 mg PO DAILY 12/28/24 12/28/24 History Xl] Omeprazole [PriLOSEC] 20 mg PO BID 12/28/24 12/28/24 History Ondansetron [Zofran] 4 mg PO Q8HR PRN 12/28/24 12/28/24 History lisinopriL [Zestril] 2.5 mg PO DAILY 12/28/24 12/28/24 History rOPINIRole HCL [Requip] 0.25 mg PO HS 12/28/24 12/28/24 History traZODone HCL [Desyrel] 100 mg PO HS PRN 12/28/24 12/28/24 History Allergies Allergy/AdvReac Type Severity Reaction Status Date / Time No Known Allergies Allergy Verified 12/28/24 09:12 Physical Exam Vitals: Vital Signs Temp Pulse Pulse Resp BP BP Pulse Ox 12/29/24 04:50 98.9 F 82 16 149/70 98 12/29/24 00:00 98.4 F 73 18 124/65 98 12/28/24 20:00 98.0 F 77 18 113/64 98 12/28/24 18:15 109 H 122/63 12/28/24 17:55 107 H 110/69 12/28/24 17:43 113 H 123/70 12/28/24 17:35 124 H 12/28/24 17:33 124 H 108/66 12/28/24 16:55 98.1 F 144 H 20 137/67 97 12/28/24 14:00 98.5 F 90 20 130/56 93 L 12/28/24 12:29 101.0 F H 12/28/24 08:00 100.4 F H 94 19 153/73 93 L Intake and Output 12/28/24 12/29/24 12/29/24 22:59 06:59 14:59 Intake Total 10 125.576 Output Total 500 720 Balance -490 -594.424 Intake: IV 10 10 Invasive Line 2 10 Invasive Line 3 10 Intake, IV Titration 115.576 Amount Diltiazem 125 mg In 61 Sodium Chloride 0.9% 100 ml @ 10 MG/HR 10 mls/hr IV .[id number] [facility] Rx#: [id number] Heparin Sod,Pork in 0.45% 54.576 NaCl 25,000 unit In 0.45 % NaCl 1 250ml.bag @ 12 UNITS/KG/HR 8.709 mls/hr IV .Q24H [facility] Rx#: [id number] Output: Urine 500 720 Straight 420 Other: Voiding Method External Catheter External Catheter # Bowel Movements 1 Weight 76.4 kg Results 12/29/24 07:55 12/29/24 07:55 Coagulation 12/28/24 12/28/24 Range/Units 16:56 22:55 PT 10.1 (10.0-12.5) sec APTT 25.2 28.2 (22.0-30.0) sec CBC 12/28/24 Range/Units 16:56 WBC 10.5 (3.8-10.6) k/uL RBC 4.37 (4.30-5.90) m/uL Hgb 12.2 L (13.0-17.5) gm/dL Hct 39.2 (39.0-53.0) % Plt Count 310 (150-450) k/uL Current Medications Generic Name Dose Route Start Last Admin Trade Name Freq PRN Reason Stop Dose Admin Acetaminophen 650 mg 12/28/24 01:30 12/28/24 13:02 Acetaminophen Tab 325 Mg Tab PO 650 mg Q6HR PRN Administration Mild Pain or Fever > 100.5 Acetaminophen 650 mg 12/28/24 04:23 12/29/24 06:02 Acetaminophen Tab 325 Mg Tab PO 650 mg Q4HR PRN Administration Fever and/ or Pain Hydrocodone Bitart/Acetaminophen 1 each 12/28/24 01:32 12/29/24 00:01 Hydrocodone/Apap 5-325mg 1 Each Tab PO 1 each Q8H PRN Administration Pain Al Hydroxide/Mg Hydroxide 15 ml 12/28/24 01:30 Mag Hydrox/Al Hydrox/Simeth 30 Ml Cup PO Q6HR PRN Indigestion Alprazolam 0.25 mg 12/28/24 01:30 12/28/24 20:47 Alprazolam 0.25 Mg Tab PO 0.25 mg Q6HR PRN Administration Anxiety Bisacodyl 5 mg 12/28/24 01:30 Bisacodyl 5 Mg Tablet.Dr PO DAILY PRN Constipation Calcium Carbonate/Glycine 1,000 mg 12/28/24 01:30 Calcium Carbonate 500 Mg Chewable PO Q4HR PRN Dyspepsia Dextrose/Water 25 ml 12/28/24 04:23 Dextrose 50% Syringe 50 Ml IVP PER PROTOCOL PRN Hypoglycemia Protocol Dextrose/Water 50 ml 12/28/24 04:23 Dextrose 50% Syringe 50 Ml IVP PER PROTOCOL PRN Hypoglycemia Protocol Famotidine 20 mg 12/28/24 09:00 12/28/24 10:27 Famotidine 20 Mg Tab PO 20 mg DAILY [facility] Administration Heparin Sodium (Porcine) 0 unit 12/28/24 16:43 12/29/24 00:01 Heparin Sodium 1,000 Un/Ml (10ml Vl) IV 3,600 unit PER PROTOCOL PRN Administration Low PTT Protocol Sodium Chloride 1,000 mls @ 130 mls/hr 12/27/24 23:45 12/29/24 06:01 Saline 0.9% IV Not Given .[id number] [facility] Piperacillin Sod/Tazobactam 100 mls @ 25 mls/hr 12/28/24 13:00 12/29/24 05:09 Sod 3.375 gm/ Sodium Chloride IVPB 25 mls/hr Q8H [facility] Administration Protocol Heparin Sodium/Sodium Chloride 250 mls @ 8.709 mls/hr 12/28/24 16:45 12/29/24 00:02 25,000 unit/ Sodium Chloride IV 15 units/kg/hr .Q24H [facility]ELA 10.886 mls/hr Titration Protocol 12 UNITS/KG/HR Diltiazem HCl 125 mg/ Sodium 125 mls @ 10 mls/hr 12/28/24 17:00 12/29/24 05:52 Chloride IV Not Given .[id number] [facility] 10 MG/HR Insulin Human Lispro 0 unit 12/28/24 07:30 12/29/24 06:08 Insulin Lispro (Humalog) 100 Unit/Ml 10 Ml Vl SQ Not Given ACHS [facility] Protocol Metoprolol Tartrate 25 mg 12/28/24 21:00 12/28/24 20:47 Metoprolol Tartrate 25 Mg Tab PO 25 mg BID [facility] Administration Miscellaneous Information 1 each 12/28/24 11:31 Rx Info: Iv Contrast Was Given 1 Each Misc MISCELLANE 12/30/24 11:31 DAILY PRN Per Protocol Naloxone HCl 0.2 mg 12/28/24 01:30 Naloxone 0.4 Mg/Ml 1 Ml Vial IV Q2M PRN Opioid Reversal Ondansetron HCl 4 mg 12/28/24 01:30 Ondansetron 4 Mg/2 Ml Vial IVP Q8HR PRN Nausea And Vomiting Intake and Output 12/28/24 12/29/24 12/29/24 22:59 06:59 14:59 Intake Total 10 125.576 Output Total 500 720 Balance -490 -594.424 Intake: IV 10 10 Invasive Line 2 10 Invasive Line 3 10 Intake, IV Titration 115.576 Amount Diltiazem 125 mg In 61 Sodium Chloride 0.9% 100 ml @ 10 MG/HR 10 mls/hr IV .[id number] [facility] Rx#: [id number] Heparin Sod,Pork in 0.45% 54.576 NaCl 25,000 unit In 0.45 % NaCl 1 250ml.bag @ 12 UNITS/KG/HR 8.709 mls/hr IV .Q24H [facility] Rx#: [id number] Output: Urine 500 720 Straight 420 Other: Voiding Method External Catheter External Catheter # Bowel Movements 1 Weight 76.4 kg 12/28/24 16:56 12/27/24 22:00
--- NOTE | 2024-12-29 11:46 | P.PN ---
Subjective Progress Note Date: 12/29/24 Principal diagnosis: Reason for follow-up is fever/postobstructive pneumonia Patient is a 74-year-old male with a past medical history significant for CVA TIA diabetes mellitus hypertension hyperlipidemia and seizure disorder current everyday smoker presenting to the hospital for evaluation of mental status changes did have a fever prompting this consultation. On today's evaluation that is 12/29/2024,the patient did have resolution of his fever denies any fever or any chills this morning, patient is breathing comfortably on 2 L nasal cannula oxygen, the patient denies chest pain shortness of breath and did have mild dry cough, patient denies abdominal pain, no nausea vomiting or diarrhea. Patient white count is 10.6, creatinine 0.71 blood cultures currently pending Objective - Vital Signs Vital signs: Vital Signs Temp 98.0 F 12/29/24 07:37 Pulse 75 12/29/24 07:37 Resp 20 12/29/24 07:37 BP 120/53 12/29/24 07:37 Pulse Ox 98 12/29/24 07:37 FiO2 Intake & Output 12/28/24 12/29/24 12/29/24 18:59 06:59 18:59 Intake Total 120 135.576 336.885 Output Total 500 720 Balance -380 -584.424 336.885 Weight 76.4 kg Intake: IV 20 Invasive Line 2 10 Invasive Line 3 10 Intake, IV Titration 115.576 96.885 Amount Diltiazem 125 mg In 61 Sodium Chloride 0.9% 100 ml @ 10 MG/HR 10 mls/hr IV .[id number] DANIELA Rx#: [id number] Heparin Sod,Pork in 0.45% 54.576 96.885 NaCl 25,000 unit In 0.45 % NaCl 1 250ml.bag @ 12 UNITS/KG/HR 8.709 mls/hr IV .Q24H DANIELA Rx#: [id number] Oral 120 240 Output: Urine 500 720 Straight 420 Other: Voiding Method External Catheter External Catheter External Catheter # Voids 3 # Bowel Movements 1 - Exam GENERAL DESCRIPTION: An elderly male lying in bed in no distress RESPIRATORY SYSTEM: Unlabored breathing , decreased breath sounds at bases HEART: S1 S2 regular rate and rhythm , ABDOMEN: Soft , no tenderness EXTREMITIES: No edema feet - Labs CBC & Chem 7: 12/29/24 07:55 12/29/24 07:55 Labs: Abnormal Lab Results - Last 24 Hours (Table) 12/28/24 12/28/24 12/28/24 Range/Units 12:54 12:54 16:45 RBC (4.30-5.90) m/uL Hgb (13.0-17.5) gm/dL Hct (39.0-53.0) % Neutrophils # (1.3-7.7) k/uL APTT (22.0-30.0) sec Sodium (137-145) mmol/L Glucose (74-99) mg/dL POC Glucose (mg/dL) (70-110) mg/dL Calcium (8.4-10.2) mg/dL Creatine Kinase (55-170) U/L C-Reactive Protein 33.00 H (0.00-0.80) mg/dL Procalcitonin 0.98 H (0.02-0.50) ng/mL Ur Specific [place] 1.050 H (1.001-1.035) Urine Protein 1+ H (Negative) Urine Blood Small H (Negative) 12/28/24 12/28/24 12/28/24 Range/Units 16:56 17:20 20:13 RBC (4.30-5.90) m/uL Hgb 12.2 L (13.0-17.5) gm/dL Hct (39.0-53.0) % Neutrophils # 8.5 H (1.3-7.7) k/uL APTT (22.0-30.0) sec Sodium (137-145) mmol/L Glucose (74-99) mg/dL POC Glucose (mg/dL) 156 H 209 H (70-110) mg/dL Calcium (8.4-10.2) mg/dL Creatine Kinase (55-170) U/L C-Reactive Protein (0.00-0.80) mg/dL Procalcitonin (0.02-0.50) ng/mL Ur Specific [place] (1.001-1.035) Urine Protein (Negative) Urine Blood (Negative) 12/29/24 12/29/24 12/29/24 Range/Units 07:55 07:55 07:55 RBC 3.51 L (4.30-5.90) m/uL Hgb 10.1 L (13.0-17.5) gm/dL Hct 31.5 L (39.0-53.0) % Neutrophils # 8.5 H (1.3-7.7) k/uL APTT 30.4 H (22.0-30.0) sec Sodium 135 L (137-145) mmol/L Glucose 102 H (74-99) mg/dL POC Glucose (mg/dL) (70-110) mg/dL Calcium 7.7 L (8.4-10.2) mg/dL Creatine Kinase (55-170) U/L C-Reactive Protein (0.00-0.80) mg/dL Procalcitonin (0.02-0.50) ng/mL Ur Specific [place] (1.001-1.035) Urine Protein (Negative) Urine Blood (Negative) 12/29/24 Range/Units 10:20 RBC (4.30-5.90) m/uL Hgb (13.0-17.5) gm/dL Hct (39.0-53.0) % Neutrophils # (1.3-7.7) k/uL APTT (22.0-30.0) sec Sodium (137-145) mmol/L Glucose (74-99) mg/dL POC Glucose (mg/dL) (70-110) mg/dL Calcium (8.4-10.2) mg/dL Creatine Kinase 242 H (55-170) U/L C-Reactive Protein (0.00-0.80) mg/dL Procalcitonin (0.02-0.50) ng/mL Ur Specific [place] (1.001-1.035) Urine Protein (Negative) Urine Blood (Negative) Assessment and Plan (1) Sepsis Current Visit: Yes Status: Acute Code(s): A41.9 - SEPSIS, UNSPECIFIED ORGANISM SNOMED Code(s): 19179704 (2) Pneumonia Current Visit: Yes Status: Acute Code(s): J18.9 - PNEUMONIA, UNSPECIFIED ORGANISM SNOMED Code(s): 098350955 Plan: 1patient presented to hospital with sepsis in this patient who did have a fever tachycardia elevated white count meeting criteria for SIRS source is likely pneumonia in this patient did have abnormal x-ray concerning for possible mass and a question of possible postobstructive pneumonia and will need to cover for the polymicrobial juli associated with postobstructive pneumonia 2patient did have CT of the chest with nephric abnormality concerning for possible malignancy and postobstructive pneumonia pulmonary has been consulted 3patient will be treated Zosyn 3.375 g every 8 hours and try to obtain a sputum Dictation was produced using [employer] dictation software. please excuse any grammatical, word or spelling errors. Time with Patient: Less than 30
[2024-12-29 11:56] LABS: Glucose,Whole Blood 168 mg/dL (70-110)
[2024-12-29] MEDS ORDERED: methylPREDNISolone SOD SUCCIN 60 MG in SODIUM CHLORIDE 0.9% 100 ML IVPB SCH (12:00)
[2024-12-29] MEDS: methylPREDNISolone SOD SUCCI 125 MG/2 ML VIAL IV SCH (12:02)
--- NOTE | 2024-12-29 12:54 | P.PN ---
Subjective Patient is seen for follow-up for acute kidney injury. Maintained on IV fluids Renal function has improved with creatinine down to 0.7 mg/dL. CK level is down to 242. No significant complaints. Patient wants to go home. Objective - Vital Signs Vital signs: Vital Signs Temp 97.8 F 12/29/24 11:07 Pulse 63 12/29/24 11:07 Resp 20 12/29/24 11:07 BP 116/71 12/29/24 11:07 Pulse Ox 98 12/29/24 11:07 FiO2 Intake & Output 12/28/24 12/29/24 12/29/24 18:59 06:59 18:59 Intake Total 120 135.576 336.885 Output Total 500 720 Balance -380 -584.424 336.885 Weight 76.4 kg Intake: IV 20 Invasive Line 2 10 Invasive Line 3 10 Intake, IV Titration 115.576 96.885 Amount Diltiazem 125 mg In 61 Sodium Chloride 0.9% 100 ml @ 10 MG/HR 10 mls/hr IV .[id number] DANIELA Rx#: [id number] Heparin Sod,Pork in 0.45% 54.576 96.885 NaCl 25,000 unit In 0.45 % NaCl 1 250ml.bag @ 12 UNITS/KG/HR 8.709 mls/hr IV .Q24H DANIELA Rx#: [id number] Oral 120 240 Output: Urine 500 720 Straight 420 Other: Voiding Method External Catheter External Catheter External Catheter # Voids 3 # Bowel Movements 1 - Exam Patient is awake, comfortable, no acute distress Examination of the heart S1 and S2 Examination of the lungs bilateral breath sounds are heard Abdomen is soft nontender Examination of lower extremities shows no significant edema [employer] exam grossly intact - Labs CBC & Chem 7: 12/29/24 07:55 12/29/24 07:55 Labs: Abnormal Lab Results - Last 24 Hours (Table) 12/28/24 12/28/24 12/28/24 Range/Units 12:54 12:54 16:45 RBC (4.30-5.90) m/uL Hgb (13.0-17.5) gm/dL Hct (39.0-53.0) % Neutrophils # (1.3-7.7) k/uL APTT (22.0-30.0) sec Sodium (137-145) mmol/L Glucose (74-99) mg/dL POC Glucose (mg/dL) (70-110) mg/dL Calcium (8.4-10.2) mg/dL Creatine Kinase (55-170) U/L C-Reactive Protein 33.00 H (0.00-0.80) mg/dL Procalcitonin 0.98 H (0.02-0.50) ng/mL Ur Specific [place] 1.050 H (1.001-1.035) Urine Protein 1+ H (Negative) Urine Blood Small H (Negative) 12/28/24 12/28/24 12/28/24 Range/Units 16:56 17:20 20:13 RBC (4.30-5.90) m/uL Hgb 12.2 L (13.0-17.5) gm/dL Hct (39.0-53.0) % Neutrophils # 8.5 H (1.3-7.7) k/uL APTT (22.0-30.0) sec Sodium (137-145) mmol/L Glucose (74-99) mg/dL POC Glucose (mg/dL) 156 H 209 H (70-110) mg/dL Calcium (8.4-10.2) mg/dL Creatine Kinase (55-170) U/L C-Reactive Protein (0.00-0.80) mg/dL Procalcitonin (0.02-0.50) ng/mL Ur Specific [place] (1.001-1.035) Urine Protein (Negative) Urine Blood (Negative) 12/29/24 12/29/24 12/29/24 Range/Units 07:55 07:55 07:55 RBC 3.51 L (4.30-5.90) m/uL Hgb 10.1 L (13.0-17.5) gm/dL Hct 31.5 L (39.0-53.0) % Neutrophils # 8.5 H (1.3-7.7) k/uL APTT 30.4 H (22.0-30.0) sec Sodium 135 L (137-145) mmol/L Glucose 102 H (74-99) mg/dL POC Glucose (mg/dL) (70-110) mg/dL Calcium 7.7 L (8.4-10.2) mg/dL Creatine Kinase (55-170) U/L C-Reactive Protein (0.00-0.80) mg/dL Procalcitonin (0.02-0.50) ng/mL Ur Specific [place] (1.001-1.035) Urine Protein (Negative) Urine Blood (Negative) 12/29/24 12/29/24 Range/Units 10:20 11:54 RBC (4.30-5.90) m/uL Hgb (13.0-17.5) gm/dL Hct (39.0-53.0) % Neutrophils # (1.3-7.7) k/uL APTT (22.0-30.0) sec Sodium (137-145) mmol/L Glucose (74-99) mg/dL POC Glucose (mg/dL) 168 H (70-110) mg/dL Calcium (8.4-10.2) mg/dL Creatine Kinase 242 H (55-170) U/L C-Reactive Protein (0.00-0.80) mg/dL Procalcitonin (0.02-0.50) ng/mL Ur Specific [place] (1.001-1.035) Urine Protein (Negative) Urine Blood (Negative) Assessment and Plan Assessment: 1. Acute kidney injury mostly prerenal associated with volume depletion. Maintained on IV fluids. Previous creatinine was 0.8 on 07/29/2022. UA shows 1+ protein and small blood 2. Mild rhabdomyolysis, patient was maintained on statins. TSH not elevated. 3. Fever, obtain workup for underlying infection. Chest x-ray shows right paramediastinal masslike consolidation, chest CT has been ordered. Check UA 4. Volume depletion 5. Underlying malignancy with metastasis noted on CT with lesion in the adrenal gland liver and lung along with the right paramediastinal mass. Plan: Continue IV fluids Encourage increase oral intake Needs oncology evaluation
--- NOTE | 2024-12-29 15:27 | P.PN ---
Subjective Progress Note Date: 12/29/24 Will be given to him 74-year-old male patient, presented to emergency department with complaints of right hip pain, left knee pain, generalized weakness over the past several days along with some symptoms of nausea and emesis. It was reported over the past 3 days, the patient was unable to get out of bed and the patient was weak and quite shaky to the point where he was unable to hold a cup. His weakness was essentially symmetrical. No reported falls. He was having some altered mentation in addition. Based on that, the patient underwent further investigation. The white cell count was at 12 with a hemoglobin 10.7 and a platelet count of 246. Normal coagulation profile. BUN of 46 with a cre atinine of 1.37 and a sodium level was 135 and a potassium level was 5. Normal LFTs. Normal troponins. TSH was at 1.5. Rest of the electrolytes were normal. Alcohol level was less than 10 and the viral screen was also negative. The patient was given a CAT scan of the brain that showed no acute intracranial process. There was some nonspecific white matter changes likely related to chronic small vessel ischemic disease and remote injury/stroke involving the right parietal lobe. X-ray of the hip showed mild to moderate hip osteoarthritis without any evidence of an acute abnormalities on the right and x-ray of the tibia and fibula showed no evidence of any fractures. Chest x-ray revealed a right paramediastinal mass and this was followed up by a CAT scan of the chest that showed a right suprahilar mass measuring 7.2 x 6.2 x 9.8 cm in size. The mass was encroaching on the trachea and right mainstem bronchus causing mass effect. The IVC was quite compressed. It was still patent. In addition, the CAT scan of the upper abdomen and liver demonstrated a high density mass in the left hepatic lobe measuring 5.8 x 4.8 cm in size and the patient had a nodular contour of the adrenal gland and the findings were highly suggestive of bronchogenic carcinoma with metastases. Some limited consolidation in the right lower lobe was also noted. There was an indeterminate mass in the left upper quadrant area measuring 5.8 cm in size. Exact nature of this mass was not clear. X-rays right-sided pleural effusion was also noted. On 12/29/2024, the patient is being seen for a follow-up. No changes in his overall condition. Remains calm and comfortable. Slightly bronchospastic and wheezy and the patient will be started on IV Solu-Medrol. He will be also started on DuoNeb nebulized treatments [id number]. I had further discussion with him regarding the CAT scan finding the patient will need a bronchoscopy and endobronchial ultrasound and biopsy of the right suprahilar mas s. The patient was agreeable. The white cell count is at 10.6 with a hemoglobin of 10.1 and a platelet count of 272. Normal coagulation profile. BUN 17 with a creatinine of 0.7. CPK is 242. He did encounter atrial fibrillation with rapid ventricular response. Based on that, the patient got tr ansferred to the telemetry unit. The patient was seen by cardiology. 2D echocardiogram was ordered. Cardizem has been discontinued and the patient is currently on metoprolol 50 mg p.o. twice a day. He is current rhythm is sinus. He is on IV heparin. Objective - Vital Signs Vital signs: Vital Signs Temp 98.0 F 12/29/24 07:37 Pulse 75 12/29/24 07:37 Resp 20 12/29/24 07:37 BP 120/53 12/29/24 07:37 Pulse Ox 98 12/29/24 07:37 FiO2 Intake & Output 12/28/24 12/29/24 12/29/24 18:59 06:59 18:59 Intake Total 120 135.576 336.885 Output Total 500 720 Balance -380 -584.424 336.885 Weight 76.4 kg Intake: IV 20 Invasive Line 2 10 Invasive Line 3 10 Intake, IV Titration 115.576 96.885 Amount Diltiazem 125 mg In 61 Sodium Chloride 0.9% 100 ml @ 10 MG/HR 10 mls/hr IV .[id number] DANIELA Rx#: [id number] Heparin Sod,Pork in 0.45% 54.576 96.885 NaCl 25,000 unit In 0.45 % NaCl 1 250ml.bag @ 12 UNITS/KG/HR 8.709 mls/hr IV .Q24H DANIELA Rx#: [id number] Oral 120 240 Output: Urine 500 720 Straight 420 Other: Voiding Method External Catheter External Catheter External Catheter # Voids 3 # Bowel Movements 1 - Exam The patient appeared well nourished and normally developed. Vital signs as documented. The patient is currently on 2 L of O2 nasal cannula Head exam is unremarkable. No scleral icterus or corneal arcus noted. Neck is without jugular venous distension, thyromegaly, or carotid bruits. Carotid upstrokes are brisk bilaterally. Lungs are clear to auscultation and percussion. The patient has diminished breath sound right lung base, scattered expiratory wheezes Cardiac exam reveals the PMI to be normally sized and situated. Rhythm is regular. First and second heart sounds normal. No murmurs, rubs or gallops. Abdominal exam reveals normal bowel sounds, no masses, no organomegaly and no aortic enlargement. Extremities are nonedematous and both femoral and pedal pulses are normal. Examination of the skin revealed no evidence of significant rashes, suspicious appearing nevi or other concerning lesions. Neurologically, the patient is awake and alert and the patient does not have any focal neurological deficit. Cranial nerves are essentially intact. Generalized motor weakness, symmetric in all 4 extremities. - Labs CBC & Chem 7: 12/29/24 07:55 12/29/24 07:55 Labs: Abnormal Lab Results - Last 24 Hours (Table) 12/28/24 12/28/24 12/28/24 Range/Units 11:35 12:54 12:54 RBC (4.30-5.90) m/uL Hgb (13.0-17.5) gm/dL Hct (39.0-53.0) % Neutrophils # (1.3-7.7) k/uL APTT (22.0-30.0) sec Sodium (137-145) mmol/L Glucose (74-99) mg/dL POC Glucose (mg/dL) 243 H (70-110) mg/dL Calcium (8.4-10.2) mg/dL C-Reactive Protein 33.00 H (0.00-0.80) mg/dL Procalcitonin 0.98 H (0.02-0.50) ng/mL Ur Specific [place] (1.001-1.035) Urine Protein (Negative) Urine Blood (Negative) 12/28/24 12/28/24 12/28/24 Range/Units 16:45 16:56 17:20 RBC (4.30-5.90) m/uL Hgb 12.2 L (13.0-17.5) gm/dL Hct (39.0-53.0) % Neutrophils # 8.5 H (1.3-7.7) k/uL APTT (22.0-30.0) sec Sodium (137-145) mmol/L Glucose (74-99) mg/dL POC Glucose (mg/dL) 156 H (70-110) mg/dL Calcium (8.4-10.2) mg/dL C-Reactive Protein (0.00-0.80) mg/dL Procalcitonin (0.02-0.50) ng/mL Ur Specific [place] 1.050 H (1.001-1.035) Urine Protein 1+ H (Negative) Urine Blood Small H (Negative) 12/28/24 12/29/24 12/29/24 Range/Units 20:13 07:55 07:55 RBC 3.51 L (4.30-5.90) m/uL Hgb 10.1 L (13.0-17.5) gm/dL Hct 31.5 L (39.0-53.0) % Neutrophils # 8.5 H (1.3-7.7) k/uL APTT (22.0-30.0) sec Sodium 135 L (137-145) mmol/L Glucose 102 H (74-99) mg/dL POC Glucose (mg/dL) 209 H (70-110) mg/dL Calcium 7.7 L (8.4-10.2) mg/dL C-Reactive Protein (0.00-0.80) mg/dL Procalcitonin (0.02-0.50) ng/mL Ur Specific [place] (1.001-1.035) Urine Protein (Negative) Urine Blood (Negative) 12/29/24 Range/Units 07:55 RBC (4.30-5.90) m/uL Hgb (13.0-17.5) gm/dL Hct (39.0-53.0) % Neutrophils # (1.3-7.7) k/uL APTT 30.4 H (22.0-30.0) sec Sodium (137-145) mmol/L Glucose (74-99) mg/dL POC Glucose (mg/dL) (70-110) mg/dL Calcium (8.4-10.2) mg/dL C-Reactive Protein (0.00-0.80) mg/dL Procalcitonin (0.02-0.50) ng/mL Ur Specific [place] (1.001-1.035) Urine Protein (Negative) Urine Blood (Negative) Assessment and Plan Plan: Large right suprahilar mass measuring 9.8 x 6.2 x 7.2 cm in size and causing mass effect on the right mainstem bronchus and the trachea with impending SVC syndrome. The SVC was noted to be compressed yet patent. Patient also has another indeterminate mass in the abdomen measuring 5.8 x 4.8 cm in size. This could be originating from the left hepatic lobe versus stomach versus adrenal gland. The exact origin of this abdominal mass is not clear Right lower lobe consolidation/atelectasis. Rule out pneumonia. The patient is currently febrile. He has hemodynamically stable. Mediastinal lymphadenopathy COPD New onset A-fib, RVR, back into normal sinus rhythm. The patient is currently on metoprolol. Off amiodarone drip. Remains on IV heparin. CVA involving the right parietal, old based on the CAT scan of the head Seizure disorder Hypertension Hyperlipidemia Diabetes mellitus type 2 Acute kidney injury, likely related to volume depletion Osteoarthritis Abdominal aortic aneurysm was repaired back in 2014 and the patient has undergone aortoiliac stenting Chronic smoker Plan DuoNeb nebulized treatments 4 times a day IV Solu-Medrol 60 mg every 6 hours Titrate oxygen flow to maintain saturation above 90%, currently on 2 L Cover the patient with empiric antibiotic coverage with IV Zosyn Management of atrial fibrillation per cardiology. Keep the patient on IV heparin pending bronchoscopy and endobronchial ultrasound. Will discuss the CAT scan findings with the patient. Obviously, the patient will need a tissue diagnosis. The right lung mass is very accessible for biopsy. Recommend bronchoscopy, endobronchial ultrasound and transbronchial needle aspirate of the right hilar mass for tissue diagnosis. Will plan to perform the procedure tomorrow as long as the patient's condition remains stable without any cardiovascular complications. Time with Patient: Greater than 30
[2024-12-29 15:30] LABS: Glucose,Whole Blood 187 mg/dL (70-110)
[2024-12-29] MEDS: IPRATROPIUM-ALBUTEROL 3 ML NEB INHALATION SCH (15:56)
[2024-12-29] MEDS: FUROSEMIDE 10 MG/ML 4 ML VIAL IV STA (16:18)
[2024-12-29 16:31] LABS: Glucose,Whole Blood 281 mg/dL (70-110)
[2024-12-29] MEDS: NICOTINE 21MG/24HR PATCH TRANSDERM SCH (17:14)
[2024-12-29 17:48] LABS: Amphetamine Screen,Urine Not Detected (NotDetected); Barbiturate Screen,Urine Not Detected (NotDetected); Benzodiazepines Screen,Urine Not Detected (NotDetected); Cocaine Screen,Urine Not Detected (NotDetected); Methadone Screen, Urine Not Detected (NotDetected); Opiate Screen,Urine Detected (NotDetected); Oxycodone Screen, Urine Not Detected (NotDetected); Phencyclidine Screen,Urine Not Detected (NotDetected); Tricyclic Antidepressant,Urine Not Detected (NotDetected); Urn Cannabinoid Scrn Not Detected (NotDetected)
--- NOTE | 2024-12-29 18:30 | CT ---
EXAMINATION TYPE: CT brain wo con DATE OF EXAM: 12/29/2024 COMPARISON: CT brain 2 days earlier CLINICAL INDICATION: Male, 74 years old with history of Altered mental status, AMS TECHNIQUE: CT scan of the head is performed without contrast. CT DLP: 1196.4 mGycm. Automated Exposure Control for Dose Reduction was Utilized. FINDINGS: There is no acute intracranial hemorrhage or midline shift identified. There is moderate diffuse ventricular and sulcal prominence redemonstrated. There is mild to moderate low-attenuation in the periventricular white matter redemonstrated. Persistent old infarct high right parietal lobe. Nasal septum remains deviated to right of midline. The globes are intact and the visualized sinuses are clear. IMPRESSION: No acute intracranial hemorrhage or midline shift. No significant change from most recen t prior CT. [facility], , 12/29/2024 6:28 PM
[2024-12-29] MEDS: ATORVASTATIN 20 MG TAB PO SCH (19:51)
[2024-12-29 19:57] LABS: Glucose,Whole Blood 360 mg/dL (70-110)
[2024-12-29] MEDS: GABAPENTIN 100 MG CAP PO SCH (21:05)
--- NOTE | 2024-12-30 02:25 | PN ---
PROGRESS NOTE DATE OF SERVICE: 12/29/2024 CHIEF COMPLAINT: Fever and delirium. HISTORY OF PRESENT ILLNESS: This gentleman is doing a little bit better. As he is rehydrated, he is more alert and oriented. He did go into atrial fibrillation and he was converted back into sinus rhythm. There are apparently also lesions seen on his chest x-ray and these are being further investigated. PHYSICAL EXAMINATION: GENERAL: He is more alert. His hydration is improved. CHEST: Demonstrates only occasional scattered rales and rhonchi. CARDIAC: Sinus. ABDOMEN: Soft, nontender. IMPRESSION: 1. Fever. 2. Delirium. 3. Abnormal chest x-ray. 4. Atrial fibrillation. PLAN: 1. CT of the chest has been ordered. 2. His heart rhythm will be monitored. 3. Echocardiogram is pending. He had SBE in the past. MMODL / IJN: [id number] /
[2024-12-30 06:09] LABS: Glucose,Whole Blood 216 mg/dL (70-110)
[2024-12-30 11:14] LABS: Glucose,Whole Blood 183 mg/dL (70-110)
--- NOTE | 2024-12-30 11:37 | P.PN ---
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 Patient follows in the office with Dr. Berg but has not been seen since August 2022. We have been asked to see the patient in consultation for fever. Patient examined at the bedside. Patient presented to the hospital for chief complaint of generalized weakness, nausea and vomiting. Per patient's nurse, patient was unable to get out of bed at home for 4 days. Patient was found to be in atrial fibrillation with RVR. Patient was started on IV heparin and IV Cardizem. He has since converted to sinus mechanism and is maintaining sinus mechanism at the time of examination. His IV Cardizem has been paused. He remains on IV heparin. He denies any chest pain or pressure. Denies any shortness of breath. DIAGNOSTICS: - EKG reveals atrial fibrillation with RVR. - Chest xray right paramediastinal masslike consolidation -Chest CT: Right paramediastinal mass invading into the mediastinum and around the major structures of the mediastinum. This displaces the superior vena cava anteriorly and has thickened appearance which puts patient at risk for thoracic outlet syndrome. Additionally there is right upper lung nodule and neck lymph nodes concerning for metastatic disease. Consolidative changes in the right lower lobe correlate for developing pneumonia. Indeterminate mass in the left upper quadrant thought to be coming from the liver over the stomach and measures 5.8 cm. - Laboratory data: WBC 10.5. Hemoglobin 12.2. Platelet count 310. Sodium 135. Potassium 5.0. BUN 46. Creatinine 1.37. Hemoglobin A1c 6.2. Magnesium 2.6. Troponin negative x 1. Creatinine kinase 982. - Current home cardiac medications include lisinopril 2.5 mg daily, metoprolol succinate 25 mg daily, Lasix 20 mg daily, atorvastatin 10 mg daily -Patient underwent FARA in May 2022 revealing large vegetation involving anterior mitral leaflet and moderate size vegetation involving the posterior mitral leaflet. There is a small vegetation over the left coronary cusp of the aortic valve - Most recent echocardiogram obtained in May 2022 revealing ejection fraction 50 to 55% - Cardiac catheterization history: Unknown 12/30/2024 Patient examined this morning at the bedside. Patient currently denies chest pain or pressure. He denies shortness of breath. He remains on IV heparin. Telemetry reveals sinus mechanism. He is scheduled to undergo bronchoscopy today. Echocardiogram completed revealing ejection fraction 60 to 65%, no obv ious regional wall motion abnormalities, no intracardiac masses, moderate MR. Blood cultures are negative at 24-hour andi PHYSICAL EXAM: VITAL SIGNS: Reviewed. GENERAL: Well-developed in no acute distress. HEENT: Head is normocephalic. Pupils are equal, round. Sclerae anicteric. Mucous membranes of the mouth are moist. Neck supple. No JVD or thyromegaly LUNGS: Respirations even and unlabored. Lungs essentially clear to auscultation bilaterally. HEART: Regular rate and rhythm. S1 and S2 heard. ABDOMEN: Soft. Nondistended. Nontender. EXTREMITIES: Normal range of motion. No clubbing or cyanosis. Peripheral pulses intact. No lower extremity edema NEUROLOGIC: Awake and alert. Oriented x 3. ASSESSMENT: New onset paroxysmal A-fib with RVR, currently maintaining sinus mechanism Right lower lobe consolidation/atelectasis, rule out pneumonia Generalized weakness, nausea and vomiting Mildly elevated creatinine kinase 982 Right suprahilar mass causing mass effect on right mainstem bronchus and trachea Left upper quadrant mass thought to be coming from liver, measuring 5.8 cm History of infective endocarditis, 2021 Hypertension Hyperlipidemia History of CVA Moderate mitral regurgitation PLAN: Continue IV heparin. Will need to be transitioned to oral anticoagulation. Continue Lipitor and metoprolol Continue telemetry monitoring Await results of blood cultures Pulmonary consulted for mass. Patient to undergo bronchoscopy today Further recommendations pending patient course Nurse practitioner note has been reviewed by physician. Signing provider agrees with the documented findings, assessment, and plan of care documented by RESEARCH HYDROLOGIST as a scribe. Objective - Vital Signs Vital signs: Vital Signs Temp 97.8 F 12/30/24 07:52 Pulse 63 12/30/24 11:00 Resp 15 12/30/24 11:00 BP 170/77 12/30/24 11:00 Pulse Ox 97 12/30/24 11:00 FiO2 Intake & Output 12/29/24 12/30/24 12/30/24 18:59 06:59 18:59 Intake Total 1023.760 261.067 30.071 Output Total 1000 1100 450 Balance 23.760 -838.933 -419.929 Weight 71.2 kg Intake: IV 40 Invasive Line 2 10 Invasive Line 4 20 Invasive Line 5 10 Intake, IV Titration 183.760 221.067 30.071 Amount Heparin Sod,Pork in 0.45% 183.760 221.067 30.071 NaCl 25,000 unit In 0.45 % NaCl 1 250ml.bag @ 12 UNITS/KG/HR 8.709 mls/hr IV .Q24H [facility] Rx#: [id number] Oral 840 Output: Urine 1000 1100 450 Other: Voiding Method External Catheter External Catheter External Catheter # Voids 800 - Labs CBC & Chem 7: 12/29/24 07:55 12/29/24 07:55 Labs: Abnormal Lab Results - Last 24 Hours (Table) 12/29/24 12/29/24 12/29/24 Range/Units 10:20 11:54 15:03 APTT 33.5 H (22.0-30.0) sec POC Glucose (mg/dL) 168 H (70-110) mg/dL Creatine Kinase 242 H (55-170) U/L Urine Opiates Screen (NotDetected) 12/29/24 12/29/24 12/29/24 Range/Units 15:28 16:26 17:20 APTT (22.0-30.0) sec POC Glucose (mg/dL) 187 H 281 H (70-110) mg/dL Creatine Kinase (55-170) U/L Urine Opiates Screen Detected H (NotDetected) 12/29/24 12/29/24 12/30/24 Range/Units 19:55 21:07 06:08 APTT 34.5 H (22.0-30.0) sec POC Glucose (mg/dL) 360 H 216 H (70-110) mg/dL Creatine Kinase (55-170) U/L Urine Opiates Screen (NotDetected) 12/30/24 12/30/24 Range/Units 06:38 11:13 APTT 33.6 H (22.0-30.0) sec POC Glucose (mg/dL) 183 H (70-110) mg/dL Creatine Kinase (55-170) U/L Urine Opiates Screen (NotDetected) Microbiology - Last 24 Hours (Table) 12/28/24 06:21 Blood Culture - Preliminary Blood
--- NOTE | 2024-12-30 12:16 | P.PN ---
Subjective Patient is seen for follow-up for acute kidney injury. Maintained on IV fluids Renal function has improved with creatinine down to 0.7 mg/dL. No labs today CK level is down to 242. No significant complaints. Patient wants to go home. Objective - Vital Signs Vital signs: Vital Signs Temp 97.8 F 12/30/24 07:52 Pulse 72 12/30/24 12:07 Resp 15 12/30/24 11:00 BP 170/77 12/30/24 11:00 Pulse Ox 97 12/30/24 11:00 FiO2 Intake & Output 12/29/24 12/30/24 12/30/24 18:59 06:59 18:59 Intake Total 1023.760 261.067 30.071 Output Total 1000 1100 450 Balance 23.760 -838.933 -419.929 Weight 71.2 kg Intake: IV 40 Invasive Line 2 10 Invasive Line 4 20 Invasive Line 5 10 Intake, IV Titration 183.760 221.067 30.071 Amount Heparin Sod,Pork in 0.45% 183.760 221.067 30.071 NaCl 25,000 unit In 0.45 % NaCl 1 250ml.bag @ 12 UNITS/KG/HR 8.709 mls/hr IV .Q24H [facility] Rx#: [id number] Oral 840 Output: Urine 1000 1100 450 Other: Voiding Method External Catheter External Catheter External Catheter # Voids 800 - Exam Patient is awake, comfortable, no acute distress Examination of the heart S1 and S2 Examination of the lungs bilateral breath sounds are heard Abdomen is soft nontender Examination of lower extremities shows no significant edema PREVENTION SPECIALIST exam grossly intact - Labs CBC & Chem 7: 12/29/24 07:55 12/29/24 07:55 Labs: Abnormal Lab Results - Last 24 Hours (Table) 12/29/24 12/29/24 12/29/24 Range/Units 15:03 15:28 16:26 APTT 33.5 H (22.0-30.0) sec POC Glucose (mg/dL) 187 H 281 H (70-110) mg/dL Urine Opiates Screen (NotDetected) 12/29/24 12/29/24 12/29/24 Range/Units 17:20 19:55 21:07 APTT 34.5 H (22.0-30.0) sec POC Glucose (mg/dL) 360 H (70-110) mg/dL Urine Opiates Screen Detected H (NotDetected) 12/30/24 12/30/24 12/30/24 Range/Units 06:08 06:38 11:13 APTT 33.6 H (22.0-30.0) sec POC Glucose (mg/dL) 216 H 183 H (70-110) mg/dL Urine Opiates Screen (NotDetected) Microbiology - Last 24 Hours (Table) 12/28/24 06:21 Blood Culture - Preliminary Blood Assessment and Plan Assessment: 1. Acute kidney injury mostly prerenal associated with volume depletion. Maintained on IV fluids. Previous creatinine was 0.8 on 07/29/2022. UA shows 1+ protein and small blood 2. Mild rhabdomyolysis, patient was maintained on statins. TSH not elevated. 3. Fever, obtain workup for underlying infection. Chest x-ray shows right paramediastinal masslike consolidation, chest CT has been ordered. Check UA 4. Volume depletion 5. Underlying malignancy with metastasis noted on CT with lesion in the adrenal gland liver and lung along with the right paramediastinal mass. Plan: Continue IV fluids Encourage increase oral intake Needs oncology evaluation
--- NOTE | 2024-12-30 14:35 | P.PN ---
Subjective Progress Note Date: 12/30/24 Principal diagnosis: Reason for follow-up is fever/postobstructive pneumonia Patient is a 74-year-old male with a past medical history significant for CVA TIA diabetes mellitus hypertension hyperlipidemia and seizure disorder current everyday smoker presenting to the hospital for evaluation of mental status changes did have a fever prompting this consultation. On today's evaluation that is 12/30/2024,the patient remains to be afebrile, patient is on room air not requiring supplemental oxygen and denies any shortness of breath no chest pain or any worsening cough.Patient denies having any nausea or vomiting, no abdominal pain and no diarrhea has been reported. No new lab has been repeated today blood cultures currently pending Objective - Vital Signs Vital signs: Vital Signs Temp 97.8 F 12/30/24 07:52 Pulse 72 12/30/24 12:07 Resp 15 12/30/24 11:00 BP 170/77 12/30/24 11:00 Pulse Ox 97 12/30/24 11:00 FiO2 Intake & Output 12/29/24 12/30/24 12/30/24 18:59 06:59 18:59 Intake Total 1023.760 261.067 30.071 Output Total 1000 1100 450 Balance 23.760 -838.933 -419.929 Weight 71.2 kg Intake: IV 40 Invasive Line 2 10 Invasive Line 4 20 Invasive Line 5 10 Intake, IV Titration 183.760 221.067 30.071 Amount Heparin Sod,Pork in 0.45% 183.760 221.067 30.071 NaCl 25,000 unit In 0.45 % NaCl 1 250ml.bag @ 12 UNITS/KG/HR 8.709 mls/hr IV .Q24H [facility] Rx#: [id number] Oral 840 Output: Urine 1000 1100 450 Other: Voiding Method External Catheter External Catheter External Catheter # Voids 800 - Exam GENERAL DESCRIPTION: An elderly male lying in bed in no distress RESPIRATORY SYSTEM: Unlabored breathing , decreased breath sounds at bases HEART: S1 S2 regular rate and rhythm , ABDOMEN: Soft , no tenderness EXTREMITIES: No edema feet - Labs CBC & Chem 7: 12/29/24 07:55 12/29/24 07:55 Labs: Abnormal Lab Results - Last 24 Hours (Table) 12/29/24 12/29/24 12/29/24 Range/Units 15:03 15:28 16:26 APTT 33.5 H (22.0-30.0) sec POC Glucose (mg/dL) 187 H 281 H (70-110) mg/dL Urine Opiates Screen (NotDetected) 12/29/24 12/29/24 12/29/24 Range/Units 17:20 19:55 21:07 APTT 34.5 H (22.0-30.0) sec POC Glucose (mg/dL) 360 H (70-110) mg/dL Urine Opiates Screen Detected H (NotDetected) 12/30/24 12/30/24 12/30/24 Range/Units 06:08 06:38 11:13 APTT 33.6 H (22.0-30.0) sec POC Glucose (mg/dL) 216 H 183 H (70-110) mg/dL Urine Opiates Screen (NotDetected) Microbiology - Last 24 Hours (Table) 12/28/24 06:21 Blood Culture - Preliminary Blood Assessment and Plan (1) Sepsis Current Visit: No Status: Acute Code(s): A41.9 - SEPSIS, UNSPECIFIED ORGANISM SNOMED Code(s): 53157439 (2) Pneumonia Current Visit: No Status: Acute Code(s): J18.9 - PNEUMONIA, UNSPECIFIED ORGANISM SNOMED Code(s): 228101017 Plan: 1patient presented to hospital with sepsis in this patient who did have a fever tachycardia elevated white count meeting criteria for SIRS source is likely pneumonia in this patient did have abnormal x-ray concerning for possible mass and a question of possible postobstructive pneumonia and will need to cover for the polymicrobial juli associated with postobstructive pneumonia 2patient did have CT of the chest with significant abnormality concerning for possible malignancy and postobstructive pneumonia pulmonary has been consulted possible plan for bronchoscopy this afternoon 3patient did have resolution of his fever and will be treated Zosyn 3.375 g every 8 hours and try to obtain a sputum Dictation was produced using [employer] dictation software. please excuse any grammatical, word or spelling errors. Time with Patient: Less than 30
[2024-12-30] MEDS: IV FLUID CONTINUATION 1,000 ML IV ONE (15:22)
[2024-12-30] MEDS: ONDANSETRON 4 MG/2 ML VIAL IVP PRN (15:39)
[2024-12-30 15:45] LABS: Glucose,Whole Blood 242 mg/dL (70-110)
[2024-12-30 17:42] LABS: Glucose,Whole Blood 237 mg/dL (70-110)
[2024-12-30 20:07] LABS: Glucose,Whole Blood 249 mg/dL (70-110)
[2024-12-30] MEDS: IOPAMIDOL CONTRAST (ORAL USE) VIAL PO PRN (20:31)
--- NOTE | 2024-12-30 22:22 | P.PN ---
Subjective Progress Note Date: 12/30/24 Will be given to him 74-year-old male patient, presented to emergency department with complaints of right hip pain, left knee pain, generalized weakness over the past several days along with some symptoms of nausea and emesis. It was reported over the past 3 days, the patient was unable to get out of bed and the patient was weak and quite shaky to the point where he was unable to hold a cup. His weakness was essentially symmetrical. No reported falls. He was having some altered mentation in addition. Based on that, the patient underwent further investigation. The white cell count was at 12 with a hemoglobin 10.7 and a platelet count of 246. Normal coagulation profile. BUN of 46 with a cre atinine of 1.37 and a sodium level was 135 and a potassium level was 5. Normal LFTs. Normal troponins. TSH was at 1.5. Rest of the electrolytes were normal. Alcohol level was less than 10 and the viral screen was also negative. The patient was given a CAT scan of the brain that showed no acute intracranial process. There was some nonspecific white matter changes likely related to chronic small vessel ischemic disease and remote injury/stroke involving the right parietal lobe. X-ray of the hip showed mild to moderate hip osteoarthritis without any evidence of an acute abnormalities on the right and x-ray of the tibia and fibula showed no evidence of any fractures. Chest x-ray revealed a right paramediastinal mass and this was followed up by a CAT scan of the chest that showed a right suprahilar mass measuring 7.2 x 6.2 x 9.8 cm in size. The mass was encroaching on the trachea and right mainstem bronchus causing mass effect. The IVC was quite compressed. It was still patent. In addition, the CAT scan of the upper abdomen and liver demonstrated a high density mass in the left hepatic lobe measuring 5.8 x 4.8 cm in size and the patient had a nodular contour of the adrenal gland and the findings were highly suggestive of bronchogenic carcinoma with metastases. Some limited consolidation in the right lower lobe was also noted. There was an indeterminate mass in the left upper quadrant area measuring 5.8 cm in size. Exact nature of this mass was not clear. X-rays right-sided pleural effusion was also noted. On 12/29/2024, the patient is being seen for a follow-up. No changes in his overall condition. Remains calm and comfortable. Slightly bronchospastic and wheezy and the patient will be started on IV Solu-Medrol. He will be also started on DuoNeb nebulized treatments [id number]. I had further discussion with him regarding the CAT scan finding the patient will need a bronchoscopy and endobronchial ultrasound and biopsy of the right suprahilar mas s. The patient was agreeable. The white cell count is at 10.6 with a hemoglobin of 10.1 and a platelet count of 272. Normal coagulation profile. BUN 17 with a creatinine of 0.7. CPK is 242. He did encounter atrial fibrillation with rapid ventricular response. Based on that, the patient got tr ansferred to the telemetry unit. The patient was seen by cardiology. 2D echocardiogram was ordered. Cardizem has been discontinued and the patient is currently on metoprolol 50 mg p.o. twice a day. He is current rhythm is sinus. He is on IV heparin. 12/30/2024, the patient is n.p.o. for a bronchoscopy. As stated, the patient has a large right upper lobe mass with some mass effect on the right mainstem bronchus and the main trachea. This is a bulky tumor. The patient remains quite debilitated. Complaining of generalized weakness. He is afebrile. Hemodynamically stable. He is on room air oxygen. No nausea vomiting or emesis. No focal neurological deficits. No new labs are available from today. Continues to be on DuoNeb nebulized treatments [id number]. Remains on IV Solu-Medrol. Remains on IV Zosyn and consideration for a right lung pneumonia, postobstructive. Otherwise, no other significant changes in his condition. In terms of his cardiac rhythm, the patient remains on IV heparin awaiting bronchoscopy. After completion of the bronchoscopy, the patient will be switched to anticoagulation with Eliquis. His current cardiac rhythm is sinus. Objective - Vital Signs Vital signs: Vital Signs Temp 97.8 F 12/30/24 07:52 Pulse 63 12/30/24 11:00 Resp 15 12/30/24 11:00 BP 170/77 12/30/24 11:00 Pulse Ox 97 12/30/24 11:00 FiO2 Intake & Output 12/29/24 12/30/24 12/30/24 18:59 06:59 18:59 Intake Total 1023.760 261.067 30.071 Output Total 1000 1100 450 Balance 23.760 -838.933 -419.929 Weight 71.2 kg Intake: IV 40 Invasive Line 2 10 Invasive Line 4 20 Invasive Line 5 10 Intake, IV Titration 183.760 221.067 30.071 Amount Heparin Sod,Pork in 0.45% 183.760 221.067 30.071 NaCl 25,000 unit In 0.45 % NaCl 1 250ml.bag @ 12 UNITS/KG/HR 8.709 mls/hr IV .Q24H [facility] Rx#: [id number] Oral 840 Output: Urine 1000 1100 450 Other: Voiding Method External Catheter External Catheter External Catheter # Voids 800 - Exam The patient appeared well nourished and normally developed. Vital signs as documented. The patient is currently on room air oxygen Head exam is unremarkable. No scleral icterus or corneal arcus noted. Neck is without jugular venous distension, thyromegaly, or carotid bruits. Carotid upstrokes are brisk bilaterally. Lungs are clear to auscultation and percussion. The patient has diminished breath sound right lung base, scattered expiratory wheezes Cardiac exam reveals the PMI to be normally sized and situated. Rhythm is regular. First and second heart sounds normal. No murmurs, rubs or gallops. Abdominal exam reveals normal bowel sounds, no masses, no organomegaly and no aortic enlargement. Extremities are nonedematous and both femoral and pedal pulses are normal. Examination of the skin revealed no evidence of significant rashes, suspicious appearing nevi or other concerning lesions. Neurologically, the patient is awake and alert and the patient does not have any focal neurological deficit. Cranial nerves are essentially intact. Generalized motor weakness, symmetric in all 4 extremities. - Labs CBC & Chem 7: 12/29/24 07:55 12/29/24 07:55 Labs: Abnormal Lab Results - Last 24 Hours (Table) 12/29/24 12/29/24 12/29/24 Range/Units 10:20 11:54 15:03 APTT 33.5 H (22.0-30.0) sec POC Glucose (mg/dL) 168 H (70-110) mg/dL Creatine Kinase 242 H (55-170) U/L Urine Opiates Screen (NotDetected) 12/29/24 12/29/24 12/29/24 Range/Units 15:28 16:26 17:20 APTT (22.0-30.0) sec POC Glucose (mg/dL) 187 H 281 H (70-110) mg/dL Creatine Kinase (55-170) U/L Urine Opiates Screen Detected H (NotDetected) 12/29/24 12/29/24 12/30/24 Range/Units 19:55 21:07 06:08 APTT 34.5 H (22.0-30.0) sec POC Glucose (mg/dL) 360 H 216 H (70-110) mg/dL Creatine Kinase (55-170) U/L Urine Opiates Screen (NotDetected) 12/30/24 12/30/24 Range/Units 06:38 11:13 APTT 33.6 H (22.0-30.0) sec POC Glucose (mg/dL) 183 H (70-110) mg/dL Creatine Kinase (55-170) U/L Urine Opiates Screen (NotDetected) Microbiology - Last 24 Hours (Table) 12/28/24 06:21 Blood Culture - Preliminary Blood Assessment and Plan Plan: Large right suprahilar mass measuring 9.8 x 6.2 x 7.2 cm in size and causing mass effect on the right mainstem bronchus and the trachea with impending SVC syndrome. The SVC was noted to be compressed yet patent. Patient also has another indeterminate mass in the abdomen measuring 5.8 x 4.8 cm in size. This could be originating from the left hepatic lobe versus stomach versus adrenal gland. The exact origin of this abdominal mass is not clear Right lower lobe consolidation/atelectasis. Rule out pneumonia. The patient is currently febrile. He has hemodynamically stable. Mediastinal lymphadenopathy COPD New onset A-fib, RVR, back into normal sinus rhythm. The patient is currently on metoprolol. Off amiodarone drip. Remains on IV heparin. CVA involving the right parietal, old based on the CAT scan of the head Seizure disorder Hypertension Hyperlipidemia Diabetes mellitus type 2 Acute kidney injury, likely related to volume depletion Osteoarthritis Abdominal aortic aneurysm was repaired back in 2014 and the patient has undergone aortoiliac stenting Chronic smoker Plan Keep the patient n.p.o. Bronchoscopy scheduled to be done at 4 PM today DuoNeb nebulized treatments 4 times a day IV Solu-Medrol 60 mg every 6 hours Titrate oxygen flow to maintain saturation above 90%, currently on room air oxygen Cover the patient with empiric antibiotic coverage with IV Zosyn Management of atrial fibrillation per cardiology. Keep the patient on IV heparin pending bronchoscopy and endobronchial ultrasound. Will continue to follow Time with Patient: Greater than 30
--- NOTE | 2024-12-30 22:26 | P.PCN ---
Date of Procedure: 12/30/24 Preoperative Diagnosis: Right upper lobe mass Postoperative Diagnosis: Right upper lobe mass Anatomic narrowing of the right upper lobe bronchus Obstruction of the anterior and the apical segment of the right upper lobe Narrowing of the posterior segment of the right upper lobe Procedure(s) Performed: Flexible bronchoscopy Endobronchial biopsies of the right upper lobe tumor invading the apical and anterior segment of the right upper lobe Endobronchial ultrasound EBUS guided transbronchial needle aspirate of the right upper lobe mass Anesthesia: JEAN-CLAUDEA Surgeon: Fernando Lynn Estimated Blood Loss (ml): 0 Pathology: other Condition: stable Disposition: floor Operative Findings: Procedure was done in the endoscopy suite. The patient was intubated in the usual fashion and placed on the mechanical ventilator. Intubation process was done by the anesthesia team. The patient was intubated by #8 orotracheal tube. A flexible bronchoscope was introduced through the orotracheal tube and a complete airway inspection was done. Distal trachea was within normal limits. Bilateral mainstem bronchi were patent and within normal limits. Right upper lobe bronchus was slightly compressed extrinsically and there was endobronchial tumor invading the anterior and apical segments of the right upper lobe and the segments were essentially obstructed with tumor. The posterior segment of the right upper lobe was narrowed. Patent. The bronchus intermedius was within normal limits. Examination of the right middle lobe and right lower lobe bronchus and the very segments on the right showed some limited respiratory secretions were loose and those were suctioned out without any major difficulties. Examination of the left side included left upper lobe bronchus and left lower lobe bronchus and the left mainstem bronchus and the various 8 segments on the left. Using the flexible bronchoscope, endobronchial biopsy of the tumor invading the right upper lobe apical posterior segment was done. Multiple biopsies were obtained, a total of 6-8. Following that, the bronchoscope was removed and endobronchial ultrasound was inserted Under direct ultrasonic visualization, the right upper lobe mass was identified along the lateral border of the tracheal wall. This was a bulky tumor more than 4 cm in size. Using a 22-gauge needle, transbronchial needle aspirate of the right upper lobe mass was done through the right lateral tracheal wall. A total of 5 passes were taken. The patient tolerated the procedure well. No evidence of any endobronchial bleed. The endobronchial ultrasound was removed. The flexible oxygen was introduced again and therapeutic airway suctioning was done. The procedure was terminated. The bronchoscope was removed and the patient was extubated and transferred to recovery in stable condition.
[2024-12-30] MEDS: APIXABAN 5 MG TAB PO SCH (22:43)
--- NOTE | 2024-12-30 23:06 | CT ---
EXAMINATION TYPE: CT abdomen pelvis wo/w con CT DLP: 1448.7 mGycm, Automated exposure control for dose reduction was used. DATE OF EXAM: 12/30/2024 10:38 PM COMPARISON: CT chest 12/28/2024, pelvis 06/04/2022 CTA thoracoabdominal aorta 05/02/2016 CLINICAL INDICATION:Male, 74 years old with history of cancer; abdominal mass per ordering physican's reason for exam "Ca". Pt is slightly confused and unable to answer any history questions. Pt has H/O DM, HTN, CVA, endocarditis, AAA repair in 2014 w/ aortoiliac stent, everyday smoker. TECHNIQUE: Standard CT of the abdomen and pelvis before and after the uneventful administration of 100 cc of Isovue-300 intravenously. Oral contrast was administered. Coronal and sagittal reformats we re performed. FINDINGS: LOWER CHEST: Small right pleural effusion with right lower lobe patchy consolidation. No pericardial effusion. [id number] coronary calcifications. Bilateral gynecomastia. Elevation of the right he midiaphragm. Partial visualization of known right perihilar mass ABDOMEN LIVER: Unremarkable GALLBLADDER AND BILE DUCTS: The gallbladder appears unremarkable. No intrahepatic biliary ductal dila tation. Dilated common bile duct measuring up to 1.2 cm at the pancreatic head. PANCREAS: Unremarkable. SPLEEN: Masslike opacity within the left upper lobe is favored to represent splenic with abnormal lob ulated appearance of the spleen related to prior splenic infarct. ADRENAL GLANDS: Left degenerative gland is unremarkable. Development of right adrenal gland 1.3 cm no dule from prior CT. KIDNEYS AND URETERS: No evidence of hydronephrosis or renal calculus. The kidneys enhance symmetrical ly. Exophytic posterior left mid kidney 1.4 cm hyperdense lesion (series 201, image 41). New from [place] or CT. Cortical thinning involving the mid right kidney likely related to prior injury. Contrast is d emonstrated within both collecting systems on the delayed phase. PELVIS BLADDER: Unremarkable REPRODUCTIVE: Unremarkable. ABDOMEN & PELVIS STOMACH AND BOWEL: Stomach appears unremarkable. Couple of proximal duodenum that containing lipomas with largest measuring up to 1.1 cm.Enteric contrast reaches the mid to distal small bowel. Scattered colonic diverticulosis without evidence for acute diverticulitis. No evidence of bowel obstruction. PERITONEUM: No evidence of pneumoperitoneum or free fluid. VASCULATURE: No evidence of aortic aneurysm. Moderate atherosclerotic calcification of the aorta and its branches. Postsurgical changes from aortobiiliac stent graft. This appears patent. Left-sided pel sabino phleboliths. MUSCULOSKELETAL: No acute osseous abnormalities. Multilevel degenerative disc disease. No aggressive osseous lesion. Degenerative changes of bilateral SI joints with anterior bridging. Grade 1 anterolis thesis of L5 on S1 with bilateral pars defects. LYMPH NODES: Development of gastrohepatic 2.3 cm soft tissue nodule with similar attenuation to the s pleen. No other suspicious adenopathy. SOFT TISSUE/ABDOMINAL WALL: Unremarkable IMPRESSION: 1. Left upper quadrant masslike structure with abnormal appearance of the spleen. This is favored to represent the spleen related to previously seen large splenic infarct. Consider evaluation on PET/CT . 2. Development of gastrohepatic nodule with similar attenuation to the spleen. This could represent a splenule however metastasis is not excluded. No other concerning lymphadenopathy identified. Conside r evaluation on PET/CT. 3. Development of right adrenal gland indeterminate 1.3 cm. Possible metastasis. Further workup is re commended with consideration for CT or MR adrenal mass protocol versus PET/CT. 4. Partial visualization of known right hilar mass from CT 12/28/2024 this is again concerning for micaela gnancy until proven otherwise. 5. Small right pleural effusion with right basilar patchy consolidative opacity which may represent a telectasis and/or infiltrate. 6. Common bile duct dilatation without intrahepatic biliary duct dilatation. Correlate with biliary l abs. Consider further evaluation with MRCP. 7. New posterior left renal 1.4 cm hyperdense lesion from prior CT. This may represent a proteinaceou s/hemorrhagic cyst however malignancy is not excluded. Consider further evaluation with ultrasound. 8. Colonic diverticulosis without evidence for acute diverticular disease. [facility], , 12/30/2024 11:04 PM
--- NOTE | 2024-12-31 01:16 | PN ---
PROGRESS NOTE CHIEF COMPLAINT: Fever and delirium. HISTORY OF PRESENT ILLNESS: This gentleman is a little bit more alert and oriented. He has gone into atrial fibrillation and his blood sugars are elevated. He also has lesions appearing in the retroperitoneum and chest. PHYSICAL EXAMINATION: GENERAL: He is more awake and alert. He seems appropriate today. CHEST: Breath sounds are heard bilaterally. CARDIAC EXAM: Unchanged with atrial fibrillation. ABDOMEN: Soft, nontender. IMPRESSION: 1. Fever of unknown origin. 2. Elevated blood sugars. 3. Atrial fibrillation. 4. History of subacute bacterial endocarditis. 5. Probable underlying malignancy with primary unknown. PLAN: 1. Oncology referral. 2. Management of diabetes. 3. Control of atrial fibrillation. MMODL / IJN: [id number] /
[2024-12-31 06:04] LABS: Glucose,Whole Blood 199 mg/dL (70-110)
--- NOTE | 2024-12-31 07:32 | P.CNNES ---
History of Present Illness Consult date: 12/30/24 Requesting physician: Nathan Chatman Reason for Consult: Altered mental status, possible history of brain bleed History of Present Illness: Patient is a 74-year-old right-handed male came to the hospital by ambulance on 12/27/2024 at 8:58 PM for leg weakness. Patient states his legs got weak in the last 1 week. The legs would not let him walk and both legs are affected. He states that his feet are numb for years from neuropathy and pain in his legs, but now the legs have become affected. He denies any falls or any injury. Patient's mentions that he had 3 days of throwing up, not eating anything. After his vomiting stopped, the next morning he could not get out of bed about 4 days ago. His legs were very weak. He could not stand, could not hold a glass and while sitting in the bed, he would fall backwards. He kept on falling backwards, could not stand. He has been using walker for months because of being wobbly. Patient's also mentions that he has been getting sick very f requently in the last 1 year and was put in the [place]. Patient also has had weight loss about 40 pounds in the last few months. Patient denies any strokelike symptoms otherwise. Neurology was consulted for altered mental status, possible history of "brain bleed". I spoke to patient as well as his on the phone, and they have no recollection of any history of brain bleed. He did have history of a stroke about 20 years ago, which may have bled but they were not sure. Patient does have history of hypertension, and has diabetes for last 2 years. He smokes tobacco 1 pack per day for 20-30 years and now smoking half pack per day for months. He used to be heavy alcohol drinker "all his life" and used to drink beer, but sometimes would drink peppermint Elbert. He quit drinking about a year ago. There is no history of seizures. CT head revealed no acute intracranial process. Nonspecific white matter changes, likely secondary to chronic small vessel ischemic disease. Remote injury of the right parietal lobe. I personally reviewed CT head, agree with the findings. 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 No large vessel intracranial occlusion. Atherosclerotic calcification in the V4 segment vertebral arteries in both carotid siphons causing mild segmental areas of stenosis. Suspected severe stenosis at the origin of the left vertebral artery. No significant stenosis of the ICA. CT of the chest revealed right paramediastinal mass invading into the mediastinum and around the major structures of the mediastinum. This displaces the superior cava anteriorly and has a thickened appearance. Reports patient risk for thoracic outlet syndrome. Additionally, there is right upper lung nodule and neck lymph nodes, concerning for metastatic disease. Modestly a nodular contour to the adrenal gland could also represent metastatic disease. Follow-up PET/CT and oncology: Workup is recommended. Consolidation changes in the right lower lung correlate for developing pneumonia. Indeterminate mass in the left upper quadrant thought to be coming from the liver over the stomach which and measures up to 5.8 cm. Given other signs of malignancy findings, concerning for malignancy or initial tumor or possibly just could be large stenosis in the setting of trauma. Patient is undergoing CT of abdomen and pelvis. X-ray of the left tibia-fibula showed no fracture. Mild to moderate degeneration changes of the knees and joints of the foot. X-ray of the hip showed no evidence for acute process. Mild to moderate hip osteoarthrosis. Chest x-ray revealed right paramediastinal masslike consolidation. 2-D echo revealed normal LV size and systolic function with EF 60-65%. Severely increased left atrial volume. Moderate MR. Home medication include Requip, insulin, lisinopril, metoprolol, gabapentin, Lipitor and trazodone. Review of Systems All pertinent positive and negative review of systems mentioned in the HPI, otherwise unremarkable. Past Medical History Past Medical History: CVA/TIA, Diabetes Mellitus, Hyperlipidemia, Hypertension Additional Past Medical History / Comment(s): endocarditis History of Any Multi-Drug Resistant Organisms: None Reported Past Surgical History: Orthopedic Surgery Additional Past Surgical History / Comment(s): hemmoroid, nahid feet, lt hand, aaa repair 2015 aortoiliac stent Past Anesthesia/Blood Transfusion Reactions: No Reported Reaction Past Psychological History: No Psychological Hx Reported Smoking Status: Current every day smoker Past Alcohol Use History: Occasional Additional Past Alcohol Use History / Comment(s): has not drank alcohol in 4months. was in past drinking 6 beers every other day. Past Drug Use History: Marijuana - Past Family History Mother Family Medical History: CVA/TIA Father Additional Family Medical History / Comment(s): Father had shingles; not sure what he from Medications and Allergies Home Medications Medication Instructions Recorded Confirmed Type Magnesium Oxide [Mag-Ox] 400 mg PO DAILY #30 tab 06/14/22 12/28/24 Rx Potassium Chloride ER [K-Dur 20] 20 meq PO DAILY #90 tab 06/14/22 12/28/24 Rx Atorvastatin [Lipitor] 10 mg PO DAILY 12/28/24 12/28/24 History Ferrous Sulfate [Feosol] 325 mg PO BID 12/28/24 12/28/24 History Furosemide [Lasix] 20 mg PO DAILY 12/28/24 12/28/24 History Gabapentin [Neurontin] 200 mg PO HS 12/28/24 12/28/24 History HYDROcodone/APAP 7.5-325MG [[place] 1 tab PO BID PRN 12/28/24 12/28/24 History 7.5-325] INSULIN ASPART (NovoLOG) [NovoLOG 4 unit SQ DAILY 12/28/24 12/28/24 History (formulary)] Metoprolol Succinate (ER) [Toprol 25 mg PO DAILY 12/28/24 12/28/24 History Xl] Omeprazole [PriLOSEC] 20 mg PO BID 12/28/24 12/28/24 History Ondansetron [Zofran] 4 mg PO Q8HR PRN 12/28/24 12/28/24 History lisinopriL [Zestril] 2.5 mg PO DAILY 12/28/24 12/28/24 History rOPINIRole HCL [Requip] 0.25 mg PO HS 12/28/24 12/28/24 History traZODone HCL [Desyrel] 100 mg PO HS PRN 12/28/24 12/28/24 History Allergies Allergy/AdvReac Type Severity Reaction Status Date / Time No Known Allergies Allergy Verified 12/30/24 15:22 Physical Examination - Vital Signs Vital Signs: Vital Signs Temp Pulse Pulse Pulse Resp BP BP 12/30/24 17:39 81 15 158/62 12/30/24 17:28 84 16 172/81 12/30/24 17:13 88 16 173/80 12/30/24 16:58 97.3 F L 83 14 172/80 12/30/24 15:23 97.4 F L 76 16 174/60 12/30/24 12:07 72 12/30/24 11:58 70 12/30/24 11:00 63 15 170/77 12/30/24 07:52 97.8 F 63 16 142/65 12/30/24 04:00 97.9 F 70 18 157/90 12/29/24 23:45 98.0 F 62 18 151/71 12/29/24 20:00 98.1 F 73 20 130/66 Pulse Ox 12/30/24 17:39 94 L 12/30/24 17:28 95 12/30/24 17:13 97 12/30/24 16:58 100 12/30/24 15:23 95 12/30/24 12:07 12/30/24 11:58 12/30/24 11:00 97 12/30/24 07:52 98 12/30/24 04:00 98 12/29/24 23:45 99 12/29/24 20:00 98 Intake and Output 12/30/24 12/30/24 12/30/24 06:59 14:59 22:59 Intake Total 136.559 150.255 400 Output Total 1100 450 Balance -963.441 -299.745 400 Intake: IV 20 400 Invasive Line 4 10 Invasive Line 5 10 Intake, IV Titration 116.559 150.255 Amount Heparin Sod,Pork in 0.45% 116.559 150.255 NaCl 25,000 unit In 0.45 % NaCl 1 250ml.bag @ 12 UNITS/KG/HR 8.709 mls/hr IV .Q24H [facility] Rx#: [id number] Output: Urine 1100 450 Other: Voiding Method External Catheter External Catheter # Voids 800 Weight 71.2 kg Patient is an elderly male, in no acute distress. Patient is alert awake. Patient states it is November 2024, and he believes that he is in his home in [facility] in [facility]. Speech and language functions are normal. Patient can name and repeat very well. No aphasia or dysarthria. Attention, concentration is intact and fund of knowledge is slightly limited. Detailed cognitive function testing deferred. Patient is somewhat confused, keeps on asking his to come home, as he believes that he is at his home. But then he believes that his is at "other home" On cranial nerve examination, pupils are equal, round and reacting to light, visual machado are full on confrontation, with no neglect on double simultaneous stimulation. Extraocular muscles are intact with no nystagmus. Face is symmetric, tongue protrudes to the midline. Palatal elevation and sensation normal, hearing and shoulder shrug normal, facial sensation normal. On muscle strength testing, there is no pronator drift and the strength is normal in arms distally and proximally. In the lower limbs, hip flexion is 5- /5, ankle dorsiflexion 5/5, inversion 5/5, eversion 5/5, toe extension 4/2 Deep tendon reflexes are asymmetric (right/left) biceps 1+/1+, brachioradialis 0/1, knees 1+2/1+2 ankles 0/0, plantars are flat. Sensory to touch is equal with no neglect on double simultaneous stimulation. Cerebellar function showed no ataxia for [id number] testing. No dysdiadochokinesia. No ataxia for [id number] testing on either side. Tone and bulk of muscles normal. Gait deferred.. On general examination, there is no carotid bruit or murmur, S1-S2 audible. Chest is clear on consultation. Abdomen is soft nontender. No organomegaly, bowel sounds present. Peripheral pulses are present. No peripheral edema. Results - Laboratory Findings CBC and BMP: 12/29/24 07:55 12/29/24 07:55 Abnormal Lab Findings: Abnormal Labs 12/27/24 12/27/24 12/27/24 21:27 21:27 21:27 WBC 12.0 H RBC 3.84 L Hgb 10.7 L Hct 33.6 L Neutrophils # 10.2 H Lymphocytes # 0.9 L PT 9.8 L APTT 21.0 L Sodium BUN Creatinine Glucose POC Glucose (mg/dL) Hemoglobin A1c 6.2 H Calcium Magnesium AST Creatine Kinase C-Reactive Protein Procalcitonin Ur Specific [place] Urine Protein Urine Blood Urine Opiates Screen 12/27/24 12/28/24 12/28/24 22:00 03:42 06:03 WBC RBC Hgb Hct Neutrophils # Lymphocytes # PT APTT Sodium 135 L BUN 46 H Creatinine 1.37 H Glucose 140 H POC Glucose (mg/dL) 299 H 179 H Hemoglobin A1c Calcium Magnesium 2.6 H AST 62 H Creatine Kinase 982 H C-Reactive Protein Procalcitonin Ur Specific [place] Urine Protein Urine Blood Urine Opiates Screen 12/28/24 12/28/24 12/28/24 11:35 12:54 12:54 WBC RBC Hgb Hct Neutrophils # Lymphocytes # PT APTT Sodium BUN Creatinine Glucose POC Glucose (mg/dL) 243 H Hemoglobin A1c Calcium Magnesium AST Creatine Kinase C-Reactive Protein 33.00 H Procalcitonin 0.98 H Ur Specific [place] Urine Protein Urine Blood Urine Opiates Screen 12/28/24 12/28/24 12/28/24 16:45 16:56 17:20 WBC RBC Hgb 12.2 L Hct Neutrophils # 8.5 H Lymphocytes # PT APTT Sodium BUN Creatinine Glucose POC Glucose (mg/dL) 156 H Hemoglobin A1c Calcium Magnesium AST Creatine Kinase C-Reactive Protein Procalcitonin Ur Specific [place] 1.050 H Urine Protein 1+ H Urine Blood Small H Urine Opiates Screen 12/28/24 12/29/24 12/29/24 20:13 07:55 07:55 WBC RBC 3.51 L Hgb 10.1 L Hct 31.5 L Neutrophils # 8.5 H Lymphocytes # PT APTT Sodium 135 L BUN Creatinine Glucose 102 H POC Glucose (mg/dL) 209 H Hemoglobin A1c Calcium 7.7 L Magnesium AST Creatine Kinase C-Reactive Protein Procalcitonin Ur Specific [place] Urine Protein Urine Blood Urine Opiates Screen 12/29/24 12/29/24 12/29/24 07:55 10:20 11:54 WBC RBC Hgb Hct Neutrophils # Lymphocytes # PT APTT 30.4 H Sodium BUN Creatinine Glucose POC Glucose (mg/dL) 168 H Hemoglobin A1c Calcium Magnesium AST Creatine Kinase 242 H C-Reactive Protein Procalcitonin Ur Specific [place] Urine Protein Urine Blood Urine Opiates Screen 12/29/24 12/29/24 12/29/24 15:03 15:28 16:26 WBC RBC Hgb Hct Neutrophils # Lymphocytes # PT APTT 33.5 H Sodium BUN Creatinine Glucose POC Glucose (mg/dL) 187 H 281 H Hemoglobin A1c Calcium Magnesium AST Creatine Kinase C-Reactive Protein Procalcitonin Ur Specific [place] Urine Protein Urine Blood Urine Opiates Screen 12/29/24 12/29/24 12/29/24 17:20 19:55 21:07 WBC RBC Hgb Hct Neutrophils # Lymphocytes # PT APTT 34.5 H Sodium BUN Creatinine Glucose POC Glucose (mg/dL) 360 H Hemoglobin A1c Calcium Magnesium AST Creatine Kinase C-Reactive Protein Procalcitonin Ur Specific [place] Urine Protein Urine Blood Urine Opiates Screen Detected H 12/30/24 12/30/24 12/30/24 06:08 06:38 11:13 WBC RBC Hgb Hct Neutrophils # Lymphocytes # PT APTT 33.6 H Sodium BUN Creatinine Glucose POC Glucose (mg/dL) 216 H 183 H Hemoglobin A1c Calcium Magnesium AST Creatine Kinase C-Reactive Protein Procalcitonin Ur Specific [place] Urine Protein Urine Blood Urine Opiates Screen 12/30/24 12/30/24 12/30/24 14:57 15:35 17:40 WBC RBC Hgb Hct Neutrophils # Lymphocytes # PT APTT 40.4 H Sodium BUN Creatinine Glucose POC Glucose (mg/dL) 242 H 237 H Hemoglobin A1c Calcium Magnesium AST Creatine Kinase C-Reactive Protein Procalcitonin Ur Specific [place] Urine Protein Urine Blood Urine Opiates Screen Assessment and Plan Assessment: * Altered mental status, likely due to acute delirium. Reasons multifactorial as mentioned below. 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 * Possible pneumonia * Mediastinal lymphadenopathy * New onset atrial fibrillation with RVR * History of CVA 20 years ago. No deficits. * Peripheral neuropathy * Hypertension * Hyperlipidemia * Diabetes type 2 * Acute kidney injury, resolved * Tobacco use Plan: * Patient has developed new onset atrial fibrillation, started on Eliquis 5 mg twice a day. * Check B12, MMA, folate, vitamin B6. * Hemoglobin A1c 6.2, ammonia < 9 * Recommended complete tobacco cessation * Patient undergoing workup for probable malignancy. * CT head showed evidence of old stroke in the right parietal region, with no acute process. * 2-D echo revealed normal LV size and systolic function with EF 60-65%. Severely increased left atrial volume. Moderate MR. * Carotid Doppler * May need further testing if above tests are unrevealing and patient continues to be weak. * Neurology will follow clinically. Thank you for the consult.
--- NOTE | 2024-12-31 08:46 | US ---
EXAMINATION TYPE: US carotid duplex BILAT DATE OF EXAM: 12/31/2024 COMPARISON: US(06/15/2018) CLINICAL INDICATION: Male, 74 years old with history of Weakness, old cva; TECHNIQUE: Grayscale, color Doppler and spectral Doppler evaluation of the bilateral carotid systems and vertebral arteries. Indirect Doppler criteria was utilized. FINDINGS: EXAM MEASUREMENTS: RIGHT: Peak Systolic Velocity (PSV) cm/sec ----- Right CCA: 105 ----- Right ICA: 134 ----- Right ECA: 174 ICA/CCA ratio: 1.3 RIGHT: End Diastole cm/sec ----- Right CCA: 8.5 ----- Right ICA: 22.1 ----- Right ECA: 0.0 LEFT: Peak Systolic Velocity (PSV) cm/sec ----- Left CCA: 112 ----- Left ICA: 194 ----- Left ECA: 187 ICA/CCA ratio: 1.7 LEFT: End Diastole cm/sec ----- Left CCA: 13.9 ----- Left ICA: 25.3 ----- Left ECA: 9.1 VERTEBRALS (direction of flow): Right Vertebral: Antegrade Left Vertebral: Antegrade Rhythm: Normal CIRCULATION MANAGER NOTES: Slightly limited exam due to vessel tortuosity. Mildly elevated velocities with plaque seen within the bilateral bulbs. No significant stenosis seen IMPRESSION: 1. Mildly elevated velocity proximal left ICA may be due to vessel tortuosity versus a moderate (50-6 9%) stenosis. 2. No hemodynamically significant internal carotid artery stenosis on either side. Criteria for Assigning % of Stenosis / Diameter reduction (Estimation based on the indirect measurements of the internal carotid artery velocities (ICA PSV). 1. Normal (no stenosis)=ICA PSV < 180 cm/s: ratio < 2.0: ICA EDV<40 cm/s. 2. Less than 50% stenosis=ICA PSV < 180 cm/s: ratio < 2.0: ICA EDV<40 cm/s. 3. 50 to 69% stenosis=ICA PSV of 180 to 230 cm/s: ration 2.0 ? 4.0: ICA EDV 40-100 cm/s. PSV 125-180 cm/sec and ICA/CCA PSV Ratio ? 2.0 is also consistent with 50-69% stenosis 4. Greater than 70% stenosis to near occlusion= ICA PSV > 230 cm/s: ratio > 4.0: ICA EDV > 100 cm/s. 5. Near occlusion= ICA PSV velocities may be low or undetectable: variable ratio and ICA EDV. 6. Total occlusion=unable to detect flow. [facility], , 12/31/2024 8:44 AM
[2024-12-31 10:45] LABS: African American GFR (CKD) >90 (>60 ml/min/1.73 sqM); Anion Gap 7 mmol/L; Blood Urea Nitrogen 16 mg/dL (9-20); Calcium 8.4 mg/dL (8.4-10.2); Carbon Dioxide 30 mmol/L (22-30); Chloride 99 mmol/L (98-107); Glucose 352 mg/dL (74-99); Non-African American GFR(CKD) >90 (>60 ml/min/1.73 sqM); Potassium 3.4 mmol/L (3.5-5.1); Sodium 136 mmol/L (137-145)
[2024-12-31 11:50] LABS: Glucose,Whole Blood 356 mg/dL (70-110)
--- NOTE | 2024-12-31 12:58 | PN ---
PROGRESS NOTE DATE OF SERVICE: 12/31/2024 CHIEF COMPLAINT: Fever, delirium, and probable metastatic neoplasm. HISTORY OF PRESENT ILLNESS: This gentleman has been identified as having evidence of neoplasm in the lungs, possibly in the liver and adrenal glands. Spleen may also be involved. REVIEW OF SYSTEMS: He denies any chest pain or shortness of breath at this time. PHYSICAL EXAMINATION: CHEST: Clear. CARDIAC: Normal. ABDOMEN: Soft, nontender. IMPRESSION: 1. Fever. 2. Possible metastatic neoplasm. PLAN: Consult Oncology and continue workup. MMODL / IJN: [id number] /
--- NOTE | 2024-12-31 13:43 | P.PN ---
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 Patient follows in the office with Dr. Berg but has not been seen since August 2022. We have been asked to see the patient in consultation for fever. Patient examined at the bedside. Patient presented to the hospital for chief complaint of generalized weakness, nausea and vomiting. Per patient's nurse, patient was unable to get out of bed at home for 4 days. Patient was found to be in atrial fibrillation with RVR. Patient was started on IV heparin and IV Cardizem. He has since converted to sinus mechanism and is maintaining sinus mechanism at the time of examination. His IV Cardizem has been paused. He remains on IV heparin. He denies any chest pain or pressure. Denies any shortness of breath. DIAGNOSTICS: - EKG reveals atrial fibrillation with RVR. - Chest xray right paramediastinal masslike consolidation -Chest CT: Right paramediastinal mass invading into the mediastinum and around the major structures of the mediastinum. This displaces the superior vena cava anteriorly and has thickened appearance which puts patient at risk for thoracic outlet syndrome. Additionally there is right upper lung nodule and neck lymph nodes concerning for metastatic disease. Consolidative changes in the right lower lobe correlate for developing pneumonia. Indeterminate mass in the left upper quadrant thought to be coming from the liver over the stomach and measures 5.8 cm. - Laboratory data: WBC 10.5. Hemoglobin 12.2. Platelet count 310. Sodium 135. Potassium 5.0. BUN 46. Creatinine 1.37. Hemoglobin A1c 6.2. Magnesium 2.6. Troponin negative x 1. Creatinine kinase 982. - Current home cardiac medications include lisinopril 2.5 mg daily, metoprolol succinate 25 mg daily, Lasix 20 mg daily, atorvastatin 10 mg daily -Patient underwent FARA in May 2022 revealing large vegetation involving anterior mitral leaflet and moderate size vegetation involving the posterior mitral leaflet. There is a small vegetation over the left coronary cusp of the aortic valve - Most recent echocardiogram obtained in May 2022 revealing ejection fraction 50 to 55% - Cardiac catheterization history: Unknown 12/30/2024 Patient examined this morning at the bedside. Patient currently denies chest pain or pressure. He denies shortness of breath. He remains on IV heparin. Telemetry reveals sinus mechanism. He is scheduled to undergo bronchoscopy today. Echocardiogram completed revealing ejection fraction 60 to 65%, no obv ious regional wall motion abnormalities, no intracardiac masses, moderate MR. Blood cultures are negative at 24-hour andi 12/31/2024 Patient examined this morning at the bedside. He is status post bronchoscopy and biopsy with Dr. Lynn yesterday. Vital signs are stable. Telemetry reveals sinus mechanism. Patient has been transitioned to Eliquis. Blood cultures are negative at 48-hour andi. PHYSICAL EXAM: VITAL SIGNS: Reviewed. GENERAL: Well-developed in no acute distress. HEENT: Head is normocephalic. Pupils are equal, round. Sclerae anicteric. Mucous membranes of the mouth are moist. Neck supple. No JVD or thyromegaly LUNGS: Respirations even and unlabored. Lungs essentially clear to auscultation bilaterally. HEART: Regular rate and rhythm. S1 and S2 heard. ABDOMEN: Soft. Nondistended. Nontender. EXTREMITIES: Normal range of motion. No clubbing or cyanosis. Peripheral puls es intact. No lower extremity edema NEUROLOGIC: Awake and alert. Oriented x 3. ASSESSMENT: New onset paroxysmal A-fib with RVR, currently maintaining sinus mechanism Right lower lobe consolidation/atelectasis, rule out pneumonia Generalized weakness, nausea and vomiting Mildly elevated creatinine kinase 982 Right suprahilar mass causing mass effect on right mainstem bronchus and trachea Left upper quadrant mass thought to be coming from liver, measuring 5.8 cm History of infective endocarditis, 2021 Hypertension Hyperlipidemia History of CVA Moderate mitral regurgitation PLAN: Patient has been transitioned to Eliquis. Continue Lipitor and metoprolol Continue telemetry monitoring Pulmonary following. Await results of biopsy of right lung mass. No further inpatient recommendations from a cardiac standpoint We will sign off. Please reconsult if needed. Nurse practitioner note has been reviewed by physician. Signing provider agrees with the documented findings, assessment, and plan of care documented by LABORER SALVAGE as a scribe. Objective - Vital Signs Vital signs: Vital Signs Temp 97.7 F 12/30/24 20:00 Pulse 71 12/31/24 04:00 Resp 16 12/31/24 04:00 BP 149/64 12/31/24 04:00 Pulse Ox 96 12/31/24 04:00 FiO2 Intake & Output 12/30/24 12/31/2425 18:59 06:59 18:59 Intake Total 550.255 Output Total 450 900 Balance 100.255 -900 Weight 73.8 kg Intake: IV 400 Intake, IV Titration 150.255 Amount Heparin Sod,Pork in 0.45% 150.255 NaCl 25,000 unit In 0.45 % NaCl 1 250ml.bag @ 12 UNITS/KG/HR 8.709 mls/hr IV .Q24H [facility] Rx#: [id number] Output: Urine 450 900 Other: Voiding Method External Catheter External Catheter - Labs CBC & Chem 7: 12/29/24 07:55 12/31/24 10:10 Labs: Abnormal Lab Results - Last 24 Hours (Table) 12/30/24 12/30/24 12/30/24 Range/Units 11:13 14:57 15:35 APTT 40.4 H (22.0-30.0) sec POC Glucose (mg/dL) 183 H 242 H (70-110) mg/dL 12/30/24 12/30/24 12/31/24 Range/Units 17:40 19:55 05:58 APTT (22.0-30.0) sec POC Glucose (mg/dL) 237 H 249 H 199 H (70-110) mg/dL Microbiology - Last 24 Hours (Table) 12/28/24 06:21 Blood Culture - Preliminary Blood
--- NOTE | 2024-12-31 15:11 | P.PN ---
Subjective Patient is seen for follow-up for acute kidney injury. Maintained on IV fluids Renal function has improved with creatinine down to 0.6 mg/dL. CK level is down to 242. No significant complaints. Objective - Vital Signs Vital signs: Vital Signs Temp 97.4 F L 12/31/24 09:16 Pulse 82 12/31/24 11:57 Resp 15 12/31/24 11:57 BP 163/81 12/31/24 11:57 Pulse Ox 94 L 12/31/24 11:57 FiO2 Intake & Output 12/30/24 12/31/24 12/31/24 18:59 06:59 18:59 Intake Total 550.255 118 Output Total 450 900 Balance 100.255 -900 118 Weight 73.8 kg Intake: IV 400 Intake, IV Titration 150.255 Amount Heparin Sod,Pork in 0.45% 150.255 NaCl 25,000 unit In 0.45 % NaCl 1 250ml.bag @ 12 UNITS/KG/HR 8.709 mls/hr IV .Q24H [facility] Rx#: [id number] Oral 118 Output: Urine 450 900 Other: Voiding Method External Catheter External Catheter External Catheter - Exam Patient is awake, comfortable, no acute distress Examination of the heart S1 and S2 Examination of the lungs bilateral breath sounds are heard Abdomen is soft nontender Examination of lower extremities shows no significant edema INSTRUMENT SPECIALIST exam grossly intact - Labs CBC & Chem 7: 12/29/24 07:55 12/31/24 10:10 Labs: Abnormal Lab Results - Last 24 Hours (Table) 12/30/24 12/30/24 12/30/24 Range/Units 14:57 15:35 17:40 APTT 40.4 H (22.0-30.0) sec Sodium (137-145) mmol/L Potassium (3.5-5.1) mmol/L Glucose (74-99) mg/dL POC Glucose (mg/dL) 242 H 237 H (70-110) mg/dL 12/30/24 12/31/24 12/31/24 Range/Units 19:55 05:58 10:10 APTT (22.0-30.0) sec Sodium 136 L (137-145) mmol/L Potassium 3.4 L (3.5-5.1) mmol/L Glucose 352 H (74-99) mg/dL POC Glucose (mg/dL) 249 H 199 H (70-110) mg/dL 12/31/24 Range/Units 11:48 APTT (22.0-30.0) sec Sodium (137-145) mmol/L Potassium (3.5-5.1) mmol/L Glucose (74-99) mg/dL POC Glucose (mg/dL) 356 H (70-110) mg/dL Microbiology - Last 24 Hours (Table) 12/28/24 06:21 Blood Culture - Preliminary Blood 12/30/24 15:50 Gram Stain - Preliminary Bronchoalviolar Lavage - Right Assessment and Plan Assessment: 1. Acute kidney injury mostly prerenal associated with volume depletion. Maintained on IV fluids. Previous creatinine was 0.8 on 07/29/2022. UA shows 1+ protein and small blood 2. Mild rhabdomyolysis, patient was maintained on statins. TSH not elevated. 3. Fever, obtain workup for underlying infection. Chest x-ray shows right paramediastinal masslike consolidation, chest CT has been ordered. Check UA 4. Volume depletion, improved 5. Underlying malignancy with metastasis noted on CT with lesion in the adrenal gland liver and lung along with the right paramediastinal mass. Plan: Decrease IV fluids Encourage increase oral intake Needs oncology evaluation
--- NOTE | 2024-12-31 15:23 | P.PN ---
Subjective Progress Note Date: 12/31/24 Principal diagnosis: Reason for follow-up is fever/postobstructive pneumonia Patient is a 74-year-old male with a past medical history significant for CVA TIA diabetes mellitus hypertension hyperlipidemia and seizure disorder current everyday smoker presenting to the hospital for evaluation of mental status changes did have a fever prompting this consultation.Patient is status post bronchoscopy and biopsy of the right upper lobe mass completed on 12/30/2024. On today's evaluation that is 12/31/2024, the patient continues to be afebrile, the patient is on room air and breathing comfortably, the Pt denies having any chest pain or any worsening cough, the patient denies having any abdominal pain no vomiting or any diarrhea. Patient did have a creatinine 0.66 no CBC was done today BAL cultures pending Objective - Vital Signs Vital signs: Vital Signs Temp 97.4 F L 12/31/24 09:16 Pulse 82 12/31/24 11:57 Resp 15 12/31/24 11:57 BP 163/81 12/31/24 11:57 Pulse Ox 94 L 12/31/24 11:57 FiO2 Intake & Output 12/30/24 12/31/24 12/31/24 18:59 06:59 18:59 Intake Total 550.255 118 Output Total 450 900 Balance 100.255 -900 118 Weight 73.8 kg Intake: IV 400 Intake, IV Titration 150.255 Amount Heparin Sod,Pork in 0.45% 150.255 NaCl 25,000 unit In 0.45 % NaCl 1 250ml.bag @ 12 UNITS/KG/HR 8.709 mls/hr IV .Q24H [facility] Rx#: [id number] Oral 118 Output: Urine 450 900 Other: Voiding Method External Catheter External Catheter External Catheter - Exam GENERAL DESCRIPTION: An elderly male lying in bed in no distress RESPIRATORY SYSTEM: Unlabored breathing , decreased breath sounds at bases HEART: S1 S2 regular rate and rhythm , ABDOMEN: Soft , no tenderness EXTREMITIES: No edema feet - Labs CBC & Chem 7: 12/29/24 07:55 12/31/24 10:10 Labs: Abnormal Lab Results - Last 24 Hours (Table) 12/30/24 12/30/24 12/30/24 Range/Units 14:57 15:35 17:40 APTT 40.4 H (22.0-30.0) sec Sodium (137-145) mmol/L Potassium (3.5-5.1) mmol/L Glucose (74-99) mg/dL POC Glucose (mg/dL) 242 H 237 H (70-110) mg/dL 12/30/24 12/31/24 12/31/24 Range/Units 19:55 05:58 10:10 APTT (22.0-30.0) sec Sodium 136 L (137-145) mmol/L Potassium 3.4 L (3.5-5.1) mmol/L Glucose 352 H (74-99) mg/dL POC Glucose (mg/dL) 249 H 199 H (70-110) mg/dL 12/31/24 Range/Units 11:48 APTT (22.0-30.0) sec Sodium (137-145) mmol/L Potassium (3.5-5.1) mmol/L Glucose (74-99) mg/dL POC Glucose (mg/dL) 356 H (70-110) mg/dL Microbiology - Last 24 Hours (Table) 12/28/24 06:21 Blood Culture - Preliminary Blood 12/30/24 15:50 Gram Stain - Preliminary Bronchoalviolar Lavage - Right Assessment and Plan (1) Sepsis Current Visit: No Status: Acute Code(s): A41.9 - SEPSIS, UNSPECIFIED ORGANISM SNOMED Code(s): 81703732 (2) Pneumonia Current Visit: No Status: Acute Code(s): J18.9 - PNEUMONIA, UNSPECIFIED ORGANISM SNOMED Code(s): 124462093 Plan: 1patient presented to hospital with sepsis in this patient who did have a fever tachycardia elevated white count meeting criteria for SIRS source is likely pneumonia in this patient did have abnormal x-ray concerning for possible mass and a question of possible postobstructive pneumonia and will need to cover for the polymicrobial juli associated with postobstructive pneumonia 2patient did have CT of the chest with significant abnormality concerning for possible malignancy and postobstructive pneumonia 3patient did have resolution of his fever and status post bronchoscopy biopsy and lavage cultures will follow continue with the Trudy Dictation was produced using [employer] dictation software. please excuse any grammatical, word or spelling errors. Time with Patient: Less than 30
--- NOTE | 2024-12-31 15:58 | P.CONS ---
History of Present Illness - Reason for Consult Consult date: 12/31/24 Lung Mass - History of Present Illness The patient is a 74-year-old white male, with multiple medical problems. He came into the emergency room, initially because of right hip and knee pain with lower extremity, and generalized weakness. There was also some associated nausea with intermittent vomiting. Symptoms have developed over the past 2 weeks. Due to progression, he was having difficulty getting out of bed, leading him to come to the ER. In the emergency room, he was found to have elevated CPK. Imaging of the right hip showed osteoarthritis without any evidence of other significant abnormality. Chest imaging showed a large right paramediastinal mass, leading to a CT chest. This confirmed a mass in the right perihilar area, 9.8 cm in largest dimension, with encroachment onto the trachea and mediastinum. Visualized areas of the upper abdomen showed possibility of a mass arising from the left lobe of the liver and extending towards the spleen. The patient then had a dedicated CT of the abdomen and pelvis, that showed the spleen to be enlarged with a masslike area, that was consistent with a prior large infarct, that had been documented on imaging in 2021. There was also a new gastrohepatic nodule which was felt to be a splenule, although metastasis was not ruled out. The patient underwent a bronchoscopy, which showed obstructive mass involving the right upper lobe airways. Biopsies are pending. Patient has a longstanding history of smoking, at least a pack a day, for 50 years. He has known peripheral vascular occlusive disease. On detailed questioning, he does not feel there has been any major change in his respiratory status. He does have a chronic dry cough which according to him was also stable. He has lost about 50 pounds over the past 6 months. Review of Systems Constitutional: Reports weakness, Reports weight loss Eyes: denies blurred vision, denies pain Ears: deny: decreased hearing, ear discharge, earache, tinnitus Ears, nose, mouth and throat: Denies headache, Denies sore throat Cardiovascular: Reports decreased exercise tolerance Respiratory: Reports cough Gastrointestinal: Denies abdominal pain, Denies diarrhea, Denies nausea, Denies vomiting Genitourinary: Reports as per HPI Musculoskeletal: Reports as per HPI Musculoskeletal: right: hip pain, hip stiffness, knee pain Integumentary: Denies pruritus, Denies rash Neurological: Reports weakness Psychiatric: Denies anxiety, Denies depression Endocrine: Reports fatigue, Reports weight change Hematologic/Lymphatic: Reports as per HPI Past Medical History Past Medical History: CVA/TIA, Diabetes Mellitus, Hyperlipidemia, Hypertension Additional Past Medical History / Comment(s): endocarditis History of Any Multi-Drug Resistant Organisms: None Reported Past Surgical History: Orthopedic Surgery Additional Past Surgical History / Comment(s): hemmoroid, nahid feet, lt hand, aaa repair 2015 aortoiliac stent Past Anesthesia/Blood Transfusion Reactions: No Reported Reaction Past Psychological History: No Psychological Hx Reported Smoking Status: Current every day smoker Past Alcohol Use History: Occasional Additional Past Alcohol Use History / Comment(s): has not drank alcohol in 4months. was in past drinking 6 beers every other day. Past Drug Use History: Marijuana - Past Family History Mother Family Medical History: CVA/TIA Father Additional Family Medical History / Comment(s): Father had shingles; not sure what he from Medications and Allergies Home Medications Medication Instructions Recorded Confirmed Type Magnesium Oxide [Mag-Ox] 400 mg PO DAILY #30 tab 06/14/22 12/28/24 Rx Potassium Chloride ER [K-Dur 20] 20 meq PO DAILY #90 tab 06/14/22 12/28/24 Rx Atorvastatin [Lipitor] 10 mg PO DAILY 12/28/24 12/28/24 History Ferrous Sulfate [Feosol] 325 mg PO BID 12/28/24 12/28/24 History Furosemide [Lasix] 20 mg PO DAILY 12/28/24 12/28/24 History Gabapentin [Neurontin] 200 mg PO HS 12/28/24 12/28/24 History HYDROcodone/APAP 7.5-325MG [Watson 1 tab PO BID PRN 12/28/24 12/28/24 History 7.5-325] INSULIN ASPART (NovoLOG) [NovoLOG 4 unit SQ DAILY 12/28/24 12/28/24 History (formulary)] Metoprolol Succinate (ER) [Toprol 25 mg PO DAILY 12/28/24 12/28/24 History Xl] Omeprazole [PriLOSEC] 20 mg PO BID 12/28/24 12/28/24 History Ondansetron [Zofran] 4 mg PO Q8HR PRN 12/28/24 12/28/24 History lisinopriL [Zestril] 2.5 mg PO DAILY 12/28/24 12/28/24 History rOPINIRole HCL [Requip] 0.25 mg PO HS 12/28/24 12/28/24 History traZODone HCL [Desyrel] 100 mg PO HS PRN 12/28/24 12/28/24 History Allergies Allergy/AdvReac Type Severity Reaction Status Date / Time No Known Allergies Allergy Verified 12/30/24 15:22 Physical Exam Vitals: Vital Signs Temp Pulse Pulse Pulse Resp BP BP 12/31/24 11:57 82 15 163/81 12/31/24 09:16 97.4 F L 81 17 145/66 12/31/24 09:03 76 12/31/24 08:54 70 12/31/24 04:00 71 16 149/64 12/31/24 00:00 55 L 16 142/63 12/30/24 20:00 97.7 F 69 16 160/73 12/30/24 17:39 81 15 158/62 12/30/24 17:28 84 16 172/81 12/30/24 17:13 88 16 173/80 12/30/24 16:58 97.3 F L 83 14 172/80 Pulse Ox 12/31/24 11:57 94 L 12/31/24 09:16 94 L 12/31/24 09:03 12/31/24 08:54 96 12/31/24 04:00 96 12/31/24 00:00 99 12/30/24 20:00 93 L 12/30/24 17:39 94 L 12/30/24 17:28 95 12/30/24 17:13 97 12/30/24 16:58 100 Intake and Output 12/31/24 12/31/24 12/31/24 06:59 14:59 22:59 Intake Total 118 Output Total 900 Balance -900 118 Intake: Oral 118 Output: Urine 900 Other: Voiding Method External Catheter External Catheter Weight 73.8 kg - Constitutional General appearance: no acute distress - EENT Eyes: EOMI, PERRLA ENT: hearing grossly normal, normal oropharynx - Neck Neck: no lymphadenopathy Thyroid: bilateral: normal size - Respiratory Respiratory: bilateral: diminished (Suggestive of COPD) - Cardiovascular Rhythm: regular Heart sounds: normal: S1, S2 - Gastrointestinal General gastrointestinal: normal bowel sounds, soft - Integumentary Integumentary: normal - Neurologic Neurologic: CNII-XII intact - Musculoskeletal Musculoskeletal: generalized weakness, strength equal bilaterally - Psychiatric Psychiatric: A&O x's 3, appropriate affect Results CBC & Chem 7: 12/29/24 07:55 12/31/24 10:10 Labs: Abnormal Lab Results - Last 24 Hours (Table) 12/30/24 12/30/24 12/30/24 Range/Units 15:35 17:40 19:55 Sodium (137-145) mmol/L Potassium (3.5-5.1) mmol/L Glucose (74-99) mg/dL POC Glucose (mg/dL) 242 H 237 H 249 H (70-110) mg/dL 12/31/24 12/31/24 12/31/24 Range/Units 05:58 10:10 11:48 Sodium 136 L (137-145) mmol/L Potassium 3.4 L (3.5-5.1) mmol/L Glucose 352 H (74-99) mg/dL POC Glucose (mg/dL) 199 H 356 H (70-110) mg/dL Microbiology - Last 24 Hours (Table) 12/28/24 06:21 Blood Culture - Preliminary Blood 12/30/24 15:50 Gram Stain - Preliminary Bronchoalviolar Lavage - Right Chest x-ray: report reviewed CT scan - abdomen: report reviewed CT scan - chest: report reviewed CT scan - pelvis: report reviewed Assessment and Plan (1) Mass of right lung Narrative/Plan: The patient was incidentally found to have a large right lung mass, on chest x- ray, during initial admission workup for generalized weakness, and right hip and knee pain. Interestingly his presenting complaints have improved significantly without a definite cause being found in terms of major osseous abnormality. He did have evidence of elevated CPK, which which is also improved with hydration. -The imaging results and implications were discussed in detail with him. The clinical picture is highly suggestive of primary lung malignancy. Bronchoscopy findings of obstructive mass involving the right upper airways is also highly suggestive of the same. Await biopsies for tissue diagnosis -Imaging so far does not reveal any definite evidence for metastatic disease. There was concern related to the upper abdominal findings on the chest CT. However CT abdomen pelvis indicates that the left upper quadrant findings are likely due to prior splenic infarct, while the more central, gastrohepatic mass could represent a splenule. However metastasis in this area is not ruled out. The patient will need a PET scan for staging, which will be scheduled outpatient. Inpatient, we will proceed with MRI for MANAGER LATIN staging. Current Visit: Yes Status: Acute Code(s): R91.8 - OTHER NONSPECIFIC ABNORMAL FINDING OF LUNG FIELD SNOMED Code(s): 712710061 Plan: Defer to the admitting service for management of his multiple other medical problems
--- NOTE | 2024-12-31 16:07 | P.PN ---
Subjective Progress Note Date: 12/31/24 Will be given to him 74-year-old male patient, presented to emergency department with complaints of right hip pain, left knee pain, generalized weakness over the past several days along with some symptoms of nausea and emesis. It was reported over the past 3 days, the patient was unable to get out of bed and the patient was weak and quite shaky to the point where he was unable to hold a cup. His weakness was essentially symmetrical. No reported falls. He was having some altered mentation in addition. Based on that, the patient underwent further investigation. The white cell count was at 12 with a hemoglobin 10.7 and a platelet count of 246. Normal coagulation profile. BUN of 46 with a cre atinine of 1.37 and a sodium level was 135 and a potassium level was 5. Normal LFTs. Normal troponins. TSH was at 1.5. Rest of the electrolytes were normal. Alcohol level was less than 10 and the viral screen was also negative. The patient was given a CAT scan of the brain that showed no acute intracranial process. There was some nonspecific white matter changes likely related to chronic small vessel ischemic disease and remote injury/stroke involving the right parietal lobe. X-ray of the hip showed mild to moderate hip osteoarthritis without any evidence of an acute abnormalities on the right and x-ray of the tibia and fibula showed no evidence of any fractures. Chest x-ray revealed a right paramediastinal mass and this was followed up by a CAT scan of the chest that showed a right suprahilar mass measuring 7.2 x 6.2 x 9.8 cm in size. The mass was encroaching on the trachea and right mainstem bronchus causing mass effect. The IVC was quite compressed. It was still patent. In addition, the CAT scan of the upper abdomen and liver demonstrated a high density mass in the left hepatic lobe measuring 5.8 x 4.8 cm in size and the patient had a nodular contour of the adrenal gland and the findings were highly suggestive of bronchogenic carcinoma with metastases. Some limited consolidation in the right lower lobe was also noted. There was an indeterminate mass in the left upper quadrant area measuring 5.8 cm in size. Exact nature of this mass was not clear. X-rays right-sided pleural effusion was also noted. On 12/29/2024, the patient is being seen for a follow-up. No changes in his overall condition. Remains calm and comfortable. Slightly bronchospastic and wheezy and the patient will be started on IV Solu-Medrol. He will be also started on DuoNeb nebulized treatments [id number]. I had further discussion with him regarding the CAT scan finding the patient will need a bronchoscopy and endobronchial ultrasound and biopsy of the right suprahilar mas s. The patient was agreeable. The white cell count is at 10.6 with a hemoglobin of 10.1 and a platelet count of 272. Normal coagulation profile. BUN 17 with a creatinine of 0.7. CPK is 242. He did encounter atrial fibrillation with rapid ventricular response. Based on that, the patient got tr ansferred to the telemetry unit. The patient was seen by cardiology. 2D echocardiogram was ordered. Cardizem has been discontinued and the patient is currently on metoprolol 50 mg p.o. twice a day. He is current rhythm is sinus. He is on IV heparin. 12/30/2024, the patient is n.p.o. for a bronchoscopy. As stated, the patient has a large right upper lobe mass with some mass effect on the right mainstem bronchus and the main trachea. This is a bulky tumor. The patient remains quite debilitated. Complaining of generalized weakness. He is afebrile. Hemodynamically stable. He is on room air oxygen. No nausea vomiting or emesis. No focal neurological deficits. No new labs are available from today. Continues to be on DuoNeb nebulized treatments [id number]. Remains on IV Solu-Medrol. Remains on IV Zosyn and consideration for a right lung pneumonia, postobstructive. Otherwise, no other significant changes in his condition. In terms of his cardiac rhythm, the patient remains on IV heparin awaiting bronchoscopy. After completion of the bronchoscopy, the patient will be switched to anticoagulation with Eliquis. His current cardiac rhythm is sinus. On 12/31/2024, the patient is being seen for a follow-up. Resting comfortably in bed. No new complaints for now. The patient is currently on room air oxygen with a pulse ox of 95%. No facial swelling. No arm swelling. No hemoptysis. No pleurisy. The patient was noted to be in normal sinus rhythm. Underwent bro nchoscopy and biopsy of the right upper lobe mass was also done yesterday. Pathology is pending for now. Meanwhile, the patient was seen by medical oncology. Further recommendations are to follow pending tissue diagnosis on this patient. Blood work from today shows a sodium level of 136, potassium of 3.4, BUN 16 with a creatinine of 0.66. Remains on bronchodilators. Remains on empiric antibiotic coverage with IV Zosyn. Remains on IV Solu-Medrol 60 mg every 6 hours and the patient obviously is less bronchospastic and wheezy compared to yesterday. Started on metoprolol 50 mg p.o. twice daily. The patient is also on anticoagulation with Eliquis regarding paroxysmal atrial fibrillation. Normal same rate of 60 cc an hour. No other significant events overnight. Objective - Vital Signs Vital signs: Vital Signs Temp 97.4 F L 12/31/24 09:16 Pulse 81 12/31/24 09:16 Resp 17 12/31/24 09:16 BP 145/66 12/31/24 09:16 Pulse Ox 94 L 12/31/24 09:16 FiO2 Intake & Output 12/30/24 12/31/24 12/31/24 18:59 06:59 18:59 Intake Total 550.255 118 Output Total 450 900 Balance 100.255 -900 118 Weight 73.8 kg Intake: IV 400 Intake, IV Titration 150.255 Amount Heparin Sod,Pork in 0.45% 150.255 NaCl 25,000 unit In 0.45 % NaCl 1 250ml.bag @ 12 UNITS/KG/HR 8.709 mls/hr IV .Q24H [facility] Rx#: [id number] Oral 118 Output: Urine 450 900 Other: Voiding Method External Catheter External Catheter External Catheter - Exam The patient appeared well nourished and normally developed. Vital signs as documented. The patient is currently on room air oxygen Head exam is unremarkable. No scleral icterus or corneal arcus noted. Neck is without jugular venous distension, thyromegaly, or carotid bruits. Carotid upstrokes are brisk bilaterally. Lungs are clear to auscultation and percussion. The patient has diminished breath sound right lung base, scattered expiratory wheezes Cardiac exam reveals the PMI to be normally sized and situated. Rhythm is regular. First and second heart sounds normal. No murmurs, rubs or gallops. Abdominal exam reveals normal bowel sounds, no masses, no organomegaly and no aortic enlargement. Extremities are nonedematous and both femoral and pedal pulses are normal. Examination of the skin revealed no evidence of significant rashes, suspicious appearing nevi or other concerning lesions. Neurologically, the patient is awake and alert and the patient does not have any focal neurological deficit. Cranial nerves are essentially intact. Generalized motor weakness, symmetric in all 4 extremities. - Labs CBC & Chem 7: 12/29/24 07:55 12/31/24 10:10 Labs: Abnormal Lab Results - Last 24 Hours (Table) 12/30/24 12/30/24 12/30/24 Range/Units 11:13 14:57 15:35 APTT 40.4 H (22.0-30.0) sec Sodium (137-145) mmol/L Potassium (3.5-5.1) mmol/L Glucose (74-99) mg/dL POC Glucose (mg/dL) 183 H 242 H (70-110) mg/dL 12/30/24 12/30/24 12/31/24 Range/Units 17:40 19:55 05:58 APTT (22.0-30.0) sec Sodium (137-145) mmol/L Potassium (3.5-5.1) mmol/L Glucose (74-99) mg/dL POC Glucose (mg/dL) 237 H 249 H 199 H (70-110) mg/dL 12/31/24 Range/Units 10:10 APTT (22.0-30.0) sec Sodium 136 L (137-145) mmol/L Potassium 3.4 L (3.5-5.1) mmol/L Glucose 352 H (74-99) mg/dL POC Glucose (mg/dL) (70-110) mg/dL Microbiology - Last 24 Hours (Table) 12/30/24 15:50 Gram Stain - Preliminary Bronchoalviolar Lavage - Right 12/28/24 06:21 Blood Culture - Preliminary Blood Assessment and Plan Plan: Large right suprahilar mass measuring 9.8 x 6.2 x 7.2 cm in size and causing mass effect on the right mainstem bronchus and the trachea with impending SVC syndrome. The SVC was noted to be compressed yet patent. Patient also has another indeterminate mass in the abdomen measuring 5.8 x 4.8 cm in size. This could be originating from the left hepatic lobe versus stomach versus adrenal gland. The exact origin of this abdominal mass is not clear. The patient is post bronchoscopy, biopsy of the endobronchial tumor in the right upper lobe and biopsy of the right upper lobe mass via EBUS and transbronchial needle aspirate. Procedure was completed on 12/30/2024. Right lower lobe consolidation/atelectasis. Rule out pneumonia. The patient is currently febrile. He has hemodynamically stable. Mediastinal lymphadenopathy COPD with secondary exacerbation, currently on the combination of bronchodilators and IV steroids. New onset A-fib, RVR, back into normal sinus rhythm. The patient is currently on metoprolol. Patient was also started on anticoagulation with Eliquis. CVA involving the right parietal, old based on the CAT scan of the head Seizure disorder Hypertension Hyperlipidemia Diabetes mellitus type 2 Acute kidney injury, likely related to volume depletion Osteoarthritis Abdominal aortic aneurysm was repaired back in 2014 and the patient has under gone aortoiliac stenting Chronic smoker Plan Bronchoscopy was completed pending results. Endobronchial biopsy of the tumor in the right upper lobe was done. Transbronchial needle aspirate of the right hilar mass was also done. DuoNeb nebulized treatments 4 times a day IV Solu-Medrol 60 mg every 6 hours to be continued for another 24 hours Titrate oxygen flow to maintain saturation above 90%, currently on room air oxygen Cover the patient with empiric antibiotic coverage with IV Zosyn Current cardiac rhythm is sinus Patient is on beta-blockers with metoprolol Patient was started on anticoagulation with Eliquis Management of atrial fibrillation per cardiology. Oncology consultation appreciated Will continue to follow Time with Patient: Greater than 30
[2024-12-31 16:31] LABS: Glucose,Whole Blood 323 mg/dL (70-110)
[2024-12-31] MEDS: FOLIC ACID 1 MG TAB PO SCH (16:40)
[2024-12-31] MEDS: SODIUM CHLORIDE 0.9% 1,000 ML IV SCH (16:42)
[2024-12-31 20:07] LABS: Glucose,Whole Blood 239 mg/dL (70-110)
[2025-01-01 05:58] LABS: Glucose,Whole Blood 204 mg/dL (70-110)
--- NOTE | 2025-01-01 11:01 | P.PN ---
Subjective Patient is seen in follow-up for acute kidney injury now resolved. Oral intake is good. Denies chest pain or shortness of breath. Has been voiding. Vital signs are stable. General: No acute distress. HEENT: Head exam is unremarkable. LUNGS: No audible rhonchi or wheezes. HEART: Rate and Rhythm are regular. ABDOMEN: Nontender. EXTREMITITES: No edema. Objective - Vital Signs Vital signs: Vital Signs Temp 97.7 F 01/01/25 08:42 Pulse 94 01/01/25 08:42 Resp 17 01/01/25 08:42 BP 129/59 01/01/25 08:42 Pulse Ox 94 L 01/01/25 08:45 FiO2 Intake & Output 12/31/24 01/01/25 01/01/25 18:59 06:59 18:59 Intake Total 118 138 Output Total 200 1950 Balance -82 -1949 138 Weight 73 kg Intake: IV 20 Invasive Line 4 10 Invasive Line 5 10 Oral 118 118 Output: Urine 200 1950 Other: Voiding Method External Catheter External Catheter External Catheter # Voids 1 # Bowel Movements 1 - Labs CBC & Chem 7: 12/29/24 07:55 12/31/24 10:10 Labs: Abnormal Lab Results - Last 24 Hours (Table) 12/31/24 12/31/24 12/31/24 Range/Units 11:48 16:29 20:06 POC Glucose (mg/dL) 356 H 323 H 239 H (70-110) mg/dL 01/01/25 Range/Units 05:55 POC Glucose (mg/dL) 204 H (70-110) mg/dL Microbiology - Last 24 Hours (Table) 12/30/24 15:50 Acid Fast Bacilli Smear - Preliminary Bronchoalviolar Lavage - Right 12/28/24 06:21 Blood Culture - Preliminary Blood 12/30/24 15:50 Gram Stain - Preliminary Bronchoalviolar Lavage - Right Assessment and Plan Plan: Assessment: 1. Acute kidney injury secondary to vasomotor nephropathy secondary to hypovolemia. Resolved. 2. Mild rhabdomyolysis. CK levels improved. 3. Right lung mass being followed by oncology and pulmonology. 4. Hypokalemia from poor intake. Plan: Maintain gentle IV hydration. Encourage oral intake. Replace electrolytes as needed. I will sign off. Please call with any questions or concerns.
[2025-01-01 11:44] LABS: African American GFR (CKD) >90 (>60 ml/min/1.73 sqM); Anion Gap 7 mmol/L; Blood Urea Nitrogen 17 mg/dL (9-20); Calcium 8.1 mg/dL (8.4-10.2); Carbon Dioxide 32 mmol/L (22-30); Chloride 97 mmol/L (98-107); Creatine Kinase 44 U/L (55-170); Glucose 379 mg/dL (74-99); Non-African American GFR(CKD) >90 (>60 ml/min/1.73 sqM); Potassium 2.9 mmol/L (3.5-5.1); Sodium 136 mmol/L (137-145)
[2025-01-01] MEDS ORDERED: Potassium Replacement Protocol 1 EACH MISC MISCELLANE PRN (11:48)
[2025-01-01 11:50] LABS: Glucose,Whole Blood 439 mg/dL (70-110)
[2025-01-01] MEDS: predniSONE 20 MG TAB PO SCH (12:19)
[2025-01-01] MEDS: POTASSIUM CHLORIDE ER 20 MEQ TAB.ER PO SCH (12:19)
--- NOTE | 2025-01-01 12:22 | PN ---
PROGRESS NOTE DATE OF SERVICE: 01/01/2025 CHIEF COMPLAINT: Fever, weakness, and shortness of breath. HISTORY OF PRESENT ILLNESS: This gentleman is about the same. It is difficult to tell how well oriented he is. Apparently, he is being set up for an MRI to gain further information about the extent of his disease. After that, Oncology will have to make a determination as to the potential for treatment and salvage and decide whether or not he will require palliative or hospice care. PHYSICAL EXAMINATION: GENERAL: He is losing weight. LUNGS: Breath sounds are heard bilaterally. CARDIAC: Unchanged. ABDOMEN: Soft, nontender. IMPRESSION: Metastatic carcinoma of the lung. PLAN: Continue further workup to determine the extent of his disease for staging and treatment. MMODL / IJN: [id number] /
--- NOTE | 2025-01-01 13:49 | P.PN ---
Subjective Progress Note Date: 01/01/25 Will be given to him 74-year-old male patient, presented to emergency department with complaints of right hip pain, left knee pain, generalized weakness over the past several days along with some symptoms of nausea and emesis. It was reported over the past 3 days, the patient was unable to get out of bed and the patient was weak and quite shaky to the point where he was unable to hold a cup. His weakness was essentially symmetrical. No reported falls. He was having some altered mentation in addition. Based on that, the patient underwent further investigation. The white cell count was at 12 with a hemoglobin 10.7 and a platelet count of 246. Normal coagulation profile. BUN of 46 with a cre atinine of 1.37 and a sodium level was 135 and a potassium level was 5. Normal LFTs. Normal troponins. TSH was at 1.5. Rest of the electrolytes were normal. Alcohol level was less than 10 and the viral screen was also negative. The patient was given a CAT scan of the brain that showed no acute intracranial process. There was some nonspecific white matter changes likely related to chronic small vessel ischemic disease and remote injury/stroke involving the right parietal lobe. X-ray of the hip showed mild to moderate hip osteoarthritis without any evidence of an acute abnormalities on the right and x-ray of the tibia and fibula showed no evidence of any fractures. Chest x-ray revealed a right paramediastinal mass and this was followed up by a CAT scan of the chest that showed a right suprahilar mass measuring 7.2 x 6.2 x 9.8 cm in size. The mass was encroaching on the trachea and right mainstem bronchus causing mass effect. The IVC was quite compressed. It was still patent. In addition, the CAT scan of the upper abdomen and liver demonstrated a high density mass in the left hepatic lobe measuring 5.8 x 4.8 cm in size and the patient had a nodular contour of the adrenal gland and the findings were highly suggestive of bronchogenic carcinoma with metastases. Some limited consolidation in the right lower lobe was also noted. There was an indeterminate mass in the left upper quadrant area measuring 5.8 cm in size. Exact nature of this mass was not clear. X-rays right-sided pleural effusion was also noted. On 12/29/2024, the patient is being seen for a follow-up. No changes in his overall condition. Remains calm and comfortable. Slightly bronchospastic and wheezy and the patient will be started on IV Solu-Medrol. He will be also started on DuoNeb nebulized treatments [id number]. I had further discussion with him regarding the CAT scan finding the patient will need a bronchoscopy and endobronchial ultrasound and biopsy of the right suprahilar mas s. The patient was agreeable. The white cell count is at 10.6 with a hemoglobin of 10.1 and a platelet count of 272. Normal coagulation profile. BUN 17 with a creatinine of 0.7. CPK is 242. He did encounter atrial fibrillation with rapid ventricular response. Based on that, the patient got tr ansferred to the telemetry unit. The patient was seen by cardiology. 2D echocardiogram was ordered. Cardizem has been discontinued and the patient is currently on metoprolol 50 mg p.o. twice a day. He is current rhythm is sinus. He is on IV heparin. 12/30/2024, the patient is n.p.o. for a bronchoscopy. As stated, the patient has a large right upper lobe mass with some mass effect on the right mainstem bronchus and the main trachea. This is a bulky tumor. The patient remains quite debilitated. Complaining of generalized weakness. He is afebrile. Hemodynamically stable. He is on room air oxygen. No nausea vomiting or emesis. No focal neurological deficits. No new labs are available from today. Continues to be on DuoNeb nebulized treatments [id number]. Remains on IV Solu-Medrol. Remains on IV Zosyn and consideration for a right lung pneumonia, postobstructive. Otherwise, no other significant changes in his condition. In terms of his cardiac rhythm, the patient remains on IV heparin awaiting bronchoscopy. After completion of the bronchoscopy, the patient will be switched to anticoagulation with Eliquis. His current cardiac rhythm is sinus. On 12/31/2024, the patient is being seen for a follow-up. Resting comfortably in bed. No new complaints for now. The patient is currently on room air oxygen with a pulse ox of 95%. No facial swelling. No arm swelling. No hemoptysis. No pleurisy. The patient was noted to be in normal sinus rhythm. Underwent bro nchoscopy and biopsy of the right upper lobe mass was also done yesterday. Pathology is pending for now. Meanwhile, the patient was seen by medical oncology. Further recommendations are to follow pending tissue diagnosis on this patient. Blood work from today shows a sodium level of 136, potassium of 3.4, BUN 16 with a creatinine of 0.66. Remains on bronchodilators. Remains on empiric antibiotic coverage with IV Zosyn. Remains on IV Solu-Medrol 60 mg every 6 hours and the patient obviously is less bronchospastic and wheezy compared to yesterday. Started on metoprolol 50 mg p.o. twice daily. The patient is also on anticoagulation with Eliquis regarding paroxysmal atrial fibrillation. Normal same rate of 60 cc an hour. No other significant events overnight. 01/01/2025, the patient is resting comfortably in bed. No significant respiratory difficulties. Less bronchospastic and wheezy. Remains on DuoNeb. Remains on IV Solu-Medrol. Remains on IV Zosyn. Cardiac rhythm is sinus. The patient is on anticoagulants with Eliquis 5 mg p.o. twice daily metoprolol 50 mg p.o. twice daily. Sodium levels at 136, K is at 2.9, bicarb is at 32, BUN 17 with a creatinine of 0.57. Remains on 2 L of oxygen by nasal cannula with a pulse ox of 93%. No chest pain. No shortness of breath. He is voiding. He has a very poor insight in his condition. Objective - Vital Signs Vital signs: Vital Signs Temp 97.7 F 01/01/25 08:42 Pulse 94 01/01/25 08:42 Resp 17 01/01/25 08:42 BP 129/59 01/01/25 08:42 Pulse Ox 94 L 01/01/25 08:45 FiO2 Intake & Output 12/31/24 01/01/25 01/01/25 18:59 06:59 18:59 Intake Total 118 138 Output Total 200 1950 Balance - -1949 138 Weight 73 kg Intake: IV 20 Invasive Line 4 10 Invasive Line 5 10 Oral 118 118 Output: Urine 200 1950 Other: Voiding Method External Catheter External Catheter # Voids 1 # Bowel Movements 1 - Exam The patient appeared well nourished and normally developed. Vital signs as documented. The patient is currently on room air oxygen Head exam is unremarkable. No scleral icterus or corneal arcus noted. Neck is without jugular venous distension, thyromegaly, or carotid bruits. Carotid upstrokes are brisk bilaterally. Lungs are clear to auscultation and percussion. The patient has diminished breath sound right lung base, scattered expiratory wheezes Cardiac exam reveals the PMI to be normally sized and situated. Rhythm is regular. First and second heart sounds normal. No murmurs, rubs or gallops. Abdominal exam reveals normal bowel sounds, no masses, no organomegaly and no aortic enlargement. Extremities are nonedematous and both femoral and pedal pulses are normal. Examination of the skin revealed no evidence of significant rashes, suspicious appearing nevi or other concerning lesions. Neurologically, the patient is awake and alert and the patient does not have any focal neurological deficit. Cranial nerves are essentially intact. Generalized motor weakness, symmetric in all 4 extremities. - Labs CBC & Chem 7: 12/29/24 07:55 01/01/25 11:08 Labs: Abnormal Lab Results - Last 24 Hours (Table) 12/31/24 12/31/24 12/31/24 Range/Units 10:10 11:48 16:29 Sodium 136 L (137-145) mmol/L Potassium 3.4 L (3.5-5.1) mmol/L Glucose 352 H (74-99) mg/dL POC Glucose (mg/dL) 356 H 323 H (70-110) mg/dL 12/31/24 01/01/25 Range/Units 20:06 05:55 Sodium (137-145) mmol/L Potassium (3.5-5.1) mmol/L Glucose (74-99) mg/dL POC Glucose (mg/dL) 239 H 204 H (70-110) mg/dL Microbiology - Last 24 Hours (Table) 12/30/24 15:50 Acid Fast Bacilli Smear - Preliminary Bronchoalviolar Lavage - Right 12/28/24 06:21 Blood Culture - Preliminary Blood 12/30/24 15:50 Gram Stain - Preliminary Bronchoalviolar Lavage - Right Assessment and Plan Plan: Large right suprahilar mass measuring 9.8 x 6.2 x 7.2 cm in size and causing mass effect on the right mainstem bronchus and the trachea with impending SVC syndrome. The SVC was noted to be compressed yet patent. Patient also has another indeterminate mass in the abdomen measuring 5.8 x 4.8 cm in size. This could be originating from the left hepatic lobe versus stomach versus adrenal gland. The exact origin of this abdominal mass is not clear. The patient is post bronchoscopy, biopsy of the endobronchial tumor in the right upper lobe and biopsy of the right upper lobe mass via EBUS and transbronchial needle aspirate. Procedure was completed on 12/30/2024. Right lower lobe consolidation/atelectasis. Rule out pneumonia. The patient is currently febrile. He has hemodynamically stable. Mediastinal lymphadenopathy COPD with secondary exacerbation, currently on the combination of bronchodilators and IV steroids. New onset A-fib, RVR, back into normal sinus rhythm. The patient is currently on metoprolol. Patient was also started on anticoagulation with Eliquis. CVA involving the right parietal, old based on the CAT scan of the head Seizure disorder Hypertension Hyperlipidemia Diabetes mellitus type 2 Acute kidney injury, likely related to volume depletion Osteoarthritis Abdominal aortic aneurysm was repaired back in 2014 and the patient has undergone aortoiliac stenting Chronic smoker Plan Bronchoscopy was completed pending results. Endobronchial biopsy of the tumor in the right upper lobe was done. Transbronchial needle aspirate of the right hilar mass was also done. DuoNeb nebulized treatments 4 times a day Discontinue IV Solu-Medrol start the patient on prednisone burst taper Titrate oxygen flow to maintain saturation above 90%, currently on room air oxygen, currently on 2 L of oxygen nasal cannula Cover the patient with empiric antibiotic coverage with IV Zosyn Current cardiac rhythm is sinus Patient is on beta-blockers with metoprolol Patient was started on anticoagulation with Eliquis Management of atrial fibrillation per cardiology. Oncology consultation appreciated Will continue to follow Time with Patient: Greater than 30
--- NOTE | 2025-01-01 14:21 | P.PN ---
Subjective Progress Note Date: 12/31/24 Patient was seen for follow-up. Patient is laying in the bed, in no distress. Offers no complaints. Objective - Vital Signs Vital signs: Vital Signs Temp 97.4 F L 12/31/24 09:16 Pulse 78 12/31/24 15:52 Resp 16 12/31/24 15:52 BP 163/70 12/31/24 15:52 Pulse Ox 95 12/31/24 15:52 FiO2 Intake & Output 12/30/24 12/31/24 12/31/24 18:59 06:59 18:59 Intake Total 550.255 118 Output Total 450 900 Balance 100.255 -900 118 Weight 73.8 kg Intake: IV 400 Intake, IV Titration 150.255 Amount Heparin Sod,Pork in 0.45% 150.255 NaCl 25,000 unit In 0.45 % NaCl 1 250ml.bag @ 12 UNITS/KG/HR 8.709 mls/hr IV .Q24H [facility] Rx#: [id number] Oral 118 Output: Urine 450 900 Other: Voiding Method External Catheter External Catheter External Catheter - Exam Patient states it is November 2024 and that patient is in [facility] in [place]. On muscle strength testing, the strength is normal in the arms distally and proximally. In the lower limbs, (right/left) hip flexion 4-/3+, ankle dorsiflexion 5/5, toe extension 4/2. - Labs CBC & Chem 7: 12/29/24 07:55 01/01/25 11:08 Labs: Abnormal Lab Results - Last 24 Hours (Table) 12/30/24 12/30/24 12/31/24 Range/Units 17:40 19:55 05:58 Sodium (137-145) mmol/L Potassium (3.5-5.1) mmol/L Glucose (74-99) mg/dL POC Glucose (mg/dL) 237 H 249 H 199 H (70-110) mg/dL 12/31/24 12/31/24 Range/Units 10:10 11:48 Sodium 136 L (137-145) mmol/L Potassium 3.4 L (3.5-5.1) mmol/L Glucose 352 H (74-99) mg/dL POC Glucose (mg/dL) 356 H (70-110) mg/dL Microbiology - Last 24 Hours (Table) 12/28/24 06:21 Blood Culture - Preliminary Blood 12/30/24 15:50 Gram Stain - Preliminary Bronchoalviolar Lavage - Right Assessment and Plan Assessment: * Altered mental status, likely due to acute delirium. Reasons multifactorial as mentioned below. * Generalized weakness, improved as compared to yesterday. 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 * Possible pneumonia. Patient on Zosyn. * Mediastinal lymphadenopathy * New onset atrial fibrillation with RVR * History of CVA 20 years ago. No deficits. * Peripheral neuropathy * Hypertension * Hyperlipidemia * Diabetes type 2 * Acute kidney injury, resolved * Tobacco use * Folate deficiency Plan: Patient has developed new onset atrial fibrillation, started on Eliquis 5 mg twice a day. B12 578, folate 5.90, MMA and vitamin B6 pending. Patient started on folic acid 1 mg daily. Hemoglobin A1c 6.2, ammonia < 9 Recommended complete tobacco cessation Patient undergoing workup for probable malignancy. Oncology feels patient probably has primary lung malignancy. Bronchoscopy findings of obstructive mass involving the right upper airways is also highly suggestive of the same. Await biopsies for tissue diagnosis. Patient would need outpatient PET scanning for staging. MRI of the brain has been initiated. CT head showed evidence of old stroke in the right parietal region, with no acute process. 2-D echo revealed normal LV size and systolic function with EF 60-65%. Severely increased left atrial volume. Moderate MR. Carotid Doppler revealed mildly elevated velocity proximal left ICA may be due to vessel tortuosity versus a moderate 50 to 69% stenosis. No hemodynamically significant stenosis ICA on either side. Antegrade flow in both lower arteries
--- NOTE | 2025-01-01 14:31 | P.PN ---
Subjective Progress Note Date: 01/01/25 Principal diagnosis: Reason for follow-up is fever/postobstructive pneumonia Patient is a 74-year-old male with a past medical history significant for CVA TIA diabetes mellitus hypertension hyperlipidemia and seizure disorder current everyday smoker presenting to the hospital for evaluation of mental status changes did have a fever prompting this consultation.Patient is status post bronchoscopy and biopsy of the right upper lobe mass completed on 12/30/2024. On today's evaluation that is 01/01/2025, patient did not have any fever and denies any chills, patient is breathing comfortably on 2 L current oxygen , patient with no chest pain or any worsening cough patient did not have any abdominal pain nausea vomiting or any loose stools. Creatinine 0.57 BAL cultures pending Objective - Vital Signs Vital signs: Vital Signs Temp 97.9 F 01/01/25 12:00 Pulse 89 01/01/25 12:00 Resp 18 01/01/25 12:00 BP 166/74 01/01/25 12:00 Pulse Ox 93 L 01/01/25 12:00 FiO2 Intake & Output 12/31/24 01/01/25 01/01/25 18:59 06:59 18:59 Intake Total 118 276 Output Total 200 1950 900 Balance -82 -1950 -624 Weight 73 kg Intake: IV 40 Invasive Line 4 20 Invasive Line 5 20 Oral 118 236 Output: Urine 200 1950 900 Other: Voiding Method External Catheter External Catheter External Catheter # Voids 1 # Bowel Movements 1 - Exam GENERAL DESCRIPTION: An elderly male lying in bed in no distress RESPIRATORY SYSTEM: Unlabored breathing , decreased breath sounds at bases HEART: S1 S2 regular rate and rhythm , ABDOMEN: Soft , no tenderness EXTREMITIES: No edema feet - Labs CBC & Chem 7: 12/29/24 07:55 01/01/25 11:08 Labs: Abnormal Lab Results - Last 24 Hours (Table) 12/30/24 12/31/24 12/31/24 Range/Units 15:50 16:29 20:06 Sodium (137-145) mmol/L Potassium (3.5-5.1) mmol/L Chloride (98-107) mmol/L Carbon Dioxide (22-30) mmol/L Creatinine (0.66-1.25) mg/dL Glucose (74-99) mg/dL POC Glucose (mg/dL) 323 H 239 H (70-110) mg/dL Calcium (8.4-10.2) mg/dL Creatine Kinase (55-170) U/L Influenza Type A (PCR) DETECTED A (Not detected) 01/01/25 01/01/25 01/01/25 Range/Units 05:55 11:08 11:48 Sodium 136 L (137-145) mmol/L Potassium 2.9 L (3.5-5.1) mmol/L Chloride 97 L (98-107) mmol/L Carbon Dioxide 32 H (22-30) mmol/L Creatinine 0.57 L (0.66-1.25) mg/dL Glucose 379 H (74-99) mg/dL POC Glucose (mg/dL) 204 H 439 H (70-110) mg/dL Calcium 8.1 L (8.4-10.2) mg/dL Creatine Kinase 44 L (55-170) U/L Influenza Type A (PCR) (Not detected) Microbiology - Last 24 Hours (Table) 12/30/24 15:50 Gram Stain - Preliminary Bronchoalviolar Lavage - Right Bronchial Washings Culture - Preliminary 12/30/24 15:50 Acid Fast Bacilli Smear - Preliminary Bronchoalviolar Lavage - Right 12/28/24 06:21 Blood Culture - Preliminary Blood Assessment and Plan (1) Sepsis Current Visit: No Status: Acute Code(s): A41.9 - SEPSIS, UNSPECIFIED ORGANISM SNOMED Code(s): 48601816 (2) Pneumonia Current Visit: No Status: Acute Code(s): J18.9 - PNEUMONIA, UNSPECIFIED ORGANISM SNOMED Code(s): 222495452 Plan: 1patient presented to hospital with sepsis in this patient who did have a fever tachycardia elevated white count meeting criteria for SIRS source is likely pneumonia in this patient did have abnormal x-ray concerning for possible mass and a question of possible postobstructive pneumonia and will need to cover for the polymicrobial juli associated with postobstructive pneumonia 2patient did have CT of the chest with significant abnormality concerning for possible malignancy and postobstructive pneumonia 3patient did have resolution of his fever and status post bronchoscopy biopsy and lavage cultures are currently pending 4we will continue with Zosyn while waiting for the culture to finalize Dictation was produced using [employer] software. please excuse any grammatical, word or spelling errors. Time with Patient: Less than 30
[2025-01-01 16:40] LABS: Glucose,Whole Blood 237 mg/dL (70-110)
[2025-01-01 20:02] LABS: Glucose,Whole Blood 156 mg/dL (70-110)
[2025-01-02 05:50] LABS: Glucose,Whole Blood 121 mg/dL (70-110)
[2025-01-02 08:50] LABS: African American GFR (CKD) >90 (>60 ml/min/1.73 sqM); Anion Gap 6 mmol/L; Blood Urea Nitrogen 16 mg/dL (9-20); Carbon Dioxide 34 mmol/L (22-30); Chloride 97 mmol/L (98-107); Glucose 99 mg/dL (74-99); Potassium 3.5 mmol/L (3.5-5.1); Sodium 137 mmol/L (137-145)
[2025-01-02 08:51] LABS: Calcium 8.5 mg/dL (8.4-10.2); Non-African American GFR(CKD) >90 (>60 ml/min/1.73 sqM)
--- NOTE | 2025-01-02 11:05 | P.PN ---
Subjective Progress Note Date: 01/02/25 Will be given to him 74-year-old male patient, presented to emergency department with complaints of right hip pain, left knee pain, generalized weakness over the past several days along with some symptoms of nausea and emesis. It was reported over the past 3 days, the patient was unable to get out of bed and the patient was weak and quite shaky to the point where he was unable to hold a cup. His weakness was essentially symmetrical. No reported falls. He was having some altered mentation in addition. Based on that, the patient underwent further investigation. The white cell count was at 12 with a hemoglobin 10.7 and a platelet count of 246. Normal coagulation profile. BUN of 46 with a cre atinine of 1.37 and a sodium level was 135 and a potassium level was 5. Normal LFTs. Normal troponins. TSH was at 1.5. Rest of the electrolytes were normal. Alcohol level was less than 10 and the viral screen was also negative. The patient was given a CAT scan of the brain that showed no acute intracranial process. There was some nonspecific white matter changes likely related to chronic small vessel ischemic disease and remote injury/stroke involving the right parietal lobe. X-ray of the hip showed mild to moderate hip osteoarthritis without any evidence of an acute abnormalities on the right and x-ray of the tibia and fibula showed no evidence of any fractures. Chest x-ray revealed a right paramediastinal mass and this was followed up by a CAT scan of the chest that showed a right suprahilar mass measuring 7.2 x 6.2 x 9.8 cm in size. The mass was encroaching on the trachea and right mainstem bronchus causing mass effect. The IVC was quite compressed. It was still patent. In addition, the CAT scan of the upper abdomen and liver demonstrated a high density mass in the left hepatic lobe measuring 5.8 x 4.8 cm in size and the patient had a nodular contour of the adrenal gland and the findings were highly suggestive of bronchogenic carcinoma with metastases. Some limited consolidation in the right lower lobe was also noted. There was an indeterminate mass in the left upper quadrant area measuring 5.8 cm in size. Exact nature of this mass was not clear. X-rays right-sided pleural effusion was also noted. On 12/29/2024, the patient is being seen for a follow-up. No changes in his overall condition. Remains calm and comfortable. Slightly bronchospastic and wheezy and the patient will be started on IV Solu-Medrol. He will be also started on DuoNeb nebulized treatments [id number]. I had further discussion with him regarding the CAT scan finding the patient will need a bronchoscopy and endobronchial ultrasound and biopsy of the right suprahilar mas s. The patient was agreeable. The white cell count is at 10.6 with a hemoglobin of 10.1 and a platelet count of 272. Normal coagulation profile. BUN 17 with a creatinine of 0.7. CPK is 242. He did encounter atrial fibrillation with rapid ventricular response. Based on that, the patient got tr ansferred to the telemetry unit. The patient was seen by cardiology. 2D echocardiogram was ordered. Cardizem has been discontinued and the patient is currently on metoprolol 50 mg p.o. twice a day. He is current rhythm is sinus. He is on IV heparin. 12/30/2024, the patient is n.p.o. for a bronchoscopy. As stated, the patient has a large right upper lobe mass with some mass effect on the right mainstem bronchus and the main trachea. This is a bulky tumor. The patient remains quite debilitated. Complaining of generalized weakness. He is afebrile. Hemodynamically stable. He is on room air oxygen. No nausea vomiting or emesis. No focal neurological deficits. No new labs are available from today. Continues to be on DuoNeb nebulized treatments [id number]. Remains on IV Solu-Medrol. Remains on IV Zosyn and consideration for a right lung pneumonia, postobstructive. Otherwise, no other significant changes in his condition. In terms of his cardiac rhythm, the patient remains on IV heparin awaiting bronchoscopy. After completion of the bronchoscopy, the patient will be switched to anticoagulation with Eliquis. His current cardiac rhythm is sinus. On 12/31/2024, the patient is being seen for a follow-up. Resting comfortably in bed. No new complaints for now. The patient is currently on room air oxygen with a pulse ox of 95%. No facial swelling. No arm swelling. No hemoptysis. No pleurisy. The patient was noted to be in normal sinus rhythm. Underwent bro nchoscopy and biopsy of the right upper lobe mass was also done yesterday. Pathology is pending for now. Meanwhile, the patient was seen by medical oncology. Further recommendations are to follow pending tissue diagnosis on this patient. Blood work from today shows a sodium level of 136, potassium of 3.4, BUN 16 with a creatinine of 0.66. Remains on bronchodilators. Remains on empiric antibiotic coverage with IV Zosyn. Remains on IV Solu-Medrol 60 mg every 6 hours and the patient obviously is less bronchospastic and wheezy compared to yesterday. Started on metoprolol 50 mg p.o. twice daily. The patient is also on anticoagulation with Eliquis regarding paroxysmal atrial fibrillation. Normal same rate of 60 cc an hour. No other significant events overnight. 01/01/2025, the patient is resting comfortably in bed. No significant respiratory difficulties. Less bronchospastic and wheezy. Remains on DuoNeb. Remains on IV Solu-Medrol. Remains on IV Zosyn. Cardiac rhythm is sinus. The patient is on anticoagulants with Eliquis 5 mg p.o. twice daily metoprolol 50 mg p.o. twice daily. Sodium levels at 136, K is at 2.9, bicarb is at 32, BUN 17 with a creatinine of 0.57. Remains on 2 L of oxygen by nasal cannula with a pulse ox of 93%. No chest pain. No shortness of breath. He is voiding. He has a very poor insight in his condition. 01/02/2025, the patient is resting comfortably in bed. No new complaints. Awaiting final pathology. Remains on bronchodilators. Remains on steroids. Remains on IV Zosyn. Note that the patient was also found to have an influenza A on the bronchioloalveolar lavage that was collected at the time of the bronchoscopy. He has poor insight in his condition. Cardiac rhythm is sinus. Remains on anticoagulation with Eliquis. Remains on beta-blockers and the patient is currently on prednisone 50 mg p.o. twice a day. Objective - Vital Signs Vital signs: Vital Signs Temp 97.5 F L 01/01/25 23:51 Pulse 62 01/02/25 04:00 Resp 16 01/02/25 04:00 BP 153/73 01/02/25 04:00 Pulse Ox 94 L 01/02/25 04:00 FiO2 Intake & Output 01/01/25 01/02/25 01/02/25 18:59 06:59 18:59 Intake Total 276 540 Output Total 1800 1800 Balance -1524 -1260 Weight 68.2 kg Intake: IV 40 Invasive Line 4 20 Invasive Line 5 20 Oral 236 540 Output: Urine 1800 1800 Other: Voiding Method External Catheter External Catheter # Voids 1 - Exam The patient appeared well nourished and normally developed. Vital signs as documented. The patient is currently on room air oxygen Head exam is unremarkable. No scleral icterus or corneal arcus noted. Neck is without jugular venous distension, thyromegaly, or carotid bruits. Carotid upstrokes are brisk bilaterally. Lungs are clear to auscultation and percussion. The patient has diminished breath sound right lung base, scattered expiratory wheezes Cardiac exam reveals the PMI to be normally sized and situated. Rhythm is regular. First and second heart sounds normal. No murmurs, rubs or gallops. Abdominal exam reveals normal bowel sounds, no masses, no organomegaly and no aortic enlargement. Extremities are nonedematous and both femoral and pedal pulses are normal. Examination of the skin revealed no evidence of significant rashes, suspicious appearing nevi or other concerning lesions. Neurologically, the patient is awake and alert and the patient does not have any focal neurological deficit. Cranial nerves are essentially intact. Generalized motor weakness, symmetric in all 4 extremities. - Labs CBC & Chem 7: 12/29/24 07:55 01/02/25 07:33 Labs: Abnormal Lab Results - Last 24 Hours (Table) 12/30/24 01/01/25 01/01/25 Range/Units 15:50 11:08 11:48 Sodium 136 L (137-145) mmol/L Potassium 2.9 L (3.5-5.1) mmol/L Chloride 97 L (98-107) mmol/L Carbon Dioxide 32 H (22-30) mmol/L Creatinine 0.57 L (0.66-1.25) mg/dL Glucose 379 H (74-99) mg/dL POC Glucose (mg/dL) 439 H (70-110) mg/dL Calcium 8.1 L (8.4-10.2) mg/dL Creatine Kinase 44 L (55-170) U/L Influenza Type A (PCR) DETECTED A (Not detected) 01/01/25 01/01/25 01/01/25 Range/Units 16:39 18:55 20:01 Sodium (137-145) mmol/L Potassium 3.3 L (3.5-5.1) mmol/L Chloride (98-107) mmol/L Carbon Dioxide (22-30) mmol/L Creatinine (0.66-1.25) mg/dL Glucose (74-99) mg/dL POC Glucose (mg/dL) 237 H 156 H (70-110) mg/dL Calcium (8.4-10.2) mg/dL Creatine Kinase (55-170) U/L Influenza Type A (PCR) (Not detected) 01/02/25 01/02/25 Range/Units 05:49 07:33 Sodium (137-145) mmol/L Potassium (3.5-5.1) mmol/L Chloride 97 L (98-107) mmol/L Carbon Dioxide 34 H (22-30) mmol/L Creatinine 0.62 L (0.66-1.25) mg/dL Glucose (74-99) mg/dL POC Glucose (mg/dL) 121 H (70-110) mg/dL Calcium (8.4-10.2) mg/dL Creatine Kinase (55-170) U/L Influenza Type A (PCR) (Not detected) Microbiology - Last 24 Hours (Table) 12/30/24 15:50 Gram Stain - Preliminary Bronchoalviolar Lavage - Right Bronchial Washings Culture - Preliminary Assessment and Plan Plan: Large right suprahilar mass measuring 9.8 x 6.2 x 7.2 cm in size and causing mass effect on the right mainstem bronchus and the trachea with impending SVC syndrome. The SVC was noted to be compressed yet patent. Patient also has an other indeterminate mass in the abdomen measuring 5.8 x 4.8 cm in size. This could be originating from the left hepatic lobe versus stomach versus adrenal gland. The exact origin of this abdominal mass is not clear. The patient is post bronchoscopy, biopsy of the endobronchial tumor in the right upper lobe and biopsy of the right upper lobe mass via EBUS and transbronchial needle aspirate. Procedure was completed on 12/30/2024. Awaiting pathology. Right lower lobe consolidation/atelectasis. Rule out pneumonia. The patient is currently febrile. He has hemodynamically stable. Mediastinal lymphadenopathy COPD with secondary exacerbation, currently on the combination of bronchodilators and IV steroids. Influenza identified incidentally on the bronchial lavage collected on 12/30/2024 New onset A-fib, RVR, back into normal sinus rhythm. The patient is currently on metoprolol. Patient was also started on anticoagulation with Eliquis. CVA involving the right parietal, old based on the CAT scan of the head Seizure disorder Hypertension Hyperlipidemia Diabetes mellitus type 2 Acute kidney injury, likely related to volume depletion Osteoarthritis Abdominal aortic aneurysm was repaired back in 2014 and the patient has undergone aortoiliac stenting Chronic smoker Plan Bronchoscopy was completed pending results. Endobronchial biopsy of the tumor in the right upper lobe was done. Transbronchial needle aspirate of the right hilar mass was also done. DuoNeb nebulized treatments 4 times a day prednisone burst taper Titrate oxygen flow to maintain saturation above 90%, currently on room air oxygen, currently on 2 L of oxygen nasal cannula Cover the patient with empiric antibiotic coverage with IV Zosyn Current cardiac rhythm is sinus Patient is on beta-blockers with metoprolol Patient was started on anticoagulation with Eliquis Management of atrial fibrillation per cardiology. Oncology consultation appreciated Will continue to follow
[2025-01-02] MEDS: POTASSIUM CHLORIDE ER 20 MEQ TAB.ER PO SCH (11:14)
[2025-01-02 11:50] LABS: Glucose,Whole Blood 244 mg/dL (70-110)
--- NOTE | 2025-01-02 12:49 | P.PN ---
Subjective Progress Note Date: 01/01/25 Patient was seen for follow-up. Patient is laying in the bed, in no distress. Offers no complaints. Patient's was also present. No new concerns. Objective - Vital Signs Vital signs: Vital Signs Temp 97.9 F 01/01/25 15:06 Pulse 68 01/01/25 16:59 Resp 17 01/01/25 15:06 BP 168/70 01/01/25 15:06 Pulse Ox 94 L 01/01/25 15:06 FiO2 Intake & Output 01/01/25 01/01/25 01/02/25 06:59 18:59 06:59 Intake Total 276 Output Total 1950 1800 Balance -1949 -152 Weight 73 kg Intake: IV 40 Invasive Line 4 20 Invasive Line 5 20 Oral 236 Output: Urine 1949 1800 Other: Voiding Method External Catheter External Catheter - Exam Patient is alert and awake in no distress. Speech and language functions are n ormal. On muscle strength testing, the strength is normal in the arms distally and proximally. In the lower limbs, (right/left) hip flexion 4-/3+, ankle dorsiflexion 5/5, toe extension 4/2. - Labs CBC & Chem 7: 12/29/24 07:55 01/02/25 07:33 Labs: Abnormal Lab Results - Last 24 Hours (Table) 12/30/24 12/31/24 01/01/25 Range/Units 15:50 20:06 05:55 Sodium (137-145) mmol/L Potassium (3.5-5.1) mmol/L Chloride (98-107) mmol/L Carbon Dioxide (22-30) mmol/L Creatinine (0.66-1.25) mg/dL Glucose (74-99) mg/dL POC Glucose (mg/dL) 239 H 204 H (70-110) mg/dL Calcium (8.4-10.2) mg/dL Creatine Kinase (55-170) U/L Influenza Type A (PCR) DETECTED A (Not detected) 01/01/25 01/01/25 01/01/25 Range/Units 11:08 11:48 16:39 Sodium 136 L (137-145) mmol/L Potassium 2.9 L (3.5-5.1) mmol/L Chloride 97 L (98-107) mmol/L Carbon Dioxide 32 H (22-30) mmol/L Creatinine 0.57 L (0.66-1.25) mg/dL Glucose 379 H (74-99) mg/dL POC Glucose (mg/dL) 439 H 237 H (70-110) mg/dL Calcium 8.1 L (8.4-10.2) mg/dL Creatine Kinase 44 L (55-170) U/L Influenza Type A (PCR) (Not detected) 01/01/25 Range/Units 18:55 Sodium (137-145) mmol/L Potassium 3.3 L (3.5-5.1) mmol/L Chloride (98-107) mmol/L Carbon Dioxide (22-30) mmol/L Creatinine (0.66-1.25) mg/dL Glucose (74-99) mg/dL POC Glucose (mg/dL) (70-110) mg/dL Calcium (8.4-10.2) mg/dL Creatine Kinase (55-170) U/L Influenza Type A (PCR) (Not detected) Microbiology - Last 24 Hours (Table) 12/30/24 15:50 Gram Stain - Preliminary Bronchoalviolar Lavage - Right Bronchial Washings Culture - Preliminary 12/30/24 15:50 Acid Fast Bacilli Smear - Preliminary Bronchoalviolar Lavage - Right Assessment and Plan Assessment: * Altered mental status, likely due to acute delirium. Reasons multifactorial as mentioned below. * Generalized weakness, improved as compared to yesterday. 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 * Possible pneumonia. Patient on Zosyn. * Mediastinal lymphadenopathy * New onset atrial fibrillation with RVR * History of CVA 20 years ago. No deficits. * Peripheral neuropathy * Hypertension * Hyperlipidemia * Diabetes type 2 * Acute kidney injury, resolved * Tobacco use * Folate deficiency Plan: Patient has developed new onset atrial fibrillation, started on Eliquis 5 mg twice a day. B12 578, folate 5.90, MMA and vitamin B6 pending. Patient started on folic acid 1 mg daily. Hemoglobin A1c 6.2, ammonia < 9 Recommended complete tobacco cessation Patient undergoing workup for probable malignancy. Oncology feels patient probably has primary lung malignancy. Bronchoscopy findings of obstructive mass involving the right upper airways is also highly suggestive of the same. Await biopsies for tissue diagnosis. Patient would need outpatient PET scanning for staging. MRI of the brain with and without contrast has been initiated. CT head showed evidence of old stroke in the right parietal region, with no acute process. 2-D echo revealed normal LV size and systolic function with EF 60-65%. Severely increased left atrial volume. Moderate MR. Carotid Doppler revealed mildly elevated velocity proximal left ICA may be due to vessel tortuosity versus a moderate 50 to 69% stenosis. No hemodynamically significant stenosis ICA on either side. Antegrade flow in both lower arteries Dr. Stephen Florentino to resume neurology service from Friday.
--- NOTE | 2025-01-02 13:09 | P.PN ---
Subjective Progress Note Date: 01/02/25 Principal diagnosis: Reason for follow-up is fever/postobstructive pneumonia Patient is a 74-year-old male with a past medical history significant for CVA TIA diabetes mellitus hypertension hyperlipidemia and seizure disorder current everyday smoker presenting to the hospital for evaluation of mental status changes did have a fever prompting this consultation.Patient is status post bronchoscopy and biopsy of the right upper lobe mass completed on 12/30/2024. On today's evaluation that is 01/02/2025, Patient is afebrile patient is currently on 2 L nasal oxygen and denies having any shortness of breath, the patient denies any chest pain or any worsening cough, the patient denies any nausea vomiting did not have any abdominal pain and no diarrhea. Patient did have creatinine 0.62 BAL cultures so far pending Objective - Vital Signs Vital signs: Vital Signs Temp 97.4 F L 01/02/25 08:00 Pulse 68 01/02/25 11:50 Resp 20 01/02/25 08:00 BP 173/79 01/02/25 08:00 Pulse Ox 92 L 01/02/25 08:00 FiO2 Intake & Output 01/01/25 01/02/25 01/02/25 18:59 06:59 18:59 Intake Total 276 540 118 Output Total 1800 1800 Balance -1524 -1260 118 Weight 68.2 kg Intake: IV 40 Invasive Line 4 20 Invasive Line 5 20 Oral 236 540 118 Output: Urine 1800 1800 Other: Voiding Method External Catheter External Catheter External Catheter # Voids 1 - Exam GENERAL DESCRIPTION: An elderly male lying in bed in no distress RESPIRATORY SYSTEM: Unlabored breathing , decreased breath sounds at bases HEART: S1 S2 regular rate and rhythm , ABDOMEN: Soft , no tenderness EXTREMITIES: No edema feet - Labs CBC & Chem 7: 12/29/24 07:55 01/02/25 07:33 Labs: Abnormal Lab Results - Last 24 Hours (Table) 12/30/24 01/01/25 01/01/25 Range/Units 15:50 16:39 18:55 Potassium 3.3 L (3.5-5.1) mmol/L Chloride (98-107) mmol/L Carbon Dioxide (22-30) mmol/L Creatinine (0.66-1.25) mg/dL POC Glucose (mg/dL) 237 H (70-110) mg/dL Influenza Type A (PCR) DETECTED A (Not detected) 01/01/25 01/02/25 01/02/25 Range/Units 20:01 05:49 07:33 Potassium (3.5-5.1) mmol/L Chloride 97 L (98-107) mmol/L Carbon Dioxide 34 H (22-30) mmol/L Creatinine 0.62 L (0.66-1.25) mg/dL POC Glucose (mg/dL) 156 H 121 H (70-110) mg/dL Influenza Type A (PCR) (Not detected) 01/02/25 Range/Units 11:49 Potassium (3.5-5.1) mmol/L Chloride (98-107) mmol/L Carbon Dioxide (22-30) mmol/L Creatinine (0.66-1.25) mg/dL POC Glucose (mg/dL) 244 H (70-110) mg/dL Influenza Type A (PCR) (Not detected) Microbiology - Last 24 Hours (Table) 12/28/24 06:21 Blood Culture - Final Blood 12/30/24 15:50 Gram Stain - Final Bronchoalviolar Lavage - Right Bronchial Washings Culture - Final Assessment and Plan (1) Sepsis Current Visit: No Status: Acute Code(s): A41.9 - SEPSIS, UNSPECIFIED ORGANISM SNOMED Code(s): 65476968 (2) Pneumonia Current Visit: No Status: Acute Code(s): J18.9 - PNEUMONIA, UNSPECIFIED ORGANISM SNOMED Code(s): 243571515 Plan: 1patient presented to hospital with sepsis in this patient who did have a fever tachycardia elevated white count meeting criteria for SIRS source is likely pneumonia in this patient did have abnormal x-ray concerning for possible mass and a question of possible postobstructive pneumonia and will need to cover for the polymicrobial juli associated with postobstructive pneumonia 2patient did have CT of the chest with significant abnormality concerning for possible malignancy and postobstructive pneumonia 3patient did have resolution of his fever and status post bronchoscopy biopsy and lavage cultures are so far negative and resistant pathogen 4we will continue with Zosyn while inpatient will transition to oral antibiotic on discharge Dictation was produced using [employer] dictation software. please excuse any grammatical, word or spelling errors. Time with Patient: Less than 30
[2025-01-02 16:21] LABS: Glucose,Whole Blood 195 mg/dL (70-110)
[2025-01-02 20:26] LABS: Glucose,Whole Blood 315 mg/dL (70-110)
--- NOTE | 2025-01-03 01:47 | PN ---
PROGRESS NOTE DATE OF SERVICE: 01/02/2025 CHIEF COMPLAINT: Fever and pulmonary neoplasm. HISTORY OF PRESENT ILLNESS: This gentleman is feeling just about the same. He has been made aware of the evidence of metastatic disease. He is comfortable at this time. He is not particularly short of breath or having any pain. PHYSICAL EXAMINATION: LUNGS: Breath sounds are heard bilaterally. CARDIAC: Normal. ABDOMEN: Soft, nontender. IMPRESSION: 1. Fever. 2. Rhabdomyolysis. 3. Pulmonary neoplasm with metastases. PLAN: Await the results of the biopsy at the time of his bronchoscopy. MMODL / IJN: [id number] /
[2025-01-03 05:57] LABS: Glucose,Whole Blood 95 mg/dL (70-110)
[2025-01-03 11:26] LABS: Glucose,Whole Blood 290 mg/dL (70-110)
--- NOTE | 2025-01-03 11:38 | P.PN ---
Subjective Progress Note Date: 01/03/25 Principal diagnosis: Reason for follow-up is fever/postobstructive pneumonia Patient is a 74-year-old male with a past medical history significant for CVA TIA diabetes mellitus hypertension hyperlipidemia and seizure disorder current everyday smoker presenting to the hospital for evaluation of mental status changes did have a fever prompting this consultation.Patient is status post bronchoscopy and biopsy of the right upper lobe mass completed on 12/30/2024. On today's evaluation that is 01/03/2025, patient has been afebrile, patient is breathing comfortably and is currently on 2 L nasal oxygen, patient denies having any chest pain and no worsening cough, patient denies nausea vomiting or diarrhea and no abdominal pain. Patient did not have any lab draw today BAL culture have been negative BAL viral screen came back positive for influenza Objective - Vital Signs Vital signs: Vital Signs Temp 97.1 F L 01/03/25 09:03 Pulse 81 01/03/25 11:12 Resp 18 01/03/25 11:12 BP 160/77 01/03/25 11:12 Pulse Ox 94 L 01/03/25 11:12 FiO2 21 01/03/25 09:02 Intake & Output 01/02/25 01/03/25 01/03/25 18:59 06:59 18:59 Intake Total 1028 250 Output Total 400 200 Balance 1028 -400 50 Weight 69.1 kg Intake: IV 460 10 Invasive Line 4 10 Piperacillin-Tazobactam 3 100 .375 gm In Sodium Chloride 0.9% 100 ml @ 25 mls/hr IVPB Q8H DANIELA Rx#: [id number] Sodium Chloride 0.9% 1, 360 000 ml @ 60 mls/hr IV . [id number] DANIELA Rx#:[id number] Oral 568 240 Output: Urine 400 200 Other: Voiding Method Urinal Urinal Urinal # Voids 3 1 - Exam GENERAL DESCRIPTION: An elderly male lying in bed in no distress RESPIRATORY SYSTEM: Unlabored breathing , decreased breath sounds at bases HEART: S1 S2 regular rate and rhythm , ABDOMEN: Soft , no tenderness EXTREMITIES: No edema feet - Labs CBC & Chem 7: 12/29/24 07:55 01/02/25 07:33 Labs: Abnormal Lab Results - Last 24 Hours (Table) 01/02/25 01/02/25 01/02/25 Range/Units 11:49 16:19 20:21 POC Glucose (mg/dL) 244 H 195 H 315 H (70-110) mg/dL 01/03/25 Range/Units 11:20 POC Glucose (mg/dL) 290 H (70-110) mg/dL Microbiology - Last 24 Hours (Table) 12/28/24 06:21 Blood Culture - Final Blood 12/30/24 15:50 Gram Stain - Final Bronchoalviolar Lavage - Right Bronchial Washings Culture - Final Assessment and Plan (1) Sepsis Current Visit: No Status: Acute Code(s): A41.9 - SEPSIS, UNSPECIFIED ORGANISM SNOMED Code(s): 27844148 (2) Pneumonia Current Visit: No Status: Acute Code(s): J18.9 - PNEUMONIA, UNSPECIFIED ORG ANISM SNOMED Code(s): 945843389 (3) Influenza A Current Visit: Yes Status: Acute Code(s): J10.1 - FLU DUE TO OTH IDENT INFLUENZA VIRUS W OTH RESP MANIFEST SNOMED Code(s): 641106397 Plan: 1patient presented to hospital with sepsis in this patient who did have a fever tachycardia elevated white count meeting criteria for SIRS source is likely pneumonia in this patient did have abnormal x-ray concerning for possible mass and a question of possible postobstructive pneumonia and will need to cover for the polymicrobial juli associated with postobstructive pneumonia 2patient did have CT of the chest with significant abnormality concerning for possible malignancy and postobstructive pneumonia 3patient did have resolution of his fever and status post bronchoscopy biopsy and lavage cultures are so far negative and resistant pathogen, the viral screen from BAL came back positive with influenza A 4will add Tamiflu and continue with Zosyn while inpatient, finishing therapy with oral Augmentin Dictation was produced using [employer] dictation software. please excuse any grammatical, word or spelling errors. Time with Patient: Less than 30
[2025-01-03] MEDS: OSELTAMIVIR 75 MG CAP PO SCH (11:56)
--- NOTE | 2025-01-03 12:46 | P.PN ---
Subjective Progress Note Date: 01/03/25 I am seeing the patient for the first time during this hospital admission. Please refer to Dr. Munguia's notes for further details. It seems patient has metastatic cancer. Has altered mental status but mentation improved. Per the nurse unable to obtain MRI since has cardiac stent and unsure compatibility so it was cancelled. Patient feels he is drastically better. Objective - Vital Signs Vital signs: Vital Signs Temp 97.1 F L 01/03/25 09:03 Pulse 81 01/03/25 11:12 Resp 18 01/03/25 11:12 BP 160/77 01/03/25 11:12 Pulse Ox 94 L 01/03/25 11:12 FiO2 21 01/03/25 09:02 Intake & Output 01/02/25 01/03/25 01/03/25 18:59 06:59 18:59 Intake Total 1028 250 Output Total 400 200 Balance 1028 -400 50 Weight 69.1 kg Intake: IV 460 10 Invasive Line 4 10 Piperacillin-Tazobactam 3 100 .375 gm In Sodium Chloride 0.9% 100 ml @ 25 mls/hr IVPB Q8H DANIELA Rx#: [id number] Sodium Chloride 0.9% 1, 360 000 ml @ 60 mls/hr IV . [id number] DANIELA Rx#:[id number] Oral 568 240 Output: Urine 400 200 Other: Voiding Method Urinal Urinal Urinal # Voids 3 1 - Exam General: Sitting up on bed and is not in acute distress. Neuro: The patient is awake, alert, oriented to self, place and time. Is following simple commands. No aphasia. No facial weakness. No dysarthria. Motor: Strength is 5/5 throughout - Labs CBC & Chem 7: 12/29/24 07:55 01/02/25 07:33 Labs: Abnormal Lab Results - Last 24 Hours (Table) 01/02/25 01/02/25 01/03/25 Range/Units 16:19 20:21 11:20 POC Glucose (mg/dL) 195 H 315 H 290 H (70-110) mg/dL Microbiology - Last 24 Hours (Table) 12/28/24 06:21 Blood Culture - Final Blood 12/30/24 15:50 Gram Stain - Final Bronchoalviolar Lavage - Right Bronchial Washings Culture - Final Assessment and Plan Assessment: * Altered mental status, likely due to acute delirium. Reasons multifactorial a s mentioned below. * Generalized weakness, improved as compared to yesterday. 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 * Possible pneumonia. Patient on Zosyn. * Mediastinal lymphadenopathy * New onset atrial fibrillation with RVR * History of CVA 20 years ago. No deficits. * Peripheral neuropathy * Hypertension * Hyperlipidemia * Diabetes type 2 * Acute kidney injury, resolved * Tobacco use * Folate deficiency Plan: Patient has developed new onset atrial fibrillation, started on Eliquis 5 mg twice a day. B12 578, folate 5.90, MMA and vitamin B6 pending. Patient started on folic acid 1 mg daily. Hemoglobin A1c 6.2, ammonia < 9 Recommended complete tobacco cessation Patient undergoing workup for probable malignancy. Oncology feels patient probably has primary lung malignancy. Bronchoscopy findings of obstructive mass involving the right upper airways is also highly suggestive of the same. Await biopsies for tissue diagnosis. Patient would need outpatient PET scanning for staging. Unable to obtain MRI of the brain since has cardiac stent and unknown compatibility per nurse. CT head showed evidence of old stroke in the right parietal region, with no acute process. 2-D echo revealed normal LV size and systolic function with EF 60-65%. Severely increased left atrial volume. Moderate MR. Carotid Doppler revealed mildly elevated velocity proximal left ICA may be due to vessel tortuosity versus a moderate 50 to 69% stenosis. No hemodynamically significant stenosis ICA on either side. Antegrade flow in both lower arteries The plan is discussed with patient and his nurse. Will follow-up with patient sporadically. Time with Patient: Less than 30
[2025-01-03 16:14] LABS: Glucose,Whole Blood 256 mg/dL (70-110)
--- NOTE | 2025-01-03 17:15 | P.PN ---
Subjective Progress Note Date: 01/03/25 74-year-old male patient, presented to emergency department with complaints of right hip pain, left knee pain, generalized weakness over the past several days along with some symptoms of nausea and emesis. It was reported over the past 3 days, the patient was unable to get out of bed and the patient was weak and quite shaky to the point where he was unable to hold a cup. His weakness was essentially symmetrical. No reported falls. He was having some altered mentation in addition. Based on that, the patient underwent further investigation. The white cell count was at 12 with a hemoglobin 10.7 and a platelet count of 246. Normal coagulation profile. BUN of 46 with a creatinine of 1.37 and a sodium level was 135 and a potassium level was 5. Normal LFTs. Normal troponins. TSH was at 1.5. Rest of the electrolytes were normal. Alcohol level was less than 10 and the viral screen was also negative. The patient was given a CAT scan of the brain that showed no acute intracranial process. There was some nonspecific white matter changes likely related to chronic small vessel ischemic disease and remote injury/stroke involving the right parietal lobe. X-ray of the hip showed mild to moderate hip osteoarthritis without any evidence of an acute abnormalities on the right and x-ray of the tibia and fibula showed no evidence of any fractures. Chest x-ray revealed a right paramediastinal mass and this was followed up by a CAT scan of the chest that showed a right suprahilar mass measuring 7.2 x 6.2 x 9.8 cm in size. The mass was encroaching on the trachea and right mainstem bronchus causing mass effect. The IVC was quite compressed. It was still patent. In addition, the CAT scan of the upper abdomen and liver demonstrated a high density mass in the left hepatic lobe measuring 5.8 x 4.8 cm in size and the patient had a nodular contour of the adrenal gland and the findings were highly suggestive of bronchogenic carcinoma with metastases. Some limited consolidation in the right lower lobe was also noted. There was an indeterminate mass in the left upper quadrant area measuring 5.8 cm in size. Exact nature of this mass was not clear. X-rays right-sided pleural effusion was also noted. On 12/29/2024, the patient is being seen for a follow-up. No changes in his ove rall condition. Remains calm and comfortable. Slightly bronchospastic and wheezy and the patient will be started on IV Solu-Medrol. He will be also started on DuoNeb nebulized treatments [id number]. I had further discussion with him regarding the CAT scan finding the patient will need a br onchoscopy and endobronchial ultrasound and biopsy of the right suprahilar mass. The patient was agreeable. The white cell count is at 10.6 with a hemoglobin of 10.1 and a platelet count of 272. Normal coagulation profile. BUN 17 with a creatinine of 0.7. CPK is 242. He did encounter atrial fibrillation with rapid ventricular response. Based on that, [facility] The patient was seen by cardiology. 2D echocardiogram was ordered. Cardizem has been discontinued and the patient is currently on metoprolol 50 mg p.o. twice a day. He is current rhythm is sinus. He is on IV heparin. 12/30/2024, the patient is n.p.o. for a bronchoscopy. As stated, the patient has a large right upper lobe mass with some mass effect on the right mainstem bronchus and the main trachea. This is a bulky tumor. The patient remains quite debilitated. Complaining of generalized weakness. He is afebrile. Hemodynamically stable. He is on room air oxygen. No nausea vomiting or emesis. No focal neurological deficits. No new labs are available from today. Continues to be on DuoNeb nebulized treatments [id number]. Remains on IV Solu-Medrol. Remains on IV Zosyn and consideration for a right lung pneumonia, postobstructive. Otherwise, no other significant changes in his condition. In terms of his cardiac rhythm, the patient remains on IV heparin awaiting bronchoscopy. After completion of the bronchoscopy, the patient will be switched to anticoagulation with Eliquis. His current cardiac rhythm is sinus. On 12/31/2024, the patient is being seen for a follow-up. Resting comfortably in bed. No new complaints for now. The patient is currently on room air oxygen with a pulse ox of 95%. No facial swelling. No arm swelling. No hemoptysis. No pleurisy. The patient was noted to be in normal sinus rhythm. Underwent bronchoscopy and biopsy of the right upper lobe mass was also done yesterday. Pathology is pending for now. Meanwhile, the patient was seen by medical oncology. Further recommendations are to follow pending tissue diagnosis on this patient. Blood work from today shows a sodium level of 136, potassium of 3.4, BUN 16 with a creatinine of 0.66. Remains on bronchodilators. Remains on empiric antibiotic coverage with IV Zosyn. Remains on IV Solu-Medrol 60 mg every 6 hours and the patient obviously is less bronchospastic and wheezy compared to yesterday. Started on metoprolol 50 mg p.o. twice daily. The patient is also on anticoagulation with Eliquis regarding paroxysmal atrial fibrillation. Normal same rate of 60 cc an hour. No other significant events overnight. 01/01/2025, the patient is resting comfortably in bed. No significant respiratory difficulties. Less bronchospastic and wheezy. Remains on DuoNeb. Remains on IV Solu-Medrol. Remains on IV Zosyn. Cardiac rhythm is sinus. The patient is on anticoagulants with Eliquis 5 mg p.o. twice daily metoprolol 50 mg p.o. twice daily. Sodium levels at 136, K is at 2.9, bicarb is at 32, BUN 17 with a creatinine of 0.57. Remains on 2 L of oxygen by nasal cannula with a pulse ox of 93%. No chest pain. No shortness of breath. He is voiding. He has a very poor insight in his condition. 01/02/2025, the patient is resting comfortably in bed. No new complaints. Awaiting final pathology. Remains on bronchodilators. Remains on steroids. Remains on IV Zosyn. Note that the patient was also found to have an influenza A on the bronchioloalveolar lavage that was collected at the time of the bronchoscopy. He has poor insight in his condition. Cardiac rhythm is sinus. Remains on anticoagulation with Eliquis. Remains on beta-blockers and the patient is currently on prednisone 50 mg p.o. twice a day. The patient is seen today January 03, 2025 in follow-up on the selective care unit. He is currently resting in bed. Awake and alert in no acute distress. Maintaining O2 saturations in the 90s on 2 L/min per nasal cannula. Bronchoalveolar lavage cultures revealed no growth. Bronchial biopsy cytology still pending. MRI of the brain pending. Glucose 256. He remains on DuoNeb inhalations. Continued on a prednisone taper. Anticoagulated with Eliquis. NicoDerm patch in place. Continued on Tamiflu. Continued on Zosyn. Objective - Vital Signs Vital signs: Vital Signs Temp 98.0 F 01/03/25 15:06 Pulse 72 01/03/25 16:33 Resp 18 01/03/25 15:06 BP 161/77 01/03/25 15:06 Pulse Ox 93 L 01/03/25 15:06 FiO2 21 01/03/25 09:02 Intake & Output 01/02/25 01/03/25 01/03/25 18:59 06:59 18:59 Intake Total 1028 380 Output Total 400 600 Balance 1028 -400 -220 Weight 69.1 kg Intake: IV 460 20 Invasive Line 4 20 Piperacillin-Tazobactam 3 100 .375 gm In Sodium Chloride 0.9% 100 ml @ 25 mls/hr IVPB Q8H DANIELA Rx#: [id number] Sodium Chloride 0.9% 1, 360 000 ml @ 60 mls/hr IV . [id number] DANIELA Rx#:[id number] Oral [id number] 360 Output: Urine 400 600 Other: Voiding Method Urinal Urinal Urinal # Voids 3 1 - Exam GENERAL EXAM: Alert, pleasant 74-year-old male, on 2 L nasal cannula, comfortable in no apparent distress. HEAD: Normocephalic. EYES: Normal reaction of pupils, equal size. NOSE: Clear with pink turbinates. THROAT: No erythema or exudates. NECK: No masses, no JVD. CHEST: No chest wall deformity. LUNGS: Equal air entry with scattered wheezing, diminished in the right lung base. CVS: S1 and S2 normal with no audible murmur, regular rhythm. ABDOMEN: No hepatosplenomegaly, normal bowel sounds, no guarding or rigidity. SPINE: No scoliosis or deformity SKIN: No rashes CENTRAL NERVOUS SYSTEM: No focal deficits, tone is normal in all 4 extremities. EXTREMITIES: There is no peripheral edema. No clubbing, no cyanosis. Peripheral pulses are intact. - Labs CBC & Chem 7: 12/29/24 07:55 01/02/25 07:33 Labs: Abnormal Lab Results - Last 24 Hours (Table) 12/30/24 01/02/25 01/03/25 Range/Units 15:50 20:21 11:20 POC Glucose (mg/dL) 315 H 290 H (70-110) mg/dL Influenza Type A (PCR) DETECTED A (Not detected) 01/03/25 Range/Units 16:12 POC Glucose (mg/dL) 256 H (70-110) mg/dL Influenza Type A (PCR) (Not detected) Assessment and Plan Assessment: Large right suprahilar mass measuring 9.8 x 6.2 x 7.2 cm in size and causing mass effect on the right mainstem bronchus and the trachea with impending SVC syndrome. The SVC was noted to be compressed yet patent. Another indeterminate mass in the abdomen measuring 5.8 x 4.8 cm in size. This could be originating from the left hepatic lobe versus stomach versus adrenal gland. The exact origin of this abdominal mass is not clear. The patient is post bronchoscopy, biopsy of the endobronchial tumor in the right upper lobe and biopsy of the right upper lobe mass via EBUS and transbronchial needle aspirate. Procedure was completed on 12/30/2024. Awaiting pathology Right lower lobe consolidation/atelectasis. Rule out pneumonia. Remains on Zosyn Mediastinal lymphadenopathy COPD with secondary exacerbation, currently on the combination of bronchodilators and IV steroids. Influenza A identified incidentally on the bronchial lavage collected on 12/30/2024. Initiated on Tamiflu per ID service New onset A-fib, RVR, back into normal sinus rhythm. The patient is currently o n metoprolol. On anticoagulation with Eliquis. CVA involving the right parietal, old based on the CAT scan of the head Seizure disorder Hypertension Hyperlipidemia Diabetes mellitus type 2 Acute kidney injury, likely related to volume depletion Osteoarthritis Abdominal aortic aneurysm was repaired back in 2014 and the patient has undergone aortoiliac stenting Chronic smoker Plan: The patient was seen and evaluated Labs and medications reviewed Lung biopsies cytology pending MRI of the brain pending Remains stable and on 2 L nasal cannula Titrate down the FiO2 as tolerated Zosyn and Tamiflu per ID service Continue bronchodilators and steroids Eliquis for anticoagulation NicoDerm patch in place Educated regarding the importance of complete smoking cessation Will continue to follow I have personally seen and examined the patient, performed the documentation and the assessment and plan as written. Number of minutes spent on the visit: 10 Dictation was produced using [employer] dictation software. Please excuse any grammatical, word or spelling errors.
[2025-01-03 20:12] LABS: Glucose,Whole Blood 323 mg/dL (70-110)
--- NOTE | 2025-01-04 03:57 | PN ---
PROGRESS NOTE DATE OF SERVICE: 01/03/2025 CHIEF COMPLAINT: Carcinoma of the lung. HISTORY OF PRESENT ILLNESS: This gentleman is stable. He is undergoing further staging studies before he is able to be discharged. PHYSICAL EXAMINATION: LUNGS: Breath sounds are heard bilaterally, CARDIAC: Unremarkable. IMPRESSION: 1. Metastatic carcinoma of the lung. 2. Chronic obstructive pulmonary disease. 3. History of subacute bacterial endocarditis. PLAN: Once all of his studies are completed, his treatment program will be outlined, and he will be able to be discharged for outpatient treatment. MMODL / IJN: [id number] /
[2025-01-04 06:01] LABS: Glucose,Whole Blood 108 mg/dL (70-110)
[2025-01-04 11:55] LABS: Glucose,Whole Blood 245 mg/dL (70-110)
[2025-01-04] MEDS ORDERED: RX INFO: IV CONTRAST WAS GIVEN 1 EACH MISC MISCELLANE PRN (13:04)
--- NOTE | 2025-01-04 14:11 | P.PN ---
Subjective Progress Note Date: 01/04/25 Principal diagnosis: Reason for follow-up is fever/postobstructive pneumonia Patient is a 74-year-old male with a past medical history significant for CVA TIA diabetes mellitus hypertension hyperlipidemia and seizure disorder current everyday smoker presenting to the hospital for evaluation of mental status changes did have a fever prompting this consultation.Patient is status post bronchoscopy and biopsy of the right upper lobe mass completed on 12/30/2024. On today's evaluation that is 01/04/2025, Patient is afebrile this morning patient is breathing comfortably on 2 L nasal oxygen denies chest pain or worsening cough no abdominal pain or diarrhea. No new lab has been obtained today Objective - Vital Signs Vital signs: Vital Signs Temp 97.6 F 01/04/25 07:38 Pulse 75 01/04/25 12:07 Resp 18 01/04/25 12:07 BP 150/72 01/04/25 12:07 Pulse Ox 96 01/04/25 12:07 FiO2 21 01/03/25 09:02 Intake & Output 01/03/25 01/04/25 01/04/25 18:59 06:59 18:59 Intake Total 500 30 Output Total 600 Balance -100 30 Weight 63.3 kg 63.3 kg Intake: IV 20 30 Invasive Line 4 20 20 Invasive Line 6 10 Oral 480 Output: Urine 600 Other: Voiding Method Urinal Urinal Urinal # Voids 0 - Exam GENERAL DESCRIPTION: An elderly male lying in bed in no distress RESPIRATORY SYSTEM: Unlabored breathing , decreased breath sounds at bases HEART: S1 S2 regular rate and rhythm , ABDOMEN: Soft , no tenderness EXTREMITIES: No edema feet - Labs CBC & Chem 7: 12/29/24 07:55 01/02/25 07:33 Labs: Abnormal Lab Results - Last 24 Hours (Table) 12/30/24 01/03/25 01/03/25 Range/Units 15:50 16:12 20:10 POC Glucose (mg/dL) 256 H 323 H (70-110) mg/dL Influenza Type A (PCR) DETECTED A (Not detected) 01/04/25 Range/Units 11:54 POC Glucose (mg/dL) 245 H (70-110) mg/dL Influenza Type A (PCR) (Not detected) Assessment and Plan (1) Sepsis Current Visit: No Status: Acute Code(s): A41.9 - SEPSIS, UNSPECIFIED ORGANISM SNOMED Code(s): 02703214 (2) Pneumonia Current Visit: No Status: Acute Code(s): J18.9 - PNEUMONIA, UNSPECIFIED ORGANISM SNOMED Code(s): 302318127 (3) Influenza A Current Visit: Yes Status: Acute Code(s): J10.1 - FLU DUE TO OTH IDENT INFLUENZA VIRUS W OTH RESP MANIFEST SNOMED Code(s): 584037023 Plan: 1patient presented to hospital with sepsis in this patient who did have a fever tachycardia elevated white count meeting criteria for SIRS source is likely pneumonia in this patient did have abnormal x-ray concerning for possible mass and a question of possible postobstructive pneumonia and will need to cover for the polymicrobial juli associated with postobstructive pneumonia 2patient did have CT of the chest with significant abnormality concerning for possible malignancy and postobstructive pneumonia 3patient did have resolution of his fever and status post bronchoscopy biopsy and lavage cultures are so far negative and resistant pathogen, the viral screen from BAL came back positive with influenza A 4patient to continue with the Zosyn and Tamiflu finishing therapy with oral Augmentin and monitor clinical course closely Dictation was produced using [employer] dictation software. please excuse any grammatical, word or spelling errors. Time with Patient: Less than 30
--- NOTE | 2025-01-04 15:25 | P.PN ---
Subjective Progress Note Date: 01/04/25 Principal diagnosis: Small cell lung cancer and right lower lobe consolidation/atelectasis 74-year-old male patient, presented to emergency department with complaints of right hip pain, left knee pain, generalized weakness over the past several days along with some symptoms of nausea and emesis. It was reported over the past 3 days, the patient was unable to get out of bed and the patient was weak and quite shaky to the point where he was unable to hold a cup. His weakness was essentially symmetrical. No reported falls. He was having some altered mentation in addition. Based on that, the patient underwent further investigation. The white cell count was at 12 with a hemoglobin 10.7 and a platelet count of 246. Normal coagulation profile. BUN of 46 with a creatinine of 1.37 and a sodium level was 135 and a potassium level was 5. Normal LFTs. Normal troponins. TSH was at 1.5. Rest of the electrolytes were normal. Alcohol level was less than 10 and the viral screen was also negative. The patient was given a CAT scan of the brain that showed no acute intracranial process. There was some nonspecific white matter changes likely related to chronic small vessel ischemic disease and remote injury/stroke involving the right parietal lobe. X-ray of the hip showed mild to moderate hip osteoarthritis without any evidence of an acute abnormalities on the right and x-ray of the tibia and fibula showed no evidence of any fractures. Chest x-ray revealed a right paramediastinal mass and this was followed up by a CAT scan of the chest that showed a right suprahilar mass measuring 7.2 x 6.2 x 9.8 cm in size. The mass was encroaching on the trachea and right mainstem bronchus causing mass effect. The IVC was quite compressed. It was still patent. In addition, the CAT scan of the upper abdomen and liver demonstrated a high density mass in the left hepatic lobe measuring 5.8 x 4.8 cm in size and the patient had a nodular contour of the adrenal gland and the findings were highly suggestive of bronchogenic carcinoma with metastases. Some limited consolidation in the right lower lobe was also noted. There was an indeterminate mass in the left upper quadrant area measuring 5.8 cm in size. Exact nature of this mass was not clear. X-rays right-sided pleural effusion was also noted. On 12/29/2024, the patient is being seen for a follow-up. No changes in his overall condition. Remains calm and comfortable. Slightly bronchospastic and wheezy and the patient will be started on IV Solu-Medrol. He will be also started on DuoNeb nebulized treatments [id number]. I had further discussion with him regarding the CAT scan finding the patient will need a bronchoscopy and endobronchial ultrasound and biopsy of the right suprahilar mass. The patient was agreeable. The white cell count is at 10.6 with a hemoglobin of 10.1 and a platelet count of 272. Normal coagulation profile. BUN 17 with a creatinine of 0.7. CPK is 242. He did encounter atrial fibrillation with rapid ventricular response. Based on that, the patient got transferred to the telemetry unit. The patient was seen by cardiology. 2D echocardiogram was ordered. Cardizem has been discontinued and the patient is currently on metoprolol 50 mg p.o. twice a day. He is current rhythm is sinus. He is on IV heparin. 12/30/2024, the patient is n.p.o. for a bronchoscopy. As stated, the patient has a large right upper lobe mass with some mass effect on the right mainstem bronchus and the main trachea. This is a bulky tumor. The patient remains quite debilitated. Complaining of generalized weakness. He is afebrile. Hemodynamically stable. He is on room air oxygen. No nausea vomiting or emesis. No focal neurological deficits. No new labs are available from today. Continues to be on DuoNeb nebulized treatments [id number]. Remains on IV Solu-Medrol. Remains on IV Zosyn and consideration for a right lung pneumonia, postobstructive. Otherwise, no other significant changes in his condition. In terms of his cardiac rhythm, the patient remains on IV heparin awaiting bronchoscopy. After completion of the bronchoscopy, the patient will be sw itched to anticoagulation with Eliquis. His current cardiac rhythm is sinus. On 12/31/2024, the patient is being seen for a follow-up. Resting comfortably in bed. No new complaints for now. The patient is currently on room air oxygen with a pulse ox of 95%. No facial swelling. No arm swelling. No hemoptysis. No pleurisy. The patient was noted to be in normal sinus rhythm. Underwent bronchoscopy and biopsy of the right upper lobe mass was also done yesterday. Pathology is pending for now. Meanwhile, the patient was seen by medical oncology. Further recommendations are to follow pending tissue diagnosis on this patient. Blood work from today shows a sodium level of 136, potassium of 3.4, BUN 16 with a creatinine of 0.66. Remains on bronchodilators. Remains on empiric antibiotic coverage with IV Zosyn. Remains on IV Solu-Medrol 60 mg every 6 hours and the patient obviously is less bronchospastic and wheezy compared to yesterday. Started on metoprolol 50 mg p.o. twice daily. The patient is also on anticoagulation with Eliquis regarding paroxysmal atrial fibrillation. Normal same rate of 60 cc an hour. No other significant events overnight. 01/01/2025, the patient is resting comfortably in bed. No significant respiratory difficulties. Less bronchospastic and wheezy. Remains on DuoNeb. Remains on IV Solu-Medrol. Remains on IV Zosyn. Cardiac rhythm is sinus. The patient is on anticoagulants with Eliquis 5 mg p.o. twice daily metoprolol 50 mg p.o. twice daily. Sodium levels at 136, K is at 2.9, bicarb is at 32, BUN 17 with a creatinine of 0.57. Remains on 2 L of oxygen by nasal cannula with a pulse ox of 93%. No chest pain. No shortness of breath. He is voiding. He has a very poor insight in his condition. 01/02/2025, the patient is resting comfortably in bed. No new complaints. Awaiting final pathology. Remains on bronchodilators. Remains on steroids. Remains on IV Zosyn. Note that the patient was also found to have an influenza A on the bronchioloalveolar lavage that was collected at the time of the bronchoscopy. He has poor insight in his condition. Cardiac rhythm is sinus. Remains on anticoagulation with Eliquis. Remains on beta-blockers and the patient is currently on prednisone 50 mg p.o. twice a day. The patient is seen today January 03, 2025 in follow-up on the selective care unit. He is currently resting in bed. Awake and alert in no acute distress. Maintaining O2 saturations in the 90s on 2 L/min per nasal cannula. Bronchoalveolar lavage cultures revealed no growth. Bronchial biopsy cytology still pending. MRI of the brain pending. Glucose 256. He remains on DuoNeb inhalations. Continued on a prednisone taper. Anticoagulated with Eliquis. NicoDerm patch in place. Continued on Tamiflu. Continued on Zosyn. Patient was seen today on 01/04/2025, patient is doing fairly well, awake, not in any distress, on 2 L nasal cannula, pathology came back positive today for small cell lung cancer. Patient is being followed by many consultants including oncology, and he is also being followed by neurology and infectious disease. MRI of the brain is pending patient has multiple comorbidities including history of CVA diabetes hypertension dyslipidemia seizure disorder and smoking history. No labs were done on this patient today except a blood sugar of 245. Objective - Vital Signs Vital signs: Vital Signs Temp 97.6 F 01/04/25 07:38 Pulse 75 01/04/25 14:00 Resp 18 01/04/25 14:00 BP 150/72 01/04/25 12:07 Pulse Ox 96 01/04/25 12:07 FiO2 21 01/03/25 09:02 Intake & Output 01/03/25 01/04/25 01/04/25 18:59 06:59 18:59 Intake Total 500 30 Output Total 600 Balance -100 30 Weight 63.3 kg 63.3 kg Intake: IV 20 30 Invasive Line 4 20 20 Invasive Line 6 10 Oral 480 Output: Urine 600 Other: Voiding Method Urinal Urinal Urinal # Voids 0 - Exam GENERAL EXAM: Alert, pleasant 74-year-old male, on 2 L nasal cannula, not in any distress HEAD: Normocephalic. EYES: Normal reaction of pupils, equal size. NOSE: Clear with pink turbinates. THROAT: No erythema or exudates. NECK: No masses, no JVD. CHEST: No chest wall deformity. LUNGS: Equal air entry with scattered wheezing, diminished in the right lung base. CVS: S1 and S2 normal with no audible murmur, regular rhythm. ABDOMEN: No hepatosplenomegaly, normal bowel sounds, no guarding or rigidity. SKIN: No rashes CENTRAL NERVOUS SYSTEM: No focal deficits, tone is normal in all 4 extremities. EXTREMITIES: There is no peripheral edema. No clubbing, no cyanosis. Peripheral pulses are intact. - Labs CBC & Chem 7: 12/29/24 07:55 01/02/25 07:33 Labs: Abnormal Lab Results - Last 24 Hours (Table) 01/03/25 01/03/25 01/04/25 Range/Units 16:12 20:10 11:54 POC Glucose (mg/dL) 256 H 323 H 245 H (70-110) mg/dL Assessment and Plan Assessment: Impression Large right suprahilar mass measuring 9.8 x 6.2 x 7.2 cm in size pathology is positive for small cell lung cancer Right lower lobe consolidation/atelectasis. Rule out pneumonia. Remains on Zosyn Mediastinal lymphadenopathy, secondary to small cell lung cancer COPD with secondary exacerbation, currently on the combination of bronchodilators and IV steroids. Influenza A identified incidentally on the bronchial lavage collected on 12/30/2024. Initiated on Tamiflu per ID service New onset A-fib, RVR, back into normal sinus rhythm. The patient is currently on metoprolol. On anticoagulation with Eliquis. CVA involving the right parietal, old based on the CAT scan of the head Seizure disorder Hypertension Hyperlipidemia Diabetes mellitus type 2 Acute kidney injury, likely related to volume depletion Osteoarthritis Abdominal aortic aneurysm was repaired back in 2014 and the patient has undergone aortoiliac stenting Chronic smoker Recommendation: Continue present supportive care measures Patient is aware of his diagnosis and oncology is following Brain MRI is pending Continue oxygen and titrate accordingly Continue Tamiflu and Zosyn as per ID on the case Continue bronchodilators and steroids Continue Eliquis Patient will need outpatient follow-up after discharge. With pulmonary and with oncology Will continue to follow Time with Patient: Less than 30
[2025-01-04 16:55] LABS: Glucose,Whole Blood 206 mg/dL (70-110)
--- NOTE | 2025-01-04 17:06 | CT ---
EXAMINATION TYPE: CT brain w con CT DLP: 1254.4 mGycm, Automated exposure control for dose reduction was used. DATE OF EXAM: 01/04/2025 4:54 PM COMPARISON: CT brain 12/29/2024, 12/27/2024, 06/05/2022. CLINICAL INDICATION:Male, 74 years old with history of Small cell lung cancer, initial staging; PHH, Small cell lung ca, staging TECHNIQUE: Axial CT images of the brain were obtained after the uneventful administration of 100 mL I sovue [address] or more CT dose reduction strategies were utilized during this examinati on. Coronal and sagittal reformats reviewed. FINDINGS: Extra-axial spaces: No abnormal extra-axial fluid collections. Ventricular system: Within normal limits Cerebral parenchyma: Mild diffuse cerebral volume loss which is age appropriate. No acute intraparenc hymal hemorrhage or mass effect. Persistent remote infarct in the high right parietal lobe with ence phalomalacia. The centeno-white junction is well differentiated. Scattered hypoattenuating areas are see n within the periventricular white matter. No abnormal enhancement is seen after the administration o f intravenous contrast. Cerebellum: Unremarkable. Mass effect: No evidence of midline shift. Intracranial vasculature: Atherosclerotic calcifications of the intracranial vessels. Soft tissues: Normal. Calvarium/osseous structures: No depressed skull fracture. Nasal septal deviation to the right of mid line again. Paranasal sinuses and mastoid air cells: The mastoid air cells are clear. Left maxillary sinus to muc ous retention cysts inferiorly with largest measuring up to 1.4 cm. Mild mucosal thickening of the in ferior right maxillary sinus with air-fluid level. Remaining paranasal sinuses are clear. Visualized orbits: Orbital contents are intact. IMPRESSION: 1. No acute intracranial process and no evidence to suggest intracranial mass. 2. Remote right parietal lobe infarct with encephalomalacia. 3. Nonspecific white matter changes, likely secondary to chronic small vessel ischemic disease. 4. Mild paranasal sinus disease with air-fluid level within the right maxillary sinus. Correlate for possible acute sinusitis. [facility], , 01/04/2025 5:04 PM
--- NOTE | 2025-01-04 18:50 | CDI ---
Documentation Clarification Form Date: 01/04/2025 06:00:08 PM From: Chela Simpson RN, CCDS Phone: [phone] Admit Date: 12/28/2024 01:32:00 AM Patient Name: Arslan Mckeon Visit Number: [id number] Discharge Date: ATTENTION: The Clinical Documentation Specialists (CDI) and [facility] Coding Staff appreciate your assistance in clarifying documentation. Please respond to the clarification below the line at the bottom and electronically sign. The CDI & [facility] Coding staff will review the response and follow-up if needed. Please note: Queries are made part of the Legal Health Record. If you have any questions, please contact the author of this message via ITS. Doctor. Nancy Munguia Your patient has the documented symptom of Altered Mental Status in the Neurology consult and subsequent progress notes starting on 12/30/24. Additional clarification regarding the etiology/cause of this symptom is requested. History/Risk Factors: Stroke, Hypertension Diabetes Mellitus, Hyperlipidemia, Prior heavy alcohol drinker Clinical Indicators:74-year-old male per assessment somewhat confused, believes that he is at his home. Labs: (12/28) WBC 10.5, C--Reactive Protein 33.00 12/28 VS (0800) 153/73 94 19 100.4 93% RA,(12:29 Temp 101.0 12/[address]: Right paramediastinal masslike consolidation. Additionally there is right upper lung nodule and neck lymph node Consolidation changes in the right lower lung correlate for developing pneumonia. Trace right pleural effusion. Possibly reactive to infection suggested. CT Brain: Old stroke. No acute process 12/28 ID Consult: patient presented to hospital with sepsis in this patient who did have a fever tachycardia elevated white count meeting criteria for SIRS source is likely pneumonia in this patient did have abnormal x-ray concerning for possible mass and a question of possible postobstructive pneumonia and will need to cover for the polymicrobial juli Treatment: Diamond Driller / Telemetry .9NS @60 MS/HR IV Zosyn 3.375 GM IVPB Q8 HRS Please clarify if there is and additional etiology of the symptom of Altered Mental Status: [ x ] Metabolic encephalopathy due to sepsis, postobstructive pneumonia [ x ] Acute Delirium (specify cause): Pneumonia, acute influenza A [ ] Other condition (please specify) [ ] Unable to determine (Template Last Revised: October 2020) MTDD
[2025-01-04 19:56] LABS: Glucose,Whole Blood 247 mg/dL (70-110)
--- NOTE | 2025-01-04 22:48 | P.PN ---
Subjective Progress Note Date: 01/04/25 Principal diagnosis: lung mass,SCLC Pt tired today, has had trouble sleeping, he cont to have congested cough, no hemoptysis, chest pain. He reports unintentional wt. loss and generalized weakness. He has had no c/o post bronch and biopsy. Objective - Vital Signs Vital signs: Vital Signs Temp 97.6 F 01/04/25 07:38 Pulse 75 01/04/25 12:07 Resp 18 01/04/25 12:07 BP 150/72 01/04/25 12:07 Pulse Ox 96 01/04/25 12:07 FiO2 21 01/03/25 09:02 Intake & Output 01/03/25 01/04/25 01/04/25 18:59 06:59 18:59 Intake Total 500 30 Output Total 600 Balance -100 30 Weight 63.3 kg Intake: IV 20 30 Invasive Line 4 20 20 Invasive Line 6 10 Oral 480 Output: Urine 600 Other: Voiding Method Urinal Urinal Urinal # Voids 0 - Constitutional General appearance: Present: average body habitus, cooperative, no acute distress - EENT Eyes: Present: anicteric sclerae, EOMI ENT: Present: hearing grossly normal - Respiratory Respiratory: bilateral: diminished - Cardiovascular Rhythm: regular - Peripheral edema leg Peripheral Edema: bilateral: None - Gastrointestinal General gastrointestinal: Present: normal bowel sounds, soft - Integumentary Integumentary: Present: normal - Neurologic Neurologic: Present: CNII-XII intact - Musculoskeletal Musculoskeletal: Present: generalized weakness, strength equal bilaterally - Psychiatric Psychiatric: Present: A&O x's 3, appropriate affect, intact judgment & insight - Labs CBC & Chem 7: 12/29/24 07:55 01/02/25 07:33 Labs: Abnormal Lab Results - Last 24 Hours (Table) 12/30/24 01/03/25 01/03/25 Range/Units 15:50 16:12 20:10 POC Glucose (mg/dL) 256 H 323 H (70-110) mg/dL Influenza Type A (PCR) DETECTED A (Not detected) 01/04/25 Range/Units 11:54 POC Glucose (mg/dL) 245 H (70-110) mg/dL Influenza Type A (PCR) (Not detected) - Imaging and Cardiology CT Scan - head: report reviewed Assessment and Plan (1) Small cell lung cancer Current Visit: Yes Status: Acute Priority: High Code(s): C34.90 - MALIGNANT NEOPLASM OF UNSP PART OF UNSP BRONCHUS OR LUNG SNOMED Code(s): 505348373 Plan: Small cell lung carcinoma -New diagnosis-pathology and diagnosis reviewed with pt and at bedside -Reviewed that the standard of care for small cell is systemic chemotherapy +/- radiation, depending on if the disease is localized vs extensive. There are numerous areas of concern on imaging that need to be clarified so, plan is for PET scan outpt. -Tumor specimen will be requested to be sent for molecular studies. -Treatment options will be discussed once all the information is available -All questions were answered to the best of my ability at this time -MRI of the brain unable to be performed because of a Hx of stent, unknown what type. CT head with contrast ordered for staging. Have pt information to contact him with appt dates and times Pt is ok from and Oncology standpoint to be discharged once cleared by Attending and Consulting Physicians.
--- NOTE | 2025-01-05 04:44 | PN ---
PROGRESS NOTE DATE OF SERVICE: 01/04/2025 CHIEF COMPLAINT: Metastatic carcinoma of the lung. HISTORY OF PRESENT ILLNESS: This gentleman remains stable. He seems a little more lethargic this morning than usual. PHYSICAL EXAMINATION: CHEST: Clear. CARDIAC: Normal. ABDOMEN: Soft, nontender. IMPRESSION: 1. Metastatic carcinoma of the lung. 2. Chronic obstructive pulmonary disease. 3. History of subacute bacterial endocarditis. PLAN: Await for further management in terms of treatment and discharge planning. MMODL / IJN: [id number] /
[2025-01-05 05:52] LABS: Glucose,Whole Blood 178 mg/dL (70-110)
[2025-01-05 11:09] LABS: Glucose,Whole Blood 183 mg/dL (70-110)
[2025-01-05 16:19] LABS: Glucose,Whole Blood 161 mg/dL (70-110)
--- NOTE | 2025-01-05 16:34 | P.PN ---
Subjective Progress Note Date: 01/05/25 74-year-old male patient, presented to emergency department with complaints of right hip pain, left knee pain, generalized weakness over the past several days along with some symptoms of nausea and emesis. It was reported over the past 3 days, the patient was unable to get out of bed and the patient was weak and quite shaky to the point where he was unable to hold a cup. His weakness was essentially symmetrical. No reported falls. He was having some altered mentation in addition. Based on that, the patient underwent further investigation. The white cell count was at 12 with a hemoglobin 10.7 and a platelet count of 246. Normal coagulation profile. BUN of 46 with a creatinine of 1.37 and a sodium level was 135 and a potassium level was 5. Normal LFTs. Normal troponins. TSH was at 1.5. Rest of the electrolytes were normal. Alcohol level was less than 10 and the viral screen was also negative. The patient was given a CAT scan of the brain that showed no acute intracranial process. There was some nonspecific white matter changes likely related to chronic small vessel ischemic disease and remote injury/stroke involving the right parietal lobe. X-ray of the hip showed mild to moderate hip osteoarthritis without any evidence of an acute abnormalities on the right and x-ray of the tibia and fibula showed no evidence of any fractures. Chest x-ray revealed a right paramediastinal mass and this was followed up by a CAT scan of the chest that showed a right suprahilar mass measuring 7.2 x 6.2 x 9.8 cm in size. The mass was encroaching on the trachea and right mainstem bronchus causing mass effect. The IVC was quite compressed. It was still patent. In addition, the CAT scan of the upper abdomen and liver demonstrated a high density mass in the left hepatic lobe measuring 5.8 x 4.8 cm in size and the patient had a nodular contour of the adrenal gland and the findings were highly suggestive of bronchogenic carcinoma with metastases. Some limited consolidation in the right lower lobe was also noted. There was an indeterminate mass in the left upper quadrant area measuring 5.8 cm in size. Exact nature of this mass was not clear. X-rays right-sided pleural effusion was also noted. On 12/29/2024, the patient is being seen for a follow-up. No changes in his ove rall condition. Remains calm and comfortable. Slightly bronchospastic and wheezy and the patient will be started on IV Solu-Medrol. He will be also started on DuoNeb nebulized treatments [id number]. I had further discussion with him regarding the CAT scan finding the patient will need a br onchoscopy and endobronchial ultrasound and biopsy of the right suprahilar mass. The patient was agreeable. The white cell count is at 10.6 with a hemoglobin of 10.1 and a platelet count of 272. Normal coagulation profile. BUN 17 with a creatinine of 0.7. CPK is 242. He did encounter atrial fibrillation with rapid ventricular response. Based on that, the patient got transferred to the [facility] et unit. The patient was seen by cardiology. 2D echocardiogram was ordered. Cardizem has been discontinued and the patient is currently on metoprolol 50 mg p.o. twice a day. He is current rhythm is sinus. He is on IV heparin. 12/30/2024, the patient is n.p.o. for a bronchoscopy. As stated, the patient has a large right upper lobe mass with some mass effect on the right mainstem bronchus and the main trachea. This is a bulky tumor. The patient remains quite debilitated. Complaining of generalized weakness. He is afebrile. Hemodynamically stable. He is on room air oxygen. No nausea vomiting or emesis. No focal neurological deficits. No new labs are available from today. Continues to be on DuoNeb nebulized treatments [id number]. Remains on IV Solu-Medrol. Remains on IV Zosyn and consideration for a right lung pneumonia, postobstructive. Otherwise, no other significant changes in his condition. In terms of his cardiac rhythm, the patient remains on IV heparin awaiting bronchoscopy. After completion of the bronchoscopy, the patient will be switched to anticoagulation with Eliquis. His current cardiac rhythm is sinus. On 12/31/2024, the patient is being seen for a follow-up. Resting comfortably in bed. No new complaints for now. The patient is currently on room air oxygen with a pulse ox of 95%. No facial swelling. No arm swelling. No hemoptysis. No pleurisy. The patient was noted to be in normal sinus rhythm. Underwent bronchoscopy and biopsy of the right upper lobe mass was also done yesterday. Pathology is pending for now. Meanwhile, the patient was seen by medical oncology. Further recommendations are to follow pending tissue diagnosis on this patient. Blood work from today shows a sodium level of 136, potassium of 3.4, BUN 16 with a creatinine of 0.66. Remains on bronchodilators. Remains on empiric antibiotic coverage with IV Zosyn. Remains on IV Solu-Medrol 60 mg every 6 hours and the patient obviously is less bronchospastic and wheezy compared to yesterday. Started on metoprolol 50 mg p.o. twice daily. The patient is also on anticoagulation with Eliquis regarding paroxysmal atrial fibrillation. Normal same rate of 60 cc an hour. No other significant events overnight. 01/01/2025, the patient is resting comfortably in bed. No significant respiratory difficulties. Less bronchospastic and wheezy. Remains on DuoNeb. Remains on IV Solu-Medrol. Remains on IV Zosyn. Cardiac rhythm is sinus. The patient is on anticoagulants with Eliquis 5 mg p.o. twice daily metoprolol 50 mg p.o. twice daily. Sodium levels at 136, K is at 2.9, bicarb is at 32, BUN 17 with a creatinine of 0.57. Remains on 2 L of oxygen by nasal cannula with a pulse ox of 93%. No chest pain. No shortness of breath. He is voiding. He has a very poor insight in his condition. 01/02/2025, the patient is resting comfortably in bed. No new complaints. Awaiting final pathology. Remains on bronchodilators. Remains on steroids. Remains on IV Zosyn. Note that the patient was also found to have an influenza A on the bronchioloalveolar lavage that was collected at the time of the bronchoscopy. He has poor insight in his condition. Cardiac rhythm is sinus. Remains on anticoagulation with Eliquis. Remains on beta-blockers and the patient is currently on prednisone 50 mg p.o. twice a day. The patient is seen today January 03, 2025 in follow-up on the selective care unit. He is currently resting in bed. Awake and alert in no acute distress. Maintaining O2 saturations in the 90s on 2 L/min per nasal cannula. Bronchoalveolar lavage cultures revealed no growth. Bronchial biopsy cytology still pending. MRI of the brain pending. Glucose 256. He remains on DuoNeb inhalations. Continued on a prednisone taper. Anticoagulated with Eliquis. NicoDerm patch in place. Continued on Tamiflu. Continued on Zosyn. Patient was seen today on 01/04/2025, patient is doing fairly well, awake, not in any distress, on 2 L nasal cannula, pathology came back positive today for small cell lung cancer. Patient is being followed by many consultants including oncology, and he is also being followed by neurology and infectious disease. MRI of the brain is pending patient has multiple comorbidities including history of CVA diabetes hypertension dyslipidemia seizure disorder and smoking history. No labs were done on this patient today except a blood sugar of 245. The patient is seen today January 05, 2025 in follow-up on the selective care unit. He is awake and alert in no acute distress. Maintaining O2 saturations in the 90s on room air oxygen. He has been afebrile. Hemodynamically stable. CT scan of the brain revealed no acute intracranial process. No evidence to suggest intracranial mass. Remote right parietal lobe infarct with encephalomalacia. Glucose 161. Nicoderm patch in place. Anticoagulated with Eliquis. Continued on bronchodilators. Objective - Vital Signs Vital signs: Vital Signs Temp 97.3 F L 01/05/25 15:13 Pulse 63 01/05/25 15:13 Resp 18 01/05/25 15:13 BP 170/89 01/05/25 15:13 Pulse Ox 96 01/05/25 15:13 FiO2 21 01/03/25 09:02 Intake & Output 01/04/25 01/05/25 01/05/25 18:59 06:59 18:59 Intake Total 660 684 Output Total 200 1025 Balance 460 -341 Weight 63.3 kg 68 kg Intake: Oral 660 684 Output: Urine 200 1025 Other: Voiding Method Urinal Urinal Urinal # Voids 1 # Bowel Movements 1 1 - Exam GENERAL EXAM: Alert, 74-year-old male, sitting up in bed, on room air oxygen, comfortable in no apparent distress. HEAD: Normocephalic. EYES: Normal reaction of pupils, equal size. NOSE: Clear with pink turbinates. THROAT: No erythema or exudates. NECK: No masses, no JVD. CHEST: No chest wall deformity. LUNGS: Equal air entry with scattered wheezing, diminished in the right lung base. CVS: S1 and S2 normal with no audible murmur, regular rhythm. ABDOMEN: No hepatosplenomegaly, normal bowel sounds, no guarding or rigidity. SPINE: No scoliosis or deformity SKIN: No rashes CENTRAL NERVOUS SYSTEM: No focal deficits, tone is normal in all 4 extremities. EXTREMITIES: There is no peripheral edema. No clubbing, no cyanosis. Peripheral pulses are intact. - Labs CBC & Chem 7: 12/29/24 07:55 01/02/25 07:33 Labs: Abnormal Lab Results - Last 24 Hours (Table) 12/31/24 01/04/25 01/04/25 Range/Units 06:30 16:54 19:54 POC Glucose (mg/dL) 206 H 247 H (70-110) mg/dL Vitamin B6 <2 L (5-50) ug/L 01/05/25 01/05/25 01/05/25 Range/Units 05:51 11:07 16:18 POC Glucose (mg/dL) 178 H 183 H 161 H (70-110) mg/dL Vitamin B6 (5-50) ug/L Assessment and Plan Assessment: Large right suprahilar mass measuring 9.8 x 6.2 x 7.2 cm in size and causing mass effect on the right mainstem bronchus and the trachea with impending SVC syndrome. The SVC was noted to be compressed yet patent. Another indeterminate mass in the abdomen measuring 5.8 x 4.8 cm in size. This could be originating from the left hepatic lobe versus stomach versus adrenal gland. The exact origin of this abdominal mass is not clear. The patient is post bronchoscopy, biopsy of the endobronchial tumor in the right upper lobe and biopsy of the right upper lobe mass via EBUS and transbronchial needle aspirate. Procedure was completed on 12/30/2024. Pathology positive for small cell lung cancer Right lower lobe consolidation/atelectasis. Procalcitonin 0.98, remains on Zosyn Mediastinal lymphadenopathy COPD with secondary exacerbation, currently on the combination of bronchodilators and IV steroids. Influenza A identified incidentally on the bronchial lavage collected on 12/30/2024. Initiated on Tamiflu per ID service New onset A-fib, RVR, back into normal sinus rhythm. The patient is currently on metoprolol. On anticoagulation with Eliquis. CVA involving the right parietal, old based on the CAT scan of the head Seizure disorder Hypertension Hyperlipidemia Diabetes mellitus type 2 Acute kidney injury, likely related to volume depletion Osteoarthritis Abdominal aortic aneurysm was repaired back in 2014 and the patient has undergone aortoiliac stenting Chronic smoker Plan: The patient was seen and evaluated Labs and medications reviewed Lung biopsies positive for small cell lung cancer CT scan of the brain showed no metastasis Remains stable and on room air oxygen Zosyn and Tamiflu per ID service Continue bronchodilators and steroids Eliquis for anticoagulation NicoDerm patch in place Educated regarding the importance of complete smoking cessation Home once cleared by other consultants I have personally seen and examined the patient, performed the documentation and the assessment and plan as written. Number of minutes spent on the visit: 10 Dictation was produced using [employer] dictation software. Please excuse any gra mmatical, word or spelling errors.
[2025-01-05 20:16] LABS: Glucose,Whole Blood 265 mg/dL (70-110)
--- NOTE | 2025-01-05 22:29 | P.PN ---
Subjective Progress Note Date: 01/05/25 Principal diagnosis: lung mass,SCLC In follow-up today patient states he ate a good breakfast, not really hungry for lunch. He has no acute respiratory complaints, his cough remains very congested. Denies fevers, no nausea, he is getting weak from sitting around. Objective - Vital Signs Vital signs: Vital Signs Temp 97.6 F 01/05/25 08:34 Pulse 65 01/05/25 12:58 Resp 18 01/05/25 11:34 BP 191/81 01/05/25 11:34 Pulse Ox 94 L 01/05/25 11:34 FiO2 21 01/03/25 09:02 Intake & Output 01/04/25 01/05/25 01/05/25 18:59 06:59 18:59 Intake Total 660 462 Output Total 200 625 Balance 460 -163 Weight 63.3 kg 68 kg Intake: Oral 660 462 Output: Urine 200 625 Other: Voiding Method Urinal Urinal Urinal # Voids 1 # Bowel Movements 1 - Constitutional General appearance: Present: cooperative, no acute distress, thin - EENT Eyes: Present: anicteric sclerae, EOMI ENT: Present: hearing grossly normal - Respiratory Respiratory: bilateral: rhonchi, wheezing - Cardiovascular Rhythm: regular Abnormal Heart Sounds: Present: systolic murmur - Gastrointestinal General gastrointestinal: Present: soft - Neurologic Neurologic: Present: CNII-XII intact - Musculoskeletal Musculoskeletal: Present: strength equal bilaterally - Psychiatric Psychiatric: Present: A&O x's 3, appropriate affect, intact judgment & insight - Labs CBC & Chem 7: 12/29/24 07:55 01/02/25 07:33 Labs: Abnormal Lab Results - Last 24 Hours (Table) 12/31/24 01/04/25 01/04/25 Range/Units 06:30 16:54 19:54 POC Glucose (mg/dL) 206 H 247 H (70-110) mg/dL Vitamin B6 <2 L (5-50) ug/L 01/05/25 01/05/25 Range/Units 05:51 11:07 POC Glucose (mg/dL) 178 H 183 H (70-110) mg/dL Vitamin B6 (5-50) ug/L - Imaging and Cardiology CT Scan - head: report reviewed Assessment and Plan (1) Small cell lung cancer Current Visit: Yes Status: Acute Priority: High Code(s): C34.90 - MALIGNANT NEOPLASM OF UNSP PART OF UNSP BRONCHUS OR LUNG SNOMED Code(s): 021789479 Plan: Small cell lung carcinoma -New diagnosis-pathology and diagnosis previously reviewed with pt and -Standard of care for small cell is systemic chemotherapy +/- radiation, depending on if the disease is localized vs extensive. There are numerous areas of concern on imaging that need to be clarified so, plan is for PET scan outpt. Orders been sent for the same. Patient will be contacted with date and time of appointment. He verbalized understanding -Tumor specimen will be requested to be sent for molecular studies. -Treatment options will be discussed once all the information is available -MRI of the brain unable to be performed because of a Hx of stent, unknown what type. CT head with contrast ordered for staging-neg for metastatic disease -Patient will need to complete treatment for influenza. Infectious disease following Pt is ok from and Oncology standpoint to be discharged once cleared by Attending and Consulting Physicians.
[2025-01-06 05:52] LABS: Glucose,Whole Blood 107 mg/dL (70-110)
--- NOTE | 2025-01-06 08:39 | PN ---
PROGRESS NOTE DATE OF SERVICE: 01/05/2025 CHIEF COMPLAINT: CA of the lung. HISTORY OF PRESENT ILLNESS: This gentleman to the point where he can be discharged. It is unlikely that his will be able to care for him at home. This is being discussed with her. PHYSICAL EXAMINATION: CHEST: Clear. CARDIAC: Unchanged. ABDOMEN: Soft and nontender. IMPRESSION: Metastatic carcinoma of the lung. PLAN: Probably home soon to be evaluated for outpatient treatment. MMODL / IJN: [id number] /
[2025-01-06 11:16] LABS: Glucose,Whole Blood 302 mg/dL (70-110)
--- NOTE | 2025-01-06 13:51 | P.PN ---
Subjective Progress Note Date: 01/06/25 Principal diagnosis: Small cell lung cancer and right lower lobe consolidation/atelectasis 74-year-old male patient, presented to emergency department with complaints of right hip pain, left knee pain, generalized weakness over the past several days along with some symptoms of nausea and emesis. It was reported over the past 3 days, the patient was unable to get out of bed and the patient was weak and quite shaky to the point where he was unable to hold a cup. His weakness was essentially symmetrical. No reported falls. He was having some altered mentation in addition. Based on that, the patient underwent further investigation. The white cell count was at 12 with a hemoglobin 10.7 and a platelet count of 246. Normal coagulation profile. BUN of 46 with a creatinine of 1.37 and a sodium level was 135 and a potassium level was 5. Normal LFTs. Normal troponins. TSH was at 1.5. Rest of the electrolytes were normal. Alcohol level was less than 10 and the viral screen was also negative. The patient was given a CAT scan of the brain that showed no acute intracranial process. There was some nonspecific white matter changes likely related to chronic small vessel ischemic disease and remote injury/stroke involving the right parietal lobe. X-ray of the hip showed mild to moderate hip osteoarthritis without any evidence of an acute abnormalities on the right and x-ray of the tibia and fibula showed no evidence of any fractures. Chest x-ray revealed a right paramediastinal mass and this was followed up by a CAT scan of the chest that showed a right suprahilar mass measuring 7.2 x 6.2 x 9.8 cm in size. The mass was encroaching on the trachea and right mainstem bronchus causing mass effect. The IVC was quite compressed. It was still patent. In addition, the CAT scan of the upper abdomen and liver demonstrated a high density mass in the left hepatic lobe measuring 5.8 x 4.8 cm in size and the patient had a nodular contour of the adrenal gland and the findings were highly suggestive of bronchogenic carcinoma with metastases. Some limited consolidation in the right lower lobe was also noted. There was an indeterminate mass in the left upper quadrant area measuring 5.8 cm in size. Exact nature of this mass was not clear. X-rays right-sided pleural effusion was also noted. On 12/29/2024, the patient is being seen for a follow-up. No changes in his overall condition. Remains calm and comfortable. Slightly bronchospastic and wheezy and the patient will be started on IV Solu-Medrol. He will be also started on DuoNeb nebulized treatments [id number]. I had further discussion with him regarding the CAT scan finding the patient will need a bronchoscopy and endobronchial ultrasound and biopsy of the right suprahilar mass. The patient was agreeable. The white cell count is at 10.6 with a hemoglobin of 10.1 and a platelet count of 272. Normal coagulation profile. BUN 17 with a creatinine of 0.7. CPK is 242. He did encounter atrial fibrillation with rapid ventricular response. Based on that, the patient got transferred to the telemetry unit. The patient was seen by cardiology. 2D echocardiogram was ordered. Cardizem has been discontinued and the patient is currently on metoprolol 50 mg p.o. twice a day. He is current rhythm is sinus. He is on IV heparin. 12/30/2024, the patient is n.p.o. for a bronchoscopy. As stated, the patient has a large right upper lobe mass with some mass effect on the right mainstem bronchus and the main trachea. This is a bulky tumor. The patient remains quite debilitated. Complaining of generalized weakness. He is afebrile. Hemodynamically stable. He is on room air oxygen. No nausea vomiting or emesis. No focal neurological deficits. No new labs are available from today. Continues to be on DuoNeb nebulized treatments [id number]. Remains on IV Solu-Medrol. Remains on IV Zosyn and consideration for a right lung pneumonia, postobstructive. Otherwise, no other significant changes in his condition. In terms of his cardiac rhythm, the patient remains on IV heparin awaiting bronchoscopy. After completion of the bronchoscopy, the patient will be sw itched to anticoagulation with Eliquis. His current cardiac rhythm is sinus. On 12/31/2024, the patient is being seen for a follow-up. Resting comfortably in bed. No new complaints for now. The patient is currently on room air oxygen with a pulse ox of 95%. No facial swelling. No arm swelling. No hemoptysis. No pleurisy. The patient was noted to be in normal sinus rhythm. Underwent bronchoscopy and biopsy of the right upper lobe mass was also done yesterday. Pathology is pending for now. Meanwhile, the patient was seen by medical oncology. Further recommendations are to follow pending tissue diagnosis on this patient. Blood work from today shows a sodium level of 136, potassium of 3.4, BUN 16 with a creatinine of 0.66. Remains on bronchodilators. Remains on empiric antibiotic coverage with IV Zosyn. Remains on IV Solu-Medrol 60 mg every 6 hours and the patient obviously is less bronchospastic and wheezy compared to yesterday. Started on metoprolol 50 mg p.o. twice daily. The patient is also on anticoagulation with Eliquis regarding paroxysmal atrial fibrillation. Normal same rate of 60 cc an hour. No other significant events overnight. 01/01/2025, the patient is resting comfortably in bed. No significant respiratory difficulties. Less bronchospastic and wheezy. Remains on DuoNeb. Remains on IV Solu-Medrol. Remains on IV Zosyn. Cardiac rhythm is sinus. The patient is on anticoagulants with Eliquis 5 mg p.o. twice daily metoprolol 50 mg p.o. twice daily. Sodium levels at 136, K is at 2.9, bicarb is at 32, BUN 17 with a creatinine of 0.57. Remains on 2 L of oxygen by nasal cannula with a pulse ox of 93%. No chest pain. No shortness of breath. He is voiding. He has a very poor insight in his condition. 01/02/2025, the patient is resting comfortably in bed. No new complaints. Awaiting final pathology. Remains on bronchodilators. Remains on steroids. Remains on IV Zosyn. Note that the patient was also found to have an influenza A on the bronchioloalveolar lavage that was collected at the time of the bronchoscopy. He has poor insight in his condition. Cardiac rhythm is sinus. Remains on anticoagulation with Eliquis. Remains on beta-blockers and the patient is currently on prednisone 50 mg p.o. twice a day. The patient is seen today January 03, 2025 in follow-up on the selective care unit. He is currently resting in bed. Awake and alert in no acute distress. Maintaining O2 saturations in the 90s on 2 L/min per nasal cannula. Bronchoalveolar lavage cultures revealed no growth. Bronchial biopsy cytology still pending. MRI of the brain pending. Glucose 256. He remains on DuoNeb inhalations. Continued on a prednisone taper. Anticoagulated with Eliquis. NicoDerm patch in place. Continued on Tamiflu. Continued on Zosyn. Patient was seen today on 01/04/2025, patient is doing fairly well, awake, not in any distress, on 2 L nasal cannula, pathology came back positive today for small cell lung cancer. Patient is being followed by many consultants including oncology, and he is also being followed by neurology and infectious disease. MRI of the brain is pending patient has multiple comorbidities including history of CVA diabetes hypertension dyslipidemia seizure disorder and smoking history. No labs were done on this patient today except a blood sugar of 245. The patient is seen today January 05, 2025 in follow-up on the selective care unit. He is awake and alert in no acute distress. Maintaining O2 saturations in the 90s on room air oxygen. He has been afebrile. Hemodynamically stable. CT scan of the brain revealed no acute intracranial process. No evidence to suggest intracranial mass. Remote right parietal lobe infarct with encephalomalacia. Glucose 161. Nicoderm patch in place. Anticoagulated with Eliquis. Continued on bronchodilators. Patient was seen today , patient is doing well on room air, not in distress, generally weak, and debilitated. I believe the patient is having plans to be discharged to rehab, he will eventually need oncology follow-up and treatment for his small cell lung cancer. Objective - Vital Signs Vital signs: Vital Signs Temp 97.4 F L 01/06/25 12:17 Pulse 60 01/06/25 12:17 Resp 16 01/06/25 12:17 BP 162/75 01/06/25 12:17 Pulse Ox 100 01/06/25 12:17 FiO2 21 01/06/25 08:39 Intake & Output 01/05/25 01/06/25 01/06/25 18:59 06:59 18:59 Intake Total 684 360 Output Total 1025 700 600 Balance -341 -700 -240 Weight 68 kg Intake: Oral 684 360 Output: Urine 1025 700 600 Other: Voiding Method Urinal Urinal Urinal # Bowel Movements 1 - Exam GENERAL EXAM: Alert, pleasant 74-year-old male, on room air HEAD: Normocephalic. EYES: Normal reaction of pupils, equal size. NOSE: Clear with pink turbinates. THROAT: No erythema or exudates. NECK: No masses, no JVD. CHEST: No chest wall deformity. LUNGS: Equal air entry with scattered wheezing, diminished in the right lung base. CVS: S1 and S2 normal with no audible murmur, regular rhythm. ABDOMEN: No hepatosplenomegaly, normal bowel sounds, no guarding or rigidity. SKIN: No rashes CENTRAL NERVOUS SYSTEM: No focal deficits, tone is normal in all 4 extremities. EXTREMITIES: There is no peripheral edema. No clubbing, no cyanosis. Peripheral pulses are intact. - Labs CBC & Chem 7: 12/29/24 07:55 01/02/25 07:33 Labs: Abnormal Lab Results - Last 24 Hours (Table) 01/05/25 01/05/25 01/06/25 Range/Units 16:18 20:15 11:14 POC Glucose (mg/dL) 161 H 265 H 302 H (70-110) mg/dL Assessment and Plan Assessment: Impression Large right suprahilar mass measuring 9.8 x 6.2 x 7.2 cm in size pathology is positive for small cell lung cancer Right lower lobe consolidation/atelectasis. Rule out pneumonia. Remains on Zosyn Mediastinal lymphadenopathy, secondary to small cell lung cancer COPD with secondary exacerbation, currently on the combination of bronchodilators and IV steroids. Influenza A identified incidentally on the bronchial lavage collected on 12/30/2024. Initiated on Tamiflu per ID service New onset A-fib, RVR, back into normal sinus rhythm. The patient is currently on metoprolol. On anticoagulation with Eliquis. CVA involving the right parietal, old based on the CAT scan of the head Seizure disorder Hypertension Hyperlipidemia Diabetes mellitus type 2 Acute kidney injury, likely related to volume depletion Osteoarthritis Abdominal aortic aneurysm was repaired back in 2014 and the patient has undergone aortoiliac stenting Chronic smoker Recommendation: Continue present supportive care measures Consider discharge to rehab Patient will need outpatient follow-up with oncology. Continue bronchodilators and steroids Continue Eliquis Will clear patient for discharge if cleared by other consultants Will continue to follow Time with Patient: Less than 30
--- NOTE | 2025-01-06 15:05 | P.PN ---
Subjective Progress Note Date: 01/05/25 Principal diagnosis: Reason for follow-up is fever/postobstructive pneumonia Patient is a 74-year-old male with a past medical history significant for CVA TIA diabetes mellitus hypertension hyperlipidemia and seizure disorder current everyday smoker presenting to the hospital for evaluation of mental status changes did have a fever prompting this consultation.Patient is status post bronchoscopy and biopsy of the right upper lobe mass completed on 12/30/2024. On today's evaluation that is 01/05/2025,the patient denies any fever or any chills, patient is breathing comfortably on 2 L with oxygen the patient denies chest pain shortness of breath and cough has decreased in intensity, patient denies abdominal pain, no nausea vomiting or diarrhea. No new labs has been obtained today Objective - Vital Signs Vital signs: Vital Signs Temp 97.6 F 01/05/25 08:34 Pulse 65 01/05/25 12:58 Resp 18 01/05/25 11:34 BP 191/81 01/05/25 11:34 Pulse Ox 94 L 01/05/25 11:34 FiO2 21 01/03/25 09:02 Intake & Output 01/04/25 01/05/25 01/05/25 18:59 06:59 18:59 Intake Total 660 462 Output Total 200 625 Balance 460 -163 Weight 63.3 kg 68 kg Intake: Oral 660 462 Output: Urine 200 625 Other: Voiding Method Urinal Urinal Urinal # Voids 1 # Bowel Movements 1 - Exam GENERAL DESCRIPTION: An elderly male lying in bed in no distress RESPIRATORY SYSTEM: Unlabored breathing , decreased breath sounds at bases HEART: S1 S2 regular rate and rhythm , ABDOMEN: Soft , no tenderness EXTREMITIES: No edema feet - Labs CBC & Chem 7: 12/29/24 07:55 01/02/25 07:33 Labs: Abnormal Lab Results - Last 24 Hours (Table) 12/31/24 01/04/25 01/04/25 Range/Units 06:30 16:54 19:54 POC Glucose (mg/dL) 206 H 247 H (70-110) mg/dL Vitamin B6 <2 L (5-50) ug/L 01/05/25 01/05/25 Range/Units 05:51 11:07 POC Glucose (mg/dL) 178 H 183 H (70-110) mg/dL Vitamin B6 (5-50) ug/L Assessment and Plan (1) Sepsis Current Visit: No Status: Acute Code(s): A41.9 - SEPSIS, UNSPECIFIED ORGANISM SNOMED Code(s): 42647532 (2) Pneumonia Current Visit: No Status: Acute Code(s): J18.9 - PNEUMONIA, UNSPECIFIED ORGANISM SNOMED Code(s): 234363467 (3) Influenza A Current Visit: Yes Status: Acute Code(s): J10.1 - FLU DUE TO OTH IDENT INFLUENZA VIRUS W OTH RESP MANIFEST SNOMED Code(s): 513213085 Plan: 1patient presented to hospital with sepsis in this patient who did have a fever tachycardia elevated white count meeting criteria for SIRS source is likely pneumonia in this patient did have abnormal x-ray concerning for possible mass and a question of possible postobstructive pneumonia and will need to cover for the polymicrobial juli associated with postobstructive pneumonia 2patient did have CT of the chest with significant abnormality concerning for possible malignancy and postobstructive pneumonia 3patient did have resolution of his fever and status post bronchoscopy biopsy and lavage cultures are so far negative and resistant pathogen, the viral screen from BAL came back positive with influenza A 4patient currently on Tamiflu to finish a 5-day course of therapy along with Zosyn and monitor clinical course closely Dictation was produced using [employer] dictation software. please excuse any grammatical, word or spelling errors.
--- NOTE | 2025-01-06 15:06 | P.PN ---
Subjective Progress Note Date: 01/06/25 Principal diagnosis: Reason for follow-up is fever/postobstructive pneumonia Patient is a 74-year-old male with a past medical history significant for CVA TIA diabetes mellitus hypertension hyperlipidemia and seizure disorder current everyday smoker presenting to the hospital for evaluation of mental status changes did have a fever prompting this consultation.Patient is status post bronchoscopy and biopsy of the right upper lobe mass completed on 12/30/2024. On today's evaluation that is 01/06/2025,the patient remains to be afebrile, patient is on room air not requiring supplemental oxygen and denies any shortness of breath no chest pain and cough has decreased in intensity.Patient denies having any nausea or vomiting, no abdominal pain and no diarrhea has been reported. No new labs has been obtained today, BAL culture has been negative Objective - Vital Signs Vital signs: Vital Signs Temp 97.4 F L 01/06/25 12:17 Pulse 60 01/06/25 14:00 Resp 16 01/06/25 14:00 BP 162/75 01/06/25 12:17 Pulse Ox 100 01/06/25 12:17 FiO2 21 01/06/25 08:39 Intake & Output 01/05/25 01/06/25 01/06/25 18:59 06:59 18:59 Intake Total 684 360 Output Total 1025 700 600 Balance -341 -700 -240 Weight 68 kg Intake: Oral 684 360 Output: Urine 1025 700 600 Other: Voiding Method Urinal Urinal Urinal # Bowel Movements 1 - Exam GENERAL DESCRIPTION: An elderly male lying in bed in no distress RESPIRATORY SYSTEM: Unlabored breathing , decreased breath sounds at bases HEART: S1 S2 regular rate and rhythm , ABDOMEN: Soft , no tenderness EXTREMITIES: No edema feet - Labs CBC & Chem 7: 12/29/24 07:55 01/02/25 07:33 Labs: Abnormal Lab Results - Last 24 Hours (Table) 01/05/25 01/05/25 01/06/25 Range/Units 16:18 20:15 11:14 POC Glucose (mg/dL) 161 H 265 H 302 H (70-110) mg/dL Assessment and Plan (1) Sepsis Current Visit: No Status: Acute Code(s): A41.9 - SEPSIS, UNSPECIFIED ORGANISM SNOMED Code(s): 69443377 (2) Pneumonia Current Visit: No Status: Acute Code(s): J18.9 - PNEUMONIA, UNSPECIFIED ORGANISM SNOMED Code(s): 747679095 (3) Influenza A Current Visit: Yes Status: Acute Code(s): J10.1 - FLU DUE TO OTH IDENT INFLUENZA VIRUS W OTH RESP MANIFEST SNOMED Code(s): 528939552 Plan: 1patient presented to hospital with sepsis in this patient who did have a fever tachycardia elevated white count meeting criteria for SIRS source is likely pneumonia in this patient did have abnormal x-ray concerning for possible mass and a question of possible postobstructive pneumonia and will need to cover for the polymicrobial juli associated with postobstructive pneumonia 2patient did have CT of the chest with significant abnormality concerning for possible malignancy and postobstructive pneumonia 3patient did have resolution of his fever and status post bronchoscopy biopsy and lavage cultures are so far negative and resistant pathogen, the viral screen from BAL came back positive with influenza A 4patient currently on Zosyn finishing therapy with oral Augmentin and a total of 5-day course of Tamiflu Dictation was produced using [employer] dictation software. please excuse any grammatical, word or spelling errors. Time with Patient: Less than 30
[2025-01-06 16:24] LABS: Glucose,Whole Blood 323 mg/dL (70-110)
--- NOTE | 2025-01-06 18:02 | P.PN ---
Subjective Progress Note Date: 01/06/25 Principal diagnosis: lung mass,SCLC In follow-up today patient is not feeling good today, cough remains very congested. No fevers, nausea, generalized weakness Objective - Vital Signs Vital signs: Vital Signs Temp 97.4 F L 01/06/25 12:17 Pulse 63 01/06/25 15:56 Resp 16 01/06/25 14:00 BP 162/75 01/06/25 12:17 Pulse Ox 100 01/06/25 12:17 FiO2 21 01/06/25 08:39 Intake & Output 01/05/25 01/06/25 01/06/25 18:59 06:59 18:59 Intake Total 684 360 Output Total 1025 700 600 Balance -341 -700 -240 Weight 68 kg Intake: Oral 684 360 Output: Urine 1025 700 600 Other: Voiding Method Urinal Urinal Urinal # Bowel Movements 1 - Constitutional General appearance: Present: cooperative, no acute distress, thin - EENT Eyes: Present: anicteric sclerae, EOMI ENT: Present: hearing grossly normal - Respiratory Details: Respirations unlabored at rest, cough remains congested, thick sputum - Integumentary Integumentary: Present: normal - Neurologic Neurologic: Present: CNII-XII intact - Musculoskeletal Musculoskeletal: Present: generalized weakness - Psychiatric Psychiatric: Present: A&O x's 3, appropriate affect, intact judgment & insight - Labs CBC & Chem 7: 12/29/24 07:55 01/02/25 07:33 Labs: Abnormal Lab Results - Last 24 Hours (Table) 01/05/25 01/06/25 01/06/25 Range/Units 20:15 11:14 16:21 POC Glucose (mg/dL) 265 H 302 H 323 H (70-110) mg/dL Assessment and Plan (1) Small cell lung cancer Current Visit: Yes Status: Acute Priority: High Code(s): C34.90 - MALIGNANT NEOPLASM OF UNSP PART OF UNSP BRONCHUS OR LUNG SNOMED Code(s): 599047689 Plan: Small cell lung carcinoma -New diagnosis-pathology and diagnosis previously reviewed with pt and -Standard of care for small cell is systemic chemotherapy +/- radiation, depending on if the disease is localized vs extensive. There are numerous areas of concern on imaging that need to be clarified so, plan is for PET scan outpt. Orders been sent for the same. Patient will be contacted with date and time of appointment. He verbalized understanding -Tumor specimen will be requested to be sent for molecular studies. -Treatment options and prognosis will be discussed once all the information is available -MRI of the brain unable to be performed because of a Hx of stent, unknown what type. CT head with contrast ordered for staging-neg for metastatic disease -Patient will need to complete treatment for influenza. Infectious disease following. Pt is ok from and Oncology standpoint to be discharged once cleared by Attending and Consulting Physicians.
[2025-01-06 20:12] LABS: Glucose,Whole Blood 61 mg/dL (70-110)
[2025-01-06] MEDS: AMOXIC-POT CLAV 875-125MG 1 EACH TAB PO SCH (20:20)
[2025-01-06 20:36] LABS: Glucose,Whole Blood 86 mg/dL (70-110)
--- NOTE | 2025-01-06 22:21 | PN ---
PROGRESS NOTE CHIEF COMPLAINT: CA of the lung. HISTORY OF PRESENT ILLNESS: This gentleman remains fairly stable. He is weak. We are working on a discharge plan. PHYSICAL EXAMINATION: CHEST: Clear. CARDIAC: Normal. ABDOMEN: Soft, nontender. IMPRESSION: Carcinoma of the lung with metastases. PLAN: Await discharge plan from Superintendent Operating of the family. MMODL / IJN: [id number] /
[2025-01-07 05:52] LABS: Glucose,Whole Blood 118 mg/dL (70-110)
--- NOTE | 2025-01-07 08:26 | HP ---
HISTORY AND PHYSICAL CHIEF COMPLAINT: Fracture of the right hip. HISTORY OF PRESENT ILLNESS: This lady is doing slightly better. She is extremely weak still. Hydration has improved. LABORATORY DATA: Reveal that her lactic acid has gone up from 2.4 to 3. Her BNP is 2250. GFR is 55. Her echocardiogram shows a good ejection fraction of 60%, but she does have idiopathic pulmonary hypertension. Her laboratory studies also reveal a low albumin and globulin. PHYSICAL EXAMINATION: GENERAL: She remains slightly lethargic and weak. She does have trouble speaking unintelligibly. She is very pale. CHEST: Clear. CARDIAC: Demonstrates tachycardia. ABDOMEN: Soft, nontender. IMPRESSION: 1. Fracture of the right hip. 2. Dehydration. 3. Malnutrition. 4. Congestive heart failure. 5. Lactic acidosis. 6. Pulmonary hypertension. 7. Hypoproteinemia. PLAN: 1. Continue with IV fluids. 2. Cardiology consult prior to surgery. She might benefit from albumin. MMODL / IJN: [id number] /
[2025-01-07 11:13] LABS: Glucose,Whole Blood 330 mg/dL (70-110)
--- NOTE | 2025-01-07 14:43 | P.PN ---
Subjective Progress Note Date: 01/07/25 Principal diagnosis: Small cell lung cancer and right lower lobe consolidation/atelectasis 74-year-old male patient, presented to emergency department with complaints of right hip pain, left knee pain, generalized weakness over the past several days along with some symptoms of nausea and emesis. It was reported over the past 3 days, the patient was unable to get out of bed and the patient was weak and quite shaky to the point where he was unable to hold a cup. His weakness was essentially symmetrical. No reported falls. He was having some altered mentation in addition. Based on that, the patient underwent further investigation. The white cell count was at 12 with a hemoglobin 10.7 and a platelet count of 246. Normal coagulation profile. BUN of 46 with a creatinine of 1.37 and a sodium level was 135 and a potassium level was 5. Normal LFTs. Normal troponins. TSH was at 1.5. Rest of the electrolytes were normal. Alcohol level was less than 10 and the viral screen was also negative. The patient was given a CAT scan of the brain that showed no acute intracranial process. There was some nonspecific white matter changes likely related to chronic small vessel ischemic disease and remote injury/stroke involving the right parietal lobe. X-ray of the hip showed mild to moderate hip osteoarthritis without any evidence of an acute abnormalities on the right and x-ray of the tibia and fibula showed no evidence of any fractures. Chest x-ray revealed a right paramediastinal mass and this was followed up by a CAT scan of the chest that showed a right suprahilar mass measuring 7.2 x 6.2 x 9.8 cm in size. The mass was encroaching on the trachea and right mainstem bronchus causing mass effect. The IVC was quite compressed. It was still patent. In addition, the CAT scan of the upper abdomen and liver demonstrated a high density mass in the left hepatic lobe measuring 5.8 x 4.8 cm in size and the patient had a nodular contour of the adrenal gland and the findings were highly suggestive of bronchogenic carcinoma with metastases. Some limited consolidation in the right lower lobe was also noted. There was an indeterminate mass in the left upper quadrant area measuring 5.8 cm in size. Exact nature of this mass was not clear. X-rays right-sided pleural effusion was also noted. On 12/29/2024, the patient is being seen for a follow-up. No changes in his overall condition. Remains calm and comfortable. Slightly bronchospastic and wheezy and the patient will be started on IV Solu-Medrol. He will be also started on DuoNeb nebulized treatments [id number]. I had further discussion with him regarding the CAT scan finding the patient will need a bronchoscopy and endobronchial ultrasound and biopsy of the right suprahilar mass. The patient was agreeable. The white cell count is at 10.6 with a hemoglobin of 10.1 and a platelet count of 272. Normal coagulation profile. BUN 17 with a creatinine of 0.7. CPK is 242. He did encounter atrial fibrillation with rapid ventricular response. Based on that, the patient got transferred to the telemetry unit. The patient was seen by cardiology. 2D echocardiogram was ordered. Cardizem has been discontinued and the patient is currently on metoprolol 50 mg p.o. twice a day. He is current rhythm is sinus. He is on IV heparin. 12/30/2024, the patient is n.p.o. for a bronchoscopy. As stated, the patient has a large right upper lobe mass with some mass effect on the right mainstem bronchus and the main trachea. This is a bulky tumor. The patient remains quite debilitated. Complaining of generalized weakness. He is afebrile. Hemodynamically stable. He is on room air oxygen. No nausea vomiting or emesis. No focal neurological deficits. No new labs are available from today. Continues to be on DuoNeb nebulized treatments [id number]. Remains on IV Solu-Medrol. Remains on IV Zosyn and consideration for a right lung pneumonia, postobstructive. Otherwise, no other significant changes in his condition. In terms of his cardiac rhythm, the patient remains on IV heparin awaiting bronchoscopy. After completion of the bronchoscopy, the patient will be sw itched to anticoagulation with Eliquis. His current cardiac rhythm is sinus. On 12/31/2024, the patient is being seen for a follow-up. Resting comfortably in bed. No new complaints for now. The patient is currently on room air oxygen with a pulse ox of 95%. No facial swelling. No arm swelling. No hemoptysis. No pleurisy. The patient was noted to be in normal sinus rhythm. Underwent bronchoscopy and biopsy of the right upper lobe mass was also done yesterday. Pathology is pending for now. Meanwhile, the patient was seen by medical oncology. Further recommendations are to follow pending tissue diagnosis on this patient. Blood work from today shows a sodium level of 136, potassium of 3.4, BUN 16 with a creatinine of 0.66. Remains on bronchodilators. Remains on empiric antibiotic coverage with IV Zosyn. Remains on IV Solu-Medrol 60 mg every 6 hours and the patient obviously is less bronchospastic and wheezy compared to yesterday. Started on metoprolol 50 mg p.o. twice daily. The patient is also on anticoagulation with Eliquis regarding paroxysmal atrial fibrillation. Normal same rate of 60 cc an hour. No other significant events overnight. 01/01/2025, the patient is resting comfortably in bed. No significant respiratory difficulties. Less bronchospastic and wheezy. Remains on DuoNeb. Remains on IV Solu-Medrol. Remains on IV Zosyn. Cardiac rhythm is sinus. The patient is on anticoagulants with Eliquis 5 mg p.o. twice daily metoprolol 50 mg p.o. twice daily. Sodium levels at 136, K is at 2.9, bicarb is at 32, BUN 17 with a creatinine of 0.57. Remains on 2 L of oxygen by nasal cannula with a pulse ox of 93%. No chest pain. No shortness of breath. He is voiding. He has a very poor insight in his condition. 01/02/2025, the patient is resting comfortably in bed. No new complaints. Awaiting final pathology. Remains on bronchodilators. Remains on steroids. Remains on IV Zosyn. Note that the patient was also found to have an influenza A on the bronchioloalveolar lavage that was collected at the time of the bronchoscopy. He has poor insight in his condition. Cardiac rhythm is sinus. Remains on anticoagulation with Eliquis. Remains on beta-blockers and the patient is currently on prednisone 50 mg p.o. twice a day. The patient is seen today January 03, 2025 in follow-up on the selective care unit. He is currently resting in bed. Awake and alert in no acute distress. Maintaining O2 saturations in the 90s on 2 L/min per nasal cannula. Bronchoalveolar lavage cultures revealed no growth. Bronchial biopsy cytology still pending. MRI of the brain pending. Glucose 256. He remains on DuoNeb inhalations. Continued on a prednisone taper. Anticoagulated with Eliquis. NicoDerm patch in place. Continued on Tamiflu. Continued on Zosyn. Patient was seen today on 01/04/2025, patient is doing fairly well, awake, not in any distress, on 2 L nasal cannula, pathology came back positive today for small cell lung cancer. Patient is being followed by many consultants including oncology, and he is also being followed by neurology and infectious disease. MRI of the brain is pending patient has multiple comorbidities including history of CVA diabetes hypertension dyslipidemia seizure disorder and smoking history. No labs were done on this patient today except a blood sugar of 245. The patient is seen today January 05, 2025 in follow-up on the selective care unit. He is awake and alert in no acute distress. Maintaining O2 saturations in the 90s on room air oxygen. He has been afebrile. Hemodynamically stable. CT scan of the brain revealed no acute intracranial process. No evidence to suggest intracranial mass. Remote right parietal lobe infarct with encephalomalacia. Glucose 161. Nicoderm patch in place. Anticoagulated with Eliquis. Continued on bronchodilators. Patient was seen today , patient is doing well on room air, not in distress, generally weak, and debilitated. I believe the patient is having plans to be discharged to rehab, he will eventually need oncology follow-up and treatment for his small cell lung cancer. Seen today on 01/07/2025, patient is doing well, he is generally weak and debilitated, no active pulmonary symptoms not short of breath, patient will require treatment for his small cell lung cancer on outpatient basis, however considering his medical debility I believe the patient needs to be sent to rehab facility/ECF. Objective - Vital Signs Vital signs: Vital Signs Temp 97.1 F L 01/07/25 11:39 Pulse 63 01/07/25 11:39 Resp 20 01/07/25 11:39 BP 123/64 01/07/25 11:39 Pulse Ox 91 L 01/07/25 11:39 FiO2 21 01/07/25 07:48 Intake & Output 01/06/25 01/07/25 01/07/25 18:59 06:59 18:59 Intake Total 540 420 Output Total 900 300 600 Balance -360 -300 -180 Weight 68.2 kg Intake: Oral 540 420 Output: Urine 900 300 600 Other: Voiding Method Urinal Urinal Urinal - Exam GENERAL EXAM: Alert, pleasant 74-year-old male, on room air HEAD: Normocephalic. EYES: Normal reaction of pupils, equal size. NOSE: Clear with pink turbinates. THROAT: No erythema or exudates. NECK: No masses, no JVD. CHEST: No chest wall deformity. LUNGS: Equal air entry with scattered wheezing, diminished in the right lung ba se. CVS: S1 and S2 normal with no audible murmur, regular rhythm. ABDOMEN: No hepatosplenomegaly, normal bowel sounds, no guarding or rigidity. SKIN: No rashes CENTRAL NERVOUS SYSTEM: No focal deficits, tone is normal in all 4 extremities. EXTREMITIES: There is no peripheral edema. No clubbing, no cyanosis. Peripheral pulses are intact. - Labs CBC & Chem 7: 12/29/24 07:55 01/02/25 07:33 Labs: Abnormal Lab Results - Last 24 Hours (Table) 01/06/25 01/06/25 01/07/25 Range/Units 16:21 20:09 05:51 POC Glucose (mg/dL) 323 H 61 L 118 H (70-110) mg/dL 01/07/25 Range/Units 11:12 POC Glucose (mg/dL) 330 H (70-110) mg/dL Microbiology - Last 24 Hours (Table) 12/30/24 15:50 Fungal Culture - Preliminary Bronchoalviolar Lavage - Right Yeast Assessment and Plan Assessment: Impression Large right suprahilar mass measuring 9.8 x 6.2 x 7.2 cm in size pathology is positive for small cell lung cancer Right lower lobe consolidation/atelectasis. Rule out pneumonia. Remains on Zosyn Mediastinal lymphadenopathy, secondary to small cell lung cancer COPD with secondary exacerbation, currently on the combination of bronch odilators and IV steroids. Influenza A identified incidentally on the bronchial lavage collected on 12/30/2024. Initiated on Tamiflu per ID service New onset A-fib, RVR, back into normal sinus rhythm. The patient is currently on metoprolol. On anticoagulation with Eliquis. CVA involving the right parietal, old based on the CAT scan of the head Seizure disorder Hypertension Hyperlipidemia Diabetes mellitus type 2 Acute kidney injury, likely related to volume depletion Osteoarthritis Abdominal aortic aneurysm was repaired back in 2014 and the patient has undergone aortoiliac stenting Chronic smoker Recommendation: Continue present supportive care measures Cleared for discharge to rehab if cleared by other consultants Continue bronchodilators and steroids Continue Eliquis Will clear patient for discharge if cleared by other consultants Time with Patient: Less than 30
--- NOTE | 2025-01-07 15:43 | P.PN ---
Subjective Progress Note Date: 01/07/25 Principal diagnosis: Reason for follow-up is fever/postobstructive pneumonia Patient is a 74-year-old male with a past medical history significant for CVA TIA diabetes mellitus hypertension hyperlipidemia and seizure disorder current everyday smoker presenting to the hospital for evaluation of mental status changes did have a fever prompting this consultation.Patient is status post bronchoscopy and biopsy of the right upper lobe mass completed on 12/30/2024. On today's evaluation that is 01/07/2025, the patient continues to be afebrile, the patient is on 2 L nasal oxygen and breathing slightly comfortably, the Pt denies having any chest pain or any worsening cough, the patient denies having any abdominal pain no vomiting or any diarrhea. No new lab has been repeated today Objective - Vital Signs Vital signs: Vital Signs Temp 97.1 F L 01/07/25 11:39 Pulse 63 01/07/25 11:39 Resp 20 01/07/25 11:39 BP 123/64 01/07/25 11:39 Pulse Ox 91 L 01/07/25 11:39 FiO2 21 01/07/25 07:48 Intake & Output 01/06/25 01/07/25 01/07/25 18:59 06:59 18:59 Intake Total 540 240 Output Total 900 300 600 Balance -360 -300 -360 Weight 68.2 kg Intake: Oral 540 240 Output: Urine 900 300 600 Other: Voiding Method Urinal Urinal Urinal - Exam GENERAL DESCRIPTION: An elderly male lying in bed in no distress RESPIRATORY SYSTEM: Unlabored breathing , decreased breath sounds at bases HEART: S1 S2 regular rate and rhythm , ABDOMEN: Soft , no tenderness EXTREMITIES: No edema feet - Labs CBC & Chem 7: 12/29/24 07:55 01/02/25 07:33 Labs: Abnormal Lab Results - Last 24 Hours (Table) 01/06/25 01/06/25 01/07/25 Range/Units 16:21 20:09 05:51 POC Glucose (mg/dL) 323 H 61 L 118 H (70-110) mg/dL 01/07/25 Range/Units 11:12 POC Glucose (mg/dL) 330 H (70-110) mg/dL Assessment and Plan (1) Sepsis Current Visit: No Status: Acute Code(s): A41.9 - SEPSIS, UNSPECIFIED ORGANISM SNOMED Code(s): 18947309 (2) Pneumonia Current Visit: No Status: Acute Code(s): J18.9 - PNEUMONIA, UNSPECIFIED ORGANISM SNOMED Code(s): 333087425 (3) Influenza A Current Visit: Yes Status: Acute Code(s): J10.1 - FLU DUE TO OTH IDENT INFLUENZA VIRUS W OTH RESP MANIFEST SNOMED Code(s): 196182947 Plan: 1patient presented to hospital with sepsis in this patient who did have a fever tachycardia elevated white count meeting criteria for SIRS source is likely pneumonia in this patient did have abnormal x-ray concerning for possible mass and a question of possible postobstructive pneumonia and will need to cover for the polymicrobial juli associated with postobstructive pneumonia 2patient did have CT of the chest with significant abnormality concerning for possible malignancy and postobstructive pneumonia 3patient did have resolution of his fever and status post bronchoscopy biopsy and lavage cultures are so far negative and resistant pathogen, the viral screen from BAL came back positive with influenza A 4patient antibiotic has been switched over to oral Augmentin and to finish a 5- day course of Tamiflu Dictation was produced using [employer] dictation software. please excuse any grammatical, word or spelling errors. Time with Patient: Less than 30
[2025-01-07 16:21] LABS: Glucose,Whole Blood 263 mg/dL (70-110)
[2025-01-07 20:32] LABS: Glucose,Whole Blood 211 mg/dL (70-110)
--- NOTE | 2025-01-08 03:57 | PN ---
PROGRESS NOTE DATE OF SERVICE: 01/07/2025 CHIEF COMPLAINT: Respiratory failure and CA of the lung. HISTORY OF PRESENT ILLNESS: This gentleman has been fairly stable and could probably go home. Over the last several days, he does seem to be becoming a little bit weaker and short of breath. It is unlikely that he is able to receive good care at home. The options are either that, a prison or hospice. PHYSICAL EXAMINATION: GENERAL: He is pale. LUNGS: Breath sounds are diminished throughout. CARDIAC: Unchanged. ABDOMEN: Soft and nontender. IMPRESSION: 1. Carcinoma of the lung. 2. Respiratory failure. PLAN: As hospice social worker went kind of planning, they have been able to come up with his discharge. MMODL / IJN: [id number] /
[2025-01-08 06:01] LABS: Glucose,Whole Blood 145 mg/dL (70-110)
[2025-01-08 11:38] LABS: Glucose,Whole Blood 260 mg/dL (70-110)
--- NOTE | 2025-01-08 13:12 | P.PN ---
Subjective Progress Note Date: 01/01/25 Principal diagnosis: Small cell lung cancer and right lower lobe consolidation/atelectasis 74-year-old male patient, presented to emergency department with complaints of right hip pain, left knee pain, generalized weakness over the past several days along with some symptoms of nausea and emesis. It was reported over the past 3 days, the patient was unable to get out of bed and the patient was weak and quite shaky to the point where he was unable to hold a cup. His weakness was essentially symmetrical. No reported falls. He was having some altered mentation in addition. Based on that, the patient underwent further investigation. The white cell count was at 12 with a hemoglobin 10.7 and a platelet count of 246. Normal coagulation profile. BUN of 46 with a creatinine of 1.37 and a sodium level was 135 and a potassium level was 5. Normal LFTs. Normal troponins. TSH was at 1.5. Rest of the electrolytes were normal. Alcohol level was less than 10 and the viral screen was also negative. The patient was given a CAT scan of the brain that showed no acute intracranial process. There was some nonspecific white matter changes likely related to chronic small vessel ischemic disease and remote injury/stroke involving the right parietal lobe. X-ray of the hip showed mild to moderate hip osteoarthritis without any evidence of an acute abnormalities on the right and x-ray of the tibia and fibula showed no evidence of any fractures. Chest x-ray revealed a right paramediastinal mass and this was followed up by a CAT scan of the chest that showed a right suprahilar mass measuring 7.2 x 6.2 x 9.8 cm in size. The mass was encroaching on the trachea and right mainstem bronchus causing mass effect. The IVC was quite compressed. It was still patent. In addition, the CAT scan of the upper abdomen and liver demonstrated a high density mass in the left hepatic lobe measuring 5.8 x 4.8 cm in size and the patient had a nodular contour of the adrenal gland and the findings were highly suggestive of bronchogenic carcinoma with metastases. Some limited consolidation in the right lower lobe was also noted. There was an indeterminate mass in the left upper quadrant area measuring 5.8 cm in size. Exact nature of this mass was not clear. X-rays right-sided pleural effusion was also noted. On 12/29/2024, the patient is being seen for a follow-up. No changes in his overall condition. Remains calm and comfortable. Slightly bronchospastic and wheezy and the patient will be started on IV Solu-Medrol. He will be also started on DuoNeb nebulized treatments [id number]. I had further discussion with him regarding the CAT scan finding the patient will need a bronchoscopy and endobronchial ultrasound and biopsy of the right suprahilar mass. The patient was agreeable. The white cell count is at 10.6 with a hemoglobin of 10.1 and a platelet count of 272. Normal coagulation profile. BUN 17 with a creatinine of 0.7. CPK is 242. He did encounter atrial fibrillation with rapid ventricular response. Based on that, the patient got transferred to the telemetry unit. The patient was seen by cardiology. 2D echocardiogram was ordered. Cardizem has been discontinued and the patient is currently on metoprolol 50 mg p.o. twice a day. He is current rhythm is sinus. He is on IV heparin. 12/30/2024, the patient is n.p.o. for a bronchoscopy. As stated, the patient has a large right upper lobe mass with some mass effect on the right mainstem bronchus and the main trachea. This is a bulky tumor. The patient remains quite debilitated. Complaining of generalized weakness. He is afebrile. Hemodynamically stable. He is on room air oxygen. No nausea vomiting or emesis. No focal neurological deficits. No new labs are available from today. Continues to be on DuoNeb nebulized treatments [id number]. Remains on IV Solu-Medrol. Remains on IV Zosyn and consideration for a right lung pneumonia, postobstructive. Otherwise, no other significant changes in his condition. In terms of his cardiac rhythm, the patient remains on IV heparin awaiting bronchoscopy. After completion of the bronchoscopy, the patient will be sw itched to anticoagulation with Eliquis. His current cardiac rhythm is sinus. On 12/31/2024, the patient is being seen for a follow-up. Resting comfortably in bed. No new complaints for now. The patient is currently on room air oxygen with a pulse ox of 95%. No facial swelling. No arm swelling. No hemoptysis. No pleurisy. The patient was noted to be in normal sinus rhythm. Underwent bronchoscopy and biopsy of the right upper lobe mass was also done yesterday. Pathology is pending for now. Meanwhile, the patient was seen by medical oncology. Further recommendations are to follow pending tissue diagnosis on this patient. Blood work from today shows a sodium level of 136, potassium of 3.4, BUN 16 with a creatinine of 0.66. Remains on bronchodilators. Remains on empiric antibiotic coverage with IV Zosyn. Remains on IV Solu-Medrol 60 mg every 6 hours and the patient obviously is less bronchospastic and wheezy compared to yesterday. Started on metoprolol 50 mg p.o. twice daily. The patient is also on anticoagulation with Eliquis regarding paroxysmal atrial fibrillation. Normal same rate of 60 cc an hour. No other significant events overnight. 01/01/2025, the patient is resting comfortably in bed. No significant respiratory difficulties. Less bronchospastic and wheezy. Remains on DuoNeb. Remains on IV Solu-Medrol. Remains on IV Zosyn. Cardiac rhythm is sinus. The patient is on anticoagulants with Eliquis 5 mg p.o. twice daily metoprolol 50 mg p.o. twice daily. Sodium levels at 136, K is at 2.9, bicarb is at 32, BUN 17 with a creatinine of 0.57. Remains on 2 L of oxygen by nasal cannula with a pulse ox of 93%. No chest pain. No shortness of breath. He is voiding. He has a very poor insight in his condition. 01/02/2025, the patient is resting comfortably in bed. No new complaints. Awaiting final pathology. Remains on bronchodilators. Remains on steroids. Remains on IV Zosyn. Note that the patient was also found to have an influenza A on the bronchioloalveolar lavage that was collected at the time of the bronchoscopy. He has poor insight in his condition. Cardiac rhythm is sinus. Remains on anticoagulation with Eliquis. Remains on beta-blockers and the patient is currently on prednisone 50 mg p.o. twice a day. The patient is seen today January 03, 2025 in follow-up on the selective care unit. He is currently resting in bed. Awake and alert in no acute distress. Maintaining O2 saturations in the 90s on 2 L/min per nasal cannula. Bronchoalveolar lavage cultures revealed no growth. Bronchial biopsy cytology still pending. MRI of the brain pending. Glucose 256. He remains on DuoNeb inhalations. Continued on a prednisone taper. Anticoagulated with Eliquis. NicoDerm patch in place. Continued on Tamiflu. Continued on Zosyn. Patient was seen today on 01/04/2025, patient is doing fairly well, awake, not in any distress, on 2 L nasal cannula, pathology came back positive today for small cell lung cancer. Patient is being followed by many consultants including oncology, and he is also being followed by neurology and infectious disease. MRI of the brain is pending patient has multiple comorbidities including history of CVA diabetes hypertension dyslipidemia seizure disorder and smoking history. No labs were done on this patient today except a blood sugar of 245. The patient is seen today January 05, 2025 in follow-up on the selective care unit. He is awake and alert in no acute distress. Maintaining O2 saturations in the 90s on room air oxygen. He has been afebrile. Hemodynamically stable. CT scan of the brain revealed no acute intracranial process. No evidence to suggest intracranial mass. Remote right parietal lobe infarct with encephalomalacia. Glucose 161. Nicoderm patch in place. Anticoagulated with Eliquis. Continued on bronchodilators. Patient was seen today , patient is doing well on room air, not in distress, generally weak, and debilitated. I believe the patient is having plans to be discharged to rehab, he will eventually need oncology follow-up and treatment for his small cell lung cancer. Seen today on 01/07/2025, patient is doing well, he is generally weak and debilitated, no active pulmonary symptoms not short of breath, patient will require treatment for his small cell lung cancer on outpatient basis, however considering his medical debility I believe the patient needs to be sent to rehab facility/ECF. Seen today on 01/08/2025, patient is about the same denies any specific pulmonary symptoms but he is generally weak, I believe the patient is getting more and more medically debilitated to the point that he may not be a candidate for any intervention regarding his lung cancer. Discharge planning is in progress, pulmonary elliott I have cleared the patient for discharge. Objective - Vital Signs Vital signs: Vital Signs Temp 97.3 F L 01/08/25 08:00 Pulse 59 L 01/08/25 12:00 Resp 16 01/08/25 12:00 BP 153/69 01/08/25 12:00 Pulse Ox 97 01/08/25 12:00 FiO2 21 01/07/25 07:48 Intake & Output 01/07/25 01/08/25 01/08/25 18:59 06:59 18:59 Intake Total 600 240 Output Total 800 Balance -200 240 Weight 68.4 kg Intake: Oral 600 240 Output: Urine 800 Other: Voiding Method Urinal Urinal Urinal - Exam GENERAL EXAM: Alert, pleasant 74-year-old male, on room air, patient looks frail chronically ill debilitated HEAD: Normocephalic. EYES: Normal reaction of pupils, equal size. NOSE: Clear with pink turbinates. THROAT: No erythema or exudates. NECK: No masses, no JVD. CHEST: No chest wall deformity. LUNGS: Equal air entry with scattered wheezing, diminished in the right lung base. CVS: S1 and S2 normal with no audible murmur, regular rhythm. ABDOMEN: No hepatosplenomegaly, normal bowel sounds, no guarding or rigidity. SKIN: No rashes CENTRAL NERVOUS SYSTEM: No focal deficits, tone is normal in all 4 extremities. EXTREMITIES: There is no peripheral edema. No clubbing, no cyanosis. Peripheral pulses are intact. - Labs CBC & Chem 7: 12/29/24 07:55 01/02/25 07:33 Labs: Abnormal Lab Results - Last 24 Hours (Table) 01/07/25 01/07/25 01/08/25 Range/Units 16:18 20:30 05:59 POC Glucose (mg/dL) 263 H 211 H 145 H (70-110) mg/dL 01/08/25 Range/Units 11:37 POC Glucose (mg/dL) 260 H (70-110) mg/dL Microbiology - Last 24 Hours (Table) 12/30/24 15:50 Fungal Culture - Preliminary Bronchoalviolar Lavage - Right Yeast Assessment and Plan Assessment: Impression Large right suprahilar mass measuring 9.8 x 6.2 x 7.2 cm in size pathology is positive for small cell lung cancer Right lower lobe consolidation/atelectasis. Rule out pneumonia. Remains on Zosyn Mediastinal lymphadenopathy, secondary to small cell lung cancer COPD with secondary exacerbation, currently on the combination of br onchodilators and IV steroids. Influenza A identified incidentally on the bronchial lavage collected on 12/30/2024. Initiated on Tamiflu per ID service New onset A-fib, RVR, back into normal sinus rhythm. The patient is currently on metoprolol. On anticoagulation with Eliquis. CVA involving the right parietal, old based on the CAT scan of the head Seizure disorder Hypertension Hyperlipidemia Diabetes mellitus type 2 Acute kidney injury, likely related to volume depletion Osteoarthritis Abdominal aortic aneurysm was repaired back in 2014 and the patient has undergone aortoiliac stenting Chronic smoker Recommendation: Continue present supportive care measures Cleared for discharge to rehab if cleared by other consultants Continue bronchodilators and steroids Continue Eliquis Will follow as needed Time with Patient: Less than 30
[2025-01-08 16:43] LABS: Glucose,Whole Blood 116 mg/dL (70-110)
[2025-01-08 20:20] LABS: Glucose,Whole Blood 130 mg/dL (70-110)
[2025-01-09 06:34] LABS: Glucose,Whole Blood 119 mg/dL (70-110)
[2025-01-09] MEDS: CALCIUM CARBONATE 500 MG CHEWABLE PO PRN (09:01)
[2025-01-09] MEDS: bisacodyL 5 MG TABLET.DR PO PRN (09:03)
[2025-01-09 11:40] LABS: Glucose,Whole Blood 226 mg/dL (70-110)
[2025-01-09 16:30] LABS: Glucose,Whole Blood 100 mg/dL (70-110)
[2025-01-09 20:16] LABS: Glucose,Whole Blood 191 mg/dL (70-110)
--- NOTE | 2025-01-09 21:36 | P.PN ---
Subjective Progress Note Date: 01/08/25 Principal diagnosis: Reason for follow-up is fever/postobstructive pneumonia Patient is a 74-year-old male with a past medical history significant for CVA TIA diabetes mellitus hypertension hyperlipidemia and seizure disorder current everyday smoker presenting to the hospital for evaluation of mental status changes did have a fever prompting this consultation.Patient is status post bronchoscopy and biopsy of the right upper lobe mass completed on 12/30/2024. On today's evaluation that is 01/08/2025, patient did not have any fever and denies any chills, patient is breathing comfortably on 2 L current oxygen, patient with no chest pain or any worsening cough patient did not have any abdominal pain nausea vomiting or any loose stools. No new lab has been obtained today Objective - Vital Signs Vital signs: Vital Signs Temp 97.3 F L 01/08/25 08:00 Pulse 59 L 01/08/25 12:00 Resp 16 01/08/25 12:00 BP 153/69 01/08/25 12:00 Pulse Ox 97 01/08/25 12:00 FiO2 21 01/07/25 07:48 Intake & Output 01/07/25 01/08/25 01/08/25 18:59 06:59 18:59 Intake Total 600 240 Output Total 800 Balance -200 240 Weight 68.4 kg Intake: Oral 600 240 Output: Urine 800 Other: Voiding Method Urinal Urinal Urinal - Exam GENERAL DESCRIPTION: An elderly male lying in bed in no distress RESPIRATORY SYSTEM: Unlabored breathing , decreased breath sounds at bases HEART: S1 S2 regular rate and rhythm , ABDOMEN: Soft , no tenderness EXTREMITIES: No edema feet - Labs CBC & Chem 7: 12/29/24 07:55 01/02/25 07:33 Labs: Abnormal Lab Results - Last 24 Hours (Table) 01/07/25 01/07/25 01/08/25 Range/Units 16:18 20:30 05:59 POC Glucose (mg/dL) 263 H 211 H 145 H (70-110) mg/dL 01/08/25 Range/Units 11:37 POC Glucose (mg/dL) 260 H (70-110) mg/dL Microbiology - Last 24 Hours (Table) 12/30/24 15:50 Fungal Culture - Preliminary Bronchoalviolar Lavage - Right Yeast Assessment and Plan (1) Sepsis Current Visit: No Status: Acute Code(s): A41.9 - SEPSIS, UNSPECIFIED OR GANISM SNOMED Code(s): 37969003 (2) Pneumonia Current Visit: No Status: Acute Code(s): J18.9 - PNEUMONIA, UNSPECIFIED ORGANISM SNOMED Code(s): 726910029 (3) Influenza A Current Visit: Yes Status: Acute Code(s): J10.1 - FLU DUE TO OTH IDENT INFLUENZA VIRUS W OTH RESP MANIFEST SNOMED Code(s): 839629210 Plan: 1patient presented to hospital with sepsis in this patient who did have a fever tachycardia elevated white count meeting criteria for SIRS source is likely pneumonia in this patient did have abnormal x-ray concerning for possible mass and a question of possible postobstructive pneumonia and will need to cover for the polymicrobial juli associated with postobstructive pneumonia 2patient did have CT of the chest with significant abnormality concerning for possible malignancy and postobstructive pneumonia 3patient did have resolution of his fever and status post bronchoscopy biopsy and lavage cultures are so far negative and resistant pathogen, the viral screen from BAL came back positive with influenza A 4patient has completed 5-day course of Tamiflu and is currently on oral Augmentin Dictation was produced using [employer] dictation software. please excuse any grammatical, word or spelling errors. Time with Patient: Less than 30
--- NOTE | 2025-01-09 21:36 | P.PN ---
Subjective Progress Note Date: 01/09/25 Principal diagnosis: Reason for follow-up is fever/postobstructive pneumonia Patient is a 74-year-old male with a past medical history significant for CVA TIA diabetes mellitus hypertension hyperlipidemia and seizure disorder current everyday smoker presenting to the hospital for evaluation of mental status changes did have a fever prompting this consultation.Patient is status post bronchoscopy and biopsy of the right upper lobe mass completed on 12/30/2024. On today's evaluation that is 01/09/2025, Patient is afebrile patient is currently on 2 L nasal cannula oxygen and denies having any shortness of breath, the patient denies any chest pain or cough, the patient denies any nausea vomiting did not have any abdominal pain and no diarrhea No new lab has been obtained today Objective - Vital Signs Vital signs: Vital Signs Temp 97.6 F 01/09/25 08:00 Pulse 61 01/09/25 16:00 Resp 16 01/09/25 16:00 BP 138/80 01/09/25 16:00 Pulse Ox 95 01/09/25 16:00 FiO2 21 01/07/25 07:48 Intake & Output 01/09/25 01/09/25 01/10/25 06:59 18:59 06:59 Intake Total 200 730 Output Total 350 650 Balance -150 80 Weight 67.8 kg Intake: Oral 200 730 Output: Urine 350 650 Other: Voiding Method Urinal Urinal - Exam GENERAL DESCRIPTION: An elderly male lying in bed in no distress RESPIRATORY SYSTEM: Unlabored breathing , decreased breath sounds at bases HEART: S1 S2 regular rate and rhythm , ABDOMEN: Soft , no tenderness EXTREMITIES: No edema feet - Labs CBC & Chem 7: 12/29/24 07:55 01/02/25 07:33 Labs: Abnormal Lab Results - Last 24 Hours (Table) 01/09/25 01/09/25 01/09/25 Range/Units 06:31 11:37 20:15 POC Glucose (mg/dL) 119 H 226 H 191 H (70-110) mg/dL Assessment and Plan (1) Sepsis Current Visit: No Status: Acute Code(s): A41.9 - SEPSIS, UNSPECIFIED ORGANISM SNOMED Code(s): 84395902 (2) Pneumonia Current Visit: No Status: Acute Code(s): J18.9 - PNEUMONIA, UNSPECIFIED ORGANISM SNOMED Code(s): 403782612 (3) Influenza A Current Visit: Yes Status: Acute Code(s): J10.1 - FLU DUE TO OTH IDENT INFLUENZA VIRUS W OTH RESP MANIFEST SNOMED Code(s): 623025880 Plan: 1patient presented to hospital with sepsis in this patient who did have a fever tachycardia elevated white count meeting criteria for SIRS source is likely pneumonia in this patient did have abnormal x-ray concerning for possible mass and a question of possible postobstructive pneumonia and will need to cover for the polymicrobial juli associated with postobstructive pneumonia 2patient did have CT of the chest with significant abnormality concerning for possible malignancy and postobstructive pneumonia 3patient did have resolution of his fever and status post bronchoscopy biopsy and lavage cultures are so far negative and resistant pathogen, the viral screen from BAL came back positive with influenza A 4patient has completed 5-day course of Tamiflu and and will consider short course of oral Augmentin on discharge, repeat his CBC and BMP with a.m. lab Dictation was produced using [employer] dictation software. please excuse any grammatical, word or spelling errors.
--- NOTE | 2025-01-09 22:51 | PN ---
PROGRESS NOTE DATE OF SERVICE: 01/08/2025 CHIEF COMPLAINT: Carcinoma of the lung. HISTORY OF PRESENT ILLNESS: This gentleman is getting a little bit weaker each day. He is confused at times. PHYSICAL EXAMINATION: LUNGS: Breath sounds are heard bilaterally. CARDIAC: Normal. ABDOMEN: Soft, nontender. IMPRESSION: Carcinoma of the lung with metastases. PLAN: I tried to have a conversation with the patient regarding discharge and end-of-life care. I explained that he is not going to survive his illness and that he needs to start thinking about whether he wants to go home, go to the penitentiary, and do each of these with or without hospice. I am not sure that he understands. MMODL / IJN: [id number] /
--- NOTE | 2025-01-09 23:09 | PN ---
PROGRESS NOTE DATE OF SERVICE: 01/09/2025 CHIEF COMPLAINT: CA of the lung. HISTORY OF PRESENT ILLNESS: This gentleman is doing fairly well and was starting to be concerned about where he will go when he is discharged. PHYSICAL EXAMINATION: GENERAL: He is somewhat lethargic. LUNGS: Breath sounds are heard bilaterally. CARDIAC: Normal. IMPRESSION: Carcinoma of the lung with metastases. PLAN: On discharging sometime this week once the arrangements are made, which are acceptable to the patient and the family. MMODL / QINGN: [id number] /
[2025-01-10 06:01] LABS: Basophils # (A) 0.03 10*3/uL (0.00-0.10); Basophils % (A) 0.3 %; Eosinophils # (A) 0.04 10*3/uL (0.04-0.35); Eosinophils % (A) 0.4 %; HCT 32.9 % (39.6-50.0); HGB 10.5 g/dL (13.0-17.0); Lymphocytes % (A) 15.8 %; MCH 28.4 pg (27.0-32.0); MCHC 31.9 g/dL (32.0-37.0); MCV 88.9 fL (80.0-97.0); Mean Platelet Volume 9.8 fL (9.5-12.2); Monocytes # (A) 0.68 10*3/uL (0.20-1.00); Monocytes % (A) 6.3 %; Neutrophils # (A) 8.23 10*3/uL (1.80-7.70); Neutrophils % (A) 76.2 %; Platelet Count 400 10*3/uL (140-440); RDW 15.5 % (11.5-14.5); WBC 10.79 10*3/uL (4.50-10.00)
[2025-01-10 06:18] LABS: Glucose,Whole Blood 112 mg/dL (70-110)
[2025-01-10 06:31] LABS: ALT 24 U/L (4-49); AST 21 U/L (17-59); African American GFR (CKD) >90 (>60 ml/min/1.73 sqM); Alkaline Phosphatase 93 U/L (38-126); Anion Gap 5 mmol/L; Blood Urea Nitrogen 12 mg/dL (9-20); Calcium 8.4 mg/dL (8.4-10.2); Carbon Dioxide 31 mmol/L (22-30); Chloride 100 mmol/L (98-107); Glucose 95 mg/dL (74-99); Non-African American GFR(CKD) >90 (>60 ml/min/1.73 sqM); Potassium 4.2 mmol/L (3.5-5.1); Sodium 136 mmol/L (137-145); Total Bilirubin 0.5 mg/dL (0.2-1.3); Total Protein 5.9 g/dL (6.3-8.2)
[2025-01-10 06:47] LABS: C Reactive Protein 15.5 mg/dL (<1.0)
[2025-01-10 12:00] LABS: Glucose,Whole Blood 261 mg/dL (70-110)
[2025-01-10 16:33] LABS: Glucose,Whole Blood 118 mg/dL (70-110)
--- NOTE | 2025-01-10 16:43 | P.PN ---
Subjective Progress Note Date: 01/10/25 Patient was seen for follow-up. Patient is laying in the bed, appears somewhat cachectic, somewhat in distress. Patient has lost weight. Objective - Vital Signs Vital signs: Vital Signs Temp 98.1 F 01/10/25 13:05 Pulse 63 01/10/25 13:05 Resp 16 01/10/25 13:05 BP 132/70 01/10/25 13:05 Pulse Ox 95 01/10/25 13:05 FiO2 21 01/07/25 07:48 Intake & Output 01/09/25 01/10/25 01/10/25 18:59 06:59 18:59 Intake Total 730 Output Total 650 300 Balance 80 -300 Weight 70.7 kg Intake: Oral 730 Output: Urine 650 300 Other: Voiding Method Urinal Urinal # Voids 1 - Exam Patient is alert and awake appears in mild distress. Speech and language functions are normal. On muscle strength testing, the strength is normal in the arms distally and proximally. In the lower limbs, (right/left) hip flexion 4-/3+, ankle dorsiflexion 5/5, toe extension 4/2. - Labs CBC & Chem 7: 01/10/25 05:41 01/10/25 05:41 Labs: Abnormal Lab Results - Last 24 Hours (Table) 01/09/25 01/10/25 01/10/25 Range/Units 20:15 05:41 05:41 WBC 10.79 H (4.50-10.00) 10*3/uL RBC 3.70 L (4.40-5.60) 10*6/uL Hgb 10.5 L (13.0-17.0) g/dL Hct 32.9 L (39.6-50.0) % MCHC 31.9 L (32.0-37.0) g/dL Immature Gran # 0.11 H (0.00-0.04) 10*3/uL Neutrophils # 8.23 H (1.80-7.70) 10*3/uL Sodium 136 L (137-145) mmol/L Carbon Dioxide 31 H (22-30) mmol/L Creatinine 0.62 L (0.66-1.25) mg/dL POC Glucose (mg/dL) 191 H (70-110) mg/dL C-Reactive Protein 15.5 H (<1.0) mg/dL Total Protein 5.9 L (6.3-8.2) g/dL Albumin 3.0 L (3.5-5.0) g/dL 01/10/25 01/10/25 01/10/25 Range/Units 06:16 11:58 16:31 WBC (4.50-10.00) 10*3/uL RBC (4.40-5.60) 10*6/uL Hgb (13.0-17.0) g/dL Hct (39.6-50.0) % MCHC (32.0-37.0) g/dL Immature Gran # (0.00-0.04) 10*3/uL Neutrophils # (1.80-7.70) 10*3/uL Sodium (137-145) mmol/L Carbon Dioxide (22-30) mmol/L Creatinine (0.66-1.25) mg/dL POC Glucose (mg/dL) 112 H 261 H 118 H (70-110) mg/dL C-Reactive Protein (<1.0) mg/dL Total Protein (6.3-8.2) g/dL Albumin (3.5-5.0) g/dL Microbiology - Last 24 Hours (Table) 12/30/24 15:50 Fungal Culture - Preliminary Bronchoalviolar Lavage - Right Cristine tropicalis Assessment and Plan Assessment: * Altered mental status, likely due to acute delirium. Reasons multifactorial as mentioned below. * Generalized weakness, likely due to metastatic disease * Small cell lung cancer, new diagnosis * Possible pneumonia. Patient on Zosyn. * Mediastinal lymphadenopathy, likely due to above * New onset atrial fibrillation with RVR * History of CVA 20 years ago. No deficits. * Peripheral neuropathy * Hypertension * Hyperlipidemia * Diabetes type 2 * Acute kidney injury, resolved * Tobacco use * Folate deficiency * Vitamin B6 deficiency Plan: Patient has developed new onset atrial fibrillation, started on Eliquis 5 mg twice a day. B12 578, folate 5.90, methylmalonic acid 0.33, vitamin B6 < 2. Patient started on vitamin B6 50 mg daily. Patient started on folic acid 1 mg daily. Hemoglobin A1c 6.2, ammonia < 9 Recommended complete tobacco cessation Patient has been diagnosed with small cell lung cancer. Patient would need outpatient PET scanning for staging. MRI of the brain with and without contrast could not be completed because of stent, uncertain safety elliott. CT head with contrast showed evidence of old stroke in the right parietal region, with no acute process. No metastatic disease. 2-D echo revealed normal LV size and systolic function with EF 60-65%. Severely increased left atrial volume. Moderate MR. Carotid Doppler revealed mildly elevated velocity proximal left ICA may be due to vessel tortuosity versus a moderate 50 to 69% stenosis. No hemodynamically significant stenosis ICA on either side. Antegrade flow in both lower arteries Neurologically, no other workup indicated. We will sign off. Please reconsult if any concerns.
[2025-01-10] MEDS: PYRIDOXINE 50 MG TAB PO SCH (17:44)
[2025-01-10 20:02] LABS: Glucose,Whole Blood 258 mg/dL (70-110)
--- NOTE | 2025-01-10 21:12 | P.PN ---
Subjective Progress Note Date: 01/10/25 Principal diagnosis: Reason for follow-up is fever/postobstructive pneumonia Patient is a 74-year-old male with a past medical history significant for CVA TIA diabetes mellitus hypertension hyperlipidemia and seizure disorder current everyday smoker presenting to the hospital for evaluation of mental status changes did have a fever prompting this consultation.Patient is status post bronchoscopy and biopsy of the right upper lobe mass completed on 12/30/2024. On today's evaluation that is 01/10/2025, patient has been afebrile, patient is breathing comfortably and is currently on 2 L nasal cannula oxygen patient denies having any chest pain and cough, patient denies nausea vomiting or diarrhea and no abdominal pain. Patient white count is 10.7, creatinine 0.62 Objective - Vital Signs Vital signs: Vital Signs Temp 97.9 F 01/10/25 09:11 Pulse 69 01/10/25 09:11 Resp 16 01/10/25 09:11 BP 127/65 01/10/25 09:11 Pulse Ox 94 L 01/10/25 09:11 FiO2 21 01/07/25 07:48 Intake & Output 01/09/25 01/10/25 01/10/25 18:59 06:59 18:59 Intake Total 730 Output Total 650 Balance 80 Weight 70.7 kg Intake: Oral 730 Output: Urine 650 Other: Voiding Method Urinal Urinal # Voids 1 - Exam GENERAL DESCRIPTION: An elderly male lying in bed in no distress RESPIRATORY SYSTEM: Unlabored breathing , decreased breath sounds at bases HEART: S1 S2 regular rate and rhythm , ABDOMEN: Soft , no tenderness EXTREMITIES: No edema feet - Labs CBC & Chem 7: 01/10/25 05:41 01/10/25 05:41 Labs: Abnormal Lab Results - Last 24 Hours (Table) 01/09/25 01/10/25 01/10/25 Range/Units 20:15 05:41 05:41 WBC 10.79 H (4.50-10.00) 10*3/uL RBC 3.70 L (4.40-5.60) 10*6/uL Hgb 10.5 L (13.0-17.0) g/dL Hct 32.9 L (39.6-50.0) % MCHC 31.9 L (32.0-37.0) g/dL Immature Gran # 0.11 H (0.00-0.04) 10*3/uL Neutrophils # 8.23 H (1.80-7.70) 10*3/uL Sodium 136 L (137-145) mmol/L Carbon Dioxide 31 H (22-30) mmol/L Creatinine 0.62 L (0.66-1.25) mg/dL POC Glucose (mg/dL) 191 H (70-110) mg/dL C-Reactive Protein 15.5 H (<1.0) mg/dL Total Protein 5.9 L (6.3-8.2) g/dL Albumin 3.0 L (3.5-5.0) g/dL 01/10/25 01/10/25 Range/Units 06:16 11:58 WBC (4.50-10.00) 10*3/uL RBC (4.40-5.60) 10*6/uL Hgb (13.0-17.0) g/dL Hct (39.6-50.0) % MCHC (32.0-37.0) g/dL Immature Gran # (0.00-0.04) 10*3/uL Neutrophils # (1.80-7.70) 10*3/uL Sodium (137-145) mmol/L Carbon Dioxide (22-30) mmol/L Creatinine (0.66-1.25) mg/dL POC Glucose (mg/dL) 112 H 261 H (70-110) mg/dL C-Reactive Protein (<1.0) mg/dL Total Protein (6.3-8.2) g/dL Albumin (3.5-5.0) g/dL Microbiology - Last 24 Hours (Table) 12/30/24 15:50 Fungal Culture - Preliminary Bronchoalviolar Lavage - Right Cristine tropicalis Assessment and Plan (1) Sepsis Current Visit: No Status: Acute Code(s): A41.9 - SEPSIS, UNSPECIFIED ORGANISM SNOMED Code(s): 73819723 (2) Pneumonia Current Visit: No Status: Acute Code(s): J18.9 - PNEUMONIA, UNSPECIFIED ORGANISM SNOMED Code(s): 500739325 (3) Influenza A Current Visit: Yes Status: Acute Code(s): J10.1 - FLU DUE TO OTH IDENT INFLUENZA VIRUS W OTH RESP MANIFEST SNOMED Code(s): 216854177 Plan: 1patient presented to hospital with sepsis in this patient who did have a fever tachycardia elevated white count meeting criteria for SIRS source is likely pneumonia in this patient did have abnormal x-ray concerning for possible mass and a question of possible postobstructive pneumonia and will need to cover for the polymicrobial juli associated with postobstructive pneumonia 2patient did have CT of the chest with significant abnormality concerning for possible malignancy and postobstructive pneumonia 3patient did have resolution of his fever and status post bronchoscopy biopsy and lavage cultures are so far negative and resistant pathogen, the viral screen from BAL came back positive with influenza A 4patient has completed 5-day course of Tamiflu did have a normal CBC continue short course of oral Augmentin Dictation was produced using [employer] dictation software. please excuse any grammatical, word or spelling errors. Time with Patient: Less than 30
--- NOTE | 2025-01-10 21:53 | PN ---
PROGRESS NOTE DATE OF SERVICE: 01/10/2025 CHIEF COMPLAINT: Carcinoma of the lung. HISTORY OF PRESENT ILLNESS: This gentleman is getting worse. He is a little bit more lethargic each day. I had a discussion with him about discharge planning, but I do not believe that he was cogent enough to understand. PHYSICAL EXAMINATION: LUNGS: Breath sounds are heard bilaterally. GENERAL: He is pale and chronically ill in appearance. CARDIAC: Normal. ABDOMEN: Soft, nontender. IMPRESSION: 1. Carcinoma of the lung. 2. Gradual weakness and confusion. PLAN: Try to put together discharge plan. I contacted the and she wants to try to bring him home. This is not a good home situation. There are number of people living in the home and they use drugs. We will try sending him home and she wants to wait until tomorrow. This likely will fail. I do not believe that he will be able to get very good care at home and he will probably be back in the emergency room fairly soon. MMJOSEP / QINGN: [id number] /
[2025-01-11 06:20] LABS: Glucose,Whole Blood 101 mg/dL (70-110)
[2025-01-11] MEDS: IPRATROPIUM-ALBUTEROL 3 ML NEB INHALATION PRN (08:00)
--- NOTE | 2025-01-11 09:08 | CDI ---
Documentation Clarification Form Date: 01/11/2025 08:07:13 AM From: Chela Simpson RN, CCDS Phone: [phone] Admit Date: 12/28/2024 01:32:00 AM Patient Name: Arslan Mckeon Visit Number: [id number] Discharge Date: ATTENTION: The Clinical Documentation Specialists (CDI) and [facility] Coding Staff appreciate your assistance in clarifying documentation. Please respond to the clarification below the line at the bottom and electronically sign. The CDI & [facility] Coding staff will review the response and follow-up if needed. Please note: Queries are made part of the Legal Health Record. If you have any questions, please contact the author of this message via ITS. Doctor. Nathan Chatman Malnutrition is documented in you progress note on 01/05/28. Additional clarification regarding the severity of malnutrition is requested. History/Risk Factors: CVA/TIA, Diabetes Mellitus, Hyperlipidemia, Hypertension, Seizure Disorder Current every day smoker Small cell lung cancer Clinical Indicators: 74-year-old male looks frail chronically ill debilitated. Cachectic, losing weight documented in neurology progress notes. He is getting more medically debilitated. Current BMI: 21.1 5 ft 10 in 01/04/25 RD Consult Assessment: Underweight No nutrition diagnosis at this time Treatment: General/healthful diet Please clarify the severity of malnutrition, if known: [ ] Mild Protein-Calorie Malnutrition [ ] Moderate Protein-Calorie Malnutrition [ ] Severe Protein-Calorie Malnutrition [ ] Other condition, please specify [ ] Unable to Determine (Template Last Revised: March 2023) MTDD
[2025-01-11 11:20] LABS: Glucose,Whole Blood 254 mg/dL (70-110)
--- NOTE | 2025-01-11 12:47 | MISC ---
MISCELLANOUS REPORT Protein calorie malnutrition. MMODL / IJN: [id number] /
--- NOTE | 2025-01-11 14:27 | P.PN ---
Subjective Progress Note Date: 01/11/25 Principal diagnosis: Reason for follow-up is fever/postobstructive pneumonia Patient is a 74-year-old male with a past medical history significant for CVA TIA diabetes mellitus hypertension hyperlipidemia and seizure disorder current everyday smoker presenting to the hospital for evaluation of mental status changes did have a fever prompting this consultation.Patient is status post bronchoscopy and biopsy of the right upper lobe mass completed on 12/30/2024. On today's evaluation that is 01/11/2025, Patient is afebrile this morning patient denies having any chest pain shortness of breath or cough, the patient is currently on 3 L nasal cannula oxygen, patient denies any abdominal pain no diarrhea no nausea no vomiting. No new lab has been obtained today Objective - Vital Signs Vital signs: Vital Signs Temp 97.3 F L 01/11/25 08:22 Pulse 71 01/11/25 11:41 Resp 18 01/11/25 11:35 BP 135/73 01/11/25 11:35 Pulse Ox 88 L 01/11/25 11:41 FiO2 21 01/07/25 07:48 Intake & Output 01/10/25 01/11/25 01/11/25 18:59 06:59 18:59 Intake Total 118 Output Total 300 600 Balance -300 -600 118 Weight 66.6 kg Intake: Oral 118 Output: Urine 300 600 Other: Voiding Method Urinal Urinal - Exam GENERAL DESCRIPTION: An elderly male lying in bed in no distress RESPIRATORY SYSTEM: Unlabored breathing , decreased breath sounds at bases HEART: S1 S2 regular rate and rhythm , ABDOMEN: Soft , no tenderness EXTREMITIES: No edema feet - Labs CBC & Chem 7: 01/10/25 05:41 01/10/25 05:41 Labs: Abnormal Lab Results - Last 24 Hours (Table) 01/10/25 01/10/25 01/11/25 Range/Units 16:31 19:59 11:19 POC Glucose (mg/dL) 118 H 258 H 254 H (70-110) mg/dL Microbiology - Last 24 Hours (Table) 12/30/24 15:50 Acid Fast Bacilli Smear - Preliminary Bronchoalviolar Lavage - Right Acid Fast Bacilli Culture - Preliminary 12/30/24 15:50 Fungal Culture - Preliminary Bronchoalviolar Lavage - Right Cristine tropicalis Assessment and Plan (1) Sepsis Current Visit: No Status: Acute Code(s): A41.9 - SEPSIS, UNSPECIFIED ORGANISM SNOMED Code(s): 09611770 (2) Pneumonia Current Visit: No Status: Acute Code(s): J18.9 - PNEUMONIA, UNSPECIFIED ORGANISM SNOMED Code(s): 615951720 (3) Influenza A Current Visit: Yes Status: Acute Code(s): J10.1 - FLU DUE TO OTH IDENT INFLUENZA VIRUS W OTH RESP MANIFEST SNOMED Code(s): 400254733 Plan: 1patient presented to hospital with sepsis in this patient who did have a fever tachycardia elevated white count meeting criteria for SIRS source is likely pneumonia in this patient did have abnormal x-ray concerning for possible mass and a question of possible postobstructive pneumonia and will need to cover for the polymicrobial juli associated with postobstructive pneumonia 2patient did have CT of the chest with significant abnormality concerning for possible malignancy and postobstructive pneumonia 3patient did have resolution of his fever and status post bronchoscopy biopsy and lavage cultures are so far negative and resistant pathogen, the viral screen from BAL came back positive with influenza A 4patient has completed 5-day course of Tamiflu and has received adequate antibiotic therapy for underlying postobstructive pneumonia no need for antibiotic on discharge Dictation was produced using [employer] dictation software. please excuse any grammatical, word or spelling errors. Time with Patient: Less than 30
[2025-01-11 16:28] LABS: Glucose,Whole Blood 167 mg/dL (70-110)
[2025-01-11 20:23] LABS: Glucose,Whole Blood 195 mg/dL (70-110)
--- NOTE | 2025-01-12 02:00 | DS ---
DISCHARGE SUMMARY CHIEF COMPLAINT: Weakness, shortness of breath, fever, as well as rhabdomyolysis. HISTORY OF PRESENT ILLNESS AND PHYSICAL EXAM: Details of this man's history and physical can be found in the initial workup. LABORATORY STUDIES: While he was in the hospital, he had laboratory studies, details of which can be found in the laboratory section of his chart. COURSE IN THE HOSPITAL: After admission, he was placed on bedrest, started on intravenous fluids and his workup began. He was found to have a fairly large lung carcinoma and he was seen and followed by Pulmonology and Oncology. In the hospital, he became progressively more weak, short of breath and delirious. The plan was that he would go home and start treatment as outpatient, but he continued to fail and became more and more confused. Family elected to take him home with hospice. FINAL DIAGNOSES: 1. Pulmonary neoplasm with metastases. 2. Chronic obstructive pulmonary disease. 3. Rhabdomyolysis. 4. Dehydration. 5. Delirium. OPERATIONS: None. CONSULTATIONS: Oncology. MMJOSEP / COURTNEY: [id number] /
[2025-01-12 06:07] LABS: Glucose,Whole Blood 117 mg/dL (70-110)
[2025-01-12 11:42] LABS: Glucose,Whole Blood 213 mg/dL (70-110)
--- NOTE | 2025-01-12 13:44 | P.PN ---
Subjective Progress Note Date: 01/12/25 Principal diagnosis: lung mass,SCLC In follow-up today patient states he feels that he is ready to go home but, admits he has trouble ambulating short distances due to weakness. He has a walker at home. He still has cough. No fevers, nausea. Objective - Vital Signs Vital signs: Vital Signs Temp 97.3 F L 01/12/25 03:35 Pulse 90 01/12/25 08:00 Resp 18 01/12/25 12:56 BP 174/78 01/12/25 08:00 Pulse Ox 94 L 01/12/25 11:21 FiO2 21 01/07/25 07:48 Intake & Output 01/11/25 01/12/25 01/12/25 18:59 06:59 18:59 Intake Total 118 Output Total 250 250 Balance -132 -250 Weight 66.8 kg Intake: Oral 118 Output: Urine 250 250 Other: Voiding Method Urinal Urinal # Voids 1 - Constitutional General appearance: Present: cooperative, no acute distress, thin - EENT Eyes: Present: anicteric sclerae, EOMI, poor dentition - Respiratory Details: resp mildly labored at rest, congested cough persists - Cardiovascular Details: skin warm, well perfused - Peripheral edema leg Peripheral Edema: bilateral: None - Integumentary Integumentary: Present: pale - Neurologic Neurologic: Present: CNII-XII intact - Musculoskeletal Musculoskeletal: Present: generalized weakness - Psychiatric Psychiatric: Present: A&O x's 3 - Labs CBC & Chem 7: 01/10/25 05:41 01/10/25 05:41 Labs: Abnormal Lab Results - Last 24 Hours (Table) 01/11/25 01/11/25 01/12/25 Range/Units 16:27 20:22 06:06 POC Glucose (mg/dL) 167 H 195 H 117 H (70-110) mg/dL 01/12/25 Range/Units 11:27 POC Glucose (mg/dL) 213 H (70-110) mg/dL Assessment and Plan (1) Small cell lung cancer Current Visit: Yes Status: Acute Priority: High Code(s): C34.90 - MALIGNANT NEOPLASM OF UNSP PART OF UNSP BRONCHUS OR LUNG SNOMED Code(s): 843065663 Plan: Small cell lung carcinoma -New diagnosis-pathology and diagnosis previously reviewed with pt and -Standard of care for small cell is systemic chemotherapy +/- radiation, depending on if the disease is localized vs extensive. There are numerous areas of concern on imaging that need to be clarified so, plan is for PET scan outpt. PET scan date and time is in discharge plan, office staff has spoken to . Follow up appt with Med Oncologist does need to be changed to after the PET scan. This is being worked on and pt/ will be contacted with that date and t arina -Tumor specimen requested to be sent for molecular studies. -Treatment options and prognosis will be discussed once all the information is available -MRI of the brain unable to be performed because of a Hx of stent, unknown what type. CT head with contrast ordered for staging-neg for metastatic disease -Patient will need to complete treatment for influenza. Infectious disease following. Pt seemed overwhelmed when we reviewed diagnosis and plans. He states he and his met with hospice but were not ready for that yet. It is ok for pt to have scan and then meet with Med Oncologist for prognosis with and without treatments. They can clarify pt goals and then come up with a treatment plan. Tried to call to update her on plan of care and to discuss goals of care, expectations of treatment. Pt is ok from and Oncology standpoint to be discharged once cleared by Attending and Consulting Physicians.
[2025-01-12 16:21] LABS: Glucose,Whole Blood 111 mg/dL (70-110)
[2025-01-12 20:09] LABS: Glucose,Whole Blood 142 mg/dL (70-110)
--- NOTE | 2025-01-12 22:09 | PN ---
PROGRESS NOTE DATE OF SERVICE: 01/12/2025 CHIEF COMPLAINT: CA of the lung. HISTORY OF PRESENT ILLNESS: This gentleman arrived did not go home yesterday. Apparently, arrangements were being made by hospice and he is to go today. PHYSICAL EXAMINATION: Unchanged. IMPRESSION: 1. Carcinoma of the lung. 2. Chronic obstructive pulmonary disease. 3. History of alcoholism. PLAN: Home with hospice once all the arrangements were made. MMODL / IJN: [id number] /
[2025-01-13 03:44] VITALS: RESP 19
[2025-01-13 06:12] LABS: Glucose,Whole Blood 145 mg/dL (70-110)
[2025-01-13 10:01] VITALS: TEMP 98
[2025-01-13 11:34] LABS: Glucose,Whole Blood 233 mg/dL (70-110)
[2025-01-13 13:46] VITALS: BP 155/74; PULSE 59
--- NOTE | 2025-01-13 15:32 | P.PN ---
Subjective Progress Note Date: 01/12/25 Principal diagnosis: Reason for follow-up is fever/postobstructive pneumonia Patient is a 74-year-old male with a past medical history significant for CVA TIA diabetes mellitus hypertension hyperlipidemia and seizure disorder current everyday smoker presenting to the hospital for evaluation of mental status changes did have a fever prompting this consultation.Patient is status post bronchoscopy and biopsy of the right upper lobe mass completed on 12/30/2024. On today's evaluation that is 01/12/2025,the patient denies any fever or any chills, patient is breathing comfortably on 3 L nasal cannula oxygen, the patient denies chest pain shortness of breath and no worsening cough, patient denies abdominal pain, no nausea vomiting or diarrhea. No new labs obtained today Objective - Vital Signs Vital signs: Vital Signs Temp 97.3 F L 01/12/25 03:35 Pulse 90 01/12/25 08:00 Resp 18 01/12/25 08:00 BP 174/78 01/12/25 08:00 Pulse Ox 94 L 01/12/25 11:21 FiO2 21 01/07/25 07:48 Intake & Output 01/11/25 01/12/25 01/12/25 18:59 06:59 18:59 Intake Total 118 Output Total 250 250 Balance -132 -250 Weight 66.8 kg Intake: Oral 118 Output: Urine 250 250 Other: Voiding Method Urinal Urinal # Voids 1 - Exam GENERAL DESCRIPTION: An elderly male lying in bed in no distress RESPIRATORY SYSTEM: Unlabored breathing , decreased breath sounds at bases HEART: S1 S2 regular rate and rhythm , ABDOMEN: Soft , no tenderness EXTREMITIES: No edema feet - Labs CBC & Chem 7: 01/10/25 05:41 01/10/25 05:41 Labs: Abnormal Lab Results - Last 24 Hours (Table) 01/11/25 01/11/25 01/12/25 Range/Units 16:27 20:22 06:06 POC Glucose (mg/dL) 167 H 195 H 117 H (70-110) mg/dL Assessment and Plan (1) Sepsis Status: Acute Code(s): A41.9 - SEPSIS, UNSPECIFIED ORGANISM SNOMED Code(s): 32494142 (2) Pneumonia Status: Acute Code(s): J18.9 - PNEUMONIA, UNSPECIFIED ORGANISM SNOMED Code(s): 763786167 Plan: 1patient presented to hospital with sepsis in this patient who did have a fever tachycardia elevated white count meeting criteria for SIRS source is likely pneumonia in this patient did have abnormal x-ray concerning for possible mass and a question of possible postobstructive pneumonia and will need to cover for the polymicrobial juli associated with postobstructive pneumonia 2patient did have CT of the chest with significant abnormality concerning for possible malignancy and postobstructive pneumonia 3patient did have resolution of his fever and status post bronchoscopy biopsy and lavage cultures are so far negative and resistant pathogen, the viral screen from BAL came back positive with influenza A 4patient has completed 5-day course of Tamiflu and has received adequate IV and oral for postoperative pneumonia currently being monitored closely off antibiotic therapy Dictation was produced using [employer] dictation software. please excuse any grammatical, word or spelling errors. Time with Patient: Less than 30
--- NOTE | 2025-01-13 15:33 | P.PN ---
Subjective Progress Note Date: 01/13/25 Principal diagnosis: Reason for follow-up is fever/postobstructive pneumonia Patient is a 74-year-old male with a past medical history significant for CVA TIA diabetes mellitus hypertension hyperlipidemia and seizure disorder current everyday smoker presenting to the hospital for evaluation of mental status changes did have a fever prompting this consultation.Patient is status post bronchoscopy and biopsy of the right upper lobe mass completed on 12/30/2024. On today's evaluation that is 01/13/2025,the patient remains to be afebrile, patient is on 3 L nasal cannula supplemental oxygen and denies any shortness of breath no chest pain and cough has decreased in intensity.Patient denies having any nausea or vomiting, no abdominal pain and no diarrhea has been reported No new labs obtained today Objective - Vital Signs Vital signs: Vital Signs Temp 98.0 F 01/13/25 08:00 Pulse 69 01/13/25 08:00 Resp 19 01/13/25 08:00 BP 130/66 01/13/25 08:00 Pulse Ox 97 01/13/25 08:45 FiO2 21 01/07/25 07:48 Intake & Output 01/12/25 01/13/25 01/13/25 18:59 06:59 18:59 Intake Total 240 Output Total 500 900 Balance -500 -660 Weight 67 kg Intake: Oral 240 Output: Urine 500 900 Other: Voiding Method Urinal # Voids 1 - Exam GENERAL DESCRIPTION: An elderly male lying in bed in no distress RESPIRATORY SYSTEM: Unlabored breathing , decreased breath sounds at bases HEART: S1 S2 regular rate and rhythm , ABDOMEN: Soft , no tenderness EXTREMITIES: No edema feet - Labs CBC & Chem 7: 01/10/25 05:41 01/10/25 05:41 Labs: Abnormal Lab Results - Last 24 Hours (Table) 01/12/25 01/12/25 01/13/25 Range/Units 16:20 20:07 06:10 POC Glucose (mg/dL) 111 H 142 H 145 H (70-110) mg/dL 01/13/25 Range/Units 11:32 POC Glucose (mg/dL) 233 H (70-110) mg/dL Assessment and Plan (1) Sepsis Status: Acute Code(s): A41.9 - SEPSIS, UNSPECIFIED ORGANISM SNOMED Code(s): 14246878 (2) Pneumonia Status: Acute Code(s): J18.9 - PNEUMONIA, UNSPECIFIED ORGANISM SNOMED Code(s): 486804127 Plan: 1patient presented to hospital with sepsis in this patient who did have a fever tachycardia elevated white count meeting criteria for SIRS source is likely pneumonia in this patient did have abnormal x-ray concerning for possible mass and a question of possible postobstructive pneumonia and will need to cover for the polymicrobial juli associated with postobstructive pneumonia 2patient did have CT of the chest with significant abnormality concerning for possible malignancy and postobstructive pneumonia 3patient did have resolution of his fever and status post bronchoscopy biopsy and lavage cultures are so far negative and resistant pathogen, the viral screen from BAL came back positive with influenza A 4patient has completed 5-day course of Tamiflu and has received adequate IV and oral for postoperative pneumonia, there is no need for antibiotics on discharge Dictation was produced using [employer] dictation software. please excuse any grammatical, word or spelling errors. Time with Patient: Less than 30
--- NOTE | 2025-01-13 22:33 | PN ---
PROGRESS NOTE DATE OF SERVICE: 01/13/2025 CHIEF COMPLAINT: CA of the lung. HISTORY OF PRESENT ILLNESS: This gentleman is doing well and is still in the hospital. It is now believed that he will be leaving this afternoon. He will be going home. He will be followed up as an outpatient. It is not clear if he will be going home with hospice or not. Apparently there was also a plan that he will get a PET scan after discharge. FARZANEH / QINGN: [id number] /
--- NOTE | 2025-01-13 22:33 | PN ---
PROGRESS NOTE DATE OF SERVICE: 01/12/2025 CHIEF COMPLAINT: CA of the lung, respiratory failure, and delirium. HISTORY OF PRESENT ILLNESS: This gentleman is still in the hospital. He apparently is refusing to go. It is not clear what will happen next. He was supposed to go home on hospice. IMPRESSION: 1. Carcinoma of the lung with metastases. 2. Chronic obstructive pulmonary disease. 3. Delirium. PLAN: Public Health Training Assistant is working on some other discharge plan. MMODL / IJN: [id number] /
--- NOTE | 2025-01-19 09:15 | CDI ---
Documentation Clarification Form Date: 01/19/2025 07:55:54 AM From: Chela Simpson RN, CCDS Phone: [phone] Admit Date: 12/28/2024 01:32:00 AM Patient Name: Arslan Mckeon Visit Number: [id number] Discharge Date: 01/13/2025 03:12:00 PM ATTENTION: The Clinical Documentation Specialists (CDI) and [facility] Coding Staff appreciate your assistance in clarifying documentation. Please respond to the clarification below the line at the bottom and electronically sign. The CDI & [facility] Coding staff will review the response and follow-up if needed. Please note: Queries are made part of the Legal Health Record. If you have any questions, please contact the author of this message via ITS. Doctor. Nathan Chatman The patient has sepsis documentation in the ID Consult on 0n 12/28/24 and subsequent documentation. Based on this information and the findings below, is there an additional diagnosis that is clinically appropriate for this patient? History/Risk Factors: CVA, TIA, Diabetes Mellitus, Hypertension, Hyperlipidemia, current smoker Clinical Indicators: 74-year-old male present with mental status changes weakness and fever of 101at 12:29PM. 12/27 WBC 12.0, Neutrophils 10.2; 12/28 WBC 10.5, Neutrophils 8.5 Blood cultures: No growth after 5 days Vitals signs: 12/28 (08:00) 153/73 94 19 100.4 ; (12:29) 101.0 12/28 ID Consult: Patient presented to hospital with sepsis in this patient who did have a fever tachycardia elevated white count meeting criteria for SIRS source is likely pneumonia in this patient did have abnormal x-ray concerning for possible mass and a question of possible postobstructive pneumonia. Treatment: Zosyn 3.375 Q 8 HRS Solu-Medrol 60 MG IV Q 6 HRS (titrate per orders) Tamiflu 75 MG PO Q 12 HRS 01/03-01/07 Is there an additional diagnosis that is clinically appropriate for this patient? [ ] Sepsis, present on admission [ ] Other, please specify [ ] Unable to determine SIRS Criteria: 2 or more of the following may indicate SIRS Temperature < 96.8F (36C) or > 101.0F (38.3C) Heart Rate > 90 bpm Respiratory Rate > 20 breaths/min or PaCO2 < 32 mmHg White Blood Cell Count > 12,000 or < 4,000 cells/mm3 or > 10% bands ([facility] Last Reviewed: September 2022) [facility]
--- NOTE | 2025-01-20 14:49 | MISC ---
MISCELLANOUS REPORT Sepsis present on admission. MMODL / IJN: [id number] /
--- NOTE | 2025-01-20 21:05 | MISC ---
MISCELLANOUS REPORT Sepsis present on admission. MMODL / IJN: [id number] /
== END 2025-01-13 15:12 | disposition home health service (06) | DRG 853 ==
LOC: EC 20:58 → 4SSUR 12-28 01:32 → OBSVTOIN 12-28 01:32 → 4SSUR 12-28 02:05 → 3SCARD 12-28 16:48
PROVIDERS: ADMIT Family Medicine; ATTEND Family Medicine
PROC: 3E033RZ Introduction of Antiarrhythmic into Peripheral Vein, Percutaneous Approach (ICD-10-PCS; 2024-12-29)
PROC: 0B968ZZ Drainage of Right Lower Lobe Bronchus, Via Natural or Artificial Opening Endoscopic (ICD-10-PCS; principal; 2024-12-30 08:05)
PROC: 0BBC8ZX Excision of Right Upper Lung Lobe, Via Natural or Artificial Opening Endoscopic, Diagnostic (ICD-10-PCS; principal; 2024-12-30 08:05)
PROC: 0B9D8ZZ Drainage of Right Middle Lung Lobe, Via Natural or Artificial Opening Endoscopic (ICD-10-PCS; principal; 2024-12-30 08:05)
PROC: 0B9F8ZX Drainage of Right Lower Lung Lobe, Via Natural or Artificial Opening Endoscopic, Diagnostic (ICD-10-PCS; principal; 2024-12-30 08:05)
PROC: 0BD48ZX Extraction of Right Upper Lobe Bronchus, Via Natural or Artificial Opening Endoscopic, Diagnostic (ICD-10-PCS; principal; 2024-12-30 08:05)
DX: A41.9 Sepsis, unspecified organism (principal); G93.41 Metabolic encephalopathy; J10.08 Influenza due to other identified influenza virus with other specified pneumonia; N17.0 Acute kidney failure with tubular necrosis; J18.8 Other pneumonia, unspecified organism; J96.90 Respiratory failure, unspecified, unspecified whether with hypoxia or hypercapnia; C78.1 Secondary malignant neoplasm of mediastinum; M62.82 Rhabdomyolysis; I27.20 Pulmonary hypertension, unspecified; C34.11 Malignant neoplasm of upper lobe, right bronchus or lung; C78.7 Secondary malignant neoplasm of liver and intrahepatic bile duct; C79.71 Secondary malignant neoplasm of right adrenal gland; C78.89 Secondary malignant neoplasm of other digestive organs; J44.0 Chronic obstructive pulmonary disease with (acute) lower respiratory infection; E46 Unspecified protein-calorie malnutrition; E11.22 Type 2 diabetes mellitus with diabetic chronic kidney disease; G40.909 Epilepsy, unspecified, not intractable, without status epilepticus; F10.21 Alcohol dependence, in remission; D63.1 Anemia in chronic kidney disease; I12.9 Hypertensive chronic kidney disease with stage 1 through stage 4 chronic kidney disease, or unspecified chronic kidney disease; N18.9 Chronic kidney disease, unspecified; I34.0 Nonrheumatic mitral (valve) insufficiency; I71.40 Abdominal aortic aneurysm, without rupture, unspecified; E87.20 Acidosis, unspecified; R64 Cachexia; I87.1 Compression of vein; E11.42 Type 2 diabetes mellitus with diabetic polyneuropathy; E11.65 Type 2 diabetes mellitus with hyperglycemia; I48.0 Paroxysmal atrial fibrillation; Z79.4 Long term (current) use of insulin; E77.8 Other disorders of glycoprotein metabolism; E86.0 Dehydration; Z68.21 Body mass index [BMI] 21.0-21.9, adult; Z95.828 Presence of other vascular implants and grafts; E78.5 Hyperlipidemia, unspecified; K86.81 Exocrine pancreatic insufficiency; F17.210 Nicotine dependence, cigarettes, uncomplicated; R74.8 Abnormal levels of other serum enzymes; E86.1 Hypovolemia; E87.6 Hypokalemia; G93.89 Other specified disorders of brain; D73.89 Other diseases of spleen; E53.8 Deficiency of other specified B group vitamins; R59.0 Localized enlarged lymph nodes; E53.1 Pyridoxine deficiency; I25.10 Atherosclerotic heart disease of native coronary artery without angina pectoris; R29.6 Repeated falls; M16.11 Unilateral primary osteoarthritis, right hip; Z79.899 Other long term (current) drug therapy; Z86.73 Personal history of transient ischemic attack (TIA), and cerebral infarction without residual deficits; Z71.3 Dietary counseling and surveillance
CPT/HCPCS: 31624; 31625; 31629; 31652; 36415; 70450; 70460; 71046; 71260; 73502; 74178; 80048; 80053; 80306; 80320; 81001; 82140; 82550; 82607; 82746; 83036; 83735; 83921; 84100; 84132; 84145; 84207; 84443; 84484; 85025; 85610; 85730; 86140; 87040; 87070; 87102; 87116; 87205; 87206; 87496; 87498; 87502; 87529; 87634; 87635; 87636; 87798; 88108; 88305; 88341; 88342; 93005; 93306; 93880; 94640; 94760; 96360; 99291

== ENCOUNTER → 2025-01-21 | Outpatient (CLI) | payer MEDICARE | END | disposition home or self-care (01) | LOC: RADPETMAIN 14:50 | PROVIDERS: ATTEND Internal Medicine Hematology & Oncology | DX: Z53.9 Procedure and treatment not carried out, unspecified reason (principal) ==

== ENCOUNTER → 2025-01-27 | Outpatient (CLI) | payer MEDICARE ==
[~2025-01-27] MED LIST: AMPICILLIN-SULBACTAM 3 GM in SODIUM CHLORIDE 0.9% 100 ML IVPB SCH; AMPICILLIN-SULBACTAM 3 GM in SODIUM CHLORIDE 0.9% 100 ML IVPB STA
--- NOTE | 2025-01-29 14:32 | PE ---
EXAMINATION TYPE: PET CT fusion skull to thigh DATE OF EXAM: 01/28/2025 CLINICAL INDICATION:Male, 74 years old with history of C34.2 LUNG CANCER; TECHNIQUE: Following the intravenous administration of 7.73 mCi of F-18 FDG, whole body images are performed from the skull base to the Mid thigh. Images are reviewed on the computer in the coronal, axial, and sagittal planes. Reconstructed rotating images are created on independent workstation and reviewed on the computer. A non-contrast CT is performed in conjunction with the PET scan. Glucose level 130 mg/dL CT DLP: 628 mGycm, Automated exposure control for dose reduction was used. COMPARISON: CT 12/30/2024 dating back to 05/02/2016, PET/CT None, MRI: None FINDINGS: Mediastinal SUV mean is 3.1. Hepatic parenchyma SUV mean is 2.9. SKULL BASE AND NECK: CHEST, MEDIASTINUM, AND HILAR REGION: Suspicious uptake identified examples include: * Group of lymph nodes in the right low neck/supraclavicular region largest measuring 13 mm short ax is max SUV 10.8 * Extensive lymphadenopathy in the mediastinum with dominant mass in the right upper medial aspect e xtending to the right perihilar region measuring 6.8 x 5.0 x 10.7 cm Max SUV 14.1 * Right upper lobe nodular densities max is 3.7. Few scattered thin-walled cystic changes also prese nt right upper lobe. Right anterior perihilar nodule Max SUV 8.8 measuring 15 mm. * Patchy airspace opacities in the lung bases. ABDOMEN AND PELVIS: Suspicious uptake identified examples include: * Right adrenal gland focus of uptake max SUV 11.0 measuring 18 mm. * Left adrenal gland nodule Max SUV 7.6 measuring 16 mm * Left renal posterior cortical exophytic lesion measuring 19 Hounsfield units and 20 mm however it does demonstrate max SUV 6.8. MUSCULOSKELETAL STRUCTURES: Suspicious uptake identified examples include: OTHER CT: Moderate to severe atherosclerosis.. Scattered colonic diverticula. Aortobiiliac stent graft present. No evidence for hydronephrosis. IMPRESSION: 1. Evidence of malignancy with metastatic disease including extensive mediastinal lymphadenopathy, r ight upper lobe pulmonary nodule, right low neck lymphadenopathy and bilateral adrenal gland FDG avid nodules. 2. Left posterior renal cortical lesion with increased uptake findings concerning for renal cell car cinoma until proven otherwise. Consider MRI renal mass protocol. 3. Patchy airspace opacities in lung bases concerning for infectious process. [facility], , 01/29/2025 2:30 PM
== END | disposition home or self-care (01) ==
LOC: RADPETMAIN 13:01
PROVIDERS: ATTEND Internal Medicine Hematology & Oncology
DX: C34.2 Malignant neoplasm of middle lobe, bronchus or lung (principal); C79.71 Secondary malignant neoplasm of right adrenal gland; R59.0 Localized enlarged lymph nodes; R91.1 Solitary pulmonary nodule; J98.4 Other disorders of lung
CPT/HCPCS: 78815; A9552

== ENCOUNTER 2025-01-30 05:12 | Inpatient (IN) | payer MEDICARE, OTHER ==
--- NOTE | 2025-01-30 05:18 | ED ---
Syncope HPI - General Stated Complaint: syncope Time Seen by Provider: 01/30/25 05:18 Source: RN notes reviewed, old records reviewed Mode of arrival: ambulatory Limitations: no limitations - History of Present Illness Initial Comments: This is a 74-year-old male to the ER for evaluation of syncopal event. Patient has had diarrhea and feeling weak for a few days now with severe weakness here in the ER, patient has significant of diarrhea, unkempt appearance here in the emergency department no complaints of headache chest pain or shortness of breath MD Complaint: loss of consciousness, felt faint, collapsed -: minutes(s) Prodromal Symptoms: lightheaded -: second(s) Witnessed: yes - by bystander Injuries Sustained Associated with Event: None Current Symptoms: lightheaded, nausea, weakness History: previous syncopal episode Context: getting out of bed - Related Data Home Medications Medication Instructions Recorded Confirmed Atorvastatin [Lipitor] 10 mg PO HS 01/30/25 01/30/25 Furosemide [Lasix] 20 mg PO DAILY 01/30/25 01/30/25 Gabapentin [Neurontin] 200 mg PO HS 01/30/25 01/30/25 HYDROcodone/APAP 7.5-325MG [Bantry 1 tab PO BID 01/30/25 01/30/25 7.5-325] INSULIN ASPART (NovoLOG) [NovoLOG 4 unit SQ TID-W/MEALS 01/30/25 01/30/25 (formulary)] Metoprolol Succinate [Metoprolol 25 mg PO DAILY 01/30/25 01/30/25 Succinate ER] Omeprazole 20 mg PO BID 01/30/25 01/30/25 Ondansetron [Zofran] 4 mg PO Q6H PRN 01/30/25 01/30/25 Potassium Chloride ER [K-Dur 20] 20 meq PO DAILY 01/30/25 01/30/25 lisinopriL [Zestril] 2.5 mg PO DAILY 01/30/25 01/30/25 rOPINIRole HCL [Requip] 0.25 mg PO HS 01/30/25 01/30/25 traZODone HCL [Desyrel] 100 mg PO HS 01/30/25 01/30/25 Previous Rx's Medication Instructions Recorded Amoxic-Pot Clav 875-125Mg 1 tab PO BID 10 Days #20 tab 01/03/25 [Augmentin 875-125] Folic Acid 1 mg PO DAILY #90 tablet 01/12/25 Allergies Allergy/AdvReac Type Severity Reaction Status Date / Time No Known Allergies Allergy Verified 01/31/25 08:02 Review of Systems ROS Statement: Those systems with pertinent positive or pertinent negative responses have been documented in the HPI. ROS Other: All systems not noted in ROS Statement are negative. Past Medical History - Past Family History Mother Family Medical History: CVA/TIA Father Additional Family Medical History / Comment(s): Father had shingles; not sure what he from General Exam General appearance: alert, in no apparent distress Head exam: Present: atraumatic, normocephalic, normal inspection Eye exam: Present: normal appearance, PERRL, EOMI. Absent: scleral icterus, conjunctival injection, periorbital swelling ENT exam: Present: normal exam, mucous membranes dry Neck exam: Present: normal inspection. Absent: tenderness, meningismus, lymphadenopathy Respiratory exam: Present: normal lung sounds bilaterally, accessory muscle use, decreased breath sounds, prolonged expiratory. Absent: respiratory distress, wheezes, rales, rhonchi, stridor Cardiovascular Exam: Present: regular rate, normal rhythm, normal heart sounds. Absent: systolic murmur, diastolic murmur, rubs, gallop, clicks GI/Abdominal exam: Present: soft, normal bowel sounds. Absent: distended, tenderness, guarding, rebound, rigid Extremities exam: Present: normal inspection, full ROM, normal capillary refill. Absent: tenderness, pedal edema, joint swelling, calf tenderness Back exam: Present: normal inspection Neurological exam: Present: alert, oriented X3, CN II-XII intact Psychiatric exam: Present: normal affect, normal mood Skin exam: Present: warm, dry, intact, normal color. Absent: rash Course Vital Signs 01/30/25 01/30/25 01/30/25 05:34 05:50 05:53 Temperature 97.4 F L Pulse Rate 95 89 Respiratory 17 16 Rate Blood Pressure 80/52 82/44 O2 Sat by Pulse 96 98 Oximetry 01/30/25 01/30/25 01/30/25 06:49 08:20 09:10 Temperature Pulse Rate 89 80 74 Respiratory 17 20 20 Rate Blood Pressure 110/74 124/47 91/43 O2 Sat by Pulse 95 96 97 Oximetry 01/30/25 01/30/25 01/30/25 09:48 11:00 12:00 Temperature Pulse Rate 74 71 66 Respiratory 20 16 20 Rate Blood Pressure 112/42 118/51 104/44 O2 Sat by Pulse 99 96 99 Oximetry 01/30/25 01/30/25 13:05 14:31 Temperature Pulse Rate 70 69 Respiratory 20 20 Rate Blood Pressure 108/48 117/50 O2 Sat by Pulse 99 97 Oximetry - Reevaluation(s) Reevaluation #1: 01/30/25 05:43 Medical records reviewed Reevaluation #2: 01/30/25 06:51 Patient blood pressure improving with fluid resuscitation No recurrent syncope here in the ER Reevaluation #3: 01/30/25 06:51 Patient informed of results and questions answered Reevaluation #4: Was pt. sent in by a medical professional or institution (, PA, SHEETING PULLER, urgent care, hospital, or group home...) When possible be specific @ -no Did you speak to anyone other than the patient for history (EMS, parent, family, police, friend...)? What history was obtained from this source @ -no Did you review nursing and triage notes (agree or disagree)? Why? @ -agree Are old charts reviewed (outside hosp., previous admission, EMS record, old EKG, old radiological studies, urgent care reports/EKG's, group home records)? Report findings @ -yes Differential Diagnosis (chest pain, altered mental status, abdominal pain women, abdominal pain men, vaginal bleeding, weakness, fever, dyspnea, syncope, headache, dizziness, GI bleed, back pain, seizure, CVA, palpatations, mental health, musculoskeletal)? @ -prior EKG interpreted by me (3pts min.). @ -yes X-rays interpreted by me (1pt min.). @ -yes negative for acute disease CT interpreted by me (1pt min.). @ -Yes positive for acute colitis U/S interpreted by me (1pt. min.). @ -no What testing was considered but not performed or refused? (CT, X-rays, U/S, labs)? Why? @ -none What meds were considered but not given or refused? Why? @ -none Did you discuss the management of the patient with other professionals (professionals i.e. , PA, SHEETING PULLER, lab, RT, psych nurse, social media marketing specialist, alum operator, teacher, homicide squad commanding officer, manager rn case)? Give summary @ -no Was smoking cessation discussed for >3mins.? @ -no Was critical care preformed (if so, how long)? @ -yes31 Were there social determinants of health that impacted care today? How? (Homelessness, low income, unemployed, alcoholism, drug addiction, transportation, low edu. Level, literacy, decrease access to med. care, snf, rehab)? @ -none Was there de-escalation of care discussed even if they declined (Discuss DNR or withdrawal of care, Hospice)? DNR status @ -no What co-morbidities impacted this encounter? (DM, HTN, Smoking, COPD, CAD, Cancer, CVA, ARF, Chemo, Hep., AIDS, mental health diagnosis, sleep apnea, morbid obesity)? @ -none Was patient admitted / discharged? Hospital course, mention meds given and route, prescriptions, significant lab abnormalities, going to OR and other pertinent info. @ - 74 male presents ER with a syncopal event severe diarrhea leukocytosis suspect sepsis, patient will be admitted for cause of syncope and sepsis treatment Admitted Undiagnosed new problem with uncertain prognosis? @ -no Drug Therapy requiring intensive monitoring for toxicity (Heparin, Nitro, Insulin, Cardizem)? @ -no Were any procedures done? @ -no Diagnosis/symptom? @ - diarrhea with sepsis syncope Acute, or Chronic, or Acute on Chronic? @ -Acute Uncomplicated (without systemic symptoms) or Complicated (systemic symptoms)? @ -Complicated Side effects of treatment? @ -no Exacerbation, Progression, or Severe Exacerbation? @ -exacerbation Poses a threat to life or bodily function? How? (Chest pain, USA, VA, pneumonia, PE, COPD, DKA, ARF, appy, cholecystitis, CVA, Diverticulitis, Homicidal, Suicidal, threat to staff... and all critical care pts) @ -yes extremes of age Reevaluation #5: Differential Syncope: Valvular disease, hypertrophic cardiomyopathy, pulmonary embolism, tamponade, tachycardia, bradycardia, VA, hypovolemia, hemorrhage, dissection, anemia, intracranial hemorrhage, seizure, hypoglycemia, carbon monoxide poisoning, this is not meant to be an all-inclusive list. - Consultations Consultation #1: Spoke with Dr. Chatman who agrees to admit this patient EKG Findings - EKG Comments: EKG Findings:: EKG sinus 96 IN 143 QRS 88 QTc 410 - EKG Results: EKG: interpreted by ERMD Procedures - Sepsis Sepsis Focused Exam #1 Time Sepsis Criteria Met: 07:00 Sepsis Focused Exam Date: 01/30/25 Sepsis Focused Exam Time: 11:05 Sepsis Focused Exam Complete: Yes Vital Signs & RN Notes Reviewed: Yes Capillary Refill: < 2 Seconds: Fingers, Toes Peripheral Pulses: Normal: Radial (R), Radial (L), Posterior Tibialis (R), Posterior Tibialis (L), Dorsalis Pedis (R), Dorsalis Pedis (L) Skin Color: Flushed, Erythema Respiratory Exam: decreased breath sounds Cardiovascular Exam: regular rate Medical Decision Making - Medical Decision Making 74 male presents ER with a syncopal event severe diarrhea leukocytosis suspect sepsis, patient will be admitted for cause of syncope and sepsis treatment - Lab Data Result diagrams: 01/31/25 05:41 01/31/25 05:41 Lab Results 01/30/25 01/30/25 Range/Units 05:50 05:50 WBC 19.74 H (4.50-10.00) 10*3/uL RBC 4.25 L (4.40-5.60) 10*6/uL Hgb 11.7 L (13.0-17.0) g/dL Hct 37.9 L (39.6-50.0) % MCV 89.2 (80.0-97.0) fL MCH 27.5 (27.0-32.0) pg MCHC 30.9 L (32.0-37.0) g/dL Plt Count 366 (140-440) 10*3/uL MPV 10.0 (9.5-12.2) fL Immature Gran % (Auto) 0.7 % Neutrophils % 87.6 % Lymphocytes % 3.7 % Monocytes % 7.4 % Eosinophils % 0.1 % Basophils % 0.5 % Immature Gran # 0.14 H (0.00-0.04) 10*3/uL Neutrophils # 17.29 H (1.80-7.70) 10*3/uL Lymphocytes # 0.74 L (0.90-5.00) 10*3/uL Monocytes # 1.47 H (0.20-1.00) 10*3/uL Eosinophils # 0.01 L (0.04-0.35) 10*3/uL Basophils # 0.09 (0.00-0.10) 10*3/uL Sodium 136 L (137-145) mmol/L Potassium 4.1 (3.5-5.1) mmol/L Chloride 99 (98-107) mmol/L Carbon Dioxide 25 (22-30) mmol/L Anion Gap 12 mmol/L BUN 22 H (9-20) mg/dL Creatinine 1.51 H (0.66-1.25) mg/dL Est GFR (CKD-EPI)AfAm 53 (>60 ml/min/1.73 sqM) Est GFR (CKD-EPI)NonAf 46 (>60 ml/min/1.73 sqM) Glucose 257 H (74-99) mg/dL Calcium 8.4 (8.4-10.2) mg/dL Phosphorus 5.1 H (2.5-4.5) mg/dL Magnesium 2.4 H (1.6-2.3) mg/dL Total Bilirubin 0.6 (0.2-1.3) mg/dL AST 33 (17-59) U/L ALT 19 (4-49) U/L Alkaline Phosphatase 106 (38-126) U/L NT-Pro-B Natriuret Pep 189 pg/mL Total Protein 6.5 (6.3-8.2) g/dL Albumin 3.2 L (3.5-5.0) g/dL - EKG Data -: EKG Interpreted by [facility] - Radiology Data Radiology results: report reviewed (Chest x-ray is negative for acute disease), image reviewed Critical Care Time Critical Care Time: Yes Total Critical Care Time: 31 Disposition Clinical Impression: Syncope due to orthostatic hypotension, Diarrhea, Leukocytosis, Sepsis, Colitis Disposition: ADMITTED IP TO THIS HOSP Condition: Serious Is patient prescribed a controlled substance at d/c from ED?: No Time of Disposition: 07:00
[2025-01-30] MEDS: SODIUM CHLORIDE 0.9% 1,000 ML IV ONE ×2 (05:37→06:21)
[2025-01-30 06:04] LABS: Basophils # (A) 0.09 10*3/uL (0.00-0.10); Basophils % (A) 0.5 %; Eosinophils # (A) 0.01 10*3/uL (0.04-0.35); Eosinophils % (A) 0.1 %; HCT 37.9 % (39.6-50.0); HGB 11.7 g/dL (13.0-17.0); Lymphocytes # (A) 0.74 10*3/uL (0.90-5.00); Lymphocytes % (A) 3.7 %; MCH 27.5 pg (27.0-32.0); MCHC 30.9 g/dL (32.0-37.0); MCV 89.2 fL (80.0-97.0); Monocytes # (A) 1.47 10*3/uL (0.20-1.00); Monocytes % (A) 7.4 %; Neutrophils # (A) 17.29 10*3/uL (1.80-7.70); Neutrophils % (A) 87.6 %; Platelet Count 366 10*3/uL (140-440); RBC 4.25 10*6/uL (4.40-5.60); WBC 19.74 10*3/uL (4.50-10.00)
[2025-01-30 06:28] LABS: ALT 19 U/L (4-49); AST 33 U/L (17-59); African American GFR (CKD) 53 (>60 ml/min/1.73 sqM); Albumin 3.2 g/dL (3.5-5.0); Alkaline Phosphatase 106 U/L (38-126); Anion Gap 12 mmol/L; Blood Urea Nitrogen 22 mg/dL (9-20); Calcium 8.4 mg/dL (8.4-10.2); Carbon Dioxide 25 mmol/L (22-30); Chloride 99 mmol/L (98-107); Glucose 257 mg/dL (74-99); Magnesium 2.4 mg/dL (1.6-2.3); Non-African American GFR(CKD) 46 (>60 ml/min/1.73 sqM); Phosphorus 5.1 mg/dL (2.5-4.5); Potassium 4.1 mmol/L (3.5-5.1); Sodium 136 mmol/L (137-145); Total Bilirubin 0.6 mg/dL (0.2-1.3); Total Protein 6.5 g/dL (6.3-8.2)
[2025-01-30] MEDS: AMPICILLIN-SULBACTAM 3 GM in SODIUM CHLORIDE 0.9% 100 ML IVPB STA (06:33)
[2025-01-30 06:35] LABS: NT-Pro-B-Type Natriuretic Pept 189 pg/mL
[2025-01-30] MEDS: LACTATED RINGERS 1,000 ML IV SCH (06:48)
[2025-01-30] MEDS ORDERED: ONDANSETRON 4 MG/2 ML VIAL IVP PRN (06:49)
[2025-01-30] MEDS ORDERED: NALOXONE 0.4 MG/ML 1 ML VIAL IV PRN (06:49)
--- NOTE | 2025-01-30 07:01 | XR ---
EXAMINATION TYPE: XR chest 2V DATE OF EXAM: 01/30/2025 CLINICAL INDICATION: Male, 74 years old with history of pain, TECHNIQUE: Frontal and lateral views of the chest are obtained. COMPARISON: Chest CT December 28, 2024 FINDINGS: Persistent masslike opacity medial right suprahilar region causing left-sided tracheal denise ation. There is new left basilar opacity. There is no pleural effusion or pneumothorax seen. The car diac silhouette size is stable and within normal limits. The osseous structures are intact. IMPRESSION: Persistent medial right upper lung mass/neoplasm. New left basilar acute infiltrate and/o r atelectasis. [facility], , 01/30/2025 6:59 AM
--- NOTE | 2025-01-30 07:11 | CT ---
EXAMINATION TYPE: CT abdomen pelvis wo con DATE OF EXAM: 01/30/2025 COMPARISON: PET/CT 3 days earlier CLINICAL INDICATION: Male, 74 years old with history of pain, abd pain, TECHNIQUE: CT scan of the abdomen and pelvis is performed without contrast. Oral contrast used: without Oral Contrast (none if empty) CT DLP: 451.7 mGycm, Automated exposure control for dose reduction was used. FINDINGS: Within the limitations of a noncontrast study, the following observations are made. LUNG BASES: Reticulonodular increased opacities left lung base with small areas of irregular consolid ation bilaterally left greater than right are redemonstrated. Coronary artery calcification again see n. LIVER/GB: No significant abnormality is appreciated. PANCREAS: No significant abnormality is seen. SPLEEN: No significant abnormality is seen. ADRENALS: Persistent small bilateral adrenal masses which are hypermetabolic on recent CT. For refere nce right adrenal mass measures 2.0 x 1.2 cm axial image 36. Findings consistent with metastatic lung cancer. KIDNEYS: There is 2 mm nonobstructing right renal calculus coronal image 72. Additional calcification centrally right kidney is likely vascular. No left-sided nephrolithiasis. No hydronephrosis or obstr ucting urinary calculi seen bilaterally. BOWEL: Suboptimal evaluation without enteric contrast. No abnormal small or large bowel dilatation is seen. Moderate to severe wall thickening involving the left and sigmoid colon with mild to moderate surroun ding fat stranding. Diverticula sigmoid colon of the pelvis is present. Fluid in the right colon is n oted. No free air. No well-formed fluid collection or abscess seen. PROSTATE/SEMINAL VESICLES: Prostate gland upper limits of normal in size. LYMPH NODES: No greater than 1cm abdominal or pelvic lymph nodes are appreciated. OSSEOUS STRUCTURES: Moderate degenerative changes in both hips. Degenerative changes bilateral sacroi liac joints. OTHER: Surgical changes of the aortobiiliac system is present. IMPRESSION: There is new acute uncomplicated colitis involving the left and descending colon. Differe ntial includes infectious, inflammatory, and ischemic etiologies. Correlate clinically. [facility], , 01/30/2025 7:09 AM
[2025-01-30 08:01] LABS: INR 1.3 (<1.2); Partial Thromboplastin Time 27.6 sec (22.0-30.0); Prothrombin Time 13.3 sec (10.0-12.5)
[2025-01-30] MEDS: SODIUM CHLORIDE 0.9% 1,000 ML IV SCH (09:25)
[2025-01-30] MEDS: PANTOPRAZOLE 40 MG/10 ML VIAL IV SCH (09:26)
--- NOTE | 2025-01-30 09:50 | P.CRDCN ---
History of Present Illness History of present illness: HISTORY OF PRESENT ILLNESS: This is a 74-year-old male with a past medical history significant for metastatic lung cancer, diabetes, infective endocarditis, and former nicotine dependence. Patient used to follow in the office with Dr. Berg but has not been seen since August 2022. We have been asked to see the patient in consultation for syncope. Patient examined at the bedside in the emergency room. Patient has been feeling weak at home for the past few days. He also reports having some diarrhea. Apparently he had a syncopal episode at home yesterday which prompted him to come to the emergency room. The family is at the bedside and states that the patient was recently diagnosed with lung cancer. He underwent a PET scan on 01/29/2025 revealing evidence of malignancy with metastatic disease including extensive mediastinal lymphadenopathy, right upper lobe pulmonary nodule, right lobe neck lymphadenopathy and bilateral adrenal gland FDG avid nodules. Left posterior renal cortical lesion with increased uptake findings concerning for renal cell carcinoma. DIAGNOSTICS: - EKG reveals sinus mechanism with no signs of acute ischemia. - Chest xray persistent medial right upper lobe mass/neoplasm. New left basilar acute infiltrate and/or atelectasis. - Laboratory data: WBC 19.74. Hemoglobin 11.7. Platelet count 366. Sodium 136. Potassium 4.1. BUN 22. Creatinine 1.51. Magnesium 2.4. proBNP 189 - Current home cardiac medications include none. - Most recent echocardiogram obtained in December 2024 revealed ejection fraction 60 to 65% with moderate MR REVIEW OF SYSTEMS: At the time of my exam: CONSTITUTIONAL: Denies fever or chills. HEENT: Denies blurred vision, vision changes, or eye pain. Denies hemoptysis CARDIOVASCULAR: Denies chest pain. Denies orthopnea. Denies PND. Denies palpitations RESPIRATORY: Denies shortness of breath. GASTROINTESTINAL: Denies abdominal pain. Denies nausea or vomiting. HEMATOLOGIC: Denies bleeding disorders. GENITOURINARY: Denies any blood in urine. SKIN: Denies pruitis. Denies rash. PHYSICAL EXAM: VITAL SIGNS: Reviewed. GENERAL: Well-developed in no acute distress. HEENT: Head is normocephalic. Pupils are equal, round. Sclerae anicteric. Mucous membranes of the mouth are moist. Neck supple. No JVD or thyromegaly LUNGS: Respirations even and unlabored. Lungs essentially clear to auscultation bilaterally. HEART: Regular rate and rhythm. S1 and S2 heard. ABDOMEN: Soft. Nondistended. Nontender. EXTREMITIES: Normal range of motion. No clubbing or cyanosis. Peripheral pulses intact. No lower extremity edema NEUROLOGIC: Awake and alert. Oriented x 3. ASSESSMENT: Generalized weakness Diarrhea Syncope Leukocytosis Metastatic lung cancer Acute kidney injury, baseline unknown History of infective endocarditis, 2021 Diabetes Former nicotine dependence History of CVA Paroxysmal atrial fibrillation, not anticoagulated on an outpatient basis PLAN: It is noted that the patient was here in December 2024. The patient has 2 separate medical records in EMR. IT working to combine accounts. Obtain 2D echo to assess cardiac structure and function Patient is not anticoagulated on an outpatient basis for his atrial fibrillation. Reason unknown. We will continue to hold off on initiating this at this time Patient with elevated D-dimer. Will obtain VQ scan. Continue telemetry monitoring Further recommendations pending patient course Nurse practitioner note has been reviewed by physician. Signing provider agrees with the documented findings, assessment, and plan of care documented by CHUTE BOSS as a scribe. Past Medical History Smoking Status: Former smoker Past Alcohol Use History: None Reported Past Drug Use History: None Reported Medications and Allergies Home Medications Medication Instructions Recorded Confirmed Type Atorvastatin [Lipitor] 10 mg PO HS 01/30/25 01/30/25 History Furosemide [Lasix] 20 mg PO DAILY 01/30/25 01/30/25 History Gabapentin [Neurontin] 200 mg PO HS 01/30/25 01/30/25 History HYDROcodone/APAP 7.5-325MG [[place] 1 tab PO BID 01/30/25 01/30/25 History 7.5-325] INSULIN ASPART (NovoLOG) [NovoLOG 4 unit SQ TID-W/MEALS 01/30/25 01/30/25 History (formulary)] Metoprolol Succinate [Metoprolol 25 mg PO DAILY 01/30/25 01/30/25 History Succinate ER] Omeprazole 20 mg PO BID 01/30/25 01/30/25 History Ondansetron [Zofran] 4 mg PO Q6H PRN 01/30/25 01/30/25 History Potassium Chloride ER [K-Dur 20] 20 meq PO DAILY 01/30/25 01/30/25 History lisinopriL [Zestril] 2.5 mg PO DAILY 01/30/25 01/30/25 History rOPINIRole HCL [Requip] 0.25 mg PO HS 01/30/25 01/30/25 History traZODone HCL [Desyrel] 100 mg PO HS 01/30/25 01/30/25 History Allergies Allergy/AdvReac Type Severity Reaction Status Date / Time No Known Allergies Allergy Verified 01/30/25 09:09 Physical Exam Vitals: Vital Signs Temp Pulse Resp BP Pulse Ox 01/30/25 06:49 89 17 110/74 95 01/30/25 05:53 82/44 01/30/25 05:50 89 16 98 01/30/25 05:34 97.4 F L 95 17 80/52 96 Intake and Output 01/29/25 01/30/25 01/30/25 22:59 06:59 14:59 Other: Weight 58.967 kg Results 01/30/25 05:50 01/30/25 05:50 Cardiac Enzymes 01/30/25 Range/Units 05:50 AST 33 (17-59) U/L CBC 01/30/25 Range/Units 05:50 WBC 19.74 H (4.50-10.00) 10*3/uL RBC 4.25 L (4.40-5.60) 10*6/uL Hgb 11.7 L (13.0-17.0) g/dL Hct 37.9 L (39.6-50.0) % Plt Count 366 (140-440) 10*3/uL Comprehensive Metabolic Panel 01/30/25 Range/Units 05:50 Sodium 136 L (137-145) mmol/L Potassium 4.1 (3.5-5.1) mmol/L Chloride 99 (98-107) mmol/L Carbon Dioxide 25 (22-30) mmol/L BUN 22 H (9-20) mg/dL Creatinine 1.51 H (0.66-1.25) mg/dL Glucose 257 H (74-99) mg/dL Calcium 8.4 (8.4-10.2) mg/dL AST 33 (17-59) U/L ALT 19 (4-49) U/L Alkaline Phosphatase 106 (38-126) U/L Total Protein 6.5 (6.3-8.2) g/dL Albumin 3.2 L (3.5-5.0) g/dL Current Medications Generic Name Dose Route Start Last Admin Trade Name Freq PRN Reason Stop Dose Admin Ampicillin Sodium/Sulbactam 100 mls @ 200 mls/hr 01/30/25 16:00 Sodium 3 gm/ Sodium Chloride IVPB Q8HR DANIELA Protocol Lactated Ringer's 1,000 mls @ 999 mls/hr 01/30/25 06:30 01/30/25 06:48 Lactated Ringers IV 01/30/25 08:36 999 mls/hr Q65M DANIELA Administration Sodium Chloride 1,000 mls @ 130 mls/hr 01/30/25 07:00 Saline 0.9% IV .Q7H42M DANIELA Morphine Sulfate 4 mg 01/30/25 06:49 Morphine Sulfate 4 Mg/Ml Syringe IV Q4HR PRN Severe Pain (Scale 7 to 10) Naloxone HCl 0.2 mg 01/30/25 06:49 Naloxone 0.4 Mg/Ml 1 Ml Vial IV Q2M PRN Opioid Reversal Ondansetron HCl 4 mg 01/30/25 06:49 Ondansetron 4 Mg/2 Ml Vial IVP Q8HR PRN Nausea And Vomiting Pantoprazole Sodium 40 mg 01/30/25 09:00 Pantoprazole 40 Mg/10 Ml Vial IV DAILY DANIELA Intake and Output 01/29/25 01/30/25 01/30/25 22:59 06:59 14:59 Other: Weight 58.967 kg 01/30/25 05:50 01/30/25 05:50
--- NOTE | 2025-01-30 14:38 | NM ---
EXAMINATION TYPE: NM pul vent and perfuse DATE OF EXAM: 01/30/2025 CLINICAL INDICATION: Male, 74 years old with history of elevated d-dimer, syncope; COMPARISON: NONE TECHNIQUE: Utilizing inhalation of 69.6 mCi Tc 99m DTPA aerosol and intravenous injection of 5 mCi o f Tc 99m MAA, ventilation and perfusion images are acquired post injection in multiple projections. FINDINGS: Normal radiotracer distribution is noted in the lungs. There is no evidence of mismatched defects. IMPRESSION: No mismatched defects to suggest pulmonary embolus by PIOPED criteria. [facility], , 01/30/2025 2:35 PM
[2025-01-30] MEDS ORDERED: ONDANSETRON ODT 4 MG TAB PO PRN (15:38)
[2025-01-30] MEDS: MORPHINE SULFATE 4 MG/ML SYRINGE IV PRN (15:51)
[2025-01-30] MEDS: AMPICILLIN-SULBACTAM 3 GM in SODIUM CHLORIDE 0.9% 100 ML IVPB SCH (15:53)
[2025-01-30 16:36] LABS: Glucose,Whole Blood 92 mg/dL (70-110)
[2025-01-30 19:53] LABS: Glucose,Whole Blood 109 mg/dL (70-110)
[2025-01-30] MEDS: PANTOPRAZOLE 40 MG TABLET PO SCH (20:07)
[2025-01-30] MEDS: HYDROcodone/APAP 7.5-325MG 1 EACH TAB PO SCH (20:07)
[2025-01-31 06:08] LABS: Glucose,Whole Blood 93 mg/dL (70-110)
[2025-01-31 06:59] LABS: Basophils # (A) 0.06 10*3/uL (0.00-0.10); Basophils % (A) 0.5 %; Eosinophils # (A) 0.14 10*3/uL (0.04-0.35); Eosinophils % (A) 1.1 %; HGB 10.4 g/dL (13.0-17.0); Lymphocytes # (A) 1.35 10*3/uL (0.90-5.00); Lymphocytes % (A) 10.8 %; MCH 27.6 pg (27.0-32.0); MCHC 29.7 g/dL (32.0-37.0); MCV 92.8 fL (80.0-97.0); Mean Platelet Volume 10.4 fL (9.5-12.2); Monocytes # (A) 0.92 10*3/uL (0.20-1.00); Monocytes % (A) 7.4 %; Neutrophils # (A) 9.98 10*3/uL (1.80-7.70); Neutrophils % (A) 79.7 %; Platelet Count 315 10*3/uL (140-440); RBC 3.77 10*6/uL (4.40-5.60); RDW 17.6 % (11.5-14.5); WBC 12.51 10*3/uL (4.50-10.00)
[2025-01-31 07:01] LABS: ALT 15 U/L (4-49); AST 37 U/L (17-59); African American GFR (CKD) >90 (>60 ml/min/1.73 sqM); Albumin 3.2 g/dL (3.5-5.0); Alkaline Phosphatase 100 U/L (38-126); Anion Gap 7 mmol/L; Blood Urea Nitrogen 16 mg/dL (9-20); Calcium 8.2 mg/dL (8.4-10.2); Carbon Dioxide 27 mmol/L (22-30); Chloride 107 mmol/L (98-107); Glucose 80 mg/dL (74-99); Non-African American GFR(CKD) 85 (>60 ml/min/1.73 sqM); Phosphorus 3.5 mg/dL (2.5-4.5); Sodium 141 mmol/L (137-145); Total Bilirubin 0.5 mg/dL (0.2-1.3); Total Protein 6.5 g/dL (6.3-8.2)
[2025-01-31] MEDS: ASPIRIN 81 MG PO SCH (08:30)
[2025-01-31] MEDS: POTASSIUM CHLORIDE ER 20 MEQ TAB.ER PO SCH (08:31)
[2025-01-31 11:31] LABS: Glucose,Whole Blood 135 mg/dL (70-110)
--- NOTE | 2025-01-31 12:39 | P.PN ---
Subjective Progress Note Date: 01/31/25 HISTORY OF PRESENT ILLNESS: This is a 74-year-old male with a past medical history significant for meta static lung cancer, diabetes, infective endocarditis, and former nicotine dependence. Patient used to follow in the office with Dr. Berg but has not been seen since August 2022. We have been asked to see the patient in consultation for syncope. Patient examined at the bedside in the emergency room. Patient has been feeling weak at home for the past few days. He also reports having some diarrhea. Apparently he had a syncopal episode at home yesterday which prompted him to come to the emergency room. The family is at the bedside and states that the patient was recently diagnosed with lung cancer. He underwent a PET scan on 01/29/2025 revealing evidence of malignancy with metastatic disease including extensive mediastinal lymphadenopathy, right upper lobe pulmonary nodule, right lobe neck lymphadenopathy and bilateral adrenal gland FDG avid nodules. Left posterior renal cortical lesion with increased uptake findings concerning for renal cell carcinoma. DIAGNOSTICS: - EKG reveals sinus mechanism with no signs of acute ischemia. - Chest xray persistent medial right upper lobe mass/neoplasm. New left basilar acute infiltrate and/or atelectasis. - Laboratory data: WBC 19.74. Hemoglobin 11.7. Platelet count 366. Sodium 136. Potassium 4.1. BUN 22. Creatinine 1.51. Magnesium 2.4. proBNP 189 - Current home cardiac medications include none. - Most recent echocardiogram obtained in December 2024 revealed ejection fraction 60 to 65% with moderate MR 01/31 Patient seen and examined on the cardiac stepdown unit. VQ scan was negative for pulmonary embolism. Patient remains in a sinus rhythm. He denies chest pain. Patient had echocardiogram done in December. PHYSICAL EXAM: VITAL SIGNS: Reviewed. GENERAL: Well-developed in no acute distress. HEENT: Head is normocephalic. Pupils are equal, round. Sclerae anicteric. Mucous membranes of the mouth are moist. Neck supple. No JVD or thyromegaly LUNGS: Respirations even and unlabored. Lungs essentially clear to auscultation bilaterally. HEART: Regular rate and rhythm. S1 and S2 heard. ABDOMEN: Soft. Nondistended. Nontender. EXTREMITIES: Normal range of motion. No clubbing or cyanosis. Peripheral pulses intact. No lower extremity edema NEUROLOGIC: Awake and alert. Oriented x 3. ASSESSMENT: Generalized weakness Diarrhea Syncope Leukocytosis Metastatic lung cancer Acute kidney injury, baseline unknown History of infective endocarditis, 2021 Diabetes Former nicotine dependence History of CVA Paroxysmal atrial fibrillation, not anticoagulated on an outpatient basis PLAN: It is noted that the patient was here in December 2024. The patient has 2 separate medical records in EMR. IT working to combine accounts. Cancel echocardiogram as this was done in December Patient is not anticoagulated on an outpatient basis for his atrial fibrillation. Reason unknown. We will continue to hold off on initiating this at this time Discontinue telemetry Transfer to [facility] will sign off this case and follow on an as-needed basis. Please reconsult for any new concerns. Patient may follow-up in the office in [address] Elizabet Berg. Nurse practitioner note has been reviewed by physician. Signing provider agrees with the documented findings, assessment, and plan of care documented by BUGGY RUNNER as a scribe. Objective - Vital Signs Vital signs: Vital Signs Temp 97.4 F L 01/31/25 03:42 Pulse 74 01/31/25 03:42 Resp 16 01/31/25 03:42 BP 140/71 01/31/25 03:42 Pulse Ox 100 01/31/25 03:42 FiO2 Intake & Output 01/30/25 01/31/25 01/31/25 18:59 06:59 18:59 Intake Total 1140 Output Total 900 Balance 240 Weight 58.967 kg 69.5 kg Intake: IV 1140 Ampicillin-Sulbactam 3 gm 100 In Sodium Chloride 0.9% 100 ml @ 200 mls/hr IVPB ONCE STA Rx#:[id number] Sodium Chloride 0.9% 1, 1040 000 ml @ 130 mls/hr IV . Q7H42M [facility] Rx#:[id number] Output: Urine 900 Other: Voiding Method Diaper Diaper # Bowel Movements 1 - Labs CBC & Chem 7: 01/31/25 05:41 01/31/25 05:41 Labs: Abnormal Lab Results - Last 24 Hours (Table) 01/30/25 01/30/25 01/31/25 Range/Units 07:30 07:30 05:41 WBC 12.51 H (4.50-10.00) 10*3/uL RBC 3.77 L (4.40-5.60) 10*6/uL Hgb 10.4 L (13.0-17.0) g/dL Hct 35.0 L (39.6-50.0) % MCHC 29.7 L (32.0-37.0) g/dL Immature Gran # 0.06 H (0.00-0.04) 10*3/uL Neutrophils # 9.98 H (1.80-7.70) 10*3/uL D-Dimer >34.10 H (<0.60) mg/L FEU Plasma Lactic Acid Yannick 4.6 H* (0.7-2.0) mmol/L Calcium (8.4-10.2) mg/dL Albumin (3.5-5.0) g/dL /02/20 Range/Units 05:41 WBC (4.50-10.00) 10*3/uL RBC (4.40-5.60) 10*6/uL Hgb (13.0-17.0) g/dL Hct (39.6-50.0) % MCHC (32.0-37.0) g/dL Immature Gran # (0.00-0.04) 10*3/uL Neutrophils # (1.80-7.70) 10*3/uL D-Dimer (<0.60) mg/L FEU Plasma Lactic Acid Yannick (0.7-2.0) mmol/L Calcium 8.2 L (8.4-10.2) mg/dL Albumin 3.2 L (3.5-5.0) g/dL
[2025-01-31 16:38] LABS: Glucose,Whole Blood 78 mg/dL (70-110)
[2025-01-31] MEDS ORDERED: DILTIAZEM 125 MG in DEXTROSE 5% IN WATER 100 ML IV SCH (17:15)
--- NOTE | 2025-01-31 19:53 | P.CONS ---
History of Present Illness - Reason for Consult Consult date: 01/31/25 SCLC Requesting physician: Nathan Chatman - Chief Complaint no strength - History of Present Illness Mr. Mcintosh is a 74-year-old ma male we saw on last admission in mid December for pulmonary findings. Patient had bronchoscopy with endobronchial biopsies of the right upper lobe tumor invading the apical and anterior segment of the right upper lobe/01/21. Pathology reporting small cell lung cancer. Imaging at that time was suspicious for metastatic disease with lymphadenopathy and possibly kidney/adrenal metastasis. CT of the head with contrast was performed-patient has an unknown known material stent so, CT scan was negative for metastatic disease. atient was ultimately discharged home with plans for PET scan and follow-up with Med Onc for results, prognosis and treatment options. He had his PET scan. Patient states that he was doing all right at home, using a wheeled walker. He went in to use the restroom, once he sat down, he could not get back up. He required assistance, rather severe weakness, he was brought back to the hospital. Patient denies any fevers, sweats, nausea or vomiting, he states he has a fair appetite, he denies any chest pain, shortness of breath, his cough is chronic, no hemoptysis or purulent sputum production, no abdominal pain, he reports loose stools, no blood, lower abdominal pain or rectal pain. No swelling in his legs. No new pain to report. Review of Systems 10 point review of systems is negative except as stated in the HPI Past Medical History Past Medical History: Cancer, CVA/TIA, Diabetes Mellitus, Hyperlipidemia, Hypertension, Seizure Disorder Additional Past Medical History / Comment(s): endocarditis, small cell lung cancer History of Any Multi-Drug Resistant Organisms: None Reported Past Surgical History: Orthopedic Surgery Additional Past Surgical History / Comment(s): hemmoroid, nahid feet, lf hand, AAA repair in 2015 Past Anesthesia/Blood Transfusion Reactions: No Reported Reaction Past Psychological History: No Psychological Hx Reported Smoking Status: Current every day smoker Past Alcohol Use History: None Reported Past Drug Use History: None Reported - Past Family History Mother Family Medical History: CVA/TIA Father Additional Family Medical History / Comment(s): Father had shingles; not sure what he from Medications and Allergies Home Medications Medication Instructions Recorded Confirmed Type Amoxic-Pot Clav 875-125Mg 1 tab PO BID 10 Days #20 tab 01/03/25 Rx [Augmentin 875-125] Folic Acid 1 mg PO DAILY #90 tablet 01/12/25 Rx Atorvastatin [Lipitor] 10 mg PO HS 01/30/25 01/30/25 History Furosemide [Lasix] 20 mg PO DAILY 01/30/25 01/30/25 History Gabapentin [Neurontin] 200 mg PO HS 01/30/25 01/30/25 History HYDROcodone/APAP 7.5-325MG [[place] 1 tab PO BID 01/30/25 01/30/25 History 7.5-325] INSULIN ASPART (NovoLOG) [NovoLOG 4 unit SQ TID-W/MEALS 01/30/25 01/30/25 History (formulary)] Metoprolol Succinate [Metoprolol 25 mg PO DAILY 01/30/25 01/30/25 History Succinate ER] Omeprazole 20 mg PO BID 01/30/25 01/30/25 History Ondansetron [Zofran] 4 mg PO Q6H PRN 01/30/25 01/30/25 History Potassium Chloride ER [K-Dur 20] 20 meq PO DAILY 01/30/25 01/30/25 History lisinopriL [Zestril] 2.5 mg PO DAILY 01/30/25 01/30/25 History rOPINIRole HCL [Requip] 0.25 mg PO HS 01/30/25 01/30/25 History traZODone HCL [Desyrel] 100 mg PO HS 01/30/25 01/30/25 History Allergies Allergy/AdvReac Type Severity Reaction Status Date / Time No Known Allergies Allergy Verified 01/31/25 08:02 Physical Exam Vitals: Vital Signs Temp Pulse Resp BP Pulse Ox 01/31/25 14:00 80 18 01/31/25 12:00 98.1 F 80 18 160/75 99 01/31/25 08:00 98.0 F 84 16 146/68 98 01/31/25 03:42 97.4 F L 74 16 140/71 100 01/30/25 23:44 98.2 F 67 16 134/64 98 01/30/25 19:52 97.8 F 74 18 127/80 98 Intake and Output 05/05/25 05/05/25 05/05/25 06:59 14:59 22:59 Intake Total 1140 960 Output Total 900 750 Balance 240 210 Intake: IV 1140 Ampicillin-Sulbactam 3 gm 100 In Sodium Chloride 0.9% 100 ml @ 200 mls/hr IVPB ONCE STA Rx#:[id number] Sodium Chloride 0.9% 1, 1040 000 ml @ 130 mls/hr IV . Q7H42M [facility] Rx#:[id number] Oral 960 Output: Urine 900 750 Other: Voiding Method Diaper Urinal Diaper Weight 69.5 kg - Constitutional General appearance: cooperative, no acute distress, thin - EENT Eyes: anicteric sclerae, EOMI ENT: hearing grossly normal, normal oropharynx - Neck Neck: no lymphadenopathy - Respiratory Respiratory: bilateral: CTA, diminished - Cardiovascular Rhythm: regular Heart sounds: normal: S1, S2 Abnormal Heart Sounds: no systolic murmur, no diastolic murmur, no rub, no S3 Gallop, no S4 Gallop, no click, no other leg Peripheral Edema: bilateral: None - Gastrointestinal General gastrointestinal: no absent bowel sounds, no decreased bowel sounds, no distended, no hepatomegaly, no hyperactive bowel sounds, normal bowel sounds, no organomegaly, no rigid, no scaphoid, soft, no splenomegaly, no tenderness, no umbilical hernia, no ventral hernia - Integumentary Integumentary: normal - Neurologic Neurologic: CNII-XII intact - Musculoskeletal Musculoskeletal: generalized weakness - Psychiatric Psychiatric: A&O x's 3, appropriate affect, intact judgment & insight Results CBC & Chem 7: 01/31/25 05:41 01/31/25 05:41 Labs: Abnormal Lab Results - Last 24 Hours (Table) 01/31/25 01/31/25 01/31/25 Range/Units 05:41 05:41 11:30 WBC 12.51 H (4.50-10.00) 10*3/uL RBC 3.77 L (4.40-5.60) 10*6/uL Hgb 10.4 L (13.0-17.0) g/dL Hct 35.0 L (39.6-50.0) % MCHC 29.7 L (32.0-37.0) g/dL Immature Gran # 0.06 H (0.00-0.04) 10*3/uL Neutrophils # 9.98 H (1.80-7.70) 10*3/uL POC Glucose (mg/dL) 135 H (70-110) mg/dL Calcium 8.2 L (8.4-10.2) mg/dL Albumin 3.2 L (3.5-5.0) g/dL Microbiology - Last 24 Hours (Table) 01/30/25 06:20 Blood Culture - Preliminary Blood Comments: VQ scan report reviewed, low probability for PE PET/CT 01/28/2025. Group of lymph nodes right low neck/supraclavicular area 13 mm, SUV 10.8. Mediastinal lymphadenopathy with dominant mass in the right upper medial aspect extending to the right perihilar region, 6.8 x 5.0 x 10.7, SUV 14.1 right upper lobe nodular densities SUV 3.7. Right anterior perihilar nodule 15 mm, SUV 8.8. Abdomen and pelvis: right adrenal gland 18 mm, SUV 11. Left adrenal gland 16 mm, SUV 7.6. Left renal posterior cortical exophytic lesion 20 mm measuring 19 Hounsfield units, SUV 6.8. Musculoskeletal structures, is documented "suspicious uptake identified examples include:", Nothing follows. Chest x-ray: report reviewed CT scan - abdomen: report reviewed CT scan - pelvis: report reviewed Assessment and Plan (1) Diarrhea Current Visit: Yes Status: Acute Priority: High Code(s): R19.7 - DIARRHEA, UNSPECIFIED SNOMED Code(s): 03226363 (2) Small cell lung cancer Current Visit: Yes Status: Acute Priority: High Code(s): C34.90 - MALIGNANT NEOPLASM OF UNSP PART OF UNSP BRONCHUS OR LUNG SNOMED Code(s): 970576254 Plan: Diarrhea - Stool studies have been ordered. - Patient is on antibiotics Generalized weakness - As stated in HPI patient was getting around his home with a wheeled walker. He sat down to use the toilet and was unable to stand back up. -Home health consulted. Pending their assessment Extensive stage small cell lung cancer - Diagnosis made from a biopsy of a right upper lobe lung mass 12/31/2024 - CT chest abdomen and pelvis at that time suspicious in multiple areas including adrenals. CT of the head was negative for metastatic disease - Patient had PET 01/28/2025. Reports: Group of lymph nodes right low neck/supraclavicular area 13 mm, SUV 10.8. Mediastinal lymphadenopathy with dominant mass in the right upper medial aspect extending to the right perihilar region, 6.8 x 5.0 x 10.7, SUV 14.1 right upper lobe nodular densities SUV 3.7. Right anterior perihilar nodule 15 mm, SUV 8.8. Abdomen and pelvis: right adrenal gland 18 mm, SUV 11. Left adrenal gland 16 mm, SUV 7.6. Left renal posterior cortical exophytic lesion 20 mm measuring 19 Hounsfield units, SUV 6.8. Musculoskeletal structures, is documented "suspicious uptake identified examples include:", Nothing follows. - Planning for a family meeting tomorrow to discuss the PET scan findings. The findings represent stage IV disease which is treatable for some time but, not curable. Patient was very nervous so we limited the discussion to the PET scan results, will discuss prognosis and treatment options with . It was discussed with patient that currently his performance status is poor, which would make tolerating treatment very challenging. Patient was encouraged to participate with physical therapy and to see if he can improve his performance status. He verbalized understanding. Will follow-up and have discussion with the patient and his tomorrow. Will document their decision
[2025-01-31 20:34] LABS: Glucose,Whole Blood 174 mg/dL (70-110)
[2025-01-31] MEDS: DILTIAZEM 5 MG/ML 5 ML VIAL IVP STA (21:05)
[2025-02-01 06:07] LABS: Glucose,Whole Blood 87 mg/dL (70-110)
[2025-02-01 11:37] LABS: Glucose,Whole Blood 173 mg/dL (70-110)
--- NOTE | 2025-02-01 12:57 | P.HPIM ---
History of Present Illness 74-year-old male with history of metastatic lung cancer came in after syncopal episode. Patient blood pressure was low on admission. Patient is on lisinopril and metoprolol which were held during this hospitalization. Patient mental status as per the oncology nurse practitioner is at his baseline. Patient sometimes repeats himself and appears confused but apparently this is his baseline. Patient does not have any focal weakness does have generalized weakness. Patient has not small cell lung cancer stage IV recent PET scan r evealed extensive metastasis extensive mediastinal lymphadenopathy along with adrenal gland involvement. Patient had a recent CT with contrast of the head which did not show any metastasis and this was about 2 weeks ago. Patient had any fever chills nausea vomiting diarrhea. EKG did not show any significant abnormality echocardiogram that was done in December 2024 showed EF of around 60 to 65%.. Patient serum creatinine is 1.5 which improved with IV fluids REVIEW OF SYSTEMS: All other systems are negative except those mentioned in the HPI PHYSICAL EXAMINATION: GENERAL: The patient is alert and oriented x3, not in any acute distress. Thin built HEENT: Pupils are round and equally reacting to light. EOMI. No scleral icterus. No conjunctival pallor. Normocephalic, atraumatic. No pharyngeal erythema. No thyromegaly. CARDIOVASCULAR: S1 and S2 present. No murmurs, rubs, or gallops. PULMONARY: Chest is clear to auscultation, no wheezing or crackles. ABDOMEN: Soft, nontender, nondistended, normoactive bowel sounds. No palpable organomegaly. MUSCULOSKELETAL: No joint swelling or deformity. EXTREMITIES: No cyanosis, clubbing, or pedal edema. NEUROLOGICAL: Gross neurological examination did not reveal any focal deficits. SKIN: No rashes. Assessment and plan -Syncope: Secondary to intravascular volume depletion probably poor p.o. intake from his cancer resolved at this time. - Acute renal failure prerenal ischemia secondary to poor p.o. intake improved with IV fluids - Leukocytosis reactive in nature without any evidence of infection - Generalized weakness due to advancing cancer had a lengthy discussion with the oncology. Considering his generalized weakness patient is a poor candidate for any chemotherapy oncology to discuss with the patient -Metastatic lung cancer not on treatment yet probably not a candidate for treatment - Infected endocarditis - COPD without any acute exacerbation - Paroxysmal atrial fibrillation presently not on anticoagulation patient will be started on DVT prophylaxis DVT prophylaxis Lovenox: Past Medical History Past Medical History: Cancer, CVA/TIA, Diabetes Mellitus, Hyperlipidemia, Hypertension, Seizure Disorder Additional Past Medical History / Comment(s): endocarditis, small cell lung cancer History of Any Multi-Drug Resistant Organisms: None Reported Past Surgical History: Orthopedic Surgery Additional Past Surgical History / Comment(s): hemmoroid, nahid feet, lf hand, AAA repair in 2015 Past Anesthesia/Blood Transfusion Reactions: No Reported Reaction Past Psychological History: No Psychological Hx Reported Smoking Status: Current every day smoker Past Alcohol Use History: None Reported Past Drug Use History: None Reported - Past Family History Mother Family Medical History: CVA/TIA Father Additional Family Medical History / Comment(s): Father had shingles; not sure what he from Medications and Allergies Home Medications Medication Instructions Recorded Confirmed Type Amoxic-Pot Clav 875-125Mg 1 tab PO BID 10 Days #20 tab 01/03/25 Rx [Augmentin 875-125] Folic Acid 1 mg PO DAILY #90 tablet 01/12/25 Rx Atorvastatin [Lipitor] 10 mg PO HS 01/30/25 01/30/25 History Furosemide [Lasix] 20 mg PO DAILY 01/30/25 01/30/25 History Gabapentin [Neurontin] 200 mg PO HS 01/30/25 01/30/25 History HYDROcodone/APAP 7.5-325MG [[place] 1 tab PO BID 01/30/25 01/30/25 History 7.5-325] INSULIN ASPART (NovoLOG) [NovoLOG 4 unit SQ TID-W/MEALS 01/30/25 01/30/25 History (formulary)] Metoprolol Succinate [Metoprolol 25 mg PO DAILY 01/30/25 01/30/25 History Succinate ER] Omeprazole 20 mg PO BID 01/30/25 01/30/25 History Ondansetron [Zofran] 4 mg PO Q6H PRN 01/30/25 01/30/25 History Potassium Chloride ER [K-Dur 20] 20 meq PO DAILY 01/30/25 01/30/25 History lisinopriL [Zestril] 2.5 mg PO DAILY 01/30/25 01/30/25 History rOPINIRole HCL [Requip] 0.25 mg PO HS 01/30/25 01/30/25 History traZODone HCL [Desyrel] 100 mg PO HS 01/30/25 01/30/25 History Allergies Allergy/AdvReac Type Severity Reaction Status Date / Time No Known Allergies Allergy Verified 01/31/25 08:02 Physical Exam Vitals: Vital Signs Temp Pulse Resp BP Pulse Ox 02/01/25 07:30 98.3 F 92 18 158/69 98 02/01/25 04:00 97.7 F 83 18 146/66 96 02/01/25 02:00 77 18 02/01/25 00:00 98.0 F 77 18 125/68 97 01/31/25 20:00 97.7 F 77 18 124/67 97 01/31/25 16:00 97.7 F 106 H 18 162/73 92 L 01/31/25 14:00 80 18 Intake and Output 01/31/25 02/01/25 02/01/25 22:59 06:59 14:59 Intake Total 120 240 Output Total 500 2000 Balance -500 -1880 240 Intake: IV 20 Sodium Chloride 0.9% 1, 20 000 ml @ 20 mls/hr IV . Q24H [facility] Rx#:[id number] Intake, IV Titration 100 Amount Ampicillin-Sulbactam 3 gm 100 In Sodium Chloride 0.9% 100 ml @ 200 mls/hr IVPB Q8HR [facility] Rx#:[id number] Oral 240 Output: Urine 500 2000 Other: Voiding Method Urinal Urinal Weight 69 kg Results CBC & Chem 7: 01/31/25 05:41 01/31/25 05:41 Labs: Abnormal Lab Results - Last 24 Hours (Table) 01/31/25 02/01/25 Range/Units 20:33 11:35 POC Glucose (mg/dL) 174 H 173 H (70-110) mg/dL Microbiology - Last 24 Hours (Table) 01/30/25 06:20 Blood Culture - Preliminary Blood Thrombosis Risk Factor Assmnt - Choose All That Apply Any of the Below Risk Factors Present?: Yes Each Factor Represents 1 point: Sepsis (< 1month) Other Risk Factors: Yes Each Risk Factor Represents 2 Points: Age 61-74 years Other congenital or acquired thrombophilia - If yes, enter type in comment: No Thrombosis Risk Factor Assessment Total Risk Factor Score: 3 Thrombosis Risk Factor Assessment Level: Moderate Risk
[2025-02-01] MEDS ORDERED: METOPROLOL SUCCINATE (ER) 25 MG TAB.ER.24H PO SCH (13:00)
[2025-02-01 16:46] LABS: Glucose,Whole Blood 157 mg/dL (70-110)
[2025-02-01] MEDS: HYDROcodone/APAP 7.5-325MG 1 EACH TAB PO SCH (17:54)
[2025-02-01] MEDS: METOPROLOL SUCCINATE (ER) 25 MG TAB.ER.24H PO SCH (17:54)
[2025-02-01 19:54] LABS: Glucose,Whole Blood 156 mg/dL (70-110)
--- NOTE | 2025-02-01 20:37 | P.PN ---
Subjective Progress Note Date: 02/01/25 Principal diagnosis: weakness In f/u today pt ate almost all of his lunch, he denies any pain, cough is congested, mostly non productive. His at bedside reported that pt was incontinent of stool prior to admit, pt states that is better today. He is on abx for suspected colitis on CT. Denies fever, abd pain, tarry or bloody stool. Pt is persistently weak. Objective - Vital Signs Vital signs: Vital Signs Temp 98.3 F 02/01/25 07:30 Pulse 92 02/01/25 07:30 Resp 18 02/01/25 07:30 BP 158/69 02/01/25 07:30 Pulse Ox 98 02/01/25 07:30 FiO2 Intake & Output 01/31/25 02/01/25 02/01/25 18:59 06:59 18:59 Intake Total 960 120 240 Output Total 1250 2000 Balance -290 -1880 240 Weight 69 kg Intake: IV 20 Sodium Chloride 0.9% 1, 20 000 ml @ 20 mls/hr IV . Q24H [facility] Rx#:[id number] Intake, IV Titration 100 Amount Ampicillin-Sulbactam 3 gm 100 In Sodium Chloride 0.9% 100 ml @ 200 mls/hr IVPB Q8HR [facility] Rx#:[id number] Oral 960 240 Output: Urine 1250 2000 Other: Voiding Method Urinal Urinal Diaper - Constitutional General appearance: Present: cooperative, no acute distress, thin - EENT Eyes: Present: anicteric sclerae, EOMI ENT: Present: hearing grossly normal - Respiratory Details: O2 NC, resp unlabored at rest - Cardiovascular Details: skin warm to touch, pale - Peripheral edema leg Peripheral Edema: bilateral: None - Integumentary Integumentary: Present: pale - Neurologic Neurologic: Present: CNII-XII intact (grossly) - Musculoskeletal Musculoskeletal Comment(s): pt is able to move in the bed independently and adjust his body weight, he can sit up independently Musculoskeletal: Present: generalized weakness - Psychiatric Psychiatric Comment(s): flat affect Psychiatric: Present: A&O x's 3 - Labs CBC & Chem 7: 01/31/25 05:41 01/31/25 05:41 Labs: Abnormal Lab Results - Last 24 Hours (Table) 01/31/25 01/31/25 Range/Units 11:30 20:33 POC Glucose (mg/dL) 135 H 174 H (70-110) mg/dL Microbiology - Last 24 Hours (Table) 01/30/25 06:20 Blood Culture - Preliminary Blood - Imaging and Cardiology PET scan results Assessment and Plan (1) Diarrhea Current Visit: Yes Status: Acute Priority: High Code(s): R19.7 - DIARRHEA, UNSPECIFIED SNOMED Code(s): 90700144 (2) Small cell lung cancer Current Visit: Yes Status: Acute Priority: High Code(s): C34.90 - MALIGNA NT NEOPLASM OF UNSP PART OF UNSP BRONCHUS OR LUNG SNOMED Code(s): 203117857 Plan: Diarrhea -CTAP suspicious for colitits lt side and decending colon - Stool studies have been ordered. - Patient is on antibiotics - reports incontinence of stool prior to admit, pt states no incontinence today Generalized weakness - As stated in consult patient was getting around his home with a wheeled walker. He sat down to use the toilet and was unable to stand back up. -Home health consulted. Pending their assessment and recommendations Extensive stage small cell lung cancer - Diagnosis made from a biopsy of a right upper lobe lung mass 12/31/2024 - CT chest abdomen and pelvis at that time suspicious in multiple areas including adrenals. CT of the head was negative for metastatic disease-could not do MRI because of a stent, unknown material - Patient had PET 01/28/2025. Reports: Group of lymph nodes right low neck/supraclavicular area 13 mm, SUV 10.8. Mediastinal lymphadenopathy with dominant mass in the right upper medial aspect extending to the right perihilar region, 6.8 x 5.0 x 10.7, SUV 14.1 right upper lobe nodular densities SUV 3.7. Right anterior perihilar nodule 15 mm, SUV 8.8. Abdomen and pelvis: right adrenal gland 18 mm, SUV 11. Left adrenal gland 16 mm, SUV 7.6. Left renal posterior cortical exophytic lesion 20 mm measuring 19 Hounsfield units, SUV 6.8. Musculoskeletal structures, is documented "suspicious uptake identified examples include:", Nothing follows. This was reviewed with pt and - We reviewed that pt has extensive stage small cell lung cancer. The disease is not curable but it is treatable for some time as long as a pt is fit enough to tolerate treatment and if they want to do treatment. Life expectancy without treatment could be 3-4months, with treatment-including new bispecific agents- patients can get up to 1.5-2 years. -It was reviewed with pt and that currently his performance status is poor, which would make tolerating treatment very challenging. It was recommended that they discuss what pt would want to do. We discussed the commitment that it takes to do treatment-treatments appts, labs, follow up scans. Once pt decides how he would like to proceed that then they can make further decisions-ie rehab to try and get in shape. Patient was encouraged to participate with physical therapy and to see if he can improve his performance status, if he desires to do so. -We also discussed hospice philosophy and intent of care under hospice care. -All pt and spouse questions were answered to the best of my ability. They were both upset as would be expected. Will stop by again tomorrow to see what questions they may have once they have processed the diagnosis.
[2025-02-01] MEDS: traZODone HCL 100 MG TAB PO SCH (20:59)
[2025-02-02 06:16] LABS: Glucose,Whole Blood 120 mg/dL (70-110)
[2025-02-02 11:48] LABS: Glucose,Whole Blood 180 mg/dL (70-110)
--- NOTE | 2025-02-02 14:38 | P.PN ---
Subjective Progress Note Date: 02/02/25 Principal diagnosis: weakness In f/u today pt up in chair, he ate both breakfast and lunch today, no F,N,V, chest pain. Cough remains congested. Weakness is stable, not progressive. When asked about decisions regarding plan of care pt states he wants to go home if he can. is not here yet today to get her opinion on what has been discussed. Objective - Vital Signs Vital signs: Vital Signs Temp 97.5 F L 02/02/25 09:07 Pulse 72 02/02/25 11:12 Resp 16 02/02/25 11:12 BP 133/65 02/02/25 11:12 Pulse Ox 99 02/02/25 11:12 FiO2 Intake & Output 02/01/25 02/02/25 02/02/25 18:59 06:59 18:59 Intake Total 698 342 762 Output Total 500 1175 1100 Balance 014 -379 -773 Weight 67 kg Intake: Intake, IV Titration 100 120 Amount Ampicillin-Sulbactam 3 gm 100 In Sodium Chloride 0.9% 100 ml @ 200 mls/hr IVPB Q8HR [facility] Rx#:[id number] Sodium Chloride 0.9% 1, 120 000 ml @ 20 mls/hr IV . Q24H [facility] Rx#:[id number] Oral 598 222 762 Output: Urine 500 1175 1100 Other: Voiding Method Urinal Urinal # Voids 2 - Constitutional General appearance: Present: cooperative, no acute distress, thin - EENT Eyes: Present: anicteric sclerae, EOMI ENT: Present: hearing grossly normal - Respiratory Details: resp unlabored at rest - Cardiovascular Details: skin warm, well perfused - Peripheral edema leg Peripheral Edema: bilateral: None - Integumentary Integumentary: Present: pale - Neurologic Neurologic: Present: CNII-XII intact (grossly) - Musculoskeletal Musculoskeletal: Present: strength equal bilaterally - Psychiatric Psychiatric: Present: A&O x's 3, appropriate affect - Allied health notes Allied health notes reviewed: PT - Labs CBC & Chem 7: 01/31/25 05:41 01/31/25 05:41 Labs: Abnormal Lab Results - Last 24 Hours (Table) 02/01/25 02/01/25 02/02/25 Range/Units 16:44 19:52 06:16 POC Glucose (mg/dL) 157 H 156 H 120 H (70-110) mg/dL 02/02/25 Range/Units 11:47 POC Glucose (mg/dL) 180 H (70-110) mg/dL Microbiology - Last 24 Hours (Table) 01/30/25 06:20 Blood Culture - Preliminary Blood Assessment and Plan (1) Diarrhea Current Visit: Yes Status: Resolved Priority: High Code(s): R19.7 - DIARRHEA, UNSPECIFIED SNOMED Code(s): 50745039 (2) Small cell lung cancer Current Visit: Yes Status: Acute Priority: High Code(s): C34.90 - MALIGNANT NEOPLASM OF UNSP PART OF UNSP BRONCHUS OR LUNG SNOMED Code(s): 166020751 Plan: Diarrhea -CTAP suspicious for colitits lt side and decending colon - Stool studies have been ordered, no stool since the 4th per documentation in chart - Patient is on antibiotics - reports incontinence of stool prior to admit, no stool since the 4th Generalized weakness - As stated in consult patient was getting around his home with a wheeled walker. He sat down to use the toilet and was unable to stand back up. -PT assessment is that pt is suitable for home. -Have asked case mgmt to ensure pt has home care, PT/OT Extensive stage small cell lung cancer - Diagnosis made from a biopsy of a right upper lobe lung mass 12/31/2024 - CT chest abdomen and pelvis at that time suspicious in multiple areas including adrenals. CT of the head was negative for metastatic disease-could not do MRI because of a stent, unknown material - Patient had PET 01/28/2025. Reports: Group of lymph nodes right low neck/supraclavicular area 13 mm, SUV 10.8. Mediastinal lymphadenopathy with dominant mass in the right upper medial aspect extending to the right perihilar region, 6.8 x 5.0 x 10.7, SUV 14.1 right upper lobe nodular densities SUV 3.7. Right anterior perihilar nodule 15 mm, SUV 8.8. Abdomen and pelvis: right adrenal gland 18 mm, SUV 11. Left adrenal gland 16 mm, SUV 7.6. Left renal posterior cortical exophytic lesion 20 mm measuring 19 Hounsfield units, SUV 6.8. Musculoskeletal structures, is documented "suspicious uptake identified examples include:", Nothing follows. This was reviewed with pt and - Yesterday reviewed diagnosis of extensive stage small cell lung cancer. The disease is not curable but it is treatable for some time as long as a pt is fit enough to tolerate treatment and if they want to do treatment. Life expectancy without treatment could be 3-4months, with treatment-including new bispecific agents-patients can get up to 1.5-2 years. -We discussed poor PS and recommended either inpt or outpt PT. From chart review it appears that pt is going home with home care. -Pt was not able to tell me if he and his had made any decisions about cancer treatment. Will make sure f/u appt is in DC plan -Pt is ok from a Hem/Onc standpoint to be discharged once cleared by Attending and consulting MDs.
[2025-02-02 16:33] LABS: Glucose,Whole Blood 131 mg/dL (70-110)
--- NOTE | 2025-02-02 16:36 | HP ---
HISTORY AND PHYSICAL CHIEF COMPLAINT: Syncope, weakness, and hypotension. HISTORY OF PRESENT ILLNESS: This is a 74-year-old white male, who has been discharged about a week ago to home care. He has advanced carcinoma of the lung along with COPD. It has not yet been determined if his cancer is treatable. Apparently, he finally did get the PET scan several days ago, but results are not available. He is very weak and in poor condition. He is semi-confused and delirious. He apparently has been having nausea, vomiting, diarrhea, which contributed to his issues. He was brought through to the emergency room, where he was dehydrated and hypotensive. In the emergency room, he had an x-ray that suggested there might be a small left lower lobe pneumonitis. Laboratory studies reveals white count 19,700 and hemoglobin 11.7. Remainder of his history is unremarkable. His past medical history, family history, personal and social histories are all detailed in his previous records. PHYSICAL EXAMINATION: VITAL SIGNS: Blood pressure is 80/52, pulse is 71. GENERAL: He is semi-alert. He is dehydrated. HEAD, EARS, EYES, NOSE, MOUTH: Normal. CHEST: Demonstrated shallow breath sounds. CARDIAC: Normal. ABDOMEN: Soft. EXTREMITIES: Normal. IMPRESSION: 1. Syncopal episode. 2. Dehydration. 3. Extensive carcinoma of the lung. 4. Chronic obstructive pulmonary disease. 5. Hypotension. 6. Leukocytosis. 7. Anemia. 8. Possible left lower lobe pneumonitis. 9. Vomiting and diarrhea. PLAN: 1. Bedrest. 2. IV fluids. 3. Consult Oncology. MMODL / IJN: [id number] /
--- NOTE | 2025-02-02 16:36 | PN ---
PROGRESS NOTE CHIEF COMPLAINT: Weakness, delirium, dehydration and falling. HISTORY OF PRESENT ILLNESS: This gentleman remains weak and delirious. PHYSICAL EXAMINATION: RESPIRATORY: Breath sounds are heard on both sides. CARDIAC: Normal. ABDOMEN: Soft, nontender. IMPRESSION: 1. Weakness and delirium. 2. Nausea, vomiting, diarrhea. 3. Dehydration. 4. Carcinoma of the lung. PLAN: Continue with IV fluids and refer to Oncology to see if there is an option for his undergoing cancer treatment. MMODL / IJN: [id number] /
[2025-02-02 20:13] LABS: Glucose,Whole Blood 145 mg/dL (70-110)
[2025-02-03 07:19] LABS: Glucose,Whole Blood 87 mg/dL (70-110)
[2025-02-03 12:09] LABS: Glucose,Whole Blood 135 mg/dL (70-110)
[2025-02-03 17:18] LABS: Glucose,Whole Blood 175 mg/dL (70-110)
[2025-02-03 20:41] LABS: Glucose,Whole Blood 156 mg/dL (70-110)
--- NOTE | 2025-02-04 07:12 | PN ---
PROGRESS NOTE CHIEF COMPLAINT: CA of the lung. HISTORY OF PRESENT ILLNESS: This gentleman is about the same. He is slightly lethargic. When asked what he wants to do, he states, "I want to go home." PHYSICAL EXAMINATION: CHEST: Demonstrates poor breath sounds with occasional rhonchi. CARDIAC: Normal. IMPRESSION: Carcinoma of the lung. PLAN: Await decision regarding discharge or treatment. MMODL / IJN: [id number] /
[2025-02-04 07:35] LABS: Glucose,Whole Blood 101 mg/dL (70-110)
--- NOTE | 2025-02-04 08:39 | PN ---
PROGRESS NOTE CHIEF COMPLAINT: Metastatic CA of the lung. HISTORY OF PRESENT ILLNESS: This gentleman is about the same. He is weak and somewhat lethargic, but he does seem to be oriented. Apparently, Oncology is waiting for the patient and the family make a decision regarding ongoing care versus hospice. PHYSICAL EXAMINATION: LUNGS: Breath sounds are heard with occasional rales. CARDIAC: Normal. ABDOMEN: Soft, nontender. He is weak. IMPRESSION: 1. Metastatic cancer of the lung. 2. Chronic obstructive pulmonary disease. 3. Delirium. PLAN: Await recommendations from Oncology, the patient and the family. MMODL / IJN: [id number] /
[2025-02-04 12:05] LABS: Glucose,Whole Blood 136 mg/dL (70-110)
--- NOTE | 2025-02-04 13:24 | PN ---
PROGRESS NOTE DATE OF SERVICE: 02/04/2025 CHIEF COMPLAINT: CA of the lung with metastases. HISTORY OF PRESENT ILLNESS: This gentleman's condition is same. We are waiting for decision regarding either treatment and/or discharge planning. He would like to go home, but his states that she cannot take care of him. PHYSICAL EXAMINATION: GENERAL: He is awake and slightly lethargic. His orientation is difficult to assess. LUNGS: Breath sounds are heard bilaterally. CARDIAC: Exam is normal. IMPRESSION: 1. Carcinoma of the lung. 2. Chronic obstructive pulmonary disease. PLAN: Await some kind of decision regarding treatment and discharge. MMODL / IJN: [id number] /
[2025-02-04 16:08] VITALS: BMI 21.8
--- NOTE | 2025-02-06 01:37 | PN ---
PROGRESS NOTE DATE OF SERVICE: 02/05/2025 CHIEF COMPLAINT: CA of the lung. HISTORY OF PRESENT ILLNESS: This gentleman is doing well. There has been no interval change in planning. Apparently, Oncology is waiting for the patient and the family to make a decision. He wants to go home, but his stated that she cannot take care of him. PHYSICAL EXAMINATION: Physical exam is unchanged. He is somewhat lethargic. Chest is fairly clear bilaterally and cardiac exam is normal. IMPRESSION: 1. Carcinoma of the lung. 2. Chronic obstructive pulmonary disease. PLAN: Await for the patient and the family to make a decision regarding treatment or not. MMODL / IJN: [id number] /
[2025-02-06 12:16] VITALS: RESP 16
--- NOTE | 2025-02-07 16:27 | P.PN ---
Subjective Progress Note Date: 02/07/25 Principal diagnosis: weakness, SCLC, extensive stage disease In f/u today pt up in chair, he reoprts he is eating and drinking well, he is using walker and getting back and forth to the restroom with stand by. Asked about decisions regarding plan of care pt states he is overwhelmed and not sure what he wants. is not in the room until later in the day. Objective - Vital Signs Vital signs: Vital Signs Temp 98.0 F 02/07/25 12:51 Pulse 69 02/07/25 12:51 Resp 16 02/07/25 12:51 BP 146/73 02/07/25 12:51 Pulse Ox 99 02/07/25 12:51 FiO2 Intake & Output 02/06/25 02/07/25 02/07/25 18:59 06:59 18:59 Intake Total 1979 Output Total 1000 500 Balance 980 -500 Intake: Oral 1979 Output: Urine 1000 500 Other: Voiding Method Toilet Urinal # Voids 2 # Bowel Movements 1 1 - Constitutional General appearance: Present: cooperative, no acute distress, thin - EENT Eyes: Present: anicteric sclerae, EOMI, ptosis ENT: Present: hearing grossly normal - Respiratory Details: resp unlabored at rest - Cardiovascular Details: skin warm, well perfused - Peripheral edema leg Peripheral Edema: bilateral: None - Integumentary Integumentary: Present: pale - Neurologic Neurologic: Present: CNII-XII intact - Musculoskeletal Musculoskeletal: Present: generalized weakness - Psychiatric Psychiatric: Present: A&O x's 3, appropriate affect - Labs CBC & Chem 7: 01/31/25 05:41 01/31/25 05:41 Assessment and Plan (1) Small cell lung cancer Current Visit: Yes Status: Acute Priority: High Code(s): C34.90 - MALIGNANT NEOPLASM OF UNSP PART OF UNSP BRONCHUS OR LUNG SNOMED Code(s): 607351361 (2) Diarrhea Current Visit: Yes Status: Resolved Priority: High Code(s): R19.7 - DIARRHEA, UNSPECIFIED SNOMED Code(s): 95329880 Plan: Diarrhea -CTAP suspicious for colitits lt side and decending colon - Stool studies not done-no diarrhea. Daily BM x 2 days noted in chart - Antibiotics completed Generalized weakness - As stated in consult patient was getting around his home with a wheeled walker. He sat down to use the toilet and was unable to stand back up. -PT assessment is that pt is suitable for home. -Have asked case mgmt to ensure pt has home care, PT/OT -I see in documentation that is worried about being able to care for pt at home. Pt and need to make some decisions as to the plan of care. Recommended they ask to talk with Case Mgmt or Social Work to help them with decision making. Extensive stage small cell lung cancer - Diagnosis made from a biopsy of a right upper lobe lung mass 12/31/2024 - CT chest abdomen and pelvis at that time suspicious in multiple areas including adrenals. CT of the head was negative for metastatic disease-could not do MRI because of a stent, unknown material - Patient had PET 01/28/2025. Reports: Group of lymph nodes right low neck/supraclavicular area 13 mm, SUV 10.8. Mediastinal lymphadenopathy with dominant mass in the right upper medial aspect extending to the right perihilar region, 6.8 x 5.0 x 10.7, SUV 14.1 right upper lobe nodular densities SUV 3.7. Right anterior perihilar nodule 15 mm, SUV 8.8. Abdomen and pelvis: right adrenal gland 18 mm, SUV 11. Left adrenal gland 16 mm, SUV 7.6. Left renal posterior cortical exophytic lesion 20 mm measuring 19 Hounsfield units, SUV 6.8. Musculoskeletal structures, is documented "suspicious uptake identified examples include:", Nothing follows. This was reviewed with pt and -Pt and are aware of the diagnosis and prognosis with and without treatment. Pt reports-everytime I ask him-that he does not know what is going on and then he reports that he is overwhelmed when we discuss the diagnosis. I explained that he and his can figure out if he wants to do any cancer treatment after he gets home and has time to think about it. -Appt to see Dr. Pardo in the chart for next week Pt is ok from a Hem/Onc standpoint to be discharged once cleared by Attending and consulting MDs. Appt with Med Oncologist next week
--- NOTE | 2025-02-07 23:42 | PN ---
PROGRESS NOTE DATE OF SERVICE: 02/06/2025 CHIEF COMPLAINT: Metastatic carcinoma of the lung. HISTORY OF PRESENT ILLNESS: This gentleman is stable. He is semi alert and oriented. It is not clear what the plan is going forward. I do not know if Oncology is planning treatment. There is also question about where he can go. He feels he would like to go home, but his is already stated she cannot take care of him. PHYSICAL EXAMINATION: LUNGS: Breath sounds are heard bilaterally. CARDIAC: Normal. ABDOMEN: Soft, nontender. IMPRESSION: 1. Carcinoma of the lung. 2. Chronic obstructive pulmonary disease. PLAN: Await suitable discharge plan with or without treatment. MMODL / IJN: [id number] /
--- NOTE | 2025-02-08 02:28 | PN ---
PROGRESS NOTE DATE OF SERVICE: 02/07/2025 CHIEF COMPLAINT: CA of the lung. HISTORY OF PRESENT ILLNESS: This gentleman is about the same. He is awake and alert, but somewhat lethargic. He states he wants to go home. Oncology is apparently waiting for him to be discharged and then they will talk further regarding the treatment of his lung cancer, but his prognosis is poor and deteriorating. PHYSICAL EXAMINATION: LUNGS: Breath sounds are heard bilaterally. CARDIAC: Normal. IMPRESSION: 1. Cancer of the lung. 2. Chronic obstructive pulmonary disease. 3. Delirium. PLAN: This patient awaits a discharge plan. He cannot go home. His has stated that she cannot take care of him. He was home for a brief period time, and she is incapable of manage him. In addition to that she has substance abuse problems as does her daughter who lives with them and it is not a safe environment for the patient. It is suggested that he go to a fpc with hospice, but discharge plan will have to be arranged. He cannot go home. MMJOSEP / QINGN: [id number] /
[2025-02-08 02:40] VITALS: PULSE 65
[2025-02-08 12:13] VITALS: BP 148/65; TEMP 97.7
--- NOTE | 2025-02-09 05:40 | DS ---
DISCHARGE SUMMARY CHIEF COMPLAINT: Fever, shortness of breath, nausea, vomiting, diarrhea, and syncope. HISTORY OF PRESENT ILLNESS AND PHYSICAL EXAMINATION: Details of this man's history and physical can be found in the initial workup. LABORATORY STUDIES: While he was in a hospital, he had laboratory studies, details of which can be found in the laboratory section of his chart. COURSE IN THE HOSPITAL: After admission, he was placed on bedrest, started intravenous fluids. Plan appropriate studies and cultures. His principal problem was his metastatic CA of the lung. He was seen and followed by Oncology. It was initially thought that he might be a candidate for therapy, but he is begin to deteriorate and an Oncology want him to have a PET scan before they would talk about treatment. This could not be done in the hospital and was planned that it will be done left the hospital. After that the balance of his hospitalization was spent in trying to figure out where he would go. At one point the family and the patient considered hospice, but then they withdrew that. It was thought that he would go home again, but the stated that she was not able to take care of him. The rest of his hospitalization was spent in trying to figure out where he would go. He probably would not qualify for detention and he would not be able to receive treatment for his malignancy there. Finally, the agreed to take him home. This likely will not work. She uses meth and lives with the daughter and apparently other people in the house all of whom abuse drugs. We will try this at the 's request, but likely he will be brought back to the hospital fairly soon unless he expires. They have turned down hospice. FINAL DIAGNOSES: 1. Metastatic cancer of the lung. 2. Chronic obstructive pulmonary disease. 3. Delirium. 4. History of . 5. History of alcoholism. OPERATIONS: None. CONSULTATIONS: Oncology. MMODL / IJN: [id number] /
== END 2025-02-08 18:40 | disposition home health service (06) | DRG 392 ==
LOC: EC 05:12 → MERGE 06:50 → 3SCARD 06:50 → 5NMEDONC 02-02 18:14
PROVIDERS: ADMIT Family Medicine; ATTEND Family Medicine
DX: R19.7 Diarrhea, unspecified (principal); C78.01 Secondary malignant neoplasm of right lung; C79.71 Secondary malignant neoplasm of right adrenal gland; C77.1 Secondary and unspecified malignant neoplasm of intrathoracic lymph nodes; C34.90 Malignant neoplasm of unspecified part of unspecified bronchus or lung; F05 Delirium due to known physiological condition; I38 Endocarditis, valve unspecified; D63.0 Anemia in neoplastic disease; C79.72 Secondary malignant neoplasm of left adrenal gland; E11.9 Type 2 diabetes mellitus without complications; J44.9 Chronic obstructive pulmonary disease, unspecified; G40.909 Epilepsy, unspecified, not intractable, without status epilepticus; I10 Essential (primary) hypertension; N17.9 Acute kidney failure, unspecified; I48.0 Paroxysmal atrial fibrillation; Z79.4 Long term (current) use of insulin; E86.0 Dehydration; F17.210 Nicotine dependence, cigarettes, uncomplicated; E78.5 Hyperlipidemia, unspecified; I95.1 Orthostatic hypotension; Z79.899 Other long term (current) drug therapy; Z85.118 Personal history of other malignant neoplasm of bronchus and lung; Z86.73 Personal history of transient ischemic attack (TIA), and cerebral infarction without residual deficits; Z86.79 Personal history of other diseases of the circulatory system; Z87.19 Personal history of other diseases of the digestive system
CPT/HCPCS: 36415; 71046; 74176; 78582; 80053; 83605; 83735; 83880; 84100; 84484; 85025; 85379; 85610; 85730; 87040; 93005; 96361; 96365; 96375; 99291